=== PATIENT | female | born 1950 | race Caucasian/White ===

== ENCOUNTER → 2018-09-23 14:21 | Outpatient (CLI) | payer MEDICARE, OTHER, SELFPAY ==
--- NOTE | 2018-09-23 | DI.RAD.S_ITS ---
PROCEDURE: XR HIP W PEL IF DONE LT 2V INDICATIONS: PAIN IN LEFT HIP TECHNIQUE: 2 views of the hip were acquired. COMPARISON: None. FINDINGS: Bones: No fractures or dislocations. No suspicious bony lesions. The visualized pelvic ring appears intact. Soft tissues: No suspicious soft tissue calcifications or masses. IMPRESSION: No radiographic abnormalities. If there is continued pain, followup exam or additional imaging such as MRI or CT could be performed for further assessment. Dictated by: Linda Zafar M.D. on 09/23/2018 at 15:57 Approved by: Linda Zafar M.D. on 09/23/2018 at 15:57
--- NOTE | 2018-09-23 | DI.RAD.S_ITS ---
PROCEDURE: XR HAND RT MIN 3V INDICATIONS: pain in right hand TECHNIQUE: 3 views of the hand(s) acquired. COMPARISON: None. FINDINGS: Bones: No acute fracture or dislocation. There is severe interphalangeal joint space narrowing. 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 Soft tissues: No suspicious soft tissue calcifications. IMPRESSION: Osteoarthritis. Dictated by: Linda Zafar M.D. on 09/23/2018 at 15:56 Approved by: Linda Zafar M.D. on 09/23/2018 at 15:57
--- NOTE | 2018-09-23 | DI.RAD.S_ITS ---
PROCEDURE: XR HAND LT MIN 3V INDICATIONS: PAIN IN LEFT HAND TECHNIQUE: 3 views of the hand(s) acquired. COMPARISON: None. FINDINGS: Bones: No acute fracture or dislocation. Severe interphalangeal joint space narrowing is present. 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 Soft tissues: No suspicious soft tissue calcifications. IMPRESSION: Severe degenerative change. No acute radiographic findings. Dictated by: Linad Zafar M.D. on 09/23/2018 at 15:55 Approved by: Linda Zafar M.D. on 09/23/2018 at 15:56
== END ==
PROVIDERS: PCP Physician Assistant; Visit Provider Physician Assistant
DX: M25.552 Pain in left hip (principal); M79.642 Pain in left hand; M79.641 Pain in right hand; M18.0 Bilateral primary osteoarthritis of first carpometacarpal joints
CPT/HCPCS: 73130; 73502

== ENCOUNTER 2019-01-11 14:39 | Emergency (ER) | payer MEDICARE, OTHER, SELFPAY ==
[2019-01-11 14:43] VITALS: BP 142/82; PULSE 88; RESP 20; TEMP 35.8; O2SAT 96; BMI 40.7
[2019-01-11 15:42] VITALS: BP 112/71; PULSE 83; RESP 19; O2SAT 94
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
== END 2019-01-11 15:46 | disposition home or self-care (01) ==
PROVIDERS: Emergency Provider Emergency Medicine; PCP Physician Assistant
DX: S16.1XXA Strain of muscle, fascia and tendon at neck level, initial encounter (principal); V43.52XA Car driver injured in collision with other type car in traffic accident, initial encounter
CPT/HCPCS: 99282; 99283

== ENCOUNTER 2019-06-06 13:45 | Outpatient (RCR) | payer MEDICARE, OTHER, SELFPAY ==
--- NOTE | 2018-11-15 16:00 | PT.OPPOC ---
Current Diagnoses Pain in left hip (11/15/18) Provider Visit Care Team Role Provider Type Yenny Harrell PA-C Attending Provider Physician Primary Care Provider Specialty: Internal Medicine Address: [address] [place] [address], [facility] Email: Plan Of Care PT-OP-T Assessment and Plan Start: 11/15/18 16:05 Freq: Status: Active Protocol: Document 11/15/18 16:00 EA (Rec: 11/16/18 07:36 EA [id number]) Physical Therapy Assessment Rehab Potential Rehabilitation Potential Fair Evaluation Complexity Number of Personal Factors/Comorbidities 3 or More Number of Body Systems Impaired 3 Clinical Presentation at Evaluation Evolving Impairments Impairments Activity Tolerance Functional Mobility Pain ROM Soft Tissue Mobility Strength Goals Four Impairment No HEP in place Nursing Home Goal (LTG) Patient will comply and perform HEP safely and independently. LTG Duration 4 wks Three Impairment Impaired gait Nursing Home Goal (LTG) Patient will exhibit no lateral trunk lean to decrease improve function and prevent muscular imbalance. 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 Today patient exhibited with difficulty in gait and and bed mobility due to multiple pain to left hip, low back, and right thigh. Special tests reveals positive with right piriformis syndrome, both ITB band tightness and hip flexors. Noted negative with SLR, SHARI and SI joint dysfuntion. Patient is limited with walking, standing and sitting tolerance. Pt is good candidate for skilled PT and will benefit with education, decreasing LE symptoms and both LE's strengthening. Physical Therapy Plan Frequency and Duration Frequency of Treatment 2x/Week Duration of Treatment 8 wks Plan of Care Start Date 11/15/18 Plan of Care End Date 01/10/19 Therapeutic Interventions Therapeutic Interventions Gait Training Home Exercise Program Manual Therapy Patient/Caregiver Education Self-Care/Home Management Soft Tissue Mobilization Taping Therapeutic Exercises Modalities Cold Pack/Ice Massage Electric Stimulation Hot Packs Ultrasound Next Visit Focus/Plan Next Note Type Treatment Note Next Visit Plan Provide HEP with images, begin light stretching and manual therapy to both ITB, upper gluteals and Plan of Care Dates Plan of Care Start Date 11/15/18 Plan of Care End Date 01/10/19 Please Sign and Return: I have reviewed this Plan of Care and certify that the skilled therapy services above are required to meet the patient?s needs. Physician Signature Date Printed Name and Credentials Clinical Instructor Signature Printed Name and Credentials
--- NOTE | 2018-11-15 16:00 | PT.OIE ---
Current Diagnoses Pain in left hip (11/15/18) Provider Visit Care Team Role Provider Type Yenny Harrell PA-C Attending Provider Physician Primary Care Provider Specialty: Internal Medicine Address: [address] [place] [address], [facility] Email: Physical Therapy Initial Evaluation PT-OP-A Visit Information Start: 11/15/18 16:05 Freq: Status: Active Protocol: Document 11/15/18 16:00 EA (Rec: 11/16/18 07:36 EA [id number]) Out-Patient Physical Therapy Visit Information Visit Information Visit Type Initial Evaluation Visit Start Time 15:15 Visit Stop Time 16:00 Total Visit Minutes 40 Visit Number 1 Evaluation Information Evaluation Date 11/16/18 PT-OP-B Current Condition Start: 11/15/18 16:05 Freq: Status: Active Protocol: Document 11/15/18 16:00 EA (Rec: 11/16/18 07:36 EA [id number]) Current Condition History of Current Condition Onset Date August/2018 Current Complaints Left hip and right thigh pain History of Current Condition Present left hip condition started to re-aggravated on August 2018 without known recent injury. Have had history of left hip bursitis and undergone yanelis steroid injection with good results years ago. Right chronic LE sciatica with no formal PT. OTC pain medication helps relief of pain temporarily. X- rays to left hip reveals no significant findings per medical records. Health history of NIDDM with metformin meds, HTN, abdominal hernia, hypothyroidism and OA . Prior Treatments and Tests Left hip steroid injection Future Testing and Treatments Planned None identified Treatment Goals Patient/Caregiver Goals Patient wants to reduce left hip, right thigh, and low back pain to at least 2/10 pain scale. Prior Functional Status Baseline Function- ADL's Independent Baseline Function- Mobility Independent Baseline Function- Gait Indep with no difficulty prior to re-aggravation 3 months ago. Baseline Function- Work/School Able to look after her in all personal care prior to 2017 re-aggravation Current Functional Impairments (Reported) Functional Limitations- ADL's Independent with difficulty and requires constant rest to complete the task due to pain Functional Limitations- Mobility/Gait Unable to walk more than 2 blocks Functional Limitations- Work/School Indep with difficulty looking after her PT-OP-C Subjective Start: 11/15/18 16:05 Freq: Status: Active Protocol: Document 11/15/18 16:00 EA (Rec: 11/16/18 07:36 EA [id number]) OP-PT Subjective Patient Comments Patient Comments Patient would like to eliminate left hip and right postlateral thigh pain Patient Reported Progress Same PT-OP-D Balance Start: 11/15/18 16:05 Freq: Status: Active Protocol: Document 11/15/18 16:17 EA (Rec: 11/16/18 09:28 EA [id number]) Balance Tests Single Limb Standing Single Limb- Right <2 secs Single Limb- Left > 2 secs PT-OP-F Manual Assessment Start: 11/15/18 16:05 Freq: Status: Active Protocol: Document 11/15/18 16:00 EA (Rec: 11/16/18 07:36 EA [id number]) Manual Assessments Soft Tissue Assessment Soft Tissue Mobility Assessment Tight both QL, Paralumbars, hamstring, ITB, Calves. PT-OP-G Mobility & Gait Start: 11/15/18 16:05 Freq: Status: Active Protocol: Document 11/15/18 14:10 EA (Rec: 11/16/18 09:28 EA [id number]) OP Mobility Evaluation Bed Mobility Rolling Indep with moderate difficulty Supine to and from Sit Indep with moderate difficulty Transfers Sit to Stand Indep Bed to Chair Transfers Indep OP Gait Assessment Gait Gait Assistance Required: Independent Able to Maintain Weight Bearing Status Yes During Gait Assistive Devices Assistive Device None Gait Deviations General Gait Pattern Lateral Trunk Lean PT-OP-J Posture/Palpation/Skin Start: 11/15/18 16:05 Freq: Status: Active Protocol: Document 11/15/18 16:00 EA (Rec: 11/16/18 07:36 EA [id number]) Posture Evaluation Position Standing Evaluation View pot/lateral L-Spine Posture Increased Lordosis Shoulder Posture (L) Rounded (R) Rounded Pelvis Posture Anteriorly Tilted Palpation Assessment Location One Palpation Location Gluteals, ITB Palpation Findings Soft Tissue Tightness Tenderness Palpation Details Grade 3/4 tenderness over ITB, gluteals. PT-OP-K Range of Motion Start: 11/15/18 16:05 Freq: Status: Active Protocol: Document 11/15/18 14:10 EA (Rec: 11/16/18 09:28 EA [id number]) Lumbar Spine Range of Motion Lumbar Spine Active Percentage Testing Position Standing Flexion 75 Extension 90 Rotation Left 75 Rotation Right 75 Lateral Flexion Left 65 Lateral Flexion Right 65 ROM Limitations Soft Tissue Tightness Finger Goniometric Range of Motion Finger ROM Limitations Finger ROM Limitations Soft Tissue Tightness Comments Both index finger limited flexion Hip Goniometric Range of Motion Hip Measured in Degrees Left Passive Hip ROM WFL Yes Right Passive Hip ROM WFL Yes Hip ROM Limitations Hip ROM Limitations Soft Tissue Tightness Knee Goniometric Range of Motion Knee Measured in Degrees Right Knee ROM WFL Yes Left Knee ROM WFL Yes PT-OP-L Special Tests Start: 11/15/18 16:05 Freq: Status: Active Protocol: Document 11/15/18 14:10 EA (Rec: 11/16/18 09:28 EA [id number]) Special Tests Hip Special Tests Trendelenberg Test Results Right compesated SHARI Test Results negative Piriformis Test Results sensitive to right side Straight Leg Raise Test Results - Marlene's Test Test Results + Anterior Labral Test Test Results - PT-OP-Q Treatments Start: 11/15/18 16:05 Freq: Status: Active Protocol: Document 11/15/18 16:10 EA (Rec: 11/16/18 09:28 EA [id number]) Self-Care/Home Management Treatment Education Patient Education Body Mechanics Home Exercise Program Pain Management Safety PT-OP-T Assessment and Plan Start: 11/15/18 16:05 Freq: Status: Active Protocol: Document 11/15/18 16:00 EA (Rec: 11/16/18 07:36 EA [id number]) Physical Therapy Assessment Rehab Potential Rehabilitation Potential Fair Evaluation Complexity Number of Personal Factors/Comorbidities 3 or More Number of Body Systems Impaired 3 Clinical Presentation at Evaluation Evolving Impairments Impairments Activity Tolerance Functional Mobility Pain ROM Soft Tissue Mobility Strength Goals Four Impairment No HEP in place Programs Director Goal (LTG) Patient will comply and perform HEP safely and independently. LTG Duration 4 wks Three Impairment Impaired gait Programs Director Goal (LTG) Patient will exhibit no lateral trunk lean to decrease improve function and prevent muscular imbalance. LTG Duration 4 wks Two Impairment Difficulty with bed mobility Snf Goal (LTG) Patient will exhibits no difficulty in all bed mobility LTG Duration 4 wks One Impairment LEFS 29/80 Snf Goal (LTG) Patient will have LEFS of > 45 LTG Duration 4 wks Assessment Summary Assessment Pleasant 68 y/o F patient with referring diagnosis of left hip pain. Today patient exhibited with difficulty in gait and and bed mobility due to multiple pain to left hip, low back, and right thigh. Special tests reveals positive with right piriformis syndrome, both ITB band tightness and hip flexors. Noted negative with SLR, SHARI and SI joint dysfuntion. Patient is limited with walking, standing and sitting tolerance. Pt is good candidate for skilled PT and will benefit with education, decreasing LE symptoms and both LE's strengthening. Physical Therapy Plan Frequency and Duration Frequency of Treatment 2x/Week Duration of Treatment 8 wks Plan of Care Start Date 11/15/18 Plan of Care End Date 01/10/19 Therapeutic Interventions Therapeutic Interventions Gait Training Home Exercise Program Manual Therapy Patient/Caregiver Education Self-Care/Home Management Soft Tissue Mobilization Taping Therapeutic Exercises Modalities Cold Pack/Ice Massage Electric Stimulation Hot Packs Ultrasound Next Visit Focus/Plan Next Note Type Treatment Note Next Visit Plan Provide HEP with images, begin light stretching and manual therapy to both ITB, upper gluteals and
--- NOTE | 2018-11-17 16:49 | PT.OTN ---
Current Diagnoses Pain in left hip (11/17/18) Physical Therapy Treatment Note PT-OP-A Visit Information Start: 11/15/18 16:05 Freq: Status: Active Protocol: Document 11/17/18 16:41 [facility] (Rec: 11/17/18 16:49 AM[facility] [id number]) Out-Patient Physical Therapy Visit Information Visit Information Visit Type Treatment Note Visit Start Time 15:15 Visit Stop Time 16:00 Total Visit Minutes 45 Visit Number 2 Evaluation Information Evaluation Date 11/16/18 PT-OP-B Current Condition Start: 11/15/18 16:05 Freq: Status: Active Protocol: Document 11/15/18 16:00 EA (Rec: 11/16/18 07:36 EA [id number]) Current Condition History of Current Condition Onset Date August/2018 Current Complaints Left hip and right thigh pain History of Current Condition Present left hip condition started to re-aggravated on August 2018 without known recent injury. Have had history of left hip bursitis and undergone yanelis steroid injection with good results years ago. Right chronic LE sciatica with no formal PT. OTC pain medication helps relief of pain temporarily. X- rays to left hip reveals no significant findings per medical records. Health history of NIDDM with metformin meds, HTN, abdominal hernia, hypothyroidism and OA . Prior Treatments and Tests Left hip steroid injection Future Testing and Treatments Planned None identified Treatment Goals Patient/Caregiver Goals Patient wants to reduce left hip, right thigh, and low back pain to at least 2/10 pain scale. Prior Functional Status Baseline Function- ADL's Independent Baseline Function- Mobility Independent Baseline Function- Gait Indep with no difficulty prior to re-aggravation 3 months ago. Baseline Function- Work/School Able to look after her in all personal care prior to 2017 re-aggravation Current Functional Impairments (Reported) Functional Limitations- ADL's Independent with difficulty and requires constant rest to complete the task due to pain Functional Limitations- Mobility/Gait Unable to walk more than 2 blocks Functional Limitations- Work/School Indep with difficulty looking after her PT-OP-C Subjective Start: 11/15/18 16:05 Freq: Status: Active Protocol: Document 11/17/18 16:41 AM[facility] (Rec: 11/17/18 16:49 AM[facility] [id number]) OP-PT Subjective Patient Comments Patient Comments reports she may be a bit better from starting the stretches. She would like to work on her right side today which is the side that is giving her sciatic symptoms PT-OP-D Balance Start: 11/15/18 16:05 Freq: Status: Active Protocol: Document 11/15/18 16:17 EA (Rec: 11/16/18 09:28 EA [id number]) Balance Tests Single Limb Standing Single Limb- Right <2 secs Single Limb- Left > 2 secs PT-OP-F Manual Assessment Start: 11/15/18 16:05 Freq: Status: Active Protocol: Document 11/15/18 16:00 EA (Rec: 11/16/18 07:36 EA [id number]) Manual Assessments Soft Tissue Assessment Soft Tissue Mobility Assessment Tight both QL, Paralumbars, hamstring, ITB, Calves. PT-OP-G Mobility & Gait Start: 11/15/18 16:05 Freq: Status: Active Protocol: Document 11/15/18 14:10 EA (Rec: 11/16/18 09:28 EA [id number]) OP Mobility Evaluation Bed Mobility Rolling Indep with moderate difficulty Supine to and from Sit Indep with moderate difficulty Transfers Sit to Stand Indep Bed to Chair Transfers Indep OP Gait Assessment Gait Gait Assistance Required: Independent Able to Maintain Weight Bearing Status Yes During Gait Assistive Devices Assistive Device None Gait Deviations General Gait Pattern Lateral Trunk Lean PT-OP-J Posture/Palpation/Skin Start: 11/15/18 16:05 Freq: Status: Active Protocol: Document 11/15/18 16:00 EA (Rec: 11/16/18 07:36 EA [id number]) Posture Evaluation Position Standing Evaluation View pot/lateral L-Spine Posture Increased Lordosis Shoulder Posture (L) Rounded (R) Rounded Pelvis Posture Anteriorly Tilted Palpation Assessment Location One Palpation Location Gluteals, ITB Palpation Findings Soft Tissue Tightness Tenderness Palpation Details Grade 3/4 tenderness over ITB, gluteals. PT-OP-K Range of Motion Start: 11/15/18 16:05 Freq: Status: Active Protocol: Document 11/15/18 14:10 EA (Rec: 11/16/18 09:28 EA [id number]) Lumbar Spine Range of Motion Lumbar Spine Active Percentage Testing Position Standing Flexion 75 Extension 90 Rotation Left 75 Rotation Right 75 Lateral Flexion Left 65 Lateral Flexion Right 65 ROM Limitations Soft Tissue Tightness Finger Goniometric Range of Motion Finger ROM Limitations Finger ROM Limitations Soft Tissue Tightness Comments Both index finger limited flexion Hip Goniometric Range of Motion Hip Measured in Degrees Left Passive Hip ROM WFL Yes Right Passive Hip ROM WFL Yes Hip ROM Limitations Hip ROM Limitations Soft Tissue Tightness Knee Goniometric Range of Motion Knee Measured in Degrees Right Knee ROM WFL Yes Left Knee ROM WFL Yes PT-OP-L Special Tests Start: 11/15/18 16:05 Freq: Status: Active Protocol: Document 11/15/18 14:10 EA (Rec: 11/16/18 09:28 EA [id number]) Special Tests Hip Special Tests Trendelenberg Test Results Right compesated SHARI Test Results negative Piriformis Test Results sensitive to right side Straight Leg Raise Test Results - Marlene's Test Test Results + Anterior Labral Test Test Results - PT-OP-Q Treatments Start: 11/15/18 16:05 Freq: Status: Active Protocol: Document 11/17/18 16:41 AMH (Rec: 11/17/18 16:49 AMH [id number]) Therapeutic Exercises Supine Exercises 2 Supine Exercise Name supine hamstring and ITB stretch with strap 1 Supine Exercise Name single knee to chest Sitting Exercises 1 Sitting Exercise Name seated figure 4 stretch Manual Therapy Treatment Soft Tissue Mobilization 1 Body Location right piriformis and gluteal region Mobilization Type Myofascial Release Body Position left sidelying PT-OP-T Assessment and Plan Start: 11/15/18 16:05 Freq: Status: Active Protocol: Document 11/17/18 16:41 AMH (Rec: 11/17/18 16:49 AMH [email or web address]) Physical Therapy Assessment Assessment Summary Assessment Ira tolerated todays treatment well including MFR over the right piriformis. She did note that her tenderness was decreased today with palpation. Physical Therapy Plan Frequency and Duration Frequency of Treatment 2x/Week Duration of Treatment 8 wks Plan of Care Start Date 11/15/18 Plan of Care End Date 01/10/19 Therapeutic Interventions Therapeutic Interventions Gait Training Home Exercise Program Manual Therapy Patient/Caregiver Education Self-Care/Home Management Soft Tissue Mobilization Taping Therapeutic Exercises Modalities Cold Pack/Ice Massage Electric Stimulation Hot Packs Ultrasound Next Visit Focus/Plan Next Note Type Treatment Note Next Visit Plan continue with gentle stretching and manual therapy techniques
--- NOTE | 2018-11-24 15:12 | PT.OTN ---
Current Diagnoses Pain in left hip (11/24/18) Physical Therapy Treatment Note PT-OP-A Visit Information Start: 11/15/18 16:05 Freq: Status: Active Protocol: Document 11/24/18 14:59 EA (Rec: 11/24/18 15:08 EA [id number]) Out-Patient Physical Therapy Visit Information Visit Information Visit Type Treatment Note Visit Start Time 14:30 Visit Stop Time 15:15 Total Visit Minutes 45 Visit Number 3 PT-OP-B Current Condition Start: 11/15/18 16:05 Freq: Status: Active Protocol: Document 11/15/18 16:00 EA (Rec: 11/16/18 07:36 EA [id number]) Current Condition History of Current Condition Onset Date August/2018 Current Complaints Left hip and right thigh pain History of Current Condition Present left hip condition started to re-aggravated on August 2018 without known recent injury. Have had history of left hip bursitis and undergone yanelis steroid injection with good results years ago. Right chronic LE sciatica with no formal PT. OTC pain medication helps relief of pain temporarily. X- rays to left hip reveals no significant findings per medical records. Health history of NIDDM with metformin meds, HTN, abdominal hernia, hypothyroidism and OA . Prior Treatments and Tests Left hip steroid injection Future Testing and Treatments Planned None identified Treatment Goals Patient/Caregiver Goals Patient wants to reduce left hip, right thigh, and low back pain to at least 2/10 pain scale. Prior Functional Status Baseline Function- ADL's Independent Baseline Function- Mobility Independent Baseline Function- Gait Indep with no difficulty prior to re-aggravation 3 months ago. Baseline Function- Work/School Able to look after her in all personal care prior to 2017 re-aggravation Current Functional Impairments (Reported) Functional Limitations- ADL's Independent with difficulty and requires constant rest to complete the task due to pain Functional Limitations- Mobility/Gait Unable to walk more than 2 blocks Functional Limitations- Work/School Indep with difficulty looking after her PT-OP-C Subjective Start: 11/15/18 16:05 Freq: Status: Active Protocol: Document 11/24/18 14:59 EA (Rec: 11/24/18 15:08 EA [id number]) OP-PT Subjective Patient Comments Patient Comments Pt reports supine figure of 4 stretch made right side discomfort; states better in sitting. PT-OP-D Balance Start: 11/15/18 16:05 Freq: Status: Active Protocol: Document 11/15/18 16:17 EA (Rec: 11/16/18 09:28 EA [id number]) Balance Tests Single Limb Standing Single Limb- Right <2 secs Single Limb- Left > 2 secs PT-OP-F Manual Assessment Start: 11/15/18 16:05 Freq: Status: Active Protocol: Document 11/15/18 16:00 EA (Rec: 11/16/18 07:36 EA [id number]) Manual Assessments Soft Tissue Assessment Soft Tissue Mobility Assessment Tight both QL, Paralumbars, hamstring, ITB, Calves. PT-OP-G Mobility & Gait Start: 11/15/18 16:05 Freq: Status: Active Protocol: Document 11/15/18 14:10 EA (Rec: 11/16/18 09:28 EA [id number]) OP Mobility Evaluation Bed Mobility Rolling Indep with moderate difficulty Supine to and from Sit Indep with moderate difficulty Transfers Sit to Stand Indep Bed to Chair Transfers Indep OP Gait Assessment Gait Gait Assistance Required: Independent Able to Maintain Weight Bearing Status Yes During Gait Assistive Devices Assistive Device None Gait Deviations General Gait Pattern Lateral Trunk Lean PT-OP-J Posture/Palpation/Skin Start: 11/15/18 16:05 Freq: Status: Active Protocol: Document 11/15/18 16:00 EA (Rec: 11/16/18 07:36 EA [id number]) Posture Evaluation Position Standing Evaluation View pot/lateral L-Spine Posture Increased Lordosis Shoulder Posture (L) Rounded (R) Rounded Pelvis Posture Anteriorly Tilted Palpation Assessment Location One Palpation Location Gluteals, ITB Palpation Findings Soft Tissue Tightness Tenderness Palpation Details Grade 3/4 tenderness over ITB, gluteals. PT-OP-K Range of Motion Start: 11/15/18 16:05 Freq: Status: Active Protocol: Document 11/15/18 14:10 EA (Rec: 11/16/18 09:28 EA [id number]) Lumbar Spine Range of Motion Lumbar Spine Active Percentage Testing Position Standing Flexion 75 Extension 90 Rotation Left 75 Rotation Right 75 Lateral Flexion Left 65 Lateral Flexion Right 65 ROM Limitations Soft Tissue Tightness Finger Goniometric Range of Motion Finger ROM Limitations Finger ROM Limitations Soft Tissue Tightness Comments Both index finger limited flexion Hip Goniometric Range of Motion Hip Measured in Degrees Left Passive Hip ROM WFL Yes Right Passive Hip ROM WFL Yes Hip ROM Limitations Hip ROM Limitations Soft Tissue Tightness Knee Goniometric Range of Motion Knee Measured in Degrees Right Knee ROM WFL Yes Left Knee ROM WFL Yes PT-OP-L Special Tests Start: 11/15/18 16:05 Freq: Status: Active Protocol: Document 11/15/18 14:10 EA (Rec: 11/16/18 09:28 EA [id number]) Special Tests Hip Special Tests Trendelenberg Test Results Right compesated SHARI Test Results negative Piriformis Test Results sensitive to right side Straight Leg Raise Test Results - Marlene's Test Test Results + Anterior Labral Test Test Results - PT-OP-Q Treatments Start: 11/15/18 16:05 Freq: Status: Active Protocol: Document 11/24/18 14:59 EA (Rec: 11/24/18 15:08 EA [id number]) Cardio Equipment Recumbent Stepper (Sci-Fit) Duration (Minutes) 5 Resistance 1 Seat Position 12 Therapeutic Exercises Supine Exercises 4 Supine Exercise Name ITB stretch Side bilateral 3 Supine Exercise Name Piriformis stretch Side right 2 Supine Exercise Name supine hamstring and ITB stretch with strap 1 Supine Exercise Name single knee to chest Sitting Exercises 1 Sitting Exercise Name seated figure 4 stretch Manual Therapy Treatment Soft Tissue Mobilization 1 Body Location right piriformis and gluteal region Mobilization Type Myofascial Release Body Position left sidelying Comments Gentle. PT-OP-R Modalities Start: 11/15/18 16:05 Freq: Status: Active Protocol: Document 11/24/18 14:59 EA (Rec: 11/24/18 15:08 EA [id number]) Electric Stimulation Electric Stimulation Interferential Current (IFC) Body Location right upper and gluetal, R ITB Duration (Minutes) 15 Intensity 13 Patient Position Sidelying Combined With Heat/Cold Hot Pack Comments HMP to right low back, gluteal and ITB PT-OP-T Assessment and Plan Start: 11/15/18 16:05 Freq: Status: Active Protocol: Document 11/24/18 14:59 EA (Rec: 11/24/18 15:08 EA [id number]) Physical Therapy Assessment Assessment Summary Assessment Pt is able to tolerate stretch and manual STM with gentle approach. Physical Therapy Plan Next Visit Focus/Plan Next Note Type Treatment Note Next Visit Plan continue with gentle stretching and manual therapy techniques
--- NOTE | 2018-11-29 17:07 | PT.OTN ---
Current Diagnoses Pain in left hip (11/29/18) Physical Therapy Treatment Note PT-OP-A Visit Information Start: 11/15/18 16:05 Freq: Status: Active Protocol: Document 11/29/18 17:02 EA (Rec: 11/29/18 17:06 EA [id number]) Out-Patient Physical Therapy Visit Information Visit Information Visit Type Treatment Note Visit Start Time 15:15 Visit Stop Time 16:00 Total Visit Minutes 45 Visit Number 4 PT-OP-B Current Condition Start: 11/15/18 16:05 Freq: Status: Active Protocol: Document 11/15/18 16:00 EA (Rec: 11/16/18 07:36 EA [id number]) Current Condition History of Current Condition Onset Date August/2018 Current Complaints Left hip and right thigh pain History of Current Condition Present left hip condition started to re-aggravated on August 2018 without known recent injury. Have had history of left hip bursitis and undergone yanelis steroid injection with good results years ago. Right chronic LE sciatica with no formal PT. OTC pain medication helps relief of pain temporarily. X- rays to left hip reveals no significant findings per medical records. Health history of NIDDM with metformin meds, HTN, abdominal hernia, hypothyroidism and OA . Prior Treatments and Tests Left hip steroid injection Future Testing and Treatments Planned None identified Treatment Goals Patient/Caregiver Goals Patient wants to reduce left hip, right thigh, and low back pain to at least 2/10 pain scale. Prior Functional Status Baseline Function- ADL's Independent Baseline Function- Mobility Independent Baseline Function- Gait Indep with no difficulty prior to re-aggravation 3 months ago. Baseline Function- Work/School Able to look after her in all personal care prior to 2017 re-aggravation Current Functional Impairments (Reported) Functional Limitations- ADL's Independent with difficulty and requires constant rest to complete the task due to pain Functional Limitations- Mobility/Gait Unable to walk more than 2 blocks Functional Limitations- Work/School Indep with difficulty looking after her PT-OP-C Subjective Start: 11/15/18 16:05 Freq: Status: Active Protocol: Document 11/29/18 17:02 EA (Rec: 11/29/18 17:06 EA [id number]) OP-PT Subjective Patient Comments Patient Comments Reports went to [employer] and stood out for > 2 hours; states scitic pain reccurs. PT-OP-D Balance Start: 11/15/18 16:05 Freq: Status: Active Protocol: Document 11/15/18 16:17 EA (Rec: 11/16/18 09:28 EA [id number]) Balance Tests Single Limb Standing Single Limb- Right <2 secs Single Limb- Left > 2 secs PT-OP-F Manual Assessment Start: 11/15/18 16:05 Freq: Status: Active Protocol: Document 11/15/18 16:00 EA (Rec: 11/16/18 07:36 EA [id number]) Manual Assessments Soft Tissue Assessment Soft Tissue Mobility Assessment Tight both QL, Paralumbars, hamstring, ITB, Calves. PT-OP-G Mobility & Gait Start: 11/15/18 16:05 Freq: Status: Active Protocol: Document 11/15/18 14:10 EA (Rec: 11/16/18 09:28 EA [id number]) OP Mobility Evaluation Bed Mobility Rolling Indep with moderate difficulty Supine to and from Sit Indep with moderate difficulty Transfers Sit to Stand Indep Bed to Chair Transfers Indep OP Gait Assessment Gait Gait Assistance Required: Independent Able to Maintain Weight Bearing Status Yes During Gait Assistive Devices Assistive Device None Gait Deviations General Gait Pattern Lateral Trunk Lean PT-OP-J Posture/Palpation/Skin Start: 11/15/18 16:05 Freq: Status: Active Protocol: Document 11/15/18 16:00 EA (Rec: 11/16/18 07:36 EA [id number]) Posture Evaluation Position Standing Evaluation View pot/lateral L-Spine Posture Increased Lordosis Shoulder Posture (L) Rounded (R) Rounded Pelvis Posture Anteriorly Tilted Palpation Assessment Location One Palpation Location Gluteals, ITB Palpation Findings Soft Tissue Tightness Tenderness Palpation Details Grade 3/4 tenderness over ITB, gluteals. PT-OP-K Range of Motion Start: 11/15/18 16:05 Freq: Status: Active Protocol: Document 11/15/18 14:10 EA (Rec: 11/16/18 09:28 EA [id number]) Lumbar Spine Range of Motion Lumbar Spine Active Percentage Testing Position Standing Flexion 75 Extension 90 Rotation Left 75 Rotation Right 75 Lateral Flexion Left 65 Lateral Flexion Right 65 ROM Limitations Soft Tissue Tightness Finger Goniometric Range of Motion Finger ROM Limitations Finger ROM Limitations Soft Tissue Tightness Comments Both index finger limited flexion Hip Goniometric Range of Motion Hip Measured in Degrees Left Passive Hip ROM WFL Yes Right Passive Hip ROM WFL Yes Hip ROM Limitations Hip ROM Limitations Soft Tissue Tightness Knee Goniometric Range of Motion Knee Measured in Degrees Right Knee ROM WFL Yes Left Knee ROM WFL Yes PT-OP-L Special Tests Start: 11/15/18 16:05 Freq: Status: Active Protocol: Document 11/15/18 14:10 EA (Rec: 11/16/18 09:28 EA [id number]) Special Tests Hip Special Tests Trendelenberg Test Results Right compesated SHARI Test Results negative Piriformis Test Results sensitive to right side Straight Leg Raise Test Results - Marlene's Test Test Results + Anterior Labral Test Test Results - PT-OP-Q Treatments Start: 11/15/18 16:05 Freq: Status: Active Protocol: Document 11/29/18 17:02 EA (Rec: 11/29/18 17:06 EA [id number]) Cardio Equipment Recumbent Stepper (Sci-Fit) Duration (Minutes) 5 Resistance 1 Seat Position 12 Gym Equipment Shuttle Recovery Unilateral Squats Resistance 1.5 cord Reps/Time x 25 reps Bilateral Squats Resistance 2 cords Shuttle Recovery Platform Stable Reps/Time x 25 reps Therapeutic Exercises Supine Exercises 5 Supine Exercise Name SLR Reps/Minutes x 15 reps 4 Supine Exercise Name ITB stretch Side bilateral 3 Supine Exercise Name Piriformis stretch Side right 2 Supine Exercise Name supine hamstring and ITB stretch with strap 1 Supine Exercise Name single knee to chest Manual Therapy Treatment Soft Tissue Mobilization 1 Body Location right piriformis and gluteal region Mobilization Type Myofascial Release Body Position left sidelying Comments Gentle. PT-OP-R Modalities Start: 11/15/18 16:05 Freq: Status: Active Protocol: Document 11/29/18 17:02 EA (Rec: 11/29/18 17:06 EA [id number]) Electric Stimulation Electric Stimulation Interferential Current (IFC) Body Location right upper and gluetal, R ITB Duration (Minutes) 15 Intensity 13 Patient Position Sidelying Combined With Heat/Cold Hot Pack Comments HMP to right low back, gluteal and ITB PT-OP-T Assessment and Plan Start: 11/15/18 16:05 Freq: Status: Active Protocol: Document 11/29/18 17:02 EA (Rec: 11/29/18 17:06 [id number]) Physical Therapy Assessment Assessment Summary Assessment Pt tolerated a mod intensity of manual therapy and leg exercises at this time. Physical Therapy Plan Next Visit Focus/Plan Next Note Type Treatment Note Next Visit Plan continue with gentle stretching and manual therapy techniques
--- NOTE | 2018-12-01 16:45 | PT.OTN ---
Current Diagnoses Pain in left hip (12/01/18) Physical Therapy Treatment Note PT-OP-A Visit Information Start: 11/15/18 16:05 Freq: Status: Active Protocol: Document 12/01/18 15:55 EA (Rec: 12/01/18 15:59 EA [id number]) Out-Patient Physical Therapy Visit Information Visit Information Visit Type Treatment Note Visit Start Time 15:15 Visit Stop Time 16:00 Total Visit Minutes 45 Visit Number 5 PT-OP-B Current Condition Start: 11/15/18 16:05 Freq: Status: Active Protocol: Document 11/15/18 16:00 EA (Rec: 11/16/18 07:36 EA [id number]) Current Condition History of Current Condition Onset Date August/2018 Current Complaints Left hip and right thigh pain History of Current Condition Present left hip condition started to re-aggravated on August 2018 without known recent injury. Have had history of left hip bursitis and undergone yanelis steroid injection with good results years ago. Right chronic LE sciatica with no formal PT. OTC pain medication helps relief of pain temporarily. X- rays to left hip reveals no significant findings per medical records. Health history of NIDDM with metformin meds, HTN, abdominal hernia, hypothyroidism and OA . Prior Treatments and Tests Left hip steroid injection Future Testing and Treatments Planned None identified Treatment Goals Patient/Caregiver Goals Patient wants to reduce left hip, right thigh, and low back pain to at least 2/10 pain scale. Prior Functional Status Baseline Function- ADL's Independent Baseline Function- Mobility Independent Baseline Function- Gait Indep with no difficulty prior to re-aggravation 3 months ago. Baseline Function- Work/School Able to look after her in all personal care prior to 2017 re-aggravation Current Functional Impairments (Reported) Functional Limitations- ADL's Independent with difficulty and requires constant rest to complete the task due to pain Functional Limitations- Mobility/Gait Unable to walk more than 2 blocks Functional Limitations- Work/School Indep with difficulty looking after her PT-OP-C Subjective Start: 11/15/18 16:05 Freq: Status: Active Protocol: Document 12/01/18 15:55 EA (Rec: 12/01/18 15:59 EA [id number]) OP-PT Subjective Patient Comments Patient Comments Pt reports she feels PT is helping her condition; states she is compliant with HEP. PT-OP-D Balance Start: 11/15/18 16:05 Freq: Status: Active Protocol: Document 11/15/18 16:17 EA (Rec: 11/16/18 09:28 EA [id number]) Balance Tests Single Limb Standing Single Limb- Right <2 secs Single Limb- Left > 2 secs PT-OP-F Manual Assessment Start: 11/15/18 16:05 Freq: Status: Active Protocol: Document 11/15/18 16:00 EA (Rec: 11/16/18 07:36 EA [id number]) Manual Assessments Soft Tissue Assessment Soft Tissue Mobility Assessment Tight both QL, Paralumbars, hamstring, ITB, Calves. PT-OP-G Mobility & Gait Start: 11/15/18 16:05 Freq: Status: Active Protocol: Document 11/15/18 14:10 EA (Rec: 11/16/18 09:28 EA [id number]) OP Mobility Evaluation Bed Mobility Rolling Indep with moderate difficulty Supine to and from Sit Indep with moderate difficulty Transfers Sit to Stand Indep Bed to Chair Transfers Indep OP Gait Assessment Gait Gait Assistance Required: Independent Able to Maintain Weight Bearing Status Yes During Gait Assistive Devices Assistive Device None Gait Deviations General Gait Pattern Lateral Trunk Lean PT-OP-J Posture/Palpation/Skin Start: 11/15/18 16:05 Freq: Status: Active Protocol: Document 11/15/18 16:00 EA (Rec: 11/16/18 07:36 EA [id number]) Posture Evaluation Position Standing Evaluation View pot/lateral L-Spine Posture Increased Lordosis Shoulder Posture (L) Rounded (R) Rounded Pelvis Posture Anteriorly Tilted Palpation Assessment Location One Palpation Location Gluteals, ITB Palpation Findings Soft Tissue Tightness Tenderness Palpation Details Grade 3/4 tenderness over ITB, gluteals. PT-OP-K Range of Motion Start: 11/15/18 16:05 Freq: Status: Active Protocol: Document 11/15/18 14:10 EA (Rec: 11/16/18 09:28 EA [id number]) Lumbar Spine Range of Motion Lumbar Spine Active Percentage Testing Position Standing Flexion 75 Extension 90 Rotation Left 75 Rotation Right 75 Lateral Flexion Left 65 Lateral Flexion Right 65 ROM Limitations Soft Tissue Tightness Finger Goniometric Range of Motion Finger ROM Limitations Finger ROM Limitations Soft Tissue Tightness Comments Both index finger limited flexion Hip Goniometric Range of Motion Hip Measured in Degrees Left Passive Hip ROM WFL Yes Right Passive Hip ROM WFL Yes Hip ROM Limitations Hip ROM Limitations Soft Tissue Tightness Knee Goniometric Range of Motion Knee Measured in Degrees Right Knee ROM WFL Yes Left Knee ROM WFL Yes PT-OP-L Special Tests Start: 11/15/18 16:05 Freq: Status: Active Protocol: Document 11/15/18 14:10 EA (Rec: 11/16/18 09:28 EA [id number]) Special Tests Hip Special Tests Trendelenberg Test Results Right compesated SHARI Test Results negative Piriformis Test Results sensitive to right side Straight Leg Raise Test Results - Marlene's Test Test Results + Anterior Labral Test Test Results - PT-OP-Q Treatments Start: 11/15/18 16:05 Freq: Status: Active Protocol: Document 12/01/18 15:55 EA (Rec: 12/01/18 15:59 EA [id number]) Cardio Equipment Recumbent Stepper (Sci-Fit) Duration (Minutes) 5 Resistance 2.2 Seat Position 12 Gym Equipment Shuttle Recovery Unilateral Squats Resistance 2 cord Reps/Time x 25 reps Bilateral Squats Resistance 4 cords Shuttle Recovery Platform Stable Reps/Time x 25 reps Therapeutic Exercises Supine Exercises 5 Supine Exercise Name SLR Reps/Minutes x 15 reps 4 Supine Exercise Name ITB stretch Side bilateral 3 Supine Exercise Name Piriformis stretch Side right 2 Supine Exercise Name supine hamstring and ITB stretch with strap 1 Supine Exercise Name single knee to chest Manual Therapy Treatment Soft Tissue Mobilization 1 Body Location right piriformis and gluteal region Mobilization Type Myofascial Release Body Position left sidelying Comments Gentle. PT-OP-R Modalities Start: 11/15/18 16:05 Freq: Status: Active Protocol: Document 12/01/18 15:55 EA (Rec: 12/01/18 15:59 EA [id number]) Electric Stimulation Electric Stimulation Interferential Current (IFC) Body Location right upper and gluetal, R ITB Duration (Minutes) 15 Intensity 13 Patient Position Sidelying Combined With Heat/Cold Hot Pack Comments HMP to right low back, gluteal and ITB PT-OP-T Assessment and Plan Start: 11/15/18 16:05 Freq: Status: Active Protocol: Document 12/01/18 15:55 EA (Rec: 12/01/18 15:59 EA [id number]) Physical Therapy Assessment Assessment Summary Assessment Noted less tender over right hip and low back today. Patient is progressing well. Physical Therapy Plan Next Visit Focus/Plan Next Note Type Treatment Note Next Visit Plan continue with gentle stretching and manual therapy techniques
--- NOTE | 2018-12-06 16:42 | PT.OTN ---
Current Diagnoses Pain in left hip (12/06/18) Physical Therapy Treatment Note PT-OP-A Visit Information Start: 11/15/18 16:05 Freq: Status: Active Protocol: Document 12/06/18 16:34 EA (Rec: 12/06/18 16:42 EA [id number]) Out-Patient Physical Therapy Visit Information Visit Information Visit Type Treatment Note Visit Start Time 15:15 Visit Stop Time 16:03 Total Visit Minutes 48 Visit Number 6 PT-OP-B Current Condition Start: 11/15/18 16:05 Freq: Status: Active Protocol: Document 11/15/18 16:00 EA (Rec: 11/16/18 07:36 EA [id number]) Current Condition History of Current Condition Onset Date August/2018 Current Complaints Left hip and right thigh pain History of Current Condition Present left hip condition started to re-aggravated on August 2018 without known recent injury. Have had history of left hip bursitis and undergone yanelis steroid injection with good results years ago. Right chronic LE sciatica with no formal PT. OTC pain medication helps relief of pain temporarily. X- rays to left hip reveals no significant findings per medical records. Health history of NIDDM with metformin meds, HTN, abdominal hernia, hypothyroidism and OA . Prior Treatments and Tests Left hip steroid injection Future Testing and Treatments Planned None identified Treatment Goals Patient/Caregiver Goals Patient wants to reduce left hip, right thigh, and low back pain to at least 2/10 pain scale. Prior Functional Status Baseline Function- ADL's Independent Baseline Function- Mobility Independent Baseline Function- Gait Indep with no difficulty prior to re-aggravation 3 months ago. Baseline Function- Work/School Able to look after her in all personal care prior to 2017 re-aggravation Current Functional Impairments (Reported) Functional Limitations- ADL's Independent with difficulty and requires constant rest to complete the task due to pain Functional Limitations- Mobility/Gait Unable to walk more than 2 blocks Functional Limitations- Work/School Indep with difficulty looking after her PT-OP-C Subjective Start: 11/15/18 16:05 Freq: Status: Active Protocol: Document 12/06/18 16:34 EA (Rec: 12/06/18 16:42 EA [id number]) OP-PT Subjective Patient Comments Patient Comments Pt reports right hip is feeling much better though numbness happens once to right big toe; states left hip is bothering her most after [place] the [place]. Patient Reported Progress Improving PT-OP-D Balance Start: 11/15/18 16:05 Freq: Status: Active Protocol: Document 11/15/18 16:17 EA (Rec: 11/16/18 09:28 EA [id number]) Balance Tests Single Limb Standing Single Limb- Right <2 secs Single Limb- Left > 2 secs PT-OP-F Manual Assessment Start: 11/15/18 16:05 Freq: Status: Active Protocol: Document 11/15/18 16:00 EA (Rec: 11/16/18 07:36 EA [id number]) Manual Assessments Soft Tissue Assessment Soft Tissue Mobility Assessment Tight both QL, Paralumbars, hamstring, ITB, Calves. PT-OP-G Mobility & Gait Start: 11/15/18 16:05 Freq: Status: Active Protocol: Document 11/15/18 14:10 EA (Rec: 11/16/18 09:28 EA [id number]) OP Mobility Evaluation Bed Mobility Rolling Indep with moderate difficulty Supine to and from Sit Indep with moderate difficulty Transfers Sit to Stand Indep Bed to Chair Transfers Indep OP Gait Assessment Gait Gait Assistance Required: Independent Able to Maintain Weight Bearing Status Yes During Gait Assistive Devices Assistive Device None Gait Deviations General Gait Pattern Lateral Trunk Lean PT-OP-J Posture/Palpation/Skin Start: 11/15/18 16:05 Freq: Status: Active Protocol: Document 11/15/18 16:00 EA (Rec: 11/16/18 07:36 EA [id number]) Posture Evaluation Position Standing Evaluation View pot/lateral L-Spine Posture Increased Lordosis Shoulder Posture (L) Rounded (R) Rounded Pelvis Posture Anteriorly Tilted Palpation Assessment Location One Palpation Location Gluteals, ITB Palpation Findings Soft Tissue Tightness Tenderness Palpation Details Grade 3/4 tenderness over ITB, gluteals. PT-OP-K Range of Motion Start: 11/15/18 16:05 Freq: Status: Active Protocol: Document 11/15/18 14:10 EA (Rec: 11/16/18 09:28 EA [id number]) Lumbar Spine Range of Motion Lumbar Spine Active Percentage Testing Position Standing Flexion 75 Extension 90 Rotation Left 75 Rotation Right 75 Lateral Flexion Left 65 Lateral Flexion Right 65 ROM Limitations Soft Tissue Tightness Finger Goniometric Range of Motion Finger ROM Limitations Finger ROM Limitations Soft Tissue Tightness Comments Both index finger limited flexion Hip Goniometric Range of Motion Hip Measured in Degrees Left Passive Hip ROM WFL Yes Right Passive Hip ROM WFL Yes Hip ROM Limitations Hip ROM Limitations Soft Tissue Tightness Knee Goniometric Range of Motion Knee Measured in Degrees Right Knee ROM WFL Yes Left Knee ROM WFL Yes PT-OP-L Special Tests Start: 11/15/18 16:05 Freq: Status: Active Protocol: Document 11/15/18 14:10 EA (Rec: 11/16/18 09:28 EA [id number]) Special Tests Hip Special Tests Trendelenberg Test Results Right compesated SHARI Test Results negative Piriformis Test Results sensitive to right side Straight Leg Raise Test Results - Marlene's Test Test Results + Anterior Labral Test Test Results - PT-OP-Q Treatments Start: 11/15/18 16:05 Freq: Status: Active Protocol: Document 12/06/18 16:34 EA (Rec: 12/06/18 16:42 EA [id number]) Cardio Equipment Recumbent Stepper (Sci-Fit) Duration (Minutes) 5 Resistance 2.5 Seat Position 12 Gym Equipment Shuttle Recovery Unilateral Squats Resistance 2.5 cord Shuttle Recovery Platform Stable Reps/Time x 25 reps Bilateral Squats Resistance 4 cords Shuttle Recovery Platform Stable Reps/Time x 25 reps Therapeutic Exercises Supine Exercises 5 Supine Exercise Name SLR Side bilateral Reps/Minutes x 15 reps 4 Supine Exercise Name ITB stretch Side bilateral 3 Supine Exercise Name Piriformis stretch Side bilateral 2 Supine Exercise Name supine hamstring and ITB stretch with strap 1 Supine Exercise Name single knee to chest Manual Therapy Treatment Soft Tissue Mobilization 1 Body Location right and left piriformis and gluteal region Mobilization Type Myofascial Release Body Position left sidelying Comments Gentle. PT-OP-R Modalities Start: 11/15/18 16:05 Freq: Status: Active Protocol: Document 12/06/18 16:34 EA (Rec: 12/06/18 16:42 EA [id number]) Electric Stimulation Electric Stimulation Interferential Current (IFC) Body Location right/Left upper and gluetal, R/L ITB Duration (Minutes) 15 Intensity 13 Patient Position Sidelying Combined With Heat/Cold Hot Pack Comments HMP to left low back, gluteal and ITB PT-OP-T Assessment and Plan Start: 11/15/18 16:05 Freq: Status: Active Protocol: Document 12/06/18 16:34 EA (Rec: 12/06/18 16:42 EA [id number]) Physical Therapy Assessment Assessment Summary Assessment Pt tolerated treatment well. Tenderness and tightness to right hip is improved and left hip has increased symptoms today. Physical Therapy Plan Next Visit Focus/Plan Next Note Type Treatment Note Next Visit Plan Control gait with TA's activation.
--- NOTE | 2018-12-08 16:26 | PT.OTN ---
Current Diagnoses Pain in left hip (12/08/18) Physical Therapy Treatment Note PT-OP-A Visit Information Start: 11/15/18 16:05 Freq: Status: Active Protocol: Document 12/08/18 15:54 EA (Rec: 12/08/18 15:58 EA [id number]) Out-Patient Physical Therapy Visit Information Visit Information Visit Type Treatment Note Visit Start Time 15:15 Visit Stop Time 16:00 Total Visit Minutes 45 Visit Number 7 PT-OP-B Current Condition Start: 11/15/18 16:05 Freq: Status: Active Protocol: Document 11/15/18 16:00 EA (Rec: 11/16/18 07:36 EA [id number]) Current Condition History of Current Condition Onset Date August/2018 Current Complaints Left hip and right thigh pain History of Current Condition Present left hip condition started to re-aggravated on August 2018 without known recent injury. Have had history of left hip bursitis and undergone yanelis steroid injection with good results years ago. Right chronic LE sciatica with no formal PT. OTC pain medication helps relief of pain temporarily. X- rays to left hip reveals no significant findings per medical records. Health history of NIDDM with metformin meds, HTN, abdominal hernia, hypothyroidism and OA . Prior Treatments and Tests Left hip steroid injection Future Testing and Treatments Planned None identified Treatment Goals Patient/Caregiver Goals Patient wants to reduce left hip, right thigh, and low back pain to at least 2/10 pain scale. Prior Functional Status Baseline Function- ADL's Independent Baseline Function- Mobility Independent Baseline Function- Gait Indep with no difficulty prior to re-aggravation 3 months ago. Baseline Function- Work/School Able to look after her in all personal care prior to 2017 re-aggravation Current Functional Impairments (Reported) Functional Limitations- ADL's Independent with difficulty and requires constant rest to complete the task due to pain Functional Limitations- Mobility/Gait Unable to walk more than 2 blocks Functional Limitations- Work/School Indep with difficulty looking after her PT-OP-C Subjective Start: 11/15/18 16:05 Freq: Status: Active Protocol: Document 12/08/18 15:54 EA (Rec: 12/08/18 15:58 EA [id number]) OP-PT Subjective Patient Comments Patient Comments Pt reports right hip is feeling much better; states left hip starts to bother again; states she played and dance with her granddaughter. Patient Reported Progress Improving PT-OP-D Balance Start: 11/15/18 16:05 Freq: Status: Active Protocol: Document 11/15/18 16:17 EA (Rec: 11/16/18 09:28 EA [id number]) Balance Tests Single Limb Standing Single Limb- Right <2 secs Single Limb- Left > 2 secs PT-OP-F Manual Assessment Start: 11/15/18 16:05 Freq: Status: Active Protocol: Document 11/15/18 16:00 EA (Rec: 11/16/18 07:36 EA [id number]) Manual Assessments Soft Tissue Assessment Soft Tissue Mobility Assessment Tight both QL, Paralumbars, hamstring, ITB, Calves. PT-OP-G Mobility & Gait Start: 11/15/18 16:05 Freq: Status: Active Protocol: Document 11/15/18 14:10 EA (Rec: 11/16/18 09:28 EA [id number]) OP Mobility Evaluation Bed Mobility Rolling Indep with moderate difficulty Supine to and from Sit Indep with moderate difficulty Transfers Sit to Stand Indep Bed to Chair Transfers Indep OP Gait Assessment Gait Gait Assistance Required: Independent Able to Maintain Weight Bearing Status Yes During Gait Assistive Devices Assistive Device None Gait Deviations General Gait Pattern Lateral Trunk Lean PT-OP-J Posture/Palpation/Skin Start: 11/15/18 16:05 Freq: Status: Active Protocol: Document 11/15/18 16:00 EA (Rec: 11/16/18 07:36 EA [id number]) Posture Evaluation Position Standing Evaluation View pot/lateral L-Spine Posture Increased Lordosis Shoulder Posture (L) Rounded (R) Rounded Pelvis Posture Anteriorly Tilted Palpation Assessment Location One Palpation Location Gluteals, ITB Palpation Findings Soft Tissue Tightness Tenderness Palpation Details Grade 3/4 tenderness over ITB, gluteals. PT-OP-K Range of Motion Start: 11/15/18 16:05 Freq: Status: Active Protocol: Document 11/15/18 14:10 EA (Rec: 11/16/18 09:28 EA [id number]) Lumbar Spine Range of Motion Lumbar Spine Active Percentage Testing Position Standing Flexion 75 Extension 90 Rotation Left 75 Rotation Right 75 Lateral Flexion Left 65 Lateral Flexion Right 65 ROM Limitations Soft Tissue Tightness Finger Goniometric Range of Motion Finger ROM Limitations Finger ROM Limitations Soft Tissue Tightness Comments Both index finger limited flexion Hip Goniometric Range of Motion Hip Measured in Degrees Left Passive Hip ROM WFL Yes Right Passive Hip ROM WFL Yes Hip ROM Limitations Hip ROM Limitations Soft Tissue Tightness Knee Goniometric Range of Motion Knee Measured in Degrees Right Knee ROM WFL Yes Left Knee ROM WFL Yes PT-OP-L Special Tests Start: 11/15/18 16:05 Freq: Status: Active Protocol: Document 11/15/18 14:10 EA (Rec: 11/16/18 09:28 EA [id number]) Special Tests Hip Special Tests Trendelenberg Test Results Right compesated SHARI Test Results negative Piriformis Test Results sensitive to right side Straight Leg Raise Test Results - Marlene's Test Test Results + Anterior Labral Test Test Results - PT-OP-Q Treatments Start: 11/15/18 16:05 Freq: Status: Active Protocol: Document 12/08/18 15:54 EA (Rec: 12/08/18 15:58 EA [id number]) Cardio Equipment Recumbent Stepper (Sci-Fit) Duration (Minutes) 5 Resistance 2.5 Seat Position 12 Gym Equipment Shuttle Recovery Unilateral Squats Resistance 2.5 cord Shuttle Recovery Platform Stable Reps/Time x 15 reps Bilateral Squats Resistance 4 cords Shuttle Recovery Platform Stable Reps/Time x 15 reps Therapeutic Exercises Supine Exercises 5 Supine Exercise Name SLR Side bilateral Reps/Minutes x 15 reps 4 Supine Exercise Name ITB stretch Side bilateral 3 Supine Exercise Name Piriformis stretch Side bilateral 2 Supine Exercise Name supine hamstring and ITB stretch with strap 1 Supine Exercise Name single knee to chest Sitting Exercises 1 Sitting Exercise Name seated figure 4 stretch Reps/Minutes x 30SH x 2 reps PT-OP-R Modalities Start: 11/15/18 16:05 Freq: Status: Active Protocol: Document 12/08/18 15:58 EA (Rec: 12/08/18 15:59 EA [id number]) Electric Stimulation Electric Stimulation Interferential Current (IFC) Body Location right/Left upper and gluetal Duration (Minutes) 15 Intensity 13 Patient Position Sidelying Combined With Heat/Cold Hot Pack Comments HMP to left low back, gluteal and ITB PT-OP-T Assessment and Plan Start: 11/15/18 16:05 Freq: Status: Active Protocol: Document 12/08/18 15:54 EA (Rec: 12/08/18 15:58 EA [id number]) Physical Therapy Assessment Assessment Summary Assessment Pt tolerated treatment with minor discomfort to left hip during manual PT. Physical Therapy Plan Next Visit Focus/Plan Next Note Type Treatment Note Next Visit Plan Control gait with TA's activation.
--- NOTE | 2018-12-14 16:54 | PT.OTN ---
Current Diagnoses Pain in left hip (12/14/18) Physical Therapy Treatment Note PT-OP-A Visit Information Start: 11/15/18 16:05 Freq: Status: Active Protocol: Document 12/14/18 12:53 EA (Rec: 12/14/18 13:02 EA [id number]) Out-Patient Physical Therapy Visit Information Visit Information Visit Start Time 12:15 Visit Stop Time 03:03 Total Visit Minutes 48 Visit Number 8 PT-OP-B Current Condition Start: 11/15/18 16:05 Freq: Status: Active Protocol: Document 11/15/18 16:00 EA (Rec: 11/16/18 07:36 EA [id number]) Current Condition History of Current Condition Onset Date August/2018 Current Complaints Left hip and right thigh pain History of Current Condition Present left hip condition started to re-aggravated on August 2018 without known recent injury. Have had history of left hip bursitis and undergone yanelis steroid injection with good results years ago. Right chronic LE sciatica with no formal PT. OTC pain medication helps relief of pain temporarily. X- rays to left hip reveals no significant findings per medical records. Health history of NIDDM with metformin meds, HTN, abdominal hernia, hypothyroidism and OA . Prior Treatments and Tests Left hip steroid injection Future Testing and Treatments Planned None identified Treatment Goals Patient/Caregiver Goals Patient wants to reduce left hip, right thigh, and low back pain to at least 2/10 pain scale. Prior Functional Status Baseline Function- ADL's Independent Baseline Function- Mobility Independent Baseline Function- Gait Indep with no difficulty prior to re-aggravation 3 months ago. Baseline Function- Work/School Able to look after her in all personal care prior to 2017 re-aggravation Current Functional Impairments (Reported) Functional Limitations- ADL's Independent with difficulty and requires constant rest to complete the task due to pain Functional Limitations- Mobility/Gait Unable to walk more than 2 blocks Functional Limitations- Work/School Indep with difficulty looking after her PT-OP-C Subjective Start: 11/15/18 16:05 Freq: Status: Active Protocol: Document 12/14/18 12:53 EA (Rec: 12/14/18 13:02 EA [id number]) OP-PT Subjective Patient Comments Patient Comments Pt reports she is almost prepare to get a membership in the fitness club for her fitness goal. PT-OP-D Balance Start: 11/15/18 16:05 Freq: Status: Active Protocol: Document 11/15/18 16:17 EA (Rec: 11/16/18 09:28 EA [id number]) Balance Tests Single Limb Standing Single Limb- Right <2 secs Single Limb- Left > 2 secs PT-OP-F Manual Assessment Start: 11/15/18 16:05 Freq: Status: Active Protocol: Document 11/15/18 16:00 EA (Rec: 11/16/18 07:36 EA [id number]) Manual Assessments Soft Tissue Assessment Soft Tissue Mobility Assessment Tight both QL, Paralumbars, hamstring, ITB, Calves. PT-OP-G Mobility & Gait Start: 11/15/18 16:05 Freq: Status: Active Protocol: Document 11/15/18 14:10 EA (Rec: 11/16/18 09:28 EA [id number]) OP Mobility Evaluation Bed Mobility Rolling Indep with moderate difficulty Supine to and from Sit Indep with moderate difficulty Transfers Sit to Stand Indep Bed to Chair Transfers Indep OP Gait Assessment Gait Gait Assistance Required: Independent Able to Maintain Weight Bearing Status Yes During Gait Assistive Devices Assistive Device None Gait Deviations General Gait Pattern Lateral Trunk Lean PT-OP-J Posture/Palpation/Skin Start: 11/15/18 16:05 Freq: Status: Active Protocol: Document 11/15/18 16:00 EA (Rec: 11/16/18 07:36 EA [id number]) Posture Evaluation Position Standing Evaluation View pot/lateral L-Spine Posture Increased Lordosis Shoulder Posture (L) Rounded (R) Rounded Pelvis Posture Anteriorly Tilted Palpation Assessment Location One Palpation Location Gluteals, ITB Palpation Findings Soft Tissue Tightness Tenderness Palpation Details Grade 3/4 tenderness over ITB, gluteals. PT-OP-K Range of Motion Start: 11/15/18 16:05 Freq: Status: Active Protocol: Document 11/15/18 14:10 EA (Rec: 11/16/18 09:28 EA [id number]) Lumbar Spine Range of Motion Lumbar Spine Active Percentage Testing Position Standing Flexion 75 Extension 90 Rotation Left 75 Rotation Right 75 Lateral Flexion Left 65 Lateral Flexion Right 65 ROM Limitations Soft Tissue Tightness Finger Goniometric Range of Motion Finger ROM Limitations Finger ROM Limitations Soft Tissue Tightness Comments Both index finger limited flexion Hip Goniometric Range of Motion Hip Measured in Degrees Left Passive Hip ROM WFL Yes Right Passive Hip ROM WFL Yes Hip ROM Limitations Hip ROM Limitations Soft Tissue Tightness Knee Goniometric Range of Motion Knee Measured in Degrees Right Knee ROM WFL Yes Left Knee ROM WFL Yes PT-OP-L Special Tests Start: 11/15/18 16:05 Freq: Status: Active Protocol: Document 11/15/18 14:10 EA (Rec: 11/16/18 09:28 EA [id number]) Special Tests Hip Special Tests Trendelenberg Test Results Right compesated SHARI Test Results negative Piriformis Test Results sensitive to right side Straight Leg Raise Test Results - Marlene's Test Test Results + Anterior Labral Test Test Results - PT-OP-Q Treatments Start: 11/15/18 16:05 Freq: Status: Active Protocol: Document 12/14/18 12:53 EA (Rec: 12/14/18 13:02 EA [id number]) Cardio Equipment Recumbent Stepper (Sci-Fit) Duration (Minutes) 7 Resistance 2.5 Seat Position 12 Gym Equipment Shuttle Recovery Unilateral Squats Resistance 2.5 cord Shuttle Recovery Platform Stable Reps/Time x 15 reps Bilateral Squats Resistance 4.5 cords Shuttle Recovery Platform Stable Reps/Time x 15 reps x 3 Therapeutic Exercises Supine Exercises 7 Supine Exercise Name Hip ER Resistance BTB Reps/Minutes x 12 reps x 2 6 Supine Exercise Name Bridge Reps/Minutes x 12 reps x 2 5 Supine Exercise Name SLR Side bilateral Reps/Minutes x 15 reps 4 Supine Exercise Name ITB stretch Side bilateral 3 Supine Exercise Name Piriformis stretch Side bilateral 2 Supine Exercise Name supine hamstring and ITB stretch with strap 1 Supine Exercise Name single knee to chest Standing Exercises 1 Standing Exercise Name side step squat Resistance YTB Reps/Minutes x 7 ft x 2 each sides Manual Therapy Treatment Soft Tissue Mobilization 1 Body Location right and left piriformis and gluteal region Mobilization Type Myofascial Release Body Position left sidelying Comments Gentle. PT-OP-R Modalities Start: 11/15/18 16:05 Freq: Status: Active Protocol: Document 12/14/18 12:53 EA (Rec: 12/14/18 13:02 EA [id number]) Electric Stimulation Electric Stimulation Interferential Current (IFC) Body Location right/Left upper and gluetal Duration (Minutes) 15 Intensity 13 Patient Position Sidelying Combined With Heat/Cold Hot Pack Comments HMP to left low back, gluteal and ITB PT-OP-T Assessment and Plan Start: 11/15/18 16:05 Freq: Status: Active Protocol: Document 12/14/18 12:53 EA (Rec: 12/14/18 13:02 EA [id number]) Physical Therapy Assessment Assessment Summary Assessment Tolerated standing /weight bearing exercises. Physical Therapy Plan Next Visit Focus/Plan Next Note Type Treatment Note
--- NOTE | 2019-01-03 17:38 | PT.OTN ---
Current Diagnoses Pain in left hip (01/03/19) Physical Therapy Treatment Note PT-OP-A Visit Information Start: 11/15/18 16:05 Freq: Status: Active Protocol: Document 12/14/18 12:53 EA (Rec: 12/14/18 13:02 EA [id number]) Out-Patient Physical Therapy Visit Information Visit Information Visit Start Time 12:15 Visit Stop Time 03:03 Total Visit Minutes 48 Visit Number 8 PT-OP-B Current Condition Start: 11/15/18 16:05 Freq: Status: Active Protocol: Document 11/15/18 16:00 EA (Rec: 11/16/18 07:36 EA [id number]) Current Condition History of Current Condition Onset Date August/2018 Current Complaints Left hip and right thigh pain History of Current Condition Present left hip condition started to re-aggravated on August 2018 without known recent injury. Have had history of left hip bursitis and undergone yanelis steroid injection with good results years ago. Right chronic LE sciatica with no formal PT. OTC pain medication helps relief of pain temporarily. X- rays to left hip reveals no significant findings per medical records. Health history of NIDDM with metformin meds, HTN, abdominal hernia, hypothyroidism and OA . Prior Treatments and Tests Left hip steroid injection Future Testing and Treatments Planned None identified Treatment Goals Patient/Caregiver Goals Patient wants to reduce left hip, right thigh, and low back pain to at least 2/10 pain scale. Prior Functional Status Baseline Function- ADL's Independent Baseline Function- Mobility Independent Baseline Function- Gait Indep with no difficulty prior to re-aggravation 3 months ago. Baseline Function- Work/School Able to look after her in all personal care prior to 2017 re-aggravation Current Functional Impairments (Reported) Functional Limitations- ADL's Independent with difficulty and requires constant rest to complete the task due to pain Functional Limitations- Mobility/Gait Unable to walk more than 2 blocks Functional Limitations- Work/School Indep with difficulty looking after her PT-OP-C Subjective Start: 11/15/18 16:05 Freq: Status: Active Protocol: Document 01/03/19 16:14 EA (Rec: 01/03/19 16:15 EA [id number]) OP-PT Subjective Patient Comments Patient Comments Pt reports unable to come due to scheduling issues; states left thigh is getting little better but at times cramps to left lat thigh and low back area. PT-OP-D Balance Start: 11/15/18 16:05 Freq: Status: Active Protocol: Document 11/15/18 16:17 EA (Rec: 11/16/18 09:28 EA [id number]) Balance Tests Single Limb Standing Single Limb- Right <2 secs Single Limb- Left > 2 secs PT-OP-F Manual Assessment Start: 11/15/18 16:05 Freq: Status: Active Protocol: Document 11/15/18 16:00 EA (Rec: 11/16/18 07:36 EA [id number]) Manual Assessments Soft Tissue Assessment Soft Tissue Mobility Assessment Tight both QL, Paralumbars, hamstring, ITB, Calves. PT-OP-G Mobility & Gait Start: 11/15/18 16:05 Freq: Status: Active Protocol: Document 11/15/18 14:10 EA (Rec: 11/16/18 09:28 EA [id number]) OP Mobility Evaluation Bed Mobility Rolling Indep with moderate difficulty Supine to and from Sit Indep with moderate difficulty Transfers Sit to Stand Indep Bed to Chair Transfers Indep OP Gait Assessment Gait Gait Assistance Required: Independent Able to Maintain Weight Bearing Status Yes During Gait Assistive Devices Assistive Device None Gait Deviations General Gait Pattern Lateral Trunk Lean PT-OP-J Posture/Palpation/Skin Start: 11/15/18 16:05 Freq: Status: Active Protocol: Document 11/15/18 16:00 EA (Rec: 11/16/18 07:36 EA [id number]) Posture Evaluation Position Standing Evaluation View pot/lateral L-Spine Posture Increased Lordosis Shoulder Posture (L) Rounded (R) Rounded Pelvis Posture Anteriorly Tilted Palpation Assessment Location One Palpation Location Gluteals, ITB Palpation Findings Soft Tissue Tightness Tenderness Palpation Details Grade 3/4 tenderness over ITB, gluteals. PT-OP-K Range of Motion Start: 11/15/18 16:05 Freq: Status: Active Protocol: Document 11/15/18 14:10 EA (Rec: 11/16/18 09:28 EA [id number]) Lumbar Spine Range of Motion Lumbar Spine Active Percentage Testing Position Standing Flexion 75 Extension 90 Rotation Left 75 Rotation Right 75 Lateral Flexion Left 65 Lateral Flexion Right 65 ROM Limitations Soft Tissue Tightness Finger Goniometric Range of Motion Finger ROM Limitations Finger ROM Limitations Soft Tissue Tightness Comments Both index finger limited flexion Hip Goniometric Range of Motion Hip Measured in Degrees Left Passive Hip ROM WFL Yes Right Passive Hip ROM WFL Yes Hip ROM Limitations Hip ROM Limitations Soft Tissue Tightness Knee Goniometric Range of Motion Knee Measured in Degrees Right Knee ROM WFL Yes Left Knee ROM WFL Yes PT-OP-L Special Tests Start: 11/15/18 16:05 Freq: Status: Active Protocol: Document 11/15/18 14:10 EA (Rec: 11/16/18 09:28 EA [id number]) Special Tests Hip Special Tests Trendelenberg Test Results Right compesated SHARI Test Results negative Piriformis Test Results sensitive to right side Straight Leg Raise Test Results - Marlene's Test Test Results + Anterior Labral Test Test Results - PT-OP-Q Treatments Start: 11/15/18 16:05 Freq: Status: Active Protocol: Document 01/03/19 17:29 EA (Rec: 01/03/19 17:36 EA [id number]) Cardio Equipment Recumbent Stepper (Sci-Fit) Duration (Minutes) 7 Resistance 2.5 Seat Position 12 Therapeutic Exercises Supine Exercises 7 Supine Exercise Name Hip ER Resistance BTB Reps/Minutes x 12 reps x 2 6 Supine Exercise Name Bridge Reps/Minutes x 12 reps x 2 5 Supine Exercise Name SLR Side bilateral Reps/Minutes x 15 reps 4 Supine Exercise Name ITB stretch Side bilateral 3 Supine Exercise Name Piriformis stretch Side bilateral 2 Supine Exercise Name supine hamstring and ITB stretch with strap 1 Supine Exercise Name single knee to chest Manual Therapy Treatment Soft Tissue Mobilization 1 Body Location right and left piriformis and gluteal region, left calf Mobilization Type Myofascial Release Oscillations Sustained Pressure Trigger Point Release Body Position left and right Comments Gentle. PT-OP-R Modalities Start: 11/15/18 16:05 Freq: Status: Active Protocol: Document 01/03/19 16:14 EA (Rec: 01/03/19 16:15 EA [id number]) Electric Stimulation Electric Stimulation Interferential Current (IFC) Body Location right/Left upper and gluetal Duration (Minutes) 15 Intensity 13 Patient Position Sidelying Combined With Heat/Cold Hot Pack Comments HMP to left low back, gluteal and ITB PT-OP-T Assessment and Plan Start: 11/15/18 16:05 Freq: Status: Active Protocol: Document 01/03/19 17:29 [email or web address] (Rec: 01/03/19 17:36 EA [id number]) Physical Therapy Assessment Rehab Potential Rehabilitation Potential Fair Goals Four Impairment No HEP in place Crossbar Switch Adjuster Goal (LTG) Patient will comply and perform HEP safely and independently. LTG Duration 3 wks Three Impairment Impaired gait Crossbar Switch Adjuster Goal (LTG) Patient will exhibit no lateral trunk lean to decrease improve function and prevent muscular imbalance. LTG Duration 4 wks Two Impairment Difficulty with bed mobility Crossbar Switch Adjuster Goal (LTG) Patient will exhibits no difficulty in all bed mobility LTG Duration 4 wks One Impairment LEFS 30/80 Senior Care Goal (LTG) Patient will have LEFS of > 45 LTG Duration 4 wks Progress Towards Goals Progress Towards Goals Slow Progress due to Attendance Issues Slow Progress due to Medical Issues Assessment Summary Assessment Patient has shown improved tolerance to manual PT and has improved mobility in bed. Pt will cont. to progress with current plan Physical Therapy Plan Frequency and Duration Frequency of Treatment 2x/Week Next Visit Focus/Plan Next Note Type Treatment Note Next Visit Plan standing exercises
--- NOTE | 2019-01-05 15:16 | PT.OTN ---
Current Diagnoses Pain in left hip (01/05/19) Physical Therapy Treatment Note PT-OP-A Visit Information Start: 11/15/18 16:05 Freq: Status: Active Protocol: Document 01/05/19 15:10 EA (Rec: 01/05/19 15:16 EA [id number]) Out-Patient Physical Therapy Visit Information Visit Information Visit Type Treatment Note Visit Start Time 13:45 Visit Stop Time 14:30 Total Visit Minutes 50 Visit Number 9 PT-OP-B Current Condition Start: 11/15/18 16:05 Freq: Status: Active Protocol: Document 11/15/18 16:00 EA (Rec: 11/16/18 07:36 EA [id number]) Current Condition History of Current Condition Onset Date August/2018 Current Complaints Left hip and right thigh pain History of Current Condition Present left hip condition started to re-aggravated on August 2018 without known recent injury. Have had history of left hip bursitis and undergone yanelis steroid injection with good results years ago. Right chronic LE sciatica with no formal PT. OTC pain medication helps relief of pain temporarily. X- rays to left hip reveals no significant findings per medical records. Health history of NIDDM with metformin meds, HTN, abdominal hernia, hypothyroidism and OA . Prior Treatments and Tests Left hip steroid injection Future Testing and Treatments Planned None identified Treatment Goals Patient/Caregiver Goals Patient wants to reduce left hip, right thigh, and low back pain to at least 2/10 pain scale. Prior Functional Status Baseline Function- ADL's Independent Baseline Function- Mobility Independent Baseline Function- Gait Indep with no difficulty prior to re-aggravation 3 months ago. Baseline Function- Work/School Able to look after her in all personal care prior to 2017 re-aggravation Current Functional Impairments (Reported) Functional Limitations- ADL's Independent with difficulty and requires constant rest to complete the task due to pain Functional Limitations- Mobility/Gait Unable to walk more than 2 blocks Functional Limitations- Work/School Indep with difficulty looking after her PT-OP-C Subjective Start: 11/15/18 16:05 Freq: Status: Active Protocol: Document 01/05/19 15:10 EA (Rec: 01/05/19 15:16 EA [id number]) OP-PT Subjective Patient Comments Patient Comments Pt reports left inner leg bruises but dont know where it got. Pt reports compliant with HEP PT-OP-D Balance Start: 11/15/18 16:05 Freq: Status: Active Protocol: Document 11/15/18 16:17 EA (Rec: 11/16/18 09:28 EA [id number]) Balance Tests Single Limb Standing Single Limb- Right <2 secs Single Limb- Left > 2 secs PT-OP-F Manual Assessment Start: 11/15/18 16:05 Freq: Status: Active Protocol: Document 11/15/18 16:00 EA (Rec: 11/16/18 07:36 EA [id number]) Manual Assessments Soft Tissue Assessment Soft Tissue Mobility Assessment Tight both QL, Paralumbars, hamstring, ITB, Calves. PT-OP-G Mobility & Gait Start: 11/15/18 16:05 Freq: Status: Active Protocol: Document 11/15/18 14:10 EA (Rec: 11/16/18 09:28 EA [id number]) OP Mobility Evaluation Bed Mobility Rolling Indep with moderate difficulty Supine to and from Sit Indep with moderate difficulty Transfers Sit to Stand Indep Bed to Chair Transfers Indep OP Gait Assessment Gait Gait Assistance Required: Independent Able to Maintain Weight Bearing Status Yes During Gait Assistive Devices Assistive Device None Gait Deviations General Gait Pattern Lateral Trunk Lean PT-OP-J Posture/Palpation/Skin Start: 11/15/18 16:05 Freq: Status: Active Protocol: Document 11/15/18 16:00 EA (Rec: 11/16/18 07:36 EA [id number]) Posture Evaluation Position Standing Evaluation View pot/lateral L-Spine Posture Increased Lordosis Shoulder Posture (L) Rounded (R) Rounded Pelvis Posture Anteriorly Tilted Palpation Assessment Location One Palpation Location Gluteals, ITB Palpation Findings Soft Tissue Tightness Tenderness Palpation Details Grade 3/4 tenderness over ITB, gluteals. PT-OP-K Range of Motion Start: 11/15/18 16:05 Freq: Status: Active Protocol: Document 11/15/18 14:10 EA (Rec: 11/16/18 09:28 EA [id number]) Lumbar Spine Range of Motion Lumbar Spine Active Percentage Testing Position Standing Flexion 75 Extension 90 Rotation Left 75 Rotation Right 75 Lateral Flexion Left 65 Lateral Flexion Right 65 ROM Limitations Soft Tissue Tightness Finger Goniometric Range of Motion Finger ROM Limitations Finger ROM Limitations Soft Tissue Tightness Comments Both index finger limited flexion Hip Goniometric Range of Motion Hip Measured in Degrees Left Passive Hip ROM WFL Yes Right Passive Hip ROM WFL Yes Hip ROM Limitations Hip ROM Limitations Soft Tissue Tightness Knee Goniometric Range of Motion Knee Measured in Degrees Right Knee ROM WFL Yes Left Knee ROM WFL Yes PT-OP-L Special Tests Start: 11/15/18 16:05 Freq: Status: Active Protocol: Document 11/15/18 14:10 EA (Rec: 11/16/18 09:28 EA [id number]) Special Tests Hip Special Tests Trendelenberg Test Results Right compesated SHARI Test Results negative Piriformis Test Results sensitive to right side Straight Leg Raise Test Results - Marlene's Test Test Results + Anterior Labral Test Test Results - PT-OP-Q Treatments Start: 11/15/18 16:05 Freq: Status: Active Protocol: Document 01/05/19 15:10 EA (Rec: 01/05/19 15:16 EA [id number]) Cardio Equipment Recumbent Stepper (Sci-Fit) Duration (Minutes) 7 Resistance 2.5 Seat Position 12 Gym Equipment Shuttle Recovery Unilateral Squats Resistance 2-3 cord Shuttle Recovery Platform Stable Reps/Time x 15 reps Bilateral Squats Resistance 4.5 cords Shuttle Recovery Platform Stable Reps/Time x 15 reps x 3 Therapeutic Exercises Supine Exercises 7 Supine Exercise Name Hip ER Resistance BTB Reps/Minutes x 12 reps x 2 6 Supine Exercise Name Bridge Reps/Minutes x 12 reps x 2 5 Supine Exercise Name SLR Side bilateral Reps/Minutes x 15 reps 4 Supine Exercise Name ITB stretch Side bilateral 3 Supine Exercise Name Piriformis stretch Side bilateral 2 Supine Exercise Name supine hamstring and ITB stretch with strap 1 Supine Exercise Name single knee to chest Sitting Exercises 1 Sitting Exercise Name seated figure 4 stretch Reps/Minutes x 30SH x 2 reps Standing Exercises 1 Standing Exercise Name side step squat Resistance YTB Reps/Minutes x 7 ft x 2 each sides Manual Therapy Treatment Soft Tissue Mobilization 1 Body Location right and left piriformis and gluteal region, left calf Mobilization Type Myofascial Release Oscillations Sustained Pressure Trigger Point Release Body Position left and right Comments Gentle. PT-OP-R Modalities Start: 11/15/18 16:05 Freq: Status: Active Protocol: Document 01/05/19 15:10 EA (Rec: 01/05/19 15:16 EA [id number]) Electric Stimulation Electric Stimulation Interferential Current (IFC) Body Location right/Left upper and gluetal Duration (Minutes) 15 Intensity 13 Patient Position Sidelying Combined With Heat/Cold Hot Pack Comments HMP to left low back, gluteal and ITB PT-OP-T Assessment and Plan Start: 11/15/18 16:05 Freq: Status: Active Protocol: Document 01/05/19 15:10 EA (Rec: 01/05/19 15:16 EA [id number]) Physical Therapy Assessment Assessment Summary Assessment Pt tolerated treatment well. Recommended to cut down more body weight and explained the benefit of losing excess BW. Physical Therapy Plan Next Visit Focus/Plan Next Note Type Treatment Note Next Visit Plan standing exercises
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
--- NOTE | 2019-01-25 15:14 | PT.OTN ---
Current Diagnoses Pain in left hip (01/25/19) Physical Therapy Treatment Note PT-OP-A Visit Information Start: 11/15/18 16:05 Freq: Status: Active Protocol: Document 01/25/19 15:08 EA (Rec: 01/25/19 15:14 EA [id number]) Out-Patient Physical Therapy Visit Information Visit Information Visit Type Treatment Note Visit Start Time 13:45 Visit Stop Time 14:30 Total Visit Minutes 48 Visit Number 12 PT-OP-B Current Condition Start: 11/15/18 16:05 Freq: Status: Active Protocol: Document 11/15/18 16:00 EA (Rec: 11/16/18 07:36 EA [id number]) Current Condition History of Current Condition Onset Date August/2018 Current Complaints Left hip and right thigh pain History of Current Condition Present left hip condition started to re-aggravated on August 2018 without known recent injury. Have had history of left hip bursitis and undergone yanelis steroid injection with good results years ago. Right chronic LE sciatica with no formal PT. OTC pain medication helps relief of pain temporarily. X- rays to left hip reveals no significant findings per medical records. Health history of NIDDM with metformin meds, HTN, abdominal hernia, hypothyroidism and OA . Prior Treatments and Tests Left hip steroid injection Future Testing and Treatments Planned None identified Treatment Goals Patient/Caregiver Goals Patient wants to reduce left hip, right thigh, and low back pain to at least 2/10 pain scale. Prior Functional Status Baseline Function- ADL's Independent Baseline Function- Mobility Independent Baseline Function- Gait Indep with no difficulty prior to re-aggravation 3 months ago. Baseline Function- Work/School Able to look after her in all personal care prior to 2017 re-aggravation Current Functional Impairments (Reported) Functional Limitations- ADL's Independent with difficulty and requires constant rest to complete the task due to pain Functional Limitations- Mobility/Gait Unable to walk more than 2 blocks Functional Limitations- Work/School Indep with difficulty looking after her PT-OP-C Subjective Start: 11/15/18 16:05 Freq: Status: Active Protocol: Document 01/25/19 15:08 EA (Rec: 01/25/19 15:14 EA [id number]) OP-PT Subjective Patient Comments Patient Comments Pt reports groceries, walking and standing to ecmented place made her hip and low back painful and also unable sleep better last night. PT-OP-D Balance Start: 11/15/18 16:05 Freq: Status: Active Protocol: Document 11/15/18 16:17 EA (Rec: 11/16/18 09:28 EA [id number]) Balance Tests Single Limb Standing Single Limb- Right <2 secs Single Limb- Left > 2 secs PT-OP-F Manual Assessment Start: 11/15/18 16:05 Freq: Status: Active Protocol: Document 11/15/18 16:00 EA (Rec: 11/16/18 07:36 EA [id number]) Manual Assessments Soft Tissue Assessment Soft Tissue Mobility Assessment Tight both QL, Paralumbars, hamstring, ITB, Calves. PT-OP-G Mobility & Gait Start: 11/15/18 16:05 Freq: Status: Active Protocol: Document 11/15/18 14:10 EA (Rec: 11/16/18 09:28 EA [id number]) OP Mobility Evaluation Bed Mobility Rolling Indep with moderate difficulty Supine to and from Sit Indep with moderate difficulty Transfers Sit to Stand Indep Bed to Chair Transfers Indep OP Gait Assessment Gait Gait Assistance Required: Independent Able to Maintain Weight Bearing Status Yes During Gait Assistive Devices Assistive Device None Gait Deviations General Gait Pattern Lateral Trunk Lean PT-OP-J Posture/Palpation/Skin Start: 11/15/18 16:05 Freq: Status: Active Protocol: Document 01/17/19 15:09 EA (Rec: 01/17/19 15:17 EA [id number]) Palpation Assessment Location One Palpation Location Gluteals, ITB Palpation Findings Soft Tissue Tightness Tenderness Palpation Details Grade 2/4 tenderness over ITB, gluteals. PT-OP-K Range of Motion Start: 11/15/18 16:05 Freq: Status: Active Protocol: Document 01/17/19 15:09 EA (Rec: 01/17/19 15:17 EA [id number]) Lumbar Spine Range of Motion Lumbar Spine Active Percentage Testing Position Standing Flexion 80 Extension 90 Rotation Left 80 Rotation Right 80 Lateral Flexion Left 70 Lateral Flexion Right 70 ROM Limitations Soft Tissue Tightness Hip Goniometric Range of Motion Hip Measured in Degrees Left Passive Hip ROM WFL Yes Right Passive Hip ROM WFL Yes PT-OP-L Special Tests Start: 11/15/18 16:05 Freq: Status: Active Protocol: Document 11/15/18 14:10 EA (Rec: 11/16/18 09:28 EA [id number]) Special Tests Hip Special Tests Trendelenberg Test Results Right compesated SHARI Test Results negative Piriformis Test Results sensitive to right side Straight Leg Raise Test Results - Marlene's Test Test Results + Anterior Labral Test Test Results - PT-OP-Q Treatments Start: 11/15/18 16:05 Freq: Status: Active Protocol: Document 01/25/19 15:08 EA (Rec: 01/25/19 15:14 EA [id number]) Cardio Equipment Recumbent Stepper (Sci-Fit) Duration (Minutes) 8 Resistance 3 Seat Position 12 Gym Equipment Shuttle Recovery Unilateral Squats Resistance 2-3 cord Shuttle Recovery Platform Stable Reps/Time x 15 reps Bilateral Squats Resistance 4.5 cords Shuttle Recovery Platform Stable Reps/Time x 15 reps x 3 Therapeutic Exercises Supine Exercises 8 Supine Exercise Name Trunk rotation: AROM-stretch Reps/Minutes x 2 sets 7 Supine Exercise Name Hip ER Resistance BTB Reps/Minutes x 12 reps x 2 6 Supine Exercise Name Bridge with hip ABD Resistance Lv 2 Reps/Minutes x 12 reps x 2 5 Supine Exercise Name SLR Side bilateral Reps/Minutes x 15 reps 4 Supine Exercise Name ITB stretch Side bilateral 3 Supine Exercise Name Piriformis stretch Side bilateral 2 Supine Exercise Name supine hamstring and ITB stretch with strap 1 Supine Exercise Name single knee to chest Sitting Exercises 1 Sitting Exercise Name seated figure 4 stretch Reps/Minutes x 30SH x 2 reps Standing Exercises 1 Standing Exercise Name side step squat w/ heel raises Resistance YTB Reps/Minutes x 7 ft x 2 each sides Manual Therapy Treatment Soft Tissue Mobilization 1 Body Location right and left piriformis and gluteal region, left calf Mobilization Type Myofascial Release Oscillations Sustained Pressure Trigger Point Release Body Position left and right PT-OP-R Modalities Start: 11/15/18 16:05 Freq: Status: Active Protocol: Document 01/25/19 15:08 EA (Rec: 01/25/19 15:14 EA [id number]) Hot Pack/Cold Pack Treatment Hot Pack Location Left low back/lateral hip Patient Position Sidelying Treatment Duration (minutes) 10 Patient Tolerance Good PT-OP-T Assessment and Plan Start: 11/15/18 16:05 Freq: Status: Active Protocol: Document 01/25/19 15:08 KEERTHI (Rec: 01/25/19 15:14 KEERTHI [id number]) Physical Therapy Assessment Assessment Summary Assessment Improved exercises tolerance and flexibility. Gait still noted lateral weight shifting but advised to work on it at home. Physical Therapy Plan Next Visit Focus/Plan Next Note Type Treatment Note Next Visit Plan standing exercises
--- NOTE | 2019-02-01 15:22 | PT.OTN ---
Current Diagnoses Pain in left hip (02/01/19) Physical Therapy Treatment Note PT-OP-A Visit Information Start: 11/15/18 16:05 Freq: Status: Active Protocol: Document 02/01/19 15:16 EA (Rec: 02/01/19 15:21 EA [id number]) Out-Patient Physical Therapy Visit Information Visit Information Visit Type Treatment Note Visit Start Time 13:45 Visit Stop Time 14:30 Total Visit Minutes 50 Visit Number 13 PT-OP-B Current Condition Start: 11/15/18 16:05 Freq: Status: Active Protocol: Document 11/15/18 16:00 EA (Rec: 11/16/18 07:36 EA [id number]) Current Condition History of Current Condition Onset Date August/2018 Current Complaints Left hip and right thigh pain History of Current Condition Present left hip condition started to re-aggravated on August 2018 without known recent injury. Have had history of left hip bursitis and undergone yanelis steroid injection with good results years ago. Right chronic LE sciatica with no formal PT. OTC pain medication helps relief of pain temporarily. X- rays to left hip reveals no significant findings per medical records. Health history of NIDDM with metformin meds, HTN, abdominal hernia, hypothyroidism and OA . Prior Treatments and Tests Left hip steroid injection Future Testing and Treatments Planned None identified Treatment Goals Patient/Caregiver Goals Patient wants to reduce left hip, right thigh, and low back pain to at least 2/10 pain scale. Prior Functional Status Baseline Function- ADL's Independent Baseline Function- Mobility Independent Baseline Function- Gait Indep with no difficulty prior to re-aggravation 3 months ago. Baseline Function- Work/School Able to look after her in all personal care prior to 2017 re-aggravation Current Functional Impairments (Reported) Functional Limitations- ADL's Independent with difficulty and requires constant rest to complete the task due to pain Functional Limitations- Mobility/Gait Unable to walk more than 2 blocks Functional Limitations- Work/School Indep with difficulty looking after her PT-OP-C Subjective Start: 11/15/18 16:05 Freq: Status: Active Protocol: Document 02/01/19 15:16 EA (Rec: 02/01/19 15:21 EA [id number]) OP-PT Subjective Patient Comments Patient Comments Pt reports she has been busy all weekend with home tasks and errand; states both LE are quite sore. PT-OP-D Balance Start: 11/15/18 16:05 Freq: Status: Active Protocol: Document 11/15/18 16:17 EA (Rec: 11/16/18 09:28 EA [id number]) Balance Tests Single Limb Standing Single Limb- Right <2 secs Single Limb- Left > 2 secs PT-OP-F Manual Assessment Start: 11/15/18 16:05 Freq: Status: Active Protocol: Document 11/15/18 16:00 EA (Rec: 11/16/18 07:36 EA [id number]) Manual Assessments Soft Tissue Assessment Soft Tissue Mobility Assessment Tight both QL, Paralumbars, hamstring, ITB, Calves. PT-OP-G Mobility & Gait Start: 11/15/18 16:05 Freq: Status: Active Protocol: Document 11/15/18 14:10 EA (Rec: 11/16/18 09:28 EA [id number]) OP Mobility Evaluation Bed Mobility Rolling Indep with moderate difficulty Supine to and from Sit Indep with moderate difficulty Transfers Sit to Stand Indep Bed to Chair Transfers Indep OP Gait Assessment Gait Gait Assistance Required: Independent Able to Maintain Weight Bearing Status Yes During Gait Assistive Devices Assistive Device None Gait Deviations General Gait Pattern Lateral Trunk Lean PT-OP-J Posture/Palpation/Skin Start: 11/15/18 16:05 Freq: Status: Active Protocol: Document 01/17/19 15:09 EA (Rec: 01/17/19 15:17 EA [id number]) Palpation Assessment Location One Palpation Location Gluteals, ITB Palpation Findings Soft Tissue Tightness Tenderness Palpation Details Grade 2/4 tenderness over ITB, gluteals. PT-OP-K Range of Motion Start: 11/15/18 16:05 Freq: Status: Active Protocol: Document 01/17/19 15:09 EA (Rec: 01/17/19 15:17 EA [id number]) Lumbar Spine Range of Motion Lumbar Spine Active Percentage Testing Position Standing Flexion 80 Extension 90 Rotation Left 80 Rotation Right 80 Lateral Flexion Left 70 Lateral Flexion Right 70 ROM Limitations Soft Tissue Tightness Hip Goniometric Range of Motion Hip Measured in Degrees Left Passive Hip ROM WFL Yes Right Passive Hip ROM WFL Yes PT-OP-L Special Tests Start: 11/15/18 16:05 Freq: Status: Active Protocol: Document 11/15/18 14:10 EA (Rec: 11/16/18 09:28 EA [id number]) Special Tests Hip Special Tests Trendelenberg Test Results Right compesated SHARI Test Results negative Piriformis Test Results sensitive to right side Straight Leg Raise Test Results - Marlene's Test Test Results + Anterior Labral Test Test Results - PT-OP-Q Treatments Start: 11/15/18 16:05 Freq: Status: Active Protocol: Document 02/01/19 15:16 EA (Rec: 02/01/19 15:21 EA [id number]) Cardio Equipment Recumbent Stepper (Sci-Fit) Duration (Minutes) 8 Resistance 3 Seat Position 12 Gym Equipment Shuttle Recovery Unilateral Squats Resistance 2-3 cord Shuttle Recovery Platform Stable Reps/Time x 15 repsx 2 Bilateral Squats Resistance 4.5 cords Shuttle Recovery Platform Stable Reps/Time x 15 reps x 3 Therapeutic Exercises Supine Exercises 8 Supine Exercise Name Trunk rotation: AROM-stretch Reps/Minutes x 2 sets 7 Supine Exercise Name Hip ER Resistance BTB Reps/Minutes x 12 reps x 2 6 Supine Exercise Name Bridge with hip ABD Resistance Lv 2 Reps/Minutes x 12 reps x 2 4 Supine Exercise Name ITB stretch Side bilateral 3 Supine Exercise Name Piriformis stretch Side bilateral 2 Supine Exercise Name supine hamstring and ITB stretch with strap 1 Supine Exercise Name single knee to chest Standing Exercises 1 Standing Exercise Name side step squat w/ heel raises Resistance YTB Reps/Minutes x 7 ft x 2 each sides Manual Therapy Treatment Soft Tissue Mobilization 1 Body Location right and left piriformis and gluteal region, left calf Mobilization Type Myofascial Release Oscillations Sustained Pressure Trigger Point Release Body Position left and right PT-OP-R Modalities Start: 11/15/18 16:05 Freq: Status: Active Protocol: Document 02/01/19 15:16 EA (Rec: 02/01/19 15:21 EA [id number]) Hot Pack/Cold Pack Treatment Hot Pack Location Left low back/lateral hip Patient Position Sidelying Treatment Duration (minutes) 10 Patient Tolerance Good PT-OP-T Assessment and Plan Start: 11/15/18 16:05 Freq: Status: Active Protocol: Document 02/01/19 15:16 EA (Rec: 02/01/19 15:21 EA [id number]) Physical Therapy Assessment Assessment Summary Assessment Tolerated treatment well. Progress as tolerated. Physical Therapy Plan Next Visit Focus/Plan Next Note Type Treatment Note Next Visit Plan standing exercises
--- NOTE | 2019-02-09 13:42 | PT.OTN ---
Current Diagnoses Pain in left hip (02/09/19) Physical Therapy Treatment Note PT-OP-A Visit Information Start: 11/15/18 16:05 Freq: Status: Active Protocol: Document 02/09/19 12:18 EA (Rec: 02/09/19 12:25 EA [id number]) Out-Patient Physical Therapy Visit Information Visit Information Visit Type Treatment Note Visit Start Time 12:15 Visit Stop Time 13:08 Visit Number 14 PT-OP-B Current Condition Start: 11/15/18 16:05 Freq: Status: Active Protocol: Document 11/15/18 16:00 EA (Rec: 11/16/18 07:36 EA [id number]) Current Condition History of Current Condition Onset Date August/2018 Current Complaints Left hip and right thigh pain History of Current Condition Present left hip condition started to re-aggravated on August 2018 without known recent injury. Have had history of left hip bursitis and undergone yanelis steroid injection with good results years ago. Right chronic LE sciatica with no formal PT. OTC pain medication helps relief of pain temporarily. X- rays to left hip reveals no significant findings per medical records. Health history of NIDDM with metformin meds, HTN, abdominal hernia, hypothyroidism and OA . Prior Treatments and Tests Left hip steroid injection Future Testing and Treatments Planned None identified Treatment Goals Patient/Caregiver Goals Patient wants to reduce left hip, right thigh, and low back pain to at least 2/10 pain scale. Prior Functional Status Baseline Function- ADL's Independent Baseline Function- Mobility Independent Baseline Function- Gait Indep with no difficulty prior to re-aggravation 3 months ago. Baseline Function- Work/School Able to look after her in all personal care prior to 2017 re-aggravation Current Functional Impairments (Reported) Functional Limitations- ADL's Independent with difficulty and requires constant rest to complete the task due to pain Functional Limitations- Mobility/Gait Unable to walk more than 2 blocks Functional Limitations- Work/School Indep with difficulty looking after her PT-OP-C Subjective Start: 11/15/18 16:05 Freq: Status: Active Protocol: Document 02/09/19 12:18 EA (Rec: 02/09/19 12:25 EA [id number]) OP-PT Subjective Patient Comments Patient Comments Pt reports signed up to health ;s ates she has been working with her diet as well. Patient Reported Progress Improving PT-OP-D Balance Start: 11/15/18 16:05 Freq: Status: Active Protocol: Document 11/15/18 16:17 EA (Rec: 11/16/18 09:28 EA [id number]) Balance Tests Single Limb Standing Single Limb- Right <2 secs Single Limb- Left > 2 secs PT-OP-F Manual Assessment Start: 11/15/18 16:05 Freq: Status: Active Protocol: Document 11/15/18 16:00 EA (Rec: 11/16/18 07:36 EA [id number]) Manual Assessments Soft Tissue Assessment Soft Tissue Mobility Assessment Tight both QL, Paralumbars, hamstring, ITB, Calves. PT-OP-G Mobility & Gait Start: 11/15/18 16:05 Freq: Status: Active Protocol: Document 11/15/18 14:10 EA (Rec: 11/16/18 09:28 EA [id number]) OP Mobility Evaluation Bed Mobility Rolling Indep with moderate difficulty Supine to and from Sit Indep with moderate difficulty Transfers Sit to Stand Indep Bed to Chair Transfers Indep OP Gait Assessment Gait Gait Assistance Required: Independent Able to Maintain Weight Bearing Status Yes During Gait Assistive Devices Assistive Device None Gait Deviations General Gait Pattern Lateral Trunk Lean PT-OP-J Posture/Palpation/Skin Start: 11/15/18 16:05 Freq: Status: Active Protocol: Document 01/17/19 15:09 EA (Rec: 01/17/19 15:17 EA [id number]) Palpation Assessment Location One Palpation Location Gluteals, ITB Palpation Findings Soft Tissue Tightness Tenderness Palpation Details Grade 2/4 tenderness over ITB, gluteals. PT-OP-K Range of Motion Start: 11/15/18 16:05 Freq: Status: Active Protocol: Document 01/17/19 15:09 EA (Rec: 01/17/19 15:17 EA [id number]) Lumbar Spine Range of Motion Lumbar Spine Active Percentage Testing Position Standing Flexion 80 Extension 90 Rotation Left 80 Rotation Right 80 Lateral Flexion Left 70 Lateral Flexion Right 70 ROM Limitations Soft Tissue Tightness Hip Goniometric Range of Motion Hip Measured in Degrees Left Passive Hip ROM WFL Yes Right Passive Hip ROM WFL Yes PT-OP-L Special Tests Start: 11/15/18 16:05 Freq: Status: Active Protocol: Document 11/15/18 14:10 EA (Rec: 11/16/18 09:28 EA [id number]) Special Tests Hip Special Tests Trendelenberg Test Results Right compesated SHARI Test Results negative Piriformis Test Results sensitive to right side Straight Leg Raise Test Results - Marlene's Test Test Results + Anterior Labral Test Test Results - PT-OP-Q Treatments Start: 11/15/18 16:05 Freq: Status: Active Protocol: Document 02/09/19 12:18 EA (Rec: 02/09/19 12:25 EA [id number]) Cardio Equipment Recumbent Stepper (Sci-Fit) Duration (Minutes) 10 Resistance 3 Seat Position 12 Gym Equipment Shuttle Recovery Unilateral Squats Resistance 2-3 cord Shuttle Recovery Platform Stable Reps/Time x 15 repsx 2 Bilateral Squats Resistance 4.5 cords Shuttle Recovery Platform Stable Reps/Time x 15 reps x 3 Therapeutic Exercises Supine Exercises 8 Supine Exercise Name Trunk rotation: AROM-stretch Reps/Minutes x 2 sets 6 Supine Exercise Name Bridge with hip ABD Resistance Lv 2 Reps/Minutes x 12 reps x 2 4 Supine Exercise Name ITB stretch Side bilateral 3 Supine Exercise Name Piriformis stretch Side bilateral Standing Exercises 1 Standing Exercise Name side step squat w/ heel raises Resistance YTB Reps/Minutes x 7 ft x 2 each sides Manual Therapy Treatment Soft Tissue Mobilization 1 Body Location right and left piriformis and gluteal region, left calf Mobilization Type Myofascial Release Oscillations Sustained Pressure Trigger Point Release Body Position left and right Self-Care/Home Management Treatment Education Other Education I educated patient about safe weight loss, safe exercises and recovery. Patient agrreable to comply with strict rule of intensity and frequency. PT-OP-R Modalities Start: 11/15/18 16:05 Freq: Status: Active Protocol: Document 02/09/19 12:18 EA (Rec: 02/09/19 12:25 EA [id number]) Hot Pack/Cold Pack Treatment Hot Pack Location Left low back/lateral hip Patient Position Sidelying Treatment Duration (minutes) 10 Patient Tolerance Good PT-OP-T Assessment and Plan Start: 11/15/18 16:05 Freq: Status: Active Protocol: Document 02/09/19 12:58 EA (Rec: 02/09/19 12:59 EA [id number]) Physical Therapy Assessment Assessment Summary Assessment Patient tolerated treatment session well. Patient understands safe weight loss program and safe gym exercises and recovery. To continue guiding patient is must in the next few more session. Hip and thigh complaint of pain is much less at this time. Physical Therapy Plan Next Visit Focus/Plan Next Note Type Treatment Note
--- NOTE | 2019-02-16 14:23 | PT.OTN ---
Current Diagnoses Pain in left hip (02/16/19) Physical Therapy Treatment Note PT-OP-A Visit Information Start: 11/15/18 16:05 Freq: Status: Active Protocol: Document 02/16/19 12:59 EA (Rec: 02/16/19 13:47 EA [id number]) Out-Patient Physical Therapy Visit Information Visit Information Visit Type Treatment Note Visit Start Time 13:00 Visit Stop Time 13:50 Total Visit Minutes 50 Visit Number 15 PT-OP-B Current Condition Start: 11/15/18 16:05 Freq: Status: Active Protocol: Document 11/15/18 16:00 EA (Rec: 11/16/18 07:36 EA [id number]) Current Condition History of Current Condition Onset Date August/2018 Current Complaints Left hip and right thigh pain History of Current Condition Present left hip condition started to re-aggravated on August 2018 without known recent injury. Have had history of left hip bursitis and undergone yanelis steroid injection with good results years ago. Right chronic LE sciatica with no formal PT. OTC pain medication helps relief of pain temporarily. X- rays to left hip reveals no significant findings per medical records. Health history of NIDDM with metformin meds, HTN, abdominal hernia, hypothyroidism and OA . Prior Treatments and Tests Left hip steroid injection Future Testing and Treatments Planned None identified Treatment Goals Patient/Caregiver Goals Patient wants to reduce left hip, right thigh, and low back pain to at least 2/10 pain scale. Prior Functional Status Baseline Function- ADL's Independent Baseline Function- Mobility Independent Baseline Function- Gait Indep with no difficulty prior to re-aggravation 3 months ago. Baseline Function- Work/School Able to look after her in all personal care prior to 2017 re-aggravation Current Functional Impairments (Reported) Functional Limitations- ADL's Independent with difficulty and requires constant rest to complete the task due to pain Functional Limitations- Mobility/Gait Unable to walk more than 2 blocks Functional Limitations- Work/School Indep with difficulty looking after her PT-OP-C Subjective Start: 11/15/18 16:05 Freq: Status: Active Protocol: Document 02/16/19 12:59 EA (Rec: 02/16/19 13:47 EA [id number]) OP-PT Subjective Patient Comments Patient Comments Pt reports went to gym and swimming 3 times a week; states whole body is sore. PT-OP-D Balance Start: 11/15/18 16:05 Freq: Status: Active Protocol: Document 11/15/18 16:17 EA (Rec: 11/16/18 09:28 EA [id number]) Balance Tests Single Limb Standing Single Limb- Right <2 secs Single Limb- Left > 2 secs PT-OP-F Manual Assessment Start: 11/15/18 16:05 Freq: Status: Active Protocol: Document 11/15/18 16:00 EA (Rec: 11/16/18 07:36 EA [id number]) Manual Assessments Soft Tissue Assessment Soft Tissue Mobility Assessment Tight both QL, Paralumbars, hamstring, ITB, Calves. PT-OP-G Mobility & Gait Start: 11/15/18 16:05 Freq: Status: Active Protocol: Document 11/15/18 14:10 EA (Rec: 11/16/18 09:28 EA [id number]) OP Mobility Evaluation Bed Mobility Rolling Indep with moderate difficulty Supine to and from Sit Indep with moderate difficulty Transfers Sit to Stand Indep Bed to Chair Transfers Indep OP Gait Assessment Gait Gait Assistance Required: Independent Able to Maintain Weight Bearing Status Yes During Gait Assistive Devices Assistive Device None Gait Deviations General Gait Pattern Lateral Trunk Lean PT-OP-J Posture/Palpation/Skin Start: 11/15/18 16:05 Freq: Status: Active Protocol: Document 01/17/19 15:09 EA (Rec: 01/17/19 15:17 EA [id number]) Palpation Assessment Location One Palpation Location Gluteals, ITB Palpation Findings Soft Tissue Tightness Tenderness Palpation Details Grade 2/4 tenderness over ITB, gluteals. PT-OP-K Range of Motion Start: 11/15/18 16:05 Freq: Status: Active Protocol: Document 01/17/19 15:09 EA (Rec: 01/17/19 15:17 EA [id number]) Lumbar Spine Range of Motion Lumbar Spine Active Percentage Testing Position Standing Flexion 80 Extension 90 Rotation Left 80 Rotation Right 80 Lateral Flexion Left 70 Lateral Flexion Right 70 ROM Limitations Soft Tissue Tightness Hip Goniometric Range of Motion Hip Measured in Degrees Left Passive Hip ROM WFL Yes Right Passive Hip ROM WFL Yes PT-OP-L Special Tests Start: 11/15/18 16:05 Freq: Status: Active Protocol: Document 11/15/18 14:10 EA (Rec: 11/16/18 09:28 EA [id number]) Special Tests Hip Special Tests Trendelenberg Test Results Right compesated SHARI Test Results negative Piriformis Test Results sensitive to right side Straight Leg Raise Test Results - Marlene's Test Test Results + Anterior Labral Test Test Results - PT-OP-Q Treatments Start: 11/15/18 16:05 Freq: Status: Active Protocol: Document 02/16/19 12:59 EA (Rec: 02/16/19 13:47 EA [id number]) Cardio Equipment Recumbent Stepper (Sci-Fit) Duration (Minutes) 10 Resistance 3 Seat Position 12 Gym Equipment Shuttle Recovery Unilateral Squats Resistance 2-3 cord Shuttle Recovery Platform Stable Reps/Time x 15 repsx 2 Bilateral Squats Resistance 4.5 cords Shuttle Recovery Platform Stable Reps/Time x 15 reps x 3 Therapeutic Exercises Supine Exercises 8 Supine Exercise Name Trunk rotation: AROM-stretch Reps/Minutes x 2 sets 7 Supine Exercise Name Hip ER Resistance BTB Reps/Minutes x 12 reps x 2 6 Supine Exercise Name Bridge with hip ABD Resistance Lv 2 Reps/Minutes x 12 reps x 2 4 Supine Exercise Name ITB stretch Side bilateral 3 Supine Exercise Name Piriformis stretch Side bilateral 2 Supine Exercise Name supine hamstring and ITB stretch with strap 1 Supine Exercise Name single knee to chest Standing Exercises 2 Standing Exercise Name SLS Reps/Minutes x 5SH x 2 reps 1 Standing Exercise Name single hand support high knee march with core engagement. Side bilateral Reps/Minutes x 10 reps Comments tactile cues required PT-OP-R Modalities Start: 11/15/18 16:05 Freq: Status: Active Protocol: Document 02/16/19 14:19 EA (Rec: 02/16/19 14:21 EA [id number]) Hot Pack/Cold Pack Treatment Hot Pack Location Left low back/lateral hip Patient Position Sidelying Treatment Duration (minutes) 10 Patient Tolerance Good PT-OP-T Assessment and Plan Start: 11/15/18 16:05 Freq: Status: Active Protocol: Document 02/16/19 14:19 EA (Rec: 02/16/19 14:21 EA [id number]) Physical Therapy Assessment Assessment Summary Assessment Patient still demonstrates waddling gait but able to correct minimally with cues; I recommended to practice at home. I also advised patient to get aware with her exercises intensity and frequency to avoid over training. I also recommended to look for a certified instructor trainer canine service in the gym to ensure her exercise safety. Physical Therapy Plan Next Visit Focus/Plan Next Note Type Treatment Note
--- NOTE | 2019-02-28 16:08 | PT.OTN ---
Current Diagnoses Pain in left hip (02/28/19) Physical Therapy Treatment Note PT-OP-A Visit Information Start: 11/15/18 16:05 Freq: Status: Active Protocol: Document 02/28/19 14:35 EA (Rec: 02/28/19 15:25 EA [id number]) Out-Patient Physical Therapy Visit Information Visit Information Visit Type Treatment Note Visit Start Time 13:00 Visit Stop Time 13:50 Total Visit Minutes 48 Visit Number 16 PT-OP-B Current Condition Start: 11/15/18 16:05 Freq: Status: Active Protocol: Document 11/15/18 16:00 EA (Rec: 11/16/18 07:36 EA [id number]) Current Condition History of Current Condition Onset Date August/2018 Current Complaints Left hip and right thigh pain History of Current Condition Present left hip condition started to re-aggravated on August 2018 without known recent injury. Have had history of left hip bursitis and undergone yanelis steroid injection with good results years ago. Right chronic LE sciatica with no formal PT. OTC pain medication helps relief of pain temporarily. X- rays to left hip reveals no significant findings per medical records. Health history of NIDDM with metformin meds, HTN, abdominal hernia, hypothyroidism and OA . Prior Treatments and Tests Left hip steroid injection Future Testing and Treatments Planned None identified Treatment Goals Patient/Caregiver Goals Patient wants to reduce left hip, right thigh, and low back pain to at least 2/10 pain scale. Prior Functional Status Baseline Function- ADL's Independent Baseline Function- Mobility Independent Baseline Function- Gait Indep with no difficulty prior to re-aggravation 3 months ago. Baseline Function- Work/School Able to look after her in all personal care prior to 2017 re-aggravation Current Functional Impairments (Reported) Functional Limitations- ADL's Independent with difficulty and requires constant rest to complete the task due to pain Functional Limitations- Mobility/Gait Unable to walk more than 2 blocks Functional Limitations- Work/School Indep with difficulty looking after her PT-OP-C Subjective Start: 11/15/18 16:05 Freq: Status: Active Protocol: Document 02/28/19 14:35 EA (Rec: 02/28/19 15:25 EA [id number]) OP-PT Subjective Patient Comments Patient Comments Pt reports right knee is bothering her a bit after swimming exercises; denies swelling. Pt mentioned prema she lost 4 lbs weight since joining the gym. PT-OP-D Balance Start: 11/15/18 16:05 Freq: Status: Active Protocol: Document 11/15/18 16:17 EA (Rec: 11/16/18 09:28 EA [id number]) Balance Tests Single Limb Standing Single Limb- Right <2 secs Single Limb- Left > 2 secs PT-OP-F Manual Assessment Start: 11/15/18 16:05 Freq: Status: Active Protocol: Document 11/15/18 16:00 EA (Rec: 11/16/18 07:36 EA [id number]) Manual Assessments Soft Tissue Assessment Soft Tissue Mobility Assessment Tight both QL, Paralumbars, hamstring, ITB, Calves. PT-OP-G Mobility & Gait Start: 11/15/18 16:05 Freq: Status: Active Protocol: Document 11/15/18 14:10 EA (Rec: 11/16/18 09:28 EA [id number]) OP Mobility Evaluation Bed Mobility Rolling Indep with moderate difficulty Supine to and from Sit Indep with moderate difficulty Transfers Sit to Stand Indep Bed to Chair Transfers Indep OP Gait Assessment Gait Gait Assistance Required: Independent Able to Maintain Weight Bearing Status Yes During Gait Assistive Devices Assistive Device None Gait Deviations General Gait Pattern Lateral Trunk Lean PT-OP-J Posture/Palpation/Skin Start: 11/15/18 16:05 Freq: Status: Active Protocol: Document 01/17/19 15:09 EA (Rec: 01/17/19 15:17 EA [id number]) Palpation Assessment Location One Palpation Location Gluteals, ITB Palpation Findings Soft Tissue Tightness Tenderness Palpation Details Grade 2/4 tenderness over ITB, gluteals. PT-OP-K Range of Motion Start: 11/15/18 16:05 Freq: Status: Active Protocol: Document 01/17/19 15:09 EA (Rec: 01/17/19 15:17 EA [id number]) Lumbar Spine Range of Motion Lumbar Spine Active Percentage Testing Position Standing Flexion 80 Extension 90 Rotation Left 80 Rotation Right 80 Lateral Flexion Left 70 Lateral Flexion Right 70 ROM Limitations Soft Tissue Tightness Hip Goniometric Range of Motion Hip Measured in Degrees Left Passive Hip ROM WFL Yes Right Passive Hip ROM WFL Yes PT-OP-L Special Tests Start: 11/15/18 16:05 Freq: Status: Active Protocol: Document 11/15/18 14:10 EA (Rec: 11/16/18 09:28 EA [id number]) Special Tests Hip Special Tests Trendelenberg Test Results Right compesated SHARI Test Results negative Piriformis Test Results sensitive to right side Straight Leg Raise Test Results - Marlene's Test Test Results + Anterior Labral Test Test Results - PT-OP-Q Treatments Start: 11/15/18 16:05 Freq: Status: Active Protocol: Document 02/28/19 14:35 EA (Rec: 02/28/19 15:25 EA [id number]) Cardio Equipment Recumbent Stepper (Sci-Fit) Duration (Minutes) 10 Resistance 3 Seat Position 12 Gym Equipment Shuttle Recovery Unilateral Squats Resistance 2-3 cord Shuttle Recovery Platform Stable Reps/Time x 15 repsx 2 Bilateral Squats Resistance 4.5 cords Shuttle Recovery Platform Stable Reps/Time x 15 reps x 3 Therapeutic Exercises Supine Exercises 8 Supine Exercise Name Trunk rotation: AROM-stretch Reps/Minutes x 2 sets 7 Supine Exercise Name Hip ER Resistance BTB Reps/Minutes x 12 reps x 2 6 Supine Exercise Name Bridge with hip ABD Resistance Lv 2 Reps/Minutes x 12 reps x 2 4 Supine Exercise Name ITB stretch Side bilateral 3 Supine Exercise Name Piriformis stretch Side bilateral 2 Supine Exercise Name supine hamstring and ITB stretch with strap 1 Reps/Minutes x15SH x 2 reps Standing Exercises 3 Standing Exercise Name side step squat Resistance YTB Reps/Minutes x 2 lines 12 ft 2 Standing Exercise Name SLS Reps/Minutes x 5SH x 2 reps 1 Standing Exercise Name single hand support high knee march with core engagement. Side bilateral Reps/Minutes x 10 reps Comments tactile cues required Manual Therapy Treatment Soft Tissue Mobilization 1 Body Location right and left piriformis and gluteal region, left calf Mobilization Type Myofascial Release Oscillations Sustained Pressure Trigger Point Release Body Position left and right PT-OP-R Modalities Start: 11/15/18 16:05 Freq: Status: Active Protocol: Document 02/28/19 14:35 EA (Rec: 02/28/19 15:25 EA [id number]) Hot Pack/Cold Pack Treatment Hot Pack Location Left low back/lateral hip Patient Position Sidelying Treatment Duration (minutes) 10 Patient Tolerance Good PT-OP-T Assessment and Plan Start: 11/15/18 16:05 Freq: Status: Active Protocol: Document 02/28/19 14:35 EA (Rec: 02/28/19 15:25 EA [id number]) Physical Therapy Assessment Assessment Summary Assessment Improve tolerance to exercises with ability to tolerate deep tissue massage indicating decreased tenderness to affected body parts. Physical Therapy Plan Next Visit Focus/Plan Next Note Type Treatment Note
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
--- NOTE | 2019-03-13 16:50 | PT.OTN ---
Current Diagnoses Pain in left hip (03/13/19) Physical Therapy Treatment Note PT-OP-A Visit Information Start: 11/15/18 16:05 Freq: Status: Active Protocol: Document 03/13/19 14:31 EA (Rec: 03/13/19 14:34 EA [id number]) Out-Patient Physical Therapy Visit Information Visit Information Visit Type Treatment Note Visit Start Time 13:45 Visit Stop Time 14:35 Total Visit Minutes 50 Visit Number 18 PT-OP-B Current Condition Start: 11/15/18 16:05 Freq: Status: Active Protocol: Document 11/15/18 16:00 EA (Rec: 11/16/18 07:36 EA [id number]) Current Condition History of Current Condition Onset Date August/2018 Current Complaints Left hip and right thigh pain History of Current Condition Present left hip condition started to re-aggravated on August 2018 without known recent injury. Have had history of left hip bursitis and undergone yanelis steroid injection with good results years ago. Right chronic LE sciatica with no formal PT. OTC pain medication helps relief of pain temporarily. X- rays to left hip reveals no significant findings per medical records. Health history of NIDDM with metformin meds, HTN, abdominal hernia, hypothyroidism and OA . Prior Treatments and Tests Left hip steroid injection Future Testing and Treatments Planned None identified Treatment Goals Patient/Caregiver Goals Patient wants to reduce left hip, right thigh, and low back pain to at least 2/10 pain scale. Prior Functional Status Baseline Function- ADL's Independent Baseline Function- Mobility Independent Baseline Function- Gait Indep with no difficulty prior to re-aggravation 3 months ago. Baseline Function- Work/School Able to look after her in all personal care prior to 2017 re-aggravation Current Functional Impairments (Reported) Functional Limitations- ADL's Independent with difficulty and requires constant rest to complete the task due to pain Functional Limitations- Mobility/Gait Unable to walk more than 2 blocks Functional Limitations- Work/School Indep with difficulty looking after her PT-OP-C Subjective Start: 11/15/18 16:05 Freq: Status: Active Protocol: Document 03/13/19 14:31 EA (Rec: 03/13/19 14:34 EA [id number]) OP-PT Subjective Patient Comments Patient Comments Ifeel I am walking better; states right knee bothers quite bit every after pool aerobic exercises. PT-OP-D Balance Start: 11/15/18 16:05 Freq: Status: Active Protocol: Document 11/15/18 16:17 EA (Rec: 11/16/18 09:28 EA [id number]) Balance Tests Single Limb Standing Single Limb- Right <2 secs Single Limb- Left > 2 secs PT-OP-F Manual Assessment Start: 11/15/18 16:05 Freq: Status: Active Protocol: Document 11/15/18 16:00 EA (Rec: 11/16/18 07:36 EA [id number]) Manual Assessments Soft Tissue Assessment Soft Tissue Mobility Assessment Tight both QL, Paralumbars, hamstring, ITB, Calves. PT-OP-G Mobility & Gait Start: 11/15/18 16:05 Freq: Status: Active Protocol: Document 03/09/19 13:45 RCC (Rec: 03/09/19 15:04 RCC [id number]) OP Mobility Evaluation Bed Mobility Supine to and from Sit mod indep. (does require assistance for RLE management but able to assist self) OP Gait Assessment Comments Gait Comments mild lateral trunk lean to slight with VC PT-OP-J Posture/Palpation/Skin Start: 11/15/18 16:05 Freq: Status: Active Protocol: Document 01/17/19 15:09 EA (Rec: 01/17/19 15:17 EA [id number]) Palpation Assessment Location One Palpation Location Gluteals, ITB Palpation Findings Soft Tissue Tightness Tenderness Palpation Details Grade 2/4 tenderness over ITB, gluteals. PT-OP-K Range of Motion Start: 11/15/18 16:05 Freq: Status: Active Protocol: Document 01/17/19 15:09 EA (Rec: 01/17/19 15:17 EA [id number]) Lumbar Spine Range of Motion Lumbar Spine Active Percentage Testing Position Standing Flexion 80 Extension 90 Rotation Left 80 Rotation Right 80 Lateral Flexion Left 70 Lateral Flexion Right 70 ROM Limitations Soft Tissue Tightness Hip Goniometric Range of Motion Hip Measured in Degrees Left Passive Hip ROM WFL Yes Right Passive Hip ROM WFL Yes PT-OP-L Special Tests Start: 11/15/18 16:05 Freq: Status: Active Protocol: Document 11/15/18 14:10 EA (Rec: 11/16/18 09:28 EA [id number]) Special Tests Hip Special Tests Trendelenberg Test Results Right compesated SHARI Test Results negative Piriformis Test Results sensitive to right side Straight Leg Raise Test Results - Marlene's Test Test Results + Anterior Labral Test Test Results - PT-OP-Q Treatments Start: 11/15/18 16:05 Freq: Status: Active Protocol: Document 03/13/19 14:31 EA (Rec: 03/13/19 14:34 EA [id number]) Cardio Equipment Recumbent Stepper (Sci-Fit) Duration (Minutes) 10 Resistance 3 Seat Position 12 Gym Equipment Shuttle Recovery Unilateral Squats Resistance 2-3 cord Shuttle Recovery Platform Stable Reps/Time x 15 repsx 2 Bilateral Squats Resistance 4.5 cords Shuttle Recovery Platform Stable Reps/Time x 15 reps x 3 Therapeutic Exercises Supine Exercises 8 Supine Exercise Name Trunk rotation: AROM-stretch Reps/Minutes x 2 sets 7 Supine Exercise Name Hip ER Resistance BTB Reps/Minutes x 12 reps x 2 6 Supine Exercise Name Bridge with hip ABD Resistance Lv 2 Reps/Minutes x 12 reps x 2 4 Supine Exercise Name ITB stretch Side bilateral 3 Supine Exercise Name Piriformis stretch Side bilateral Standing Exercises 3 Standing Exercise Name side step squat Resistance YTB Reps/Minutes x 2 lines 12 ft 2 Standing Exercise Name SLS Reps/Minutes x 5SH x 2 reps 1 Standing Exercise Name single hand support high knee march with core engagement. Side bilateral Reps/Minutes x 10 reps Comments tactile cues required Manual Therapy Treatment Soft Tissue Mobilization 1 Body Location left piriformis and gluteal region Mobilization Type Myofascial Release Strain/Counterstrain Body Position right SL PT-OP-R Modalities Start: 11/15/18 16:05 Freq: Status: Active Protocol: Document 03/13/19 14:31 EA (Rec: 03/13/19 14:34 EA [id number]) Hot Pack/Cold Pack Treatment Hot Pack Location Left low back/lateral hip Patient Position Sidelying Treatment Duration (minutes) 10 Patient Tolerance Good PT-OP-T Assessment and Plan Start: 11/15/18 16:05 Freq: Status: Active Protocol: Document 03/13/19 14:31 EA (Rec: 03/13/19 14:34 EA [id number]) Physical Therapy Assessment Assessment Summary Assessment R knee pain complaint tested negative with ligamentous but very sensitive to palpate at level of pes ansirine bursa which signifies possible bursitis of the pes ansirine. Patient educated about the fair prognosis of the condition unless core strength is developed; however due to abdominal hernia it is not advisable to perform progressive abdominal exercises/ core exercises. Patient recommended to use abdominal binder during abdominal exercises, however with pre-cautions due to elevated BP. Physical Therapy Plan Next Visit Focus/Plan Next Note Type Treatment Note
--- NOTE | 2019-03-15 13:45 | PT.OTN ---
Current Diagnoses Pain in left hip (03/15/19) Physical Therapy Treatment Note PT-OP-A Visit Information Start: 11/15/18 16:05 Freq: Status: Active Protocol: Document 03/15/19 13:45 DLM (Rec: 03/15/19 20:31 DLM [id number]) Out-Patient Physical Therapy Visit Information Visit Information Visit Type Treatment Note Visit Start Time 13:45 Visit Stop Time 14:40 Total Visit Minutes 55 Visit Number 19 Number of FEDERAL JUDGE Visits 0 Evaluation Information Evaluation Date 11/16/18 PT-OP-B Current Condition Start: 11/15/18 16:05 Freq: Status: Active Protocol: Document 11/15/18 16:00 EA (Rec: 11/16/18 07:36 EA [id number]) Current Condition History of Current Condition Onset Date August/2018 Current Complaints Left hip and right thigh pain History of Current Condition Present left hip condition started to re-aggravated on August 2018 without known recent injury. Have had history of left hip bursitis and undergone yanelis steroid injection with good results years ago. Right chronic LE sciatica with no formal PT. OTC pain medication helps relief of pain temporarily. X- rays to left hip reveals no significant findings per medical records. Health history of NIDDM with metformin meds, HTN, abdominal hernia, hypothyroidism and OA . Prior Treatments and Tests Left hip steroid injection Future Testing and Treatments Planned None identified Treatment Goals Patient/Caregiver Goals Patient wants to reduce left hip, right thigh, and low back pain to at least 2/10 pain scale. Prior Functional Status Baseline Function- ADL's Independent Baseline Function- Mobility Independent Baseline Function- Gait Indep with no difficulty prior to re-aggravation 3 months ago. Baseline Function- Work/School Able to look after her in all personal care prior to 2017 re-aggravation Current Functional Impairments (Reported) Functional Limitations- ADL's Independent with difficulty and requires constant rest to complete the task due to pain Functional Limitations- Mobility/Gait Unable to walk more than 2 blocks Functional Limitations- Work/School Indep with difficulty looking after her PT-OP-C Subjective Start: 11/15/18 16:05 Freq: Status: Active Protocol: Document 03/15/19 13:45 DLM (Rec: 03/15/19 20:31 DLM [id number]) OP-PT Subjective Patient Comments Patient Comments She has been under more stress lately. She thinks her blood pressure has been up. PT-OP-D Balance Start: 11/15/18 16:05 Freq: Status: Active Protocol: Document 11/15/18 16:17 EA (Rec: 11/16/18 09:28 EA [id number]) Balance Tests Single Limb Standing Single Limb- Right <2 secs Single Limb- Left > 2 secs PT-OP-F Manual Assessment Start: 11/15/18 16:05 Freq: Status: Active Protocol: Document 11/15/18 16:00 EA (Rec: 11/16/18 07:36 EA [id number]) Manual Assessments Soft Tissue Assessment Soft Tissue Mobility Assessment Tight both QL, Paralumbars, hamstring, ITB, Calves. PT-OP-G Mobility & Gait Start: 11/15/18 16:05 Freq: Status: Active Protocol: Document 03/09/19 13:45 RCC (Rec: 03/09/19 15:04 RCC [email or web address]) OP Mobility Evaluation Bed Mobility Supine to and from Sit mod indep. (does require assistance for RLE management but able to assist self) OP Gait Assessment Comments Gait Comments mild lateral trunk lean to slight with VC PT-OP-J Posture/Palpation/Skin Start: 11/15/18 16:05 Freq: Status: Active Protocol: Document 01/17/19 15:09 EA (Rec: 01/17/19 15:17 EA [id number]) Palpation Assessment Location One Palpation Location Gluteals, ITB Palpation Findings Soft Tissue Tightness Tenderness Palpation Details Grade 2/4 tenderness over ITB, gluteals. PT-OP-K Range of Motion Start: 11/15/18 16:05 Freq: Status: Active Protocol: Document 01/17/19 15:09 EA (Rec: 01/17/19 15:17 EA [id number]) Lumbar Spine Range of Motion Lumbar Spine Active Percentage Testing Position Standing Flexion 80 Extension 90 Rotation Left 80 Rotation Right 80 Lateral Flexion Left 70 Lateral Flexion Right 70 ROM Limitations Soft Tissue Tightness Hip Goniometric Range of Motion Hip Measured in Degrees Left Passive Hip ROM WFL Yes Right Passive Hip ROM WFL Yes PT-OP-L Special Tests Start: 11/15/18 16:05 Freq: Status: Active Protocol: Document 11/15/18 14:10 EA (Rec: 11/16/18 09:28 EA [id number]) Special Tests Hip Special Tests Trendelenberg Test Results Right compesated SHARI Test Results negative Piriformis Test Results sensitive to right side Straight Leg Raise Test Results - Marlene's Test Test Results + Anterior Labral Test Test Results - PT-OP-Q Treatments Start: 11/15/18 16:05 Freq: Status: Active Protocol: Document 03/15/19 13:45 DLM (Rec: 03/15/19 20:31 DLM [id number]) Cardio Equipment Recumbent Stepper (Sci-Fit) Duration (Minutes) 10 Resistance 3 Seat Position 12 Other BP after 150/94, mild light- headedness Gym Equipment Shuttle Recovery Unilateral Squats Details held due to light-headed Bilateral Squats Details held due to light-headed Therapeutic Exercises Supine Exercises 8 Supine Exercise Name Trunk rotation: AROM-stretch Reps/Minutes x 2 sets 7 Supine Exercise Name Hip ER Resistance L2 exercise band Reps/Minutes x 12 reps x 2 Comments performed seated due to LE cramping today 6 Supine Exercise Name Bridge with hip ABD Resistance Lv 2 Reps/Minutes x 12 reps x 2 4 Supine Exercise Name ITB stretch Side bilateral 3 Supine Exercise Name Piriformis stretch Side bilateral Sitting Exercises 2 Sitting Exercise Name Sit-stands Side bilateral Resistance active Reps/Minutes 2 x 10 reps Comments no UE support 1 Sitting Exercise Name Hip Abduction Side bilateral Resistance L2 exercise band Reps/Minutes 2 x 10 reps PT-OP-R Modalities Start: 11/15/18 16:05 Freq: Status: Active Protocol: Document 03/15/19 13:45 DLM (Rec: 03/15/19 20:31 DLM [id number]) Hot Pack/Cold Pack Treatment Hot Pack Location Left low back/lateral hip Patient Position Sidelying Treatment Duration (minutes) 15 Patient Tolerance Good PT-OP-T Assessment and Plan Start: 11/15/18 16:05 Freq: Status: Active Protocol: Document 03/15/19 13:45 DLM (Rec: 03/15/19 20:31 DLM [id number]) Physical Therapy Assessment Goals Four Impairment No HEP in place Snf Goal (LTG) Patient will comply and perform HEP safely and independently. LTG Duration 4 wks (requires further progress) Three Impairment Impaired gait Carpenter Rough Goal (LTG) Patient will exhibit no lateral trunk lean to decrease improve function and prevent muscular imbalance. LTG Duration 6 wks (Slightly improved) Two Impairment Difficulty with bed mobility Carpenter Rough Goal (LTG) Patient will exhibits no difficulty in all bed mobility LTG Duration achieved 03/09/19 One Impairment LEFS 29/80 Snf Goal (LTG) Patient will have LEFS of > 45 LTG Duration 6 wks (no progress) Assessment Summary Assessment Pt light-headed after Recumbent stepper. BP checked which showed elevated but not unsafe at this time. Modified her exercises to manage her light-headness. In supine she had frequent LE cramping that affected her ability to exercise. Transitioned some exercises to sitting which resolved her cramping issues. Pt reports this amount of cramping is unusual for her. Physical Therapy Plan Frequency and Duration Frequency of Treatment 2x/Week Duration of Treatment 6 wks Plan of Care Start Date 03/09/19 Plan of Care End Date 04/20/19 Therapeutic Interventions Therapeutic Interventions Aquatic Therapy Gait Training Home Exercise Program Manual Therapy Neuromuscular Re-education Patient/Caregiver Education Self-Care/Home Management Soft Tissue Mobilization Taping Therapeutic Exercises Modalities Cold Pack/Ice Massage Electric Stimulation Hot Packs Ultrasound Next Visit Focus/Plan Next Note Type Treatment Note Next Visit Plan check BP as needed, advance strengthening as vic
--- NOTE | 2019-03-21 16:14 | PT.OTN ---
Current Diagnoses Pain in left hip (03/21/19) Physical Therapy Treatment Note PT-OP-A Visit Information Start: 11/15/18 16:05 Freq: Status: Active Protocol: Document 03/21/19 13:35 GGD (Rec: 03/21/19 16:13 GGD [id number]) Out-Patient Physical Therapy Visit Information Visit Information Visit Type Treatment Note Visit Start Time 13:35 Visit Stop Time 14:25 Total Visit Minutes 50 Visit Number 20 Number of HEAD OPERATOR Visits 1 Evaluation Information Evaluation Date 11/16/18 Precautions Precautions BP 142/94 PT-OP-B Current Condition Start: 11/15/18 16:05 Freq: Status: Active Protocol: Document 11/15/18 16:00 EA (Rec: 11/16/18 07:36 EA [id number]) Current Condition History of Current Condition Onset Date August/2018 Current Complaints Left hip and right thigh pain History of Current Condition Present left hip condition started to re-aggravated on August 2018 without known recent injury. Have had history of left hip bursitis and undergone yanelis steroid injection with good results years ago. Right chronic LE sciatica with no formal PT. OTC pain medication helps relief of pain temporarily. X- rays to left hip reveals no significant findings per medical records. Health history of NIDDM with metformin meds, HTN, abdominal hernia, hypothyroidism and OA . Prior Treatments and Tests Left hip steroid injection Future Testing and Treatments Planned None identified Treatment Goals Patient/Caregiver Goals Patient wants to reduce left hip, right thigh, and low back pain to at least 2/10 pain scale. Prior Functional Status Baseline Function- ADL's Independent Baseline Function- Mobility Independent Baseline Function- Gait Indep with no difficulty prior to re-aggravation 3 months ago. Baseline Function- Work/School Able to look after her in all personal care prior to 2017 re-aggravation Current Functional Impairments (Reported) Functional Limitations- ADL's Independent with difficulty and requires constant rest to complete the task due to pain Functional Limitations- Mobility/Gait Unable to walk more than 2 blocks Functional Limitations- Work/School Indep with difficulty looking after her PT-OP-C Subjective Start: 11/15/18 16:05 Freq: Status: Active Protocol: Document 03/21/19 13:35 GGD (Rec: 03/21/19 16:13 GGD [id number]) OP-PT Subjective Patient Comments Patient Comments Pt states she is a little sore after swimming yesterday. PT-OP-D Balance Start: 11/15/18 16:05 Freq: Status: Active Protocol: Document 11/15/18 16:17 EA (Rec: 11/16/18 09:28 EA [id number]) Balance Tests Single Limb Standing Single Limb- Right <2 secs Single Limb- Left > 2 secs PT-OP-F Manual Assessment Start: 11/15/18 16:05 Freq: Status: Active Protocol: Document 11/15/18 16:00 EA (Rec: 11/16/18 07:36 EA [id number]) Manual Assessments Soft Tissue Assessment Soft Tissue Mobility Assessment Tight both QL, Paralumbars, hamstring, ITB, Calves. PT-OP-G Mobility & Gait Start: 11/15/18 16:05 Freq: Status: Active Protocol: Document 03/09/19 13:45 RCC (Rec: 03/09/19 15:04 RCC [email or web address]) OP Mobility Evaluation Bed Mobility Supine to and from Sit mod indep. (does require assistance for RLE management but able to assist self) OP Gait Assessment Comments Gait Comments mild lateral trunk lean to slight with VC PT-OP-J Posture/Palpation/Skin Start: 11/15/18 16:05 Freq: Status: Active Protocol: Document 01/17/19 15:09 EA (Rec: 01/17/19 15:17 EA [id number]) Palpation Assessment Location One Palpation Location Gluteals, ITB Palpation Findings Soft Tissue Tightness Tenderness Palpation Details Grade 2/4 tenderness over ITB, gluteals. PT-OP-K Range of Motion Start: 11/15/18 16:05 Freq: Status: Active Protocol: Document 01/17/19 15:09 EA (Rec: 01/17/19 15:17 EA [id number]) Lumbar Spine Range of Motion Lumbar Spine Active Percentage Testing Position Standing Flexion 80 Extension 90 Rotation Left 80 Rotation Right 80 Lateral Flexion Left 70 Lateral Flexion Right 70 ROM Limitations Soft Tissue Tightness Hip Goniometric Range of Motion Hip Measured in Degrees Left Passive Hip ROM WFL Yes Right Passive Hip ROM WFL Yes PT-OP-L Special Tests Start: 11/15/18 16:05 Freq: Status: Active Protocol: Document 11/15/18 14:10 EA (Rec: 11/16/18 09:28 EA [id number]) Special Tests Hip Special Tests Trendelenberg Test Results Right compesated SHARI Test Results negative Piriformis Test Results sensitive to right side Straight Leg Raise Test Results - Marlene's Test Test Results + Anterior Labral Test Test Results - PT-OP-Q Treatments Start: 11/15/18 16:05 Freq: Status: Active Protocol: Document 03/21/19 13:35 GGD (Rec: 03/21/19 16:13 GGD [email or web address]) Cardio Equipment Recumbent Stepper (Sci-Fit) Duration (Minutes) 10 Resistance 3 Seat Position 12 Gym Equipment Shuttle Recovery Unilateral Squats Resistance 50# Shuttle Recovery Platform Stable Reps/Time x 15 repsx 2 Bilateral Squats Resistance 87# Shuttle Recovery Platform Stable Reps/Time x 15 reps x 3 Therapeutic Exercises Supine Exercises 7 Supine Exercise Name Hip ER Resistance L2 exercise band Reps/Minutes x 12 reps x 2 Comments performed seated due to LE cramping today 6 Supine Exercise Name Bridge with hip ABD Resistance Lv 2 Reps/Minutes x 12 reps x 2 4 Supine Exercise Name ITB stretch Side bilateral 3 Supine Exercise Name Piriformis stretch Side bilateral Sitting Exercises 1 Sitting Exercise Name Hip Abduction Side bilateral Resistance L2 exercise band Reps/Minutes 2 x 10 reps PT-OP-R Modalities Start: 11/15/18 16:05 Freq: Status: Active Protocol: Document 03/21/19 13:35 GGD (Rec: 03/21/19 16:13 GGD [email or web address]) Hot Pack/Cold Pack Treatment Hot Pack Location Left low back/lateral hip Patient Position Sidelying Treatment Duration (minutes) 15 Patient Tolerance Good PT-OP-T Assessment and Plan Start: 11/15/18 16:05 Freq: Status: Active Protocol: Document 03/21/19 13:35 GGD (Rec: 03/21/19 16:13 GGD [id number]) Physical Therapy Assessment Assessment Summary Assessment Pt had no C/O's during exercise. She was able to return to shuttle exercise. Physical Therapy Plan Frequency and Duration Frequency of Treatment 2x/Week Duration of Treatment 6 wks Plan of Care Start Date 03/09/19 Plan of Care End Date 04/20/19 Next Visit Focus/Plan Next Note Type Treatment Note Next Visit Plan check BP as needed, advance strengthening as vic
--- NOTE | 2019-03-28 17:27 | PT.OTN ---
Current Diagnoses Pain in left hip (03/28/19) Physical Therapy Treatment Note PT-OP-A Visit Information Start: 11/15/18 16:05 Freq: Status: Active Protocol: Document 03/28/19 17:13 GGD (Rec: 03/28/19 17:24 GGD [id number]) Out-Patient Physical Therapy Visit Information Visit Information Visit Type Treatment Note Visit Start Time 14:30 Visit Stop Time 15:20 Total Visit Minutes 50 Visit Number 21 Number of PHOTOENGRAVER APPRENTICE Visits 2 Evaluation Information Evaluation Date 11/16/18 PT-OP-B Current Condition Start: 11/15/18 16:05 Freq: Status: Active Protocol: Document 11/15/18 16:00 EA (Rec: 11/16/18 07:36 EA [id number]) Current Condition History of Current Condition Onset Date August/2018 Current Complaints Left hip and right thigh pain History of Current Condition Present left hip condition started to re-aggravated on August 2018 without known recent injury. Have had history of left hip bursitis and undergone yanelis steroid injection with good results years ago. Right chronic LE sciatica with no formal PT. OTC pain medication helps relief of pain temporarily. X- rays to left hip reveals no significant findings per medical records. Health history of NIDDM with metformin meds, HTN, abdominal hernia, hypothyroidism and OA . Prior Treatments and Tests Left hip steroid injection Future Testing and Treatments Planned None identified Treatment Goals Patient/Caregiver Goals Patient wants to reduce left hip, right thigh, and low back pain to at least 2/10 pain scale. Prior Functional Status Baseline Function- ADL's Independent Baseline Function- Mobility Independent Baseline Function- Gait Indep with no difficulty prior to re-aggravation 3 months ago. Baseline Function- Work/School Able to look after her in all personal care prior to 2017 re-aggravation Current Functional Impairments (Reported) Functional Limitations- ADL's Independent with difficulty and requires constant rest to complete the task due to pain Functional Limitations- Mobility/Gait Unable to walk more than 2 blocks Functional Limitations- Work/School Indep with difficulty looking after her PT-OP-C Subjective Start: 11/15/18 16:05 Freq: Status: Active Protocol: Document 03/28/19 17:13 GGD (Rec: 03/28/19 17:24 GGD [email or web address]) OP-PT Subjective Patient Comments Patient Comments Pt states she is sore after a busy weekend in [place]. PT-OP-D Balance Start: 11/15/18 16:05 Freq: Status: Active Protocol: Document 11/15/18 16:17 EA (Rec: 11/16/18 09:28 EA [id number]) Balance Tests Single Limb Standing Single Limb- Right <2 secs Single Limb- Left > 2 secs PT-OP-F Manual Assessment Start: 11/15/18 16:05 Freq: Status: Active Protocol: Document 11/15/18 16:00 EA (Rec: 11/16/18 07:36 EA [id number]) Manual Assessments Soft Tissue Assessment Soft Tissue Mobility Assessment Tight both QL, Paralumbars, hamstring, ITB, Calves. PT-OP-G Mobility & Gait Start: 11/15/18 16:05 Freq: Status: Active Protocol: Document 03/09/19 13:45 RCC (Rec: 03/09/19 15:04 RCC [id number]) OP Mobility Evaluation Bed Mobility Supine to and from Sit mod indep. (does require assistance for RLE management but able to assist self) OP Gait Assessment Comments Gait Comments mild lateral trunk lean to slight with VC PT-OP-J Posture/Palpation/Skin Start: 11/15/18 16:05 Freq: Status: Active Protocol: Document 01/17/19 15:09 EA (Rec: 01/17/19 15:17 EA [id number]) Palpation Assessment Location One Palpation Location Gluteals, ITB Palpation Findings Soft Tissue Tightness Tenderness Palpation Details Grade 2/4 tenderness over ITB, gluteals. PT-OP-K Range of Motion Start: 11/15/18 16:05 Freq: Status: Active Protocol: Document 01/17/19 15:09 EA (Rec: 01/17/19 15:17 EA [id number]) Lumbar Spine Range of Motion Lumbar Spine Active Percentage Testing Position Standing Flexion 80 Extension 90 Rotation Left 80 Rotation Right 80 Lateral Flexion Left 70 Lateral Flexion Right 70 ROM Limitations Soft Tissue Tightness Hip Goniometric Range of Motion Hip Left Passive Hip ROM WFL Yes Right Passive Hip ROM WFL Yes PT-OP-L Special Tests Start: 11/15/18 16:05 Freq: Status: Active Protocol: Document 11/15/18 14:10 EA (Rec: 11/16/18 09:28 EA [id number]) Special Tests Hip Special Tests Trendelenberg Test Results Right compesated SHARI Test Results negative Piriformis Test Results sensitive to right side Straight Leg Raise Test Results - Marlene's Test Test Results + Anterior Labral Test Test Results - PT-OP-Q Treatments Start: 11/15/18 16:05 Freq: Status: Active Protocol: Document 03/28/19 14:30 GGD (Rec: 03/28/19 17:24 GGD [email or web address]) Cardio Equipment Recumbent Stepper (Sci-Fit) Duration (Minutes) 10 Resistance 3 Seat Position 12 Gym Equipment Shuttle Recovery Unilateral Squats Resistance 50# Shuttle Recovery Platform Stable Reps/Time x 15 repsx 2 Bilateral Squats Resistance 87# Shuttle Recovery Platform Stable Reps/Time x 15 reps x 3 Therapeutic Exercises Supine Exercises 7 Supine Exercise Name Hip ER Resistance L2 exercise band Reps/Minutes x 12 reps x 2 Comments performed seated due to LE cramping today 6 Supine Exercise Name Bridge with hip ABD Resistance Lv 2 Reps/Minutes x 12 reps x 2 3 Supine Exercise Name Piriformis stretch Side bilateral Sitting Exercises 1 Sitting Exercise Name Hip Abduction Side bilateral Resistance L2 exercise band Reps/Minutes 2 x 10 reps Manual Therapy Treatment Soft Tissue Mobilization 1 Body Location left piriformis and gluteal region Mobilization Type Myofascial Release Strain/Counterstrain Body Position right SL PT-OP-R Modalities Start: 11/15/18 16:05 Freq: Status: Active Protocol: Document 03/28/19 14:30 GGD (Rec: 03/28/19 17:24 GGD [email or web address]) Hot Pack/Cold Pack Treatment Hot Pack Location Left low back/lateral hip Patient Position Sidelying Treatment Duration (minutes) 15 Patient Tolerance Good PT-OP-T Assessment and Plan Start: 11/15/18 16:05 Freq: Status: Active Protocol: Document 03/28/19 14:30 GGD (Rec: 03/28/19 17:24 GGD [email or web address]) Physical Therapy Assessment Assessment Summary Assessment Pt had decrease in c/O pain with treatment. She did fatigue with strengthening exercise. Pt improving slowly overall. Physical Therapy Plan Frequency and Duration Frequency of Treatment 2x/Week Duration of Treatment 6 wks Plan of Care Start Date 03/09/19 Plan of Care End Date 04/20/19 Next Visit Focus/Plan Next Note Type Treatment Note Next Visit Plan check BP as needed, advance strengthening as vic
--- NOTE | 2019-04-03 15:16 | PT.OTN ---
Current Diagnoses Pain in left hip (04/03/19) Physical Therapy Treatment Note PT-OP-A Visit Information Start: 11/15/18 16:05 Freq: Status: Active Protocol: Document 04/03/19 14:28 EA (Rec: 04/03/19 14:33 EA [id number]) Out-Patient Physical Therapy Visit Information Visit Information Visit Type Treatment Note Visit Start Time 13:35 Visit Stop Time 14:25 Total Visit Minutes 50 Visit Number 22 Number of DOUBLE ENDING MACHINE OPERATOR Visits 1 PT-OP-B Current Condition Start: 11/15/18 16:05 Freq: Status: Active Protocol: Document 11/15/18 16:00 EA (Rec: 11/16/18 07:36 EA [id number]) Current Condition History of Current Condition Onset Date August/2018 Current Complaints Left hip and right thigh pain History of Current Condition Present left hip condition started to re-aggravated on August 2018 without known recent injury. Have had history of left hip bursitis and undergone yanelis steroid injection with good results years ago. Right chronic LE sciatica with no formal PT. OTC pain medication helps relief of pain temporarily. X- rays to left hip reveals no significant findings per medical records. Health history of NIDDM with metformin meds, HTN, abdominal hernia, hypothyroidism and OA . Prior Treatments and Tests Left hip steroid injection Future Testing and Treatments Planned None identified Treatment Goals Patient/Caregiver Goals Patient wants to reduce left hip, right thigh, and low back pain to at least 2/10 pain scale. Prior Functional Status Baseline Function- ADL's Independent Baseline Function- Mobility Independent Baseline Function- Gait Indep with no difficulty prior to re-aggravation 3 months ago. Baseline Function- Work/School Able to look after her in all personal care prior to 2017 re-aggravation Current Functional Impairments (Reported) Functional Limitations- ADL's Independent with difficulty and requires constant rest to complete the task due to pain Functional Limitations- Mobility/Gait Unable to walk more than 2 blocks Functional Limitations- Work/School Indep with difficulty looking after her PT-OP-C Subjective Start: 11/15/18 16:05 Freq: Status: Active Protocol: Document 04/03/19 14:28 EA (Rec: 04/03/19 14:33 EA [id number]) OP-PT Subjective Patient Comments Patient Comments Pt reports she is feeling much better until last week where she had a long walk; states pain comes and goes. PT-OP-D Balance Start: 11/15/18 16:05 Freq: Status: Active Protocol: Document 11/15/18 16:17 EA (Rec: 11/16/18 09:28 EA [id number]) Balance Tests Single Limb Standing Single Limb- Right <2 secs Single Limb- Left > 2 secs PT-OP-F Manual Assessment Start: 11/15/18 16:05 Freq: Status: Active Protocol: Document 11/15/18 16:00 EA (Rec: 11/16/18 07:36 EA [id number]) Manual Assessments Soft Tissue Assessment Soft Tissue Mobility Assessment Tight both QL, Paralumbars, hamstring, ITB, Calves. PT-OP-G Mobility & Gait Start: 11/15/18 16:05 Freq: Status: Active Protocol: Document 03/09/19 13:45 RCC (Rec: 03/09/19 15:04 RCC [email or web address]) OP Mobility Evaluation Bed Mobility Supine to and from Sit mod indep. (does require assistance for RLE management but able to assist self) OP Gait Assessment Comments Gait Comments mild lateral trunk lean to slight with VC PT-OP-J Posture/Palpation/Skin Start: 11/15/18 16:05 Freq: Status: Active Protocol: Document 01/17/19 15:09 EA (Rec: 01/17/19 15:17 EA [id number]) Palpation Assessment Location One Palpation Location Gluteals, ITB Palpation Findings Soft Tissue Tightness Tenderness Palpation Details Grade 2/4 tenderness over ITB, gluteals. PT-OP-K Range of Motion Start: 11/15/18 16:05 Freq: Status: Active Protocol: Document 01/17/19 15:09 EA (Rec: 01/17/19 15:17 EA [id number]) Lumbar Spine Range of Motion Lumbar Spine Active Percentage Testing Position Standing Flexion 80 Extension 90 Rotation Left 80 Rotation Right 80 Lateral Flexion Left 70 Lateral Flexion Right 70 ROM Limitations Soft Tissue Tightness Hip Goniometric Range of Motion Hip Left Passive Hip ROM WFL Yes Right Passive Hip ROM WFL Yes PT-OP-L Special Tests Start: 11/15/18 16:05 Freq: Status: Active Protocol: Document 11/15/18 14:10 EA (Rec: 11/16/18 09:28 EA [id number]) Special Tests Hip Special Tests Trendelenberg Test Results Right compesated SHARI Test Results negative Piriformis Test Results sensitive to right side Straight Leg Raise Test Results - Marlene's Test Test Results + Anterior Labral Test Test Results - PT-OP-Q Treatments Start: 11/15/18 16:05 Freq: Status: Active Protocol: Document 04/03/19 14:28 EA (Rec: 04/03/19 14:33 EA [id number]) Cardio Equipment Recumbent Stepper (Sci-Fit) Duration (Minutes) 10 Resistance 3 Seat Position 12 Gym Equipment Shuttle Recovery Unilateral Squats Resistance 50# Shuttle Recovery Platform Stable Reps/Time x 15 repsx 2 Therapeutic Exercises Supine Exercises 7 Supine Exercise Name Hip ER Resistance L2 exercise band Reps/Minutes x 12 reps x 2 Comments performed seated due to LE cramping today 6 Supine Exercise Name Bridge with hip ABD Resistance Lv 2 Reps/Minutes x 12 reps x 2 4 Supine Exercise Name ITB stretch Side bilateral 3 Supine Exercise Name Piriformis stretch Side bilateral Standing Exercises HS curls Side bilateral Resistance 2 lbs Reps/Minutes x2 on the R, x10 on the L Comments d/c on R due to pain hip extension Side bilateral Resistance 2 ls Reps/Minutes 2x10 marching Side bilateral Resistance 2 lbs Reps/Minutes 2 x 15 3 Standing Exercise Name side step squat Resistance YTB Reps/Minutes x 2 lines 12 ft 2 Standing Exercise Name SLS Reps/Minutes x 5SH x 2 reps 1 Standing Exercise Name single hand support high knee march with core engagement. Side bilateral Reps/Minutes x 10 reps Comments tactile cues required PT-OP-R Modalities Start: 11/15/18 16:05 Freq: Status: Active Protocol: Document 04/03/19 14:28 EA (Rec: 04/03/19 14:33 EA [id number]) Hot Pack/Cold Pack Treatment Hot Pack Location Left low back/lateral hip Patient Position Sidelying Treatment Duration (minutes) 15 Patient Tolerance Good PT-OP-T Assessment and Plan Start: 11/15/18 16:05 Freq: Status: Active Protocol: Document 04/03/19 14:28 EA (Rec: 04/03/19 14:33 EA [id number]) Physical Therapy Assessment Assessment Summary Assessment Improved tolerance noted except with sidelying ITB stretch due to toe cramps however able to improved after few stretch. Physical Therapy Plan Next Visit Focus/Plan Next Note Type Treatment Note Next Visit Plan check BP as needed, advance strengthening as vic
--- NOTE | 2019-04-05 15:09 | PT.OTN ---
Current Diagnoses Pain in left hip (04/05/19) Physical Therapy Treatment Note PT-OP-A Visit Information Start: 11/15/18 16:05 Freq: Status: Active Protocol: Document 04/05/19 14:21 EA (Rec: 04/05/19 14:27 EA [id number]) Out-Patient Physical Therapy Visit Information Visit Information Visit Type Treatment Note Visit Start Time 13:45 Visit Stop Time 14:30 Total Visit Minutes 48 Visit Number 23 Number of DRY GOODS INSPECTOR Visits 1 PT-OP-B Current Condition Start: 11/15/18 16:05 Freq: Status: Active Protocol: Document 11/15/18 16:00 EA (Rec: 11/16/18 07:36 EA [id number]) Current Condition History of Current Condition Onset Date August/2018 Current Complaints Left hip and right thigh pain History of Current Condition Present left hip condition started to re-aggravated on August 2018 without known recent injury. Have had history of left hip bursitis and undergone yanelis steroid injection with good results years ago. Right chronic LE sciatica with no formal PT. OTC pain medication helps relief of pain temporarily. X- rays to left hip reveals no significant findings per medical records. Health history of NIDDM with metformin meds, HTN, abdominal hernia, hypothyroidism and OA . Prior Treatments and Tests Left hip steroid injection Future Testing and Treatments Planned None identified Treatment Goals Patient/Caregiver Goals Patient wants to reduce left hip, right thigh, and low back pain to at least 2/10 pain scale. Prior Functional Status Baseline Function- ADL's Independent Baseline Function- Mobility Independent Baseline Function- Gait Indep with no difficulty prior to re-aggravation 3 months ago. Baseline Function- Work/School Able to look after her in all personal care prior to 2017 re-aggravation Current Functional Impairments (Reported) Functional Limitations- ADL's Independent with difficulty and requires constant rest to complete the task due to pain Functional Limitations- Mobility/Gait Unable to walk more than 2 blocks Functional Limitations- Work/School Indep with difficulty looking after her PT-OP-C Subjective Start: 11/15/18 16:05 Freq: Status: Active Protocol: Document 04/05/19 14:21 EA (Rec: 04/05/19 14:27 EA [id number]) OP-PT Subjective Patient Comments Patient Comments I feel my walking is much improve PT-OP-D Balance Start: 11/15/18 16:05 Freq: Status: Active Protocol: Document 11/15/18 16:17 EA (Rec: 11/16/18 09:28 EA [id number]) Balance Tests Single Limb Standing Single Limb- Right <2 secs Single Limb- Left > 2 secs PT-OP-F Manual Assessment Start: 11/15/18 16:05 Freq: Status: Active Protocol: Document 11/15/18 16:00 EA (Rec: 11/16/18 07:36 EA [id number]) Manual Assessments Soft Tissue Assessment Soft Tissue Mobility Assessment Tight both QL, Paralumbars, hamstring, ITB, Calves. PT-OP-G Mobility & Gait Start: 11/15/18 16:05 Freq: Status: Active Protocol: Document 03/09/19 13:45 RCC (Rec: 03/09/19 15:04 RCC [email or web address]) OP Mobility Evaluation Bed Mobility Supine to and from Sit mod indep. (does require assistance for RLE management but able to assist self) OP Gait Assessment Comments Gait Comments mild lateral trunk lean to slight with VC PT-OP-J Posture/Palpation/Skin Start: 11/15/18 16:05 Freq: Status: Active Protocol: Document 01/17/19 15:09 EA (Rec: 01/17/19 15:17 EA [id number]) Palpation Assessment Location One Palpation Location Gluteals, ITB Palpation Findings Soft Tissue Tightness Tenderness Palpation Details Grade 2/4 tenderness over ITB, gluteals. PT-OP-K Range of Motion Start: 11/15/18 16:05 Freq: Status: Active Protocol: Document 01/17/19 15:09 EA (Rec: 01/17/19 15:17 EA [id number]) Lumbar Spine Range of Motion Lumbar Spine Active Percentage Testing Position Standing Flexion 80 Extension 90 Rotation Left 80 Rotation Right 80 Lateral Flexion Left 70 Lateral Flexion Right 70 ROM Limitations Soft Tissue Tightness Hip Goniometric Range of Motion Hip Left Passive Hip ROM WFL Yes Right Passive Hip ROM WFL Yes PT-OP-L Special Tests Start: 11/15/18 16:05 Freq: Status: Active Protocol: Document 11/15/18 14:10 EA (Rec: 11/16/18 09:28 EA [id number]) Special Tests Hip Special Tests Trendelenberg Test Results Right compesated SHARI Test Results negative Piriformis Test Results sensitive to right side Straight Leg Raise Test Results - Marlene's Test Test Results + Anterior Labral Test Test Results - PT-OP-Q Treatments Start: 11/15/18 16:05 Freq: Status: Active Protocol: Document 04/05/19 14:21 EA (Rec: 04/05/19 14:27 EA [id number]) Cardio Equipment Recumbent Stepper (Sci-Fit) Duration (Minutes) 10 Resistance 3 Seat Position 12 Gym Equipment Shuttle Recovery Unilateral Squats Resistance 50# Shuttle Recovery Platform Stable Reps/Time x 15 repsx 2 Bilateral Squats Resistance 100# Shuttle Recovery Platform Stable Reps/Time x 15 reps x 3 Therapeutic Exercises Supine Exercises 7 Supine Exercise Name Hip ER Resistance L2 exercise band Reps/Minutes x 12 reps x 2 Comments performed seated due to LE cramping today 6 Supine Exercise Name Bridge with hip ABD Resistance Lv 2 Reps/Minutes x 12 reps x 2 4 Supine Exercise Name ITB stretch Side bilateral 3 Supine Exercise Name Piriformis stretch Side bilateral Standing Exercises HS curls Side bilateral Resistance 2 lbs Reps/Minutes x2 on the R, x10 on the L Comments d/c on R due to pain 3 Standing Exercise Name side step squat Resistance GTB Reps/Minutes x 2 lines 12 ft 1 Standing Exercise Name single hand support high knee march with core engagement. Reps/Minutes 10 reps PT-OP-R Modalities Start: 11/15/18 16:05 Freq: Status: Active Protocol: Document 04/05/19 14:21 EA (Rec: 04/05/19 14:27 EA [id number]) Hot Pack/Cold Pack Treatment Hot Pack Location Left low back/lateral hip Patient Position Sidelying Treatment Duration (minutes) 15 Patient Tolerance Good PT-OP-T Assessment and Plan Start: 11/15/18 16:05 Freq: Status: Active Protocol: Document 04/05/19 14:21 EA (Rec: 04/05/19 14:27 EA [id number]) Physical Therapy Assessment Assessment Summary Assessment Improved tolerance to walking noted at this time. Physical Therapy Plan Next Visit Focus/Plan Next Note Type Treatment Note Next Visit Plan check BP as needed, advance strengthening as vic
--- NOTE | 2019-04-10 16:54 | PT.OTN ---
Current Diagnoses Pain in left hip (04/10/19) Physical Therapy Treatment Note PT-OP-A Visit Information Start: 11/15/18 16:05 Freq: Status: Active Protocol: Document 04/10/19 13:00 AMB (Rec: 04/10/19 16:51 AMB [email or web address]) Out-Patient Physical Therapy Visit Information Visit Information Visit Type Treatment Note Visit Start Time 13:00 Visit Stop Time 13:50 Total Visit Minutes 45 Visit Number 24 Number of CHEMISTRY QUALITY CONTROL ANALYST Visits 0 PT-OP-B Current Condition Start: 11/15/18 16:05 Freq: Status: Active Protocol: Document 11/15/18 16:00 EA (Rec: 11/16/18 07:36 EA [id number]) Current Condition History of Current Condition Onset Date August/2018 Current Complaints Left hip and right thigh pain History of Current Condition Present left hip condition started to re-aggravated on August 2018 without known recent injury. Have had history of left hip bursitis and undergone yanelis steroid injection with good results years ago. Right chronic LE sciatica with no formal PT. OTC pain medication helps relief of pain temporarily. X- rays to left hip reveals no significant findings per medical records. Health history of NIDDM with metformin meds, HTN, abdominal hernia, hypothyroidism and OA . Prior Treatments and Tests Left hip steroid injection Future Testing and Treatments Planned None identified Treatment Goals Patient/Caregiver Goals Patient wants to reduce left hip, right thigh, and low back pain to at least 2/10 pain scale. Prior Functional Status Baseline Function- ADL's Independent Baseline Function- Mobility Independent Baseline Function- Gait Indep with no difficulty prior to re-aggravation 3 months ago. Baseline Function- Work/School Able to look after her in all personal care prior to 2017 re-aggravation Current Functional Impairments (Reported) Functional Limitations- ADL's Independent with difficulty and requires constant rest to complete the task due to pain Functional Limitations- Mobility/Gait Unable to walk more than 2 blocks Functional Limitations- Work/School Indep with difficulty looking after her PT-OP-C Subjective Start: 11/15/18 16:05 Freq: Status: Active Protocol: Document 04/10/19 13:00 AMB (Rec: 04/10/19 16:51 AMB [id number]) OP-PT Subjective Patient Comments Patient Comments Pt is hoping to continue with PT. PT-OP-D Balance Start: 11/15/18 16:05 Freq: Status: Active Protocol: Document 11/15/18 16:17 EA (Rec: 11/16/18 09:28 EA [id number]) Balance Tests Single Limb Standing Single Limb- Right <2 secs Single Limb- Left > 2 secs PT-OP-F Manual Assessment Start: 11/15/18 16:05 Freq: Status: Active Protocol: Document 11/15/18 16:00 EA (Rec: 11/16/18 07:36 EA [id number]) Manual Assessments Soft Tissue Assessment Soft Tissue Mobility Assessment Tight both QL, Paralumbars, hamstring, ITB, Calves. PT-OP-G Mobility & Gait Start: 11/15/18 16:05 Freq: Status: Active Protocol: Document 03/09/19 13:45 RCC (Rec: 03/09/19 15:04 RCC [email or web address]) OP Mobility Evaluation Bed Mobility Supine to and from Sit mod indep. (does require assistance for RLE management but able to assist self) OP Gait Assessment Comments Gait Comments mild lateral trunk lean to slight with VC PT-OP-J Posture/Palpation/Skin Start: 11/15/18 16:05 Freq: Status: Active Protocol: Document 01/17/19 15:09 EA (Rec: 01/17/19 15:17 EA [id number]) Palpation Assessment Location One Palpation Location Gluteals, ITB Palpation Findings Soft Tissue Tightness Tenderness Palpation Details Grade 2/4 tenderness over ITB, gluteals. PT-OP-K Range of Motion Start: 11/15/18 16:05 Freq: Status: Active Protocol: Document 01/17/19 15:09 EA (Rec: 01/17/19 15:17 EA [id number]) Lumbar Spine Range of Motion Lumbar Spine Active Percentage Testing Position Standing Flexion 80 Extension 90 Rotation Left 80 Rotation Right 80 Lateral Flexion Left 70 Lateral Flexion Right 70 ROM Limitations Soft Tissue Tightness Hip Goniometric Range of Motion Hip Left Passive Hip ROM WFL Yes Right Passive Hip ROM WFL Yes PT-OP-L Special Tests Start: 11/15/18 16:05 Freq: Status: Active Protocol: Document 11/15/18 14:10 EA (Rec: 11/16/18 09:28 EA [id number]) Special Tests Hip Special Tests Trendelenberg Test Results Right compesated SHARI Test Results negative Piriformis Test Results sensitive to right side Straight Leg Raise Test Results - Marlene's Test Test Results + Anterior Labral Test Test Results - PT-OP-Q Treatments Start: 11/15/18 16:05 Freq: Status: Active Protocol: Document 04/10/19 13:00 AMB (Rec: 04/10/19 13:21 AMB [id number]) Cardio Equipment Recumbent Stepper (Sci-Fit) Duration (Minutes) 10 Resistance 3 Seat Position 12 Gym Equipment Shuttle Recovery Unilateral Squats Resistance 50# Shuttle Recovery Platform Stable Reps/Time x 15 repsx 2 Bilateral Squats Resistance 100# Shuttle Recovery Platform Stable Reps/Time x 15 reps x 3 Therapeutic Exercises Supine Exercises 6 Supine Exercise Name Bridge with hip ABD Resistance Lv 2 Reps/Minutes x 12 reps x 2 4 Supine Exercise Name ITB stretch Side bilateral 3 Supine Exercise Name Piriformis stretch Side bilateral Standing Exercises 3 Standing Exercise Name side step squat Resistance GTB Reps/Minutes x 2 lines 12 ft 1 Standing Exercise Name single hand support high knee march with core engagement. Reps/Minutes 10 reps PT-OP-R Modalities Start: 11/15/18 16:05 Freq: Status: Active Protocol: Document 04/10/19 13:00 AMB (Rec: 04/10/19 16:53 AMB [email or web address]) Electric Stimulation Electric Stimulation Interferential Current (IFC) Body Location L hip Duration (Minutes) 15 Combined With Heat/Cold Hot Pack PT-OP-T Assessment and Plan Start: 11/15/18 16:05 Freq: Status: Active Protocol: Document 04/10/19 13:00 AMB (Rec: 04/10/19 16:51 AMB [email or web address]) Physical Therapy Assessment Assessment Summary Assessment Ira noticing right knee pain more than L hip pain today.Tolerated exercises well with one rest break. Physical Therapy Plan Next Visit Focus/Plan Next Note Type Treatment Note Next Visit Plan check BP as needed, advance strengthening as vic
--- NOTE | 2019-04-12 17:30 | PT.OTN ---
Current Diagnoses Pain in left hip (04/12/19) Physical Therapy Treatment Note PT-OP-A Visit Information Start: 11/15/18 16:05 Freq: Status: Active Protocol: Document 04/12/19 14:27 EA (Rec: 04/12/19 14:31 EA [id number]) Out-Patient Physical Therapy Visit Information Visit Information Visit Type Treatment Note Visit Start Time 13:45 Visit Stop Time 14:30 Total Visit Minutes 48 Visit Number 25 Number of GLASSIE Visits 2 PT-OP-B Current Condition Start: 11/15/18 16:05 Freq: Status: Active Protocol: Document 11/15/18 16:00 EA (Rec: 11/16/18 07:36 EA [id number]) Current Condition History of Current Condition Onset Date August/2018 Current Complaints Left hip and right thigh pain History of Current Condition Present left hip condition started to re-aggravated on August 2018 without known recent injury. Have had history of left hip bursitis and undergone yanelis steroid injection with good results years ago. Right chronic LE sciatica with no formal PT. OTC pain medication helps relief of pain temporarily. X- rays to left hip reveals no significant findings per medical records. Health history of NIDDM with metformin meds, HTN, abdominal hernia, hypothyroidism and OA . Prior Treatments and Tests Left hip steroid injection Future Testing and Treatments Planned None identified Treatment Goals Patient/Caregiver Goals Patient wants to reduce left hip, right thigh, and low back pain to at least 2/10 pain scale. Prior Functional Status Baseline Function- ADL's Independent Baseline Function- Mobility Independent Baseline Function- Gait Indep with no difficulty prior to re-aggravation 3 months ago. Baseline Function- Work/School Able to look after her in all personal care prior to 2017 re-aggravation Current Functional Impairments (Reported) Functional Limitations- ADL's Independent with difficulty and requires constant rest to complete the task due to pain Functional Limitations- Mobility/Gait Unable to walk more than 2 blocks Functional Limitations- Work/School Indep with difficulty looking after her PT-OP-C Subjective Start: 11/15/18 16:05 Freq: Status: Active Protocol: Document 04/12/19 14:27 EA (Rec: 04/12/19 14:31 EA [id number]) OP-PT Subjective Patient Comments Patient Comments Pt reports that she feels improving with PT; states she lost 10 lbs since coming to PT ; states left hip is much feeling better however both knees requires check up with doctor. PT-OP-D Balance Start: 11/15/18 16:05 Freq: Status: Active Protocol: Document 11/15/18 16:17 EA (Rec: 11/16/18 09:28 EA [id number]) Balance Tests Single Limb Standing Single Limb- Right <2 secs Single Limb- Left > 2 secs PT-OP-F Manual Assessment Start: 11/15/18 16:05 Freq: Status: Active Protocol: Document 11/15/18 16:00 EA (Rec: 11/16/18 07:36 EA [id number]) Manual Assessments Soft Tissue Assessment Soft Tissue Mobility Assessment Tight both QL, Paralumbars, hamstring, ITB, Calves. PT-OP-G Mobility & Gait Start: 11/15/18 16:05 Freq: Status: Active Protocol: Document 03/09/19 13:45 RCC (Rec: 03/09/19 15:04 RCC [email or web address]) OP Mobility Evaluation Bed Mobility Supine to and from Sit mod indep. (does require assistance for RLE management but able to assist self) OP Gait Assessment Comments Gait Comments mild lateral trunk lean to slight with VC PT-OP-J Posture/Palpation/Skin Start: 11/15/18 16:05 Freq: Status: Active Protocol: Document 01/17/19 15:09 EA (Rec: 01/17/19 15:17 EA [id number]) Palpation Assessment Location One Palpation Location Gluteals, ITB Palpation Findings Soft Tissue Tightness Tenderness Palpation Details Grade 2/4 tenderness over ITB, gluteals. PT-OP-K Range of Motion Start: 11/15/18 16:05 Freq: Status: Active Protocol: Document 01/17/19 15:09 EA (Rec: 01/17/19 15:17 EA [id number]) Lumbar Spine Range of Motion Lumbar Spine Active Percentage Testing Position Standing Flexion 80 Extension 90 Rotation Left 80 Rotation Right 80 Lateral Flexion Left 70 Lateral Flexion Right 70 ROM Limitations Soft Tissue Tightness Hip Goniometric Range of Motion Hip Left Passive Hip ROM WFL Yes Right Passive Hip ROM WFL Yes PT-OP-L Special Tests Start: 11/15/18 16:05 Freq: Status: Active Protocol: Document 11/15/18 14:10 EA (Rec: 11/16/18 09:28 EA [id number]) Special Tests Hip Special Tests Trendelenberg Test Results Right compesated SHARI Test Results negative Piriformis Test Results sensitive to right side Straight Leg Raise Test Results - Marlene's Test Test Results + Anterior Labral Test Test Results - PT-OP-Q Treatments Start: 11/15/18 16:05 Freq: Status: Active Protocol: Document 04/12/19 14:27 EA (Rec: 04/12/19 14:31 EA [id number]) Cardio Equipment Recumbent Stepper (Sci-Fit) Duration (Minutes) 10 Resistance 3 Seat Position 12 Gym Equipment Shuttle Recovery Unilateral Squats Resistance 50# Shuttle Recovery Platform Stable Reps/Time x 15 repsx 2 Bilateral Squats Resistance 125# Shuttle Recovery Platform Stable Reps/Time x 15 reps x 3 Therapeutic Exercises Supine Exercises 6 Supine Exercise Name Bridge with hip ABD Resistance Lv 2 Reps/Minutes x 12 reps x 2 4 Supine Exercise Name ITB stretch Side bilateral 3 Supine Exercise Name Piriformis stretch Side bilateral Standing Exercises 3 Standing Exercise Name side step squat Resistance GTB Reps/Minutes x 2 lines 12 ft 2 Standing Exercise Name SLS Reps/Minutes x 5SH x 2 reps 1 Standing Exercise Name single hand support high knee march with core engagement. Reps/Minutes 10 reps PT-OP-R Modalities Start: 11/15/18 16:05 Freq: Status: Active Protocol: Document 04/12/19 17:35 EA (Rec: 04/12/19 17:39 EA [id number]) Hot Pack/Cold Pack Treatment Hot Pack Location Left low back/lateral hip Patient Position Sidelying Treatment Duration (minutes) 15 Patient Tolerance Good PT-OP-T Assessment and Plan Start: 11/15/18 16:05 Freq: Status: Active Protocol: Document 04/12/19 17:35 EA (Rec: 04/12/19 17:39 EA [id number]) Physical Therapy Assessment Impairments Impairments Activity Tolerance Functional Mobility Gait Pain ROM Soft Tissue Mobility Strength Goals Four Impairment No HEP in place Mcc Goal (LTG) Patient will comply and perform HEP safely and independently. LTG Duration 4 wks Three Impairment Impaired gait Mcc Goal (LTG) Patient will exhibit no lateral trunk lean to decrease improve function and prevent muscular imbalance. LTG Duration 6 wks (Slightly improved with the use cane) Two Impairment Difficulty with bed mobility Mcc Goal (LTG) Patient will exhibits no difficulty in all bed mobility LTG Duration achieved 03/09/19 One Impairment LEFS 29/80 Merchandising Execution Associate Goal (LTG) Patient will have LEFS of > 45 LTG Duration 6 wks (slight progress) Progress Towards Goals Progress Towards Goals Slow Progress due to Activity Tolerance Slow Progress - Other Assessment Summary Assessment Patient exhibit improved tolerance to therEx and has Physical Therapy Plan Frequency and Duration Frequency of Treatment 1x/Week Duration of Treatment 8 wks Plan of Care Start Date 04/12/19 Plan of Care End Date 06/07/19 Therapeutic Interventions Therapeutic Interventions Aquatic Therapy Gait Training Home Exercise Program Manual Therapy Neuromuscular Re-education Patient/Caregiver Education Self-Care/Home Management Soft Tissue Mobilization Taping Therapeutic Exercises Modalities Cold Pack/Ice Massage Electric Stimulation Hot Packs Ultrasound Next Visit Focus/Plan Next Note Type Treatment Note Next Visit Plan Standing exercises as tolerated.
--- NOTE | 2019-04-12 17:35 | PT.OPPOC ---
Current Diagnoses Pain in left hip (04/12/19) Provider Visit Care Team Role Provider Type Yenny Harrell PA-C Attending Provider Non-Staff Primary Care Provider Specialty: Internal Medicine Address: Phone: Fax: Email: Plan Of Care PT-OP-T Assessment and Plan Start: 11/15/18 16:05 Freq: Status: Active Protocol: Document 04/12/19 17:35 EA (Rec: 04/12/19 17:39 EA [id number]) Physical Therapy Assessment Impairments Impairments Activity Tolerance Functional Mobility Gait Pain ROM Soft Tissue Mobility Strength Goals Four Impairment No HEP in place Manager Pharmaceutical Goal (LTG) Patient will comply and perform HEP safely and independently. LTG Duration 4 wks Three Impairment Impaired gait Manager Pharmaceutical Goal (LTG) Patient will exhibit no lateral trunk lean to decrease improve function and prevent muscular imbalance. LTG Duration 6 wks (Slightly improved with the use cane) Two Impairment Difficulty with bed mobility Manager Pharmaceutical Goal (LTG) Patient will exhibits no difficulty in all bed mobility LTG Duration achieved 03/09/19 One Impairment LEFS 29/80 Nursing Home Goal (LTG) Patient will have LEFS of > 45 LTG Duration 6 wks (slight progress) Progress Towards Goals Progress Towards Goals Slow Progress due to Activity Tolerance Slow Progress - Other Assessment Summary Assessment Patient exhibit improved tolerance to therEx and has improved with exercises tolerance indicating pain and discomfort to both hip is improving. Patient will cont. to benefit with skilled PT with yony incorporation of HEP and further education how to cut down weight safely. Physical Therapy Plan Frequency and Duration Frequency of Treatment 1x/Week Duration of Treatment 8 wks Plan of Care Start Date 04/12/19 Plan of Care End Date 06/07/19 Therapeutic Interventions Therapeutic Interventions Aquatic Therapy Gait Training Home Exercise Program Manual Therapy Neuromuscular Re-education Patient/Caregiver Education Self-Care/Home Management Soft Tissue Mobilization Taping Therapeutic Exercises Modalities Cold Pack/Ice Massage Electric Stimulation Hot Packs Ultrasound Next Visit Focus/Plan Next Note Type Treatment Note Next Visit Plan Standing exercises as tolerated. Plan of Care Dates Plan of Care Start Date 04/12/19 Plan of Care End Date 06/07/19 Please Sign and Return: I have reviewed this Plan of Care and certify that the skilled therapy services above are required to meet the patient?s needs. Physician Signature Date Printed Name and Credentials Clinical Instructor Signature Printed Name and Credentials
--- NOTE | 2019-04-27 16:46 | PT.OTN ---
Current Diagnoses Pain in left hip (04/27/19) Physical Therapy Treatment Note PT-OP-A Visit Information Start: 11/15/18 16:05 Freq: Status: Active Protocol: Document 04/27/19 16:40 EA (Rec: 04/27/19 16:45 EA [id number]) Out-Patient Physical Therapy Visit Information Visit Information Visit Type Treatment Note Visit Start Time 13:45 Visit Stop Time 14:30 Total Visit Minutes 48 Visit Number 26 Number of COATING MACHINE FEEDER Visits 2 PT-OP-B Current Condition Start: 11/15/18 16:05 Freq: Status: Active Protocol: Document 11/15/18 16:00 EA (Rec: 11/16/18 07:36 EA [id number]) Current Condition History of Current Condition Onset Date August/2018 Current Complaints Left hip and right thigh pain History of Current Condition Present left hip condition started to re-aggravated on August 2018 without known recent injury. Have had history of left hip bursitis and undergone yanelis steroid injection with good results years ago. Right chronic LE sciatica with no formal PT. OTC pain medication helps relief of pain temporarily. X- rays to left hip reveals no significant findings per medical records. Health history of NIDDM with metformin meds, HTN, abdominal hernia, hypothyroidism and OA . Prior Treatments and Tests Left hip steroid injection Future Testing and Treatments Planned None identified Treatment Goals Patient/Caregiver Goals Patient wants to reduce left hip, right thigh, and low back pain to at least 2/10 pain scale. Prior Functional Status Baseline Function- ADL's Independent Baseline Function- Mobility Independent Baseline Function- Gait Indep with no difficulty prior to re-aggravation 3 months ago. Baseline Function- Work/School Able to look after her in all personal care prior to 2017 re-aggravation Current Functional Impairments (Reported) Functional Limitations- ADL's Independent with difficulty and requires constant rest to complete the task due to pain Functional Limitations- Mobility/Gait Unable to walk more than 2 blocks Functional Limitations- Work/School Indep with difficulty looking after her PT-OP-C Subjective Start: 11/15/18 16:05 Freq: Status: Active Protocol: Document 04/27/19 16:40 EA (Rec: 04/27/19 16:45 EA [id number]) OP-PT Subjective Patient Comments Patient Comments Pt reports using straight cane improve her gait and lessen knee problem. She reports she has been active in the pool and compliant with the HEP. PT-OP-D Balance Start: 11/15/18 16:05 Freq: Status: Active Protocol: Document 11/15/18 16:17 EA (Rec: 11/16/18 09:28 EA [id number]) Balance Tests Single Limb Standing Single Limb- Right <2 secs Single Limb- Left > 2 secs PT-OP-F Manual Assessment Start: 11/15/18 16:05 Freq: Status: Active Protocol: Document 11/15/18 16:00 EA (Rec: 11/16/18 07:36 EA [id number]) Manual Assessments Soft Tissue Assessment Soft Tissue Mobility Assessment Tight both QL, Paralumbars, hamstring, ITB, Calves. PT-OP-G Mobility & Gait Start: 11/15/18 16:05 Freq: Status: Active Protocol: Document 03/09/19 13:45 RCC (Rec: 03/09/19 15:04 RCC [id number]) OP Mobility Evaluation Bed Mobility Supine to and from Sit mod indep. (does require assistance for RLE management but able to assist self) OP Gait Assessment Comments Gait Comments mild lateral trunk lean to slight with VC PT-OP-J Posture/Palpation/Skin Start: 11/15/18 16:05 Freq: Status: Active Protocol: Document 01/17/19 15:09 EA (Rec: 01/17/19 15:17 EA [id number]) Palpation Assessment Location One Palpation Location Gluteals, ITB Palpation Findings Soft Tissue Tightness Tenderness Palpation Details Grade 2/4 tenderness over ITB, gluteals. PT-OP-K Range of Motion Start: 11/15/18 16:05 Freq: Status: Active Protocol: Document 01/17/19 15:09 EA (Rec: 01/17/19 15:17 EA [id number]) Lumbar Spine Range of Motion Lumbar Spine Active Percentage Testing Position Standing Flexion 80 Extension 90 Rotation Left 80 Rotation Right 80 Lateral Flexion Left 70 Lateral Flexion Right 70 ROM Limitations Soft Tissue Tightness Hip Goniometric Range of Motion Hip Left Passive Hip ROM WFL Yes Right Passive Hip ROM WFL Yes PT-OP-L Special Tests Start: 11/15/18 16:05 Freq: Status: Active Protocol: Document 11/15/18 14:10 EA (Rec: 11/16/18 09:28 EA [id number]) Special Tests Hip Special Tests Trendelenberg Test Results Right compesated SHARI Test Results negative Piriformis Test Results sensitive to right side Straight Leg Raise Test Results - Marlene's Test Test Results + Anterior Labral Test Test Results - PT-OP-Q Treatments Start: 11/15/18 16:05 Freq: Status: Active Protocol: Document 04/27/19 16:40 EA (Rec: 04/27/19 16:45 EA [id number]) Cardio Equipment Recumbent Stepper (Sci-Fit) Duration (Minutes) 10 Resistance 3 Seat Position 12 Gym Equipment Shuttle Recovery Unilateral Squats Resistance 50# Shuttle Recovery Platform Stable Reps/Time x 15 repsx 2 Bilateral Squats Resistance 125# Shuttle Recovery Platform Stable Reps/Time x 15 reps x 3 Therapeutic Exercises Supine Exercises 8 Supine Exercise Name Trunk rotation: AROM-stretch Reps/Minutes 15 reps x 2 6 Supine Exercise Name Bridge with hip ABD Resistance Lv 2 Reps/Minutes x 12 reps x 2 4 Supine Exercise Name ITB stretch Side bilateral Reps/Minutes x30SH x 3 3 Supine Exercise Name Piriformis stretch Side bilateral Reps/Minutes x30SH x 3 Sidelying Exercises 2 Sidelying Exercise Name Hip ABD Side bilateral Reps/Minutes x 12 repsx 2 1 Sidelying Exercise Name Clamshell Side bilateral Resistance GTB Reps/Minutes x 15 reps x 2 Standing Exercises 3 Standing Exercise Name side step squat Resistance GTB Reps/Minutes x 4 lines 12 ft 2 Standing Exercise Name SLS Reps/Minutes x 5SH x 2 reps PT-OP-R Modalities Start: 11/15/18 16:05 Freq: Status: Active Protocol: Document 04/27/19 16:46 EA (Rec: 04/27/19 16:46 EA [id number]) Hot Pack/Cold Pack Treatment Hot Pack Location Left low back/lateral hip Patient Position Sidelying Treatment Duration (minutes) 15 Patient Tolerance Good PT-OP-T Assessment and Plan Start: 11/15/18 16:05 Freq: Status: Active Protocol: Document 04/27/19 16:40 EA (Rec: 04/27/19 16:45 EA [id number]) Physical Therapy Assessment Assessment Summary Assessment Patient performed therex without discomfort noted. Patient exhibited improved gait with use of cane. Overall she is improving well. Physical Therapy Plan Next Visit Focus/Plan Next Note Type Treatment Note Next Visit Plan Standing exercises as tolerated.
--- NOTE | 2019-05-03 09:52 | PT.OTN ---
Current Diagnoses Pain in left hip (05/03/19) Physical Therapy Treatment Note PT-OP-A Visit Information Start: 11/15/18 16:05 Freq: Status: Active Protocol: Document 05/03/19 09:40 EA (Rec: 05/03/19 09:45 EA [id number]) Out-Patient Physical Therapy Visit Information Visit Information Visit Type Treatment Note Visit Start Time 09:00 Visit Stop Time 09:45 Total Visit Minutes 50 Visit Number 27 Number of IT ADMINISTRATIVE ASSISTANT Visits 2 PT-OP-B Current Condition Start: 11/15/18 16:05 Freq: Status: Active Protocol: Document 11/15/18 16:00 EA (Rec: 11/16/18 07:36 EA [id number]) Current Condition History of Current Condition Onset Date August/2018 Current Complaints Left hip and right thigh pain History of Current Condition Present left hip condition started to re-aggravated on August 2018 without known recent injury. Have had history of left hip bursitis and undergone yanelis steroid injection with good results years ago. Right chronic LE sciatica with no formal PT. OTC pain medication helps relief of pain temporarily. X- rays to left hip reveals no significant findings per medical records. Health history of NIDDM with metformin meds, HTN, abdominal hernia, hypothyroidism and OA . Prior Treatments and Tests Left hip steroid injection Future Testing and Treatments Planned None identified Treatment Goals Patient/Caregiver Goals Patient wants to reduce left hip, right thigh, and low back pain to at least 2/10 pain scale. Prior Functional Status Baseline Function- ADL's Independent Baseline Function- Mobility Independent Baseline Function- Gait Indep with no difficulty prior to re-aggravation 3 months ago. Baseline Function- Work/School Able to look after her in all personal care prior to 2017 re-aggravation Current Functional Impairments (Reported) Functional Limitations- ADL's Independent with difficulty and requires constant rest to complete the task due to pain Functional Limitations- Mobility/Gait Unable to walk more than 2 blocks Functional Limitations- Work/School Indep with difficulty looking after her PT-OP-C Subjective Start: 11/15/18 16:05 Freq: Status: Active Protocol: Document 05/03/19 09:40 EA (Rec: 05/03/19 09:45 EA [id number]) OP-PT Subjective Patient Comments Patient Comments Pt reports consistent with HEP and pool exercises; she states right hip is quite sore more than left. PT-OP-D Balance Start: 11/15/18 16:05 Freq: Status: Active Protocol: Document 11/15/18 16:17 EA (Rec: 11/16/18 09:28 EA [id number]) Balance Tests Single Limb Standing Single Limb- Right <2 secs Single Limb- Left > 2 secs PT-OP-F Manual Assessment Start: 11/15/18 16:05 Freq: Status: Active Protocol: Document 11/15/18 16:00 EA (Rec: 11/16/18 07:36 EA [id number]) Manual Assessments Soft Tissue Assessment Soft Tissue Mobility Assessment Tight both QL, Paralumbars, hamstring, ITB, Calves. PT-OP-G Mobility & Gait Start: 11/15/18 16:05 Freq: Status: Active Protocol: Document 03/09/19 13:45 RCC (Rec: 03/09/19 15:04 RCC [id number]) OP Mobility Evaluation Bed Mobility Supine to and from Sit mod indep. (does require assistance for RLE management but able to assist self) OP Gait Assessment Comments Gait Comments mild lateral trunk lean to slight with VC PT-OP-J Posture/Palpation/Skin Start: 11/15/18 16:05 Freq: Status: Active Protocol: Document 01/17/19 15:09 EA (Rec: 01/17/19 15:17 EA [id number]) Palpation Assessment Location One Palpation Location Gluteals, ITB Palpation Findings Soft Tissue Tightness Tenderness Palpation Details Grade 2/4 tenderness over ITB, gluteals. PT-OP-K Range of Motion Start: 11/15/18 16:05 Freq: Status: Active Protocol: Document 01/17/19 15:09 EA (Rec: 01/17/19 15:17 EA [id number]) Lumbar Spine Range of Motion Lumbar Spine Active Percentage Testing Position Standing Flexion 80 Extension 90 Rotation Left 80 Rotation Right 80 Lateral Flexion Left 70 Lateral Flexion Right 70 ROM Limitations Soft Tissue Tightness Hip Goniometric Range of Motion Hip Left Passive Hip ROM WFL Yes Right Passive Hip ROM WFL Yes PT-OP-L Special Tests Start: 11/15/18 16:05 Freq: Status: Active Protocol: Document 11/15/18 14:10 EA (Rec: 11/16/18 09:28 EA [id number]) Special Tests Hip Special Tests Trendelenberg Test Results Right compesated SHARI Test Results negative Piriformis Test Results sensitive to right side Straight Leg Raise Test Results - Marlene's Test Test Results + Anterior Labral Test Test Results - PT-OP-Q Treatments Start: 11/15/18 16:05 Freq: Status: Active Protocol: Document 05/03/19 09:40 EA (Rec: 05/03/19 09:45 EA [id number]) Cardio Equipment Recumbent Stepper (Sci-Fit) Duration (Minutes) 10 Resistance 3 Seat Position 12 Other 55 RPM Gym Equipment Shuttle Recovery Unilateral Squats Resistance 75# Shuttle Recovery Platform Stable Reps/Time x 15 repsx 2 Bilateral Squats Resistance 137# Shuttle Recovery Platform Stable Reps/Time x 15 reps x 3 Therapeutic Exercises Supine Exercises 8 Supine Exercise Name Trunk rotation: AROM-stretch Reps/Minutes 15 reps x 2 6 Supine Exercise Name Bridge with hip ABD Resistance Lv 2 Reps/Minutes x 12 reps x 3 4 Supine Exercise Name ITB stretch Side bilateral Reps/Minutes x30SH x 3 3 Supine Exercise Name Piriformis stretch Side bilateral Reps/Minutes x30SH x 3 Sidelying Exercises 2 Sidelying Exercise Name Hip ABD Side bilateral Reps/Minutes x 12 repsx 2 1 Sidelying Exercise Name Clamshell Side bilateral Resistance GTB Reps/Minutes x 15 reps x 2 Standing Exercises 3 Standing Exercise Name side step squat Resistance GTB Reps/Minutes x 4 lines 12 ft 2 Standing Exercise Name SLS Reps/Minutes x 5SH x 2 reps PT-OP-R Modalities Start: 11/15/18 16:05 Freq: Status: Active Protocol: Document 05/03/19 09:40 EA (Rec: 05/03/19 09:45 EA [id number]) Hot Pack/Cold Pack Treatment Hot Pack Location Left low back/lateral hip Patient Position Sidelying Treatment Duration (minutes) 10 Patient Tolerance Good PT-OP-T Assessment and Plan Start: 11/15/18 16:05 Freq: Status: Active Protocol: Document 05/03/19 09:40 EA (Rec: 05/03/19 09:45 EA [id number]) Physical Therapy Assessment Assessment Summary Assessment Tolerated treatment will. Patient increased tolerance to activity is increased. Physical Therapy Plan Next Visit Focus/Plan Next Note Type Treatment Note Next Visit Plan Standing exercises as tolerated.
--- NOTE | 2019-05-16 16:53 | PT.OTN ---
Current Diagnoses Pain in left hip (05/16/19) Physical Therapy Treatment Note PT-OP-A Visit Information Start: 11/15/18 16:05 Freq: Status: Active Protocol: Document 05/16/19 15:58 EA (Rec: 05/16/19 16:02 EA [id number]) Out-Patient Physical Therapy Visit Information Visit Information Visit Type Treatment Note Visit Start Time 15:15 Visit Stop Time 16:00 Total Visit Minutes 50 Visit Number 28 PT-OP-B Current Condition Start: 11/15/18 16:05 Freq: Status: Active Protocol: Document 11/15/18 16:00 EA (Rec: 11/16/18 07:36 EA [id number]) Current Condition History of Current Condition Onset Date August/2018 Current Complaints Left hip and right thigh pain History of Current Condition Present left hip condition started to re-aggravated on August 2018 without known recent injury. Have had history of left hip bursitis and undergone yanelis steroid injection with good results years ago. Right chronic LE sciatica with no formal PT. OTC pain medication helps relief of pain temporarily. X- rays to left hip reveals no significant findings per medical records. Health history of NIDDM with metformin meds, HTN, abdominal hernia, hypothyroidism and OA . Prior Treatments and Tests Left hip steroid injection Future Testing and Treatments Planned None identified Treatment Goals Patient/Caregiver Goals Patient wants to reduce left hip, right thigh, and low back pain to at least 2/10 pain scale. Prior Functional Status Baseline Function- ADL's Independent Baseline Function- Mobility Independent Baseline Function- Gait Indep with no difficulty prior to re-aggravation 3 months ago. Baseline Function- Work/School Able to look after her in all personal care prior to 2017 re-aggravation Current Functional Impairments (Reported) Functional Limitations- ADL's Independent with difficulty and requires constant rest to complete the task due to pain Functional Limitations- Mobility/Gait Unable to walk more than 2 blocks Functional Limitations- Work/School Indep with difficulty looking after her PT-OP-C Subjective Start: 11/15/18 16:05 Freq: Status: Active Protocol: Document 05/16/19 15:58 EA (Rec: 05/16/19 16:02 EA [id number]) OP-PT Subjective Patient Comments Patient Comments Patient reports on feet last weekenf festival and feels left hip is sore. PT-OP-D Balance Start: 11/15/18 16:05 Freq: Status: Active Protocol: Document 11/15/18 16:17 EA (Rec: 11/16/18 09:28 EA [id number]) Balance Tests Single Limb Standing Single Limb- Right <2 secs Single Limb- Left > 2 secs PT-OP-F Manual Assessment Start: 11/15/18 16:05 Freq: Status: Active Protocol: Document 11/15/18 16:00 EA (Rec: 11/16/18 07:36 EA [id number]) Manual Assessments Soft Tissue Assessment Soft Tissue Mobility Assessment Tight both QL, Paralumbars, hamstring, ITB, Calves. PT-OP-G Mobility & Gait Start: 11/15/18 16:05 Freq: Status: Active Protocol: Document 03/09/19 13:45 RCC (Rec: 03/09/19 15:04 RCC [id number]) OP Mobility Evaluation Bed Mobility Supine to and from Sit mod indep. (does require assistance for RLE management but able to assist self) OP Gait Assessment Comments Gait Comments mild lateral trunk lean to slight with VC PT-OP-J Posture/Palpation/Skin Start: 11/15/18 16:05 Freq: Status: Active Protocol: Document 01/17/19 15:09 EA (Rec: 01/17/19 15:17 EA [id number]) Palpation Assessment Location One Palpation Location Gluteals, ITB Palpation Findings Soft Tissue Tightness Tenderness Palpation Details Grade 2/4 tenderness over ITB, gluteals. PT-OP-K Range of Motion Start: 11/15/18 16:05 Freq: Status: Active Protocol: Document 01/17/19 15:09 EA (Rec: 01/17/19 15:17 EA [id number]) Lumbar Spine Range of Motion Lumbar Spine Active Percentage Testing Position Standing Flexion 80 Extension 90 Rotation Left 80 Rotation Right 80 Lateral Flexion Left 70 Lateral Flexion Right 70 ROM Limitations Soft Tissue Tightness Hip Goniometric Range of Motion Hip Left Passive Hip ROM WFL Yes Right Passive Hip ROM WFL Yes PT-OP-L Special Tests Start: 11/15/18 16:05 Freq: Status: Active Protocol: Document 11/15/18 14:10 EA (Rec: 11/16/18 09:28 EA [id number]) Special Tests Hip Special Tests Trendelenberg Test Results Right compesated SHARI Test Results negative Piriformis Test Results sensitive to right side Straight Leg Raise Test Results - Marlene's Test Test Results + Anterior Labral Test Test Results - PT-OP-Q Treatments Start: 11/15/18 16:05 Freq: Status: Active Protocol: Document 05/16/19 15:58 EA (Rec: 05/16/19 16:02 EA [id number]) Cardio Equipment Recumbent Stepper (Sci-Fit) Duration (Minutes) 10 Resistance 3.2 Seat Position 12 Other 55 RPM Gym Equipment Shuttle Recovery Unilateral Squats Resistance 75# Shuttle Recovery Platform Stable Reps/Time x 15 repsx 2 Bilateral Squats Resistance 137# Shuttle Recovery Platform Stable Reps/Time x 15 reps x 3 Therapeutic Exercises Supine Exercises SLR hip flexion Supine Exercise Name PPT Side bilateral Reps/Minutes 1x15 each 8 Supine Exercise Name Trunk rotation: AROM-stretch Reps/Minutes 15 reps x 2 6 Supine Exercise Name Bridge with hip ABD Resistance Lv 2 Reps/Minutes x 12 reps x 3 4 Supine Exercise Name ITB stretch Side bilateral Reps/Minutes x30SH x 3 3 Supine Exercise Name Piriformis stretch Side bilateral Reps/Minutes x30SH x 3 Sidelying Exercises 2 Sidelying Exercise Name Hip ABD Side bilateral Reps/Minutes x 12 repsx 2 1 Sidelying Exercise Name Clamshell Side bilateral Resistance GTB Reps/Minutes x 15 reps x 2 Standing Exercises 3 Standing Exercise Name side step squat Resistance GTB Reps/Minutes x 4 lines 12 ft PT-OP-R Modalities Start: 11/15/18 16:05 Freq: Status: Active Protocol: Document 05/16/19 15:58 EA (Rec: 05/16/19 16:02 EA [id number]) Hot Pack/Cold Pack Treatment Hot Pack Location Left low back/lateral hip Patient Position Sidelying Treatment Duration (minutes) 10 Patient Tolerance Good PT-OP-T Assessment and Plan Start: 11/15/18 16:05 Freq: Status: Active Protocol: Document 05/16/19 15:58 EA (Rec: 05/16/19 16:02 EA [id number]) Physical Therapy Assessment Assessment Summary Assessment Patient performed therex very well with the use of abdominal binder. Waddling gait shows much improvement at this time. Patient is progressing okay. Physical Therapy Plan Next Visit Focus/Plan Next Note Type Treatment Note Next Visit Plan Standing exercises as tolerated.
--- NOTE | 2019-05-23 13:38 | PT.OTN ---
Current Diagnoses Pain in left hip (05/23/19) Physical Therapy Treatment Note PT-OP-A Visit Information Start: 11/15/18 16:05 Freq: Status: Active Protocol: Document 05/23/19 12:56 EA (Rec: 05/23/19 13:01 EA [id number]) Out-Patient Physical Therapy Visit Information Visit Information Visit Type Treatment Note Visit Start Time 12:15 Visit Stop Time 13:05 Total Visit Minutes 50 Visit Number 29 PT-OP-B Current Condition Start: 11/15/18 16:05 Freq: Status: Active Protocol: Document 11/15/18 16:00 EA (Rec: 11/16/18 07:36 EA [id number]) Current Condition History of Current Condition Onset Date August/2018 Current Complaints Left hip and right thigh pain History of Current Condition Present left hip condition started to re-aggravated on August 2018 without known recent injury. Have had history of left hip bursitis and undergone yanelis steroid injection with good results years ago. Right chronic LE sciatica with no formal PT. OTC pain medication helps relief of pain temporarily. X- rays to left hip reveals no significant findings per medical records. Health history of NIDDM with metformin meds, HTN, abdominal hernia, hypothyroidism and OA . Prior Treatments and Tests Left hip steroid injection Future Testing and Treatments Planned None identified Treatment Goals Patient/Caregiver Goals Patient wants to reduce left hip, right thigh, and low back pain to at least 2/10 pain scale. Prior Functional Status Baseline Function- ADL's Independent Baseline Function- Mobility Independent Baseline Function- Gait Indep with no difficulty prior to re-aggravation 3 months ago. Baseline Function- Work/School Able to look after her in all personal care prior to 2017 re-aggravation Current Functional Impairments (Reported) Functional Limitations- ADL's Independent with difficulty and requires constant rest to complete the task due to pain Functional Limitations- Mobility/Gait Unable to walk more than 2 blocks Functional Limitations- Work/School Indep with difficulty looking after her PT-OP-C Subjective Start: 11/15/18 16:05 Freq: Status: Active Protocol: Document 05/23/19 12:56 EA (Rec: 05/23/19 13:01 EA [id number]) OP-PT Subjective Patient Comments Patient Comments Ira reports that hse has been active in the pool exercises; states left knee has been bothering her in the past few weeks and as well her both index finger; she reports she will be seeing her surgeons next week and she will also be away. Patient Reported Progress Improving PT-OP-D Balance Start: 11/15/18 16:05 Freq: Status: Active Protocol: Document 11/15/18 16:17 EA (Rec: 11/16/18 09:28 EA [id number]) Balance Tests Single Limb Standing Single Limb- Right <2 secs Single Limb- Left > 2 secs PT-OP-F Manual Assessment Start: 11/15/18 16:05 Freq: Status: Active Protocol: Document 11/15/18 16:00 EA (Rec: 11/16/18 07:36 EA [id number]) Manual Assessments Soft Tissue Assessment Soft Tissue Mobility Assessment Tight both QL, Paralumbars, hamstring, ITB, Calves. PT-OP-G Mobility & Gait Start: 11/15/18 16:05 Freq: Status: Active Protocol: Document 03/09/19 13:45 RCC (Rec: 03/09/19 15:04 RCC [id number]) OP Mobility Evaluation Bed Mobility Supine to and from Sit mod indep. (does require assistance for RLE management but able to assist self) OP Gait Assessment Comments Gait Comments mild lateral trunk lean to slight with VC PT-OP-J Posture/Palpation/Skin Start: 11/15/18 16:05 Freq: Status: Active Protocol: Document 01/17/19 15:09 EA (Rec: 01/17/19 15:17 EA [id number]) Palpation Assessment Location One Palpation Location Gluteals, ITB Palpation Findings Soft Tissue Tightness Tenderness Palpation Details Grade 2/4 tenderness over ITB, gluteals. PT-OP-K Range of Motion Start: 11/15/18 16:05 Freq: Status: Active Protocol: Document 01/17/19 15:09 EA (Rec: 01/17/19 15:17 EA [id number]) Lumbar Spine Range of Motion Lumbar Spine Active Percentage Testing Position Standing Flexion 80 Extension 90 Rotation Left 80 Rotation Right 80 Lateral Flexion Left 70 Lateral Flexion Right 70 ROM Limitations Soft Tissue Tightness Hip Goniometric Range of Motion Hip Left Passive Hip ROM WFL Yes Right Passive Hip ROM WFL Yes PT-OP-L Special Tests Start: 11/15/18 16:05 Freq: Status: Active Protocol: Document 11/15/18 14:10 EA (Rec: 11/16/18 09:28 EA [id number]) Special Tests Hip Special Tests Trendelenberg Test Results Right compesated SHARI Test Results negative Piriformis Test Results sensitive to right side Straight Leg Raise Test Results - Marlene's Test Test Results + Anterior Labral Test Test Results - PT-OP-Q Treatments Start: 11/15/18 16:05 Freq: Status: Active Protocol: Document 05/23/19 12:56 EA (Rec: 05/23/19 13:01 EA [id number]) Cardio Equipment Recumbent Stepper (Sci-Fit) Duration (Minutes) 10 Resistance 3.2 Seat Position 12 Other 55 RPM Therapeutic Exercises Supine Exercises 8 Supine Exercise Name Trunk rotation: AROM-stretch Reps/Minutes 15 reps x 2 6 Supine Exercise Name Bridge with hip ABD Resistance Lv 2 Reps/Minutes x 12 reps x 3 4 Supine Exercise Name ITB stretch Side bilateral Reps/Minutes x30SH x 3 3 Supine Exercise Name Piriformis stretch Side bilateral Reps/Minutes x30SH x 3 Sidelying Exercises 2 Sidelying Exercise Name Hip ABD Side bilateral Reps/Minutes x 12 repsx 2 1 Sidelying Exercise Name Clamshell Side bilateral Resistance GTB Reps/Minutes x 15 reps x 2 Standing Exercises HS curls Side bilateral Resistance 2 lbs Reps/Minutes x2 on the R, x10 on the L Comments d/c on R due to pain 3 Standing Exercise Name side step squat Resistance GTB Reps/Minutes x 4 lines 12 ft 2 Standing Exercise Name SLS Reps/Minutes x 5SH x 2 reps PT-OP-R Modalities Start: 11/15/18 16:05 Freq: Status: Active Protocol: Document 05/23/19 12:56 EA (Rec: 05/23/19 13:01 EA [id number]) Hot Pack/Cold Pack Treatment Hot Pack Location Left low back/lateral hip Patient Position Sidelying Treatment Duration (minutes) 10 Patient Tolerance Good PT-OP-T Assessment and Plan Start: 11/15/18 16:05 Freq: Status: Active Protocol: Document 05/23/19 12:56 EA (Rec: 05/23/19 13:01 EA [id number]) Physical Therapy Assessment Assessment Summary Assessment Pt cont. to show progress to exercises tolerance; she has been walking with much less trunk bending sideways with the use of abdominal binder and straight cane. Patient would like to know more exercises next session that she can do to home if discharge is necessary. Physical Therapy Plan Next Visit Focus/Plan Next Note Type Treatment Note Next Visit Plan Standing exercises as tolerated.
--- NOTE | 2019-06-06 15:46 | PT.OTN ---
Current Diagnoses Pain in left hip (06/06/19) Physical Therapy Treatment Note PT-OP-A Visit Information Start: 11/15/18 16:05 Freq: Status: Active Protocol: Document 06/06/19 15:26 EA (Rec: 06/06/19 15:46 EA [id number]) Out-Patient Physical Therapy Visit Information Visit Information Visit Type Treatment Note Visit Start Time 13:45 Visit Stop Time 14:30 Total Visit Minutes 38 Visit Number 30 PT-OP-B Current Condition Start: 11/15/18 16:05 Freq: Status: Active Protocol: Document 11/15/18 16:00 EA (Rec: 11/16/18 07:36 EA [id number]) Current Condition History of Current Condition Onset Date August/2018 Current Complaints Left hip and right thigh pain History of Current Condition Present left hip condition started to re-aggravated on August 2018 without known recent injury. Have had history of left hip bursitis and undergone yanelis steroid injection with good results years ago. Right chronic LE sciatica with no formal PT. OTC pain medication helps relief of pain temporarily. X- rays to left hip reveals no significant findings per medical records. Health history of NIDDM with metformin meds, HTN, abdominal hernia, hypothyroidism and OA . Prior Treatments and Tests Left hip steroid injection Future Testing and Treatments Planned None identified Treatment Goals Patient/Caregiver Goals Patient wants to reduce left hip, right thigh, and low back pain to at least 2/10 pain scale. Prior Functional Status Baseline Function- ADL's Independent Baseline Function- Mobility Independent Baseline Function- Gait Indep with no difficulty prior to re-aggravation 3 months ago. Baseline Function- Work/School Able to look after her in all personal care prior to 2017 re-aggravation Current Functional Impairments (Reported) Functional Limitations- ADL's Independent with difficulty and requires constant rest to complete the task due to pain Functional Limitations- Mobility/Gait Unable to walk more than 2 blocks Functional Limitations- Work/School Indep with difficulty looking after her PT-OP-C Subjective Start: 11/15/18 16:05 Freq: Status: Active Protocol: Document 06/06/19 15:26 EA (Rec: 06/06/19 15:46 EA [id number]) OP-PT Subjective Patient Comments Patient Comments Although I feel coming here helps me lot I would try the recommendation of trying to continue HEP. Pt reports had in the car going back home from [place] for almost 5 hours ; states if were not from PT she would not able to tolerate long hours of driving. Patient Reported Progress Improving PT-OP-D Balance Start: 11/15/18 16:05 Freq: Status: Active Protocol: Document 11/15/18 16:17 EA (Rec: 11/16/18 09:28 EA [id number]) Balance Tests Single Limb Standing Single Limb- Right <2 secs Single Limb- Left > 2 secs PT-OP-F Manual Assessment Start: 11/15/18 16:05 Freq: Status: Active Protocol: Document 11/15/18 16:00 EA (Rec: 11/16/18 07:36 EA [id number]) Manual Assessments Soft Tissue Assessment Soft Tissue Mobility Assessment Tight both QL, Paralumbars, hamstring, ITB, Calves. PT-OP-G Mobility & Gait Start: 11/15/18 16:05 Freq: Status: Active Protocol: Document 03/09/19 13:45 RCC (Rec: 03/09/19 15:04 RCC [id number]) OP Mobility Evaluation Bed Mobility Supine to and from Sit mod indep. (does require assistance for RLE management but able to assist self) OP Gait Assessment Comments Gait Comments mild lateral trunk lean to slight with VC PT-OP-J Posture/Palpation/Skin Start: 11/15/18 16:05 Freq: Status: Active Protocol: Document 01/17/19 15:09 EA (Rec: 01/17/19 15:17 EA [id number]) Palpation Assessment Location One Palpation Location Gluteals, ITB Palpation Findings Soft Tissue Tightness Tenderness Palpation Details Grade 2/4 tenderness over ITB, gluteals. PT-OP-K Range of Motion Start: 11/15/18 16:05 Freq: Status: Active Protocol: Document 01/17/19 15:09 EA (Rec: 01/17/19 15:17 EA [id number]) Lumbar Spine Range of Motion Lumbar Spine Active Percentage Testing Position Standing Flexion 80 Extension 90 Rotation Left 80 Rotation Right 80 Lateral Flexion Left 70 Lateral Flexion Right 70 ROM Limitations Soft Tissue Tightness Hip Goniometric Range of Motion Hip Left Passive Hip ROM WFL Yes Right Passive Hip ROM WFL Yes PT-OP-L Special Tests Start: 11/15/18 16:05 Freq: Status: Active Protocol: Document 11/15/18 14:10 EA (Rec: 11/16/18 09:28 EA [id number]) Special Tests Hip Special Tests Trendelenberg Test Results Right compesated SHARI Test Results negative Piriformis Test Results sensitive to right side Straight Leg Raise Test Results - Marlene's Test Test Results + Anterior Labral Test Test Results - PT-OP-Q Treatments Start: 11/15/18 16:05 Freq: Status: Active Protocol: Document 06/06/19 15:26 EA (Rec: 06/06/19 15:46 EA [id number]) Cardio Equipment Recumbent Stepper (Sci-Fit) Duration (Minutes) 10 Resistance 3.4 Seat Position 12 Other 55 RPM Therapeutic Exercises Supine Exercises SLR hip flexion Supine Exercise Name PPT Side bilateral Reps/Minutes 1x15 each 8 Supine Exercise Name Trunk rotation: AROM-stretch Reps/Minutes 15 reps x 2 Comments HEP 6 Supine Exercise Name Bridge with hip ABD Resistance Lv 2 Reps/Minutes x 12 reps x 3 Comments HEP comp 4 Supine Exercise Name ITB stretch Side bilateral Reps/Minutes x30SH x 3 Comments HEP comp 3 Supine Exercise Name Piriformis stretch Side bilateral Reps/Minutes x30SH x 3 Comments HEP comp Sidelying Exercises 2 Sidelying Exercise Name Hip ABD Side bilateral Reps/Minutes x 12 repsx 2 Comments HEP comp Standing Exercises 3 Standing Exercise Name side step squat Resistance GTB Reps/Minutes x 5 lines 12 ft Comments HEP comp 2 Standing Exercise Name SLS Reps/Minutes x 5SH x 2 reps Self-Care/Home Management Treatment Education Patient Education Body Mechanics Home Exercise Program Joint Protection Pain Management Posture Other Education Discussed general weight loss and nutrition. Discussed safe aerobic exercises progra. Discussed the importance of her body weight in relevant to her current condition. Discussed the improtance of proper gait pattern. Discussed and demosntrates HEP . PT-OP-R Modalities Start: 11/15/18 16:05 Freq: Status: Active Protocol: Document 05/23/19 12:56 EA (Rec: 05/23/19 13:01 EA [id number]) Hot Pack/Cold Pack Treatment Hot Pack Location Left low back/lateral hip Patient Position Sidelying Treatment Duration (minutes) 10 Patient Tolerance Good PT-OP-T Assessment and Plan Start: 11/15/18 16:05 Freq: Status: Active Protocol: Document 06/06/19 15:26 EA (Rec: 06/06/19 15:46 EA [id number]) Physical Therapy Assessment Assessment Summary Assessment Patient is discharged today with her agreement. She agreed to try independent HEP and focus of safe weight loss to improve general body condition . Patient is improved at the time of discharge. Physical Therapy Plan Discharge Physical Therapy Discharge Reasons Patient Request
== END 2019-06-07 13:59 | disposition home or self-care (01) ==
LOC: PHYS 13:45
PROVIDERS: PCP Physician Assistant; Visit Provider Physician Assistant
DX: M25.552 Pain in left hip (principal)
CPT/HCPCS: 97010; 97014; 97035; 97110; 97140; 97162; 97535; G0283

== ENCOUNTER → 2019-08-01 11:49 | Outpatient (CLI) | payer MEDICARE, OTHER, SELFPAY ==
--- NOTE | 2019-08-01 | DI.MG.S_ITS ---
BILATERAL DIGITAL SCREENING MAMMOGRAM 3D/2D WITH CAD: 08/01/2019 CLINICAL: Baseline exam. Routine screening. Family history of breast cancer. No prior exams were available for comparison. There are scattered fibroglandular elements in both breasts. Current study was also evaluated with a Computer Aided Detection (CAD) system. No significant masses, calcifications, or other findings are seen in either breast. IMPRESSION: NEGATIVE There is no mammographic evidence of malignancy. A 1 year screening mammogram is recommended. This exam was interpreted at Station ID: [id number]. NOTE: For mammograms, a report in lay terms will be sent to the patient. Approximately 15% of breast malignancies will not be visualized mammographically. In the management of a palpable breast mass, a negative mammogram must not discourage biopsy of a clinically suspicious lesion. Electronically Signed By: Emir goldberg/cassie:08/01/2019 13:46:36 letter sent: Normal Exam ACR BI-RADS Category 1: Negative [id number]
== END ==
PROVIDERS: PCP Physician Assistant; Visit Provider Internal Medicine
DX: Z12.31 Encounter for screening mammogram for malignant neoplasm of breast (principal); Z80.3 Family history of malignant neoplasm of breast
CPT/HCPCS: 77063; 77067

== ENCOUNTER → 2019-08-30 17:15 | Outpatient (CLI) | payer MEDICARE, OTHER, SELFPAY ==
--- NOTE | 2019-08-30 17:17 | DI.MRI.S_ITS ---
PROCEDURE: MR HEAD/BRAIN WO CON INDICATIONS: LOCALIZED SWELLING, MASS AND LUMP, HEAD TECHNIQUE: Noncontrast axial T1 spin echo, axial T2 fast spin echo, sagittal and axial FLAIR, coronal T2 fast spin echo, axial gradient echo, axial diffusion and ADC through the brain. COMPARISON: None. FINDINGS: Image quality: Excellent. CSF Spaces: Basal cisterns are patent. No extra-axial fluid collections. Ventricles are normal in size and shape. Brain: No intracranial masses or hemorrhage. [place]/white matter interface is normal. Brainstem appears normal. Diffusion-weighted images demonstrate no acute ischemic insult. No chronic ischemic insults. Normal intravascular flow voids are present. Skull and face: Calvarium has normal marrow signal. Orbits appear normal. Sinuses: Sinuses and mastoids are clear. IMPRESSION: The clinical history indicates midline frontoparietal junction suture area of soft tissue prominence in the region of prior trauma. Currently the MR scanning shows no evidence of underlying osseous lesion, or identifiable soft tissue mass. Please note that a dermatology consultation may be warranted given the history of reported suspected enlargement over time. MR scanning may not accurately detect plaque-like skin lesions. Dictated by: Siva Martínez M.D. on 08/31/2019 at 8:52 Approved by: Siva Martínez M.D. on 08/31/2019 at 9:08
== END ==
PROVIDERS: PCP Physician Assistant; Visit Provider Internal Medicine
DX: R22.0 Localized swelling, mass and lump, head (principal)
CPT/HCPCS: 70551

== ENCOUNTER → 2019-09-22 13:12 | Outpatient (ROUT) | payer MEDICARE, OTHER, SELFPAY | PROVIDERS: PCP Physician Assistant; Visit Provider Podiatrist | DX: L60.0 Ingrowing nail (principal) | CPT/HCPCS: 87070; 87077; 87147; 87186; 87205 ==

== ENCOUNTER → 2019-10-09 16:33 | Outpatient (CLI) | payer MEDICARE, OTHER, SELFPAY ==
--- NOTE | 2019-10-09 16:35 | DI.RAD.S_ITS ---
PROCEDURE: XR TOE RT MIN 2V INDICATIONS: R/O OSTEOMYELITIS RIGHT GREAT TOE TECHNIQUE: 3 views of the right toe(s) acquired. COMPARISON: None. FINDINGS: Bones: No fractures or dislocations. No suspicious bony lesions. Diffuse midfoot and hindfoot degeneration. There is also interphalangeal osteoarthritis. No definite focal osseous destruction Soft tissues: No suspicious soft tissue densities. IMPRESSION: No focal osseous destruction to suggest advanced osteomyelitis. If there is persistent clinical concern, continued short interval radiographic followup or contrast enhanced MRI could be performed to assess for early infection. Dictated by: Bryce Cavanaugh M.D. on 10/09/2019 at 17:35 Approved by: Bryce Cavanaugh M.D. on 10/09/2019 at 17:37
== END ==
PROVIDERS: PCP Physician Assistant; Visit Provider Internal Medicine
DX: M19.071 Primary osteoarthritis, right ankle and foot (principal); Z22.322 Carrier or suspected carrier of Methicillin resistant Staphylococcus aureus
CPT/HCPCS: 73660

== ENCOUNTER → 2021-01-21 10:30 | Outpatient (CLI) | payer MEDICARE, OTHER, SELFPAY ==
--- NOTE | 2021-01-21 | DI.US.S_ITS ---
PROCEDURE: US ABDOMEN LIMITED INDICATIONS: ELEVATED LIVER ENZYMES TECHNIQUE: Real-time focused scanning was performed of the abdomen, with image documentation. COMPARISON: None. FINDINGS: The liver demonstrates mildly increased size. The liver demonstrates generalized mildly increased echogenicity. This decreases ultrasound sensitivity for detection of hepatic masses. The main portal vein demonstrates normal size and demonstrates normal appearing, hepatopetal flow. Two mobile gallstones are seen. The gallbladder wall is not thickened, measuring 3 mm or less. No specific pericholecystic fluid is seen. The sonographic Grey sign is negative. There is no biliary dilatation, the common bile duct measures 5 mm. The pancreas is not well seen. IMPRESSION: Gallstones are seen, yet without additional sonographic signs of cholecystitis. Negative for biliary dilatation. Please correlate with physical examination findings, patient presentation, and laboratory values. Mild likely fatty liver infiltration. However, please correlate with underlying patient history for possible cirrhosis or fibrosis. Dictated by: Daryn Dobbs M.D. on 01/21/2021 at 10:32 Approved by: Daryn Dobbs M.D. on 01/21/2021 at 10:34
== END ==
PROVIDERS: PCP Student in an Organized Health Care Education/Training Program; Referring Provider Student in an Organized Health Care Education/Training Program; Visit Provider Student in an Organized Health Care Education/Training Program
DX: R74.8 Abnormal levels of other serum enzymes (principal); K80.20 Calculus of gallbladder without cholecystitis without obstruction
CPT/HCPCS: 76705

== ENCOUNTER 2021-05-28 13:30 | Outpatient (RCR) | payer MEDICARE, OTHER, SELFPAY ==
--- NOTE | 2021-01-28 15:11 | PT.OIE ---
Current Diagnoses Sciatica, unspecified side (01/28/21) Past Medical History (Last Reviewed 01/12/19 @ 08:25 by Edel Haque MD) Anterior epistaxis Epistaxis Hypertension Osteoarthritis Visit Care Team Role Provider Type Lyly Clancy PA-C Attending Provider Non-Staff Primary Care Provider Referring Provider Specialty: Internal Medicine Address: [address] [place] [address], [facility] Email: [email or web address] Initial Evaluation PT-OP-A Visit Information Start: 01/28/21 10:10 Freq: Status: Active Protocol: Document 01/28/21 13:30 AMB (Rec: 01/29/21 09:19 AMB [email or web address]) Out-Patient Physical Therapy Visit Information Visit Information Visit Type Initial Evaluation Visit Start Time 13:30 Visit Stop Time 14:15 Total Visit Minutes 45 Visit Number 1 PT-OP-B Current Condition Start: 01/28/21 10:10 Freq: Status: Active Protocol: Document 01/28/21 13:30 AMB (Rec: 01/28/21 13:49 AMB [id number]) Current Condition History of Current Condition Onset Date 5 months ago Current Complaints L>R sciatica History of Current Condition L>R pain 5 months, tingly going down lateral leg. Irritated by bending/lifting/ standing. Gardening, cooking/ cleaning. Had been doing water aerobics and that was really helpful, but got a MRSA infection in her foot, and hasn't been doing as much because of Covid. Has not had lumbar Xray. Did have previous physical therapy which was helpful. Treatment Goals Patient/Caregiver Goals Reduce pain Prior Functional Status Baseline Function- ADL's Independent Baseline Function- Mobility Independent Current Functional Impairments (Reported) Functional Limitations- ADL's Difficulty standing, bending, gardening, walking due to pain Personal Factors Other Personal Factors That May Effect Prior hx of shingles on face Therapy/Recovery years ago, DMII, current hernia, hypothyroid PT-OP-C Subjective Start: 01/28/21 10:10 Freq: Status: Active Protocol: Document 01/28/21 13:30 AMB (Rec: 01/29/21 09:19 AMB [email or web address]) Patient Questionnaires Oswestry Low Back Index Oswestry Score 40 Oswestry Impairment 40 to 59% Impaired (Score 40- 59) OP-PT Pain Assessment Comments Pain Comments 6/10 low back, glutes, to lateral leg PT-OP-G Mobility & Gait Start: 01/28/21 10:10 Freq: Status: Active Protocol: Document 01/28/21 13:30 AMB (Rec: 01/29/21 10:02 AMB [id number]) OP Gait Assessment Comments Gait Comments Ambulates with SPC,significant Trendelenburg gait pattern without SPC and mild with SPC PT-OP-J Posture/Palpation/Skin Start: 01/28/21 10:10 Freq: Status: Active Protocol: Document 01/28/21 13:30 AMB (Rec: 01/29/21 10:02 AMB [id number]) Palpation Assessment Location One Palpation Location low back/left hip Palpation Details Tenderness at soft tissue throughout paraspinals, greater trochanter PT-OP-K Range of Motion Start: 01/28/21 10:10 Freq: Status: Active Protocol: Document 01/28/21 13:30 AMB (Rec: 01/29/21 10:02 AMB [id number]) Lumbar Spine Range of Motion Lumbar Spine Active Degrees Testing Position Standing Flexion 50 Extension 20 Lateral Flexion Left 10 Lateral Flexion Right 15 ROM Limitations Pain Comments Painful with sidebending L PT-OP-M Strength Start: 01/28/21 10:10 Freq: Status: Active Protocol: Document 01/28/21 13:30 AMB (Rec: 01/29/21 10:10 AMB [email or web address]) Hip Strength Hip Manual Muscle Testing Right Flexion (L2) 4 Good Extension (S1) 4- Good- Abduction 3- Fair- Left Flexion (L2) 4 Good Extension (S1) 4- Good- Abduction 3- Fair- Comments pain with hip flexion Knee Strength Knee Manual Muscle Testing Right Flexion (S2) 5 Normal Extension (L3) 5 Normal Left Flexion (S2) 4 Good Extension (L3) 4+ Good+ Comments pain with knee flexion Ankle/Foot Strength Ankle and Foot Manual Muscle Testing Right Dorsiflexion (L4) 4+ Good+ Plantarflexion (S1) 4 Good Left Dorsiflexion (L4) 4+ Good+ Plantarflexion (S1) 4 Good PT-OP-R Modalities Start: 01/28/21 10:10 Freq: Status: Active Protocol: Document 01/28/21 13:30 AMB (Rec: 01/29/21 10:10 AMB [email or web address]) Electric Stimulation Electric Stimulation Interferential Current (IFC) Body Location L gluteals Duration (Minutes) 15 Patient Position Sidelying Combined With Heat/Cold Hot Pack PT-OP-T Assessment and Plan Start: 01/28/21 10:10 Freq: Status: Active Protocol: Document 01/28/21 13:30 AMB (Rec: 01/29/21 10:18 AMB [email or web address]) Physical Therapy Assessment Rehab Potential Rehabilitation Potential Good Evaluation Complexity Number of Personal Factors/Comorbidities 3 or More Number of Body Systems Impaired 4 or More Clinical Presentation at Evaluation Stable Impairments Impairments Functional Activities,Gait, Pain,ROM,Strength Goals Three Impairment Functional activities Short Term Goal (STG) 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 STG Duration 4 weeks Qualified Craft Worker Electrician Goal (LTG) Ira will perform a partial squat to perform light yard work with pain of 3/10 or less . LTG Duration 8 weeks Two Impairment HEP Short Term Goal (STG) Ira will be independent and consistent with a HEP for her core stability and flexibility. STG Duration 4 weeks One Impairment Gait Short Term Goal (STG) Ira will walk for 6 minutes over smooth surfaces with SPC and 5/10 pain or less . STG Duration 4 weeks Halfway Goal (LTG) Ira will walk in the community with her SPC over slightly uneven terrain (grass , gravel) for 10 minutes with 5/10 pain or less. LTG Duration 8 weeks Assessment Summary Assessment Ira attends physical therapy with L sided low back/ hip/leg pain that has previously responded well to physical therapy. She presents to PT with core weakness with current abdominal hernia, hip weakness with gait deviation due to weakness, and difficulty walking, lifting, and standing due to pain. She will benefit from physical therapy to progress her core stability , gait, improve her soft tissue mobility, and reduce her pain. Physical Therapy Plan Frequency and Duration Frequency of Treatment 2x/Week Duration of Treatment 10 weeks Plan of Care Start Date 01/28/21 Plan of Care End Date 04/08/21 Therapeutic Interventions Therapeutic Interventions Gait Training,Home Exercise Program,Manual Therapy, Neuromuscular Re-education, Self-Care/Home Management,Soft Tissue Mobilization, Therapeutic Activities, Therapeutic Exercises Next Visit Focus/Plan Next Note Type Treatment Note Next Visit Plan Begin with warm up and then work on strengthening/gait, can end with manual/ heat/IFC as needed
--- NOTE | 2021-01-28 15:12 | PT.OPPOC ---
Physical, Occupational & Speech Therapy At [facility] Current Diagnoses Sciatica, unspecified side (01/28/21) Visit Care Team Role Provider Type Lyly Clancy PA-C Attending Provider Non-Staff Primary Care Provider Referring Provider Specialty: Internal Medicine Address: [address] [place] [address], [facility] Email: [email or web address] Plan Of Care PT-OP-T Assessment and Plan Start: 01/28/21 10:10 Freq: Status: Active Protocol: Document 01/28/21 13:30 AMB (Rec: 01/29/21 10:18 AMB [email or web address]) Physical Therapy Assessment Rehab Potential Rehabilitation Potential Good Evaluation Complexity Number of Personal Factors/Comorbidities 3 or More Number of Body Systems Impaired 4 or More Clinical Presentation at Evaluation Stable Impairments Impairments Functional Activities,Gait, Pain,ROM,Strength Goals Three Impairment Functional activities Short Term Goal (STG) 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 STG Duration 4 weeks Assurance Specialist Goal (LTG) Ira will perform a partial squat to perform light yard work with pain of 3/10 or less . LTG Duration 8 weeks Two Impairment HEP Short Term Goal (STG) Ira will be independent and consistent with a HEP for her core stability and flexibility. STG Duration 4 weeks One Impairment Gait Short Term Goal (STG) Ira will walk for 6 minutes over smooth surfaces with SPC and 5/10 pain or less . STG Duration 4 weeks Fci Goal (LTG) Ira will walk in the community with her SPC over slightly uneven terrain (grass , gravel) for 10 minutes with 5/10 pain or less. LTG Duration 8 weeks Assessment Summary Assessment Ira attends physical therapy with L sided low back/ hip/leg pain that has previously responded well to physical therapy. She presents to PT with core weakness with current abdominal hernia, hip weakness with gait deviation due to weakness, and difficulty walking, lifting, and standing due to pain. She will benefit from physical therapy to progress her core stability , gait, improve her soft tissue mobility, and reduce her pain. Physical Therapy Plan Frequency and Duration Frequency of Treatment 2x/Week Duration of Treatment 10 weeks Plan of Care Start Date 01/28/21 Plan of Care End Date 04/08/21 Therapeutic Interventions Therapeutic Interventions Gait Training,Home Exercise Program,Manual Therapy, Neuromuscular Re-education, Self-Care/Home Management,Soft Tissue Mobilization, Therapeutic Activities, Therapeutic Exercises Next Visit Focus/Plan Next Note Type Treatment Note Next Visit Plan Begin with warm up and then work on strengthening/gait, can end with manual/ heat/IFC as needed Plan of Care Dates Plan of Care Start Date 01/28/21 Plan of Care End Date 04/08/21 Electronically Signed by: Rohini Gold, PT 01/29/21 0336 Please Sign and Return: I have reviewed this Plan of Care and certify that the skilled therapy services above are required to meet the patient?s needs. Physician Signature Date Printed Name and Credentials Clinical Instructor Signature Printed Name and Credentials
--- NOTE | 2021-01-31 15:20 | PT.OTN ---
Current Diagnoses Sciatica, unspecified side (01/31/21) Physical Therapy Treatment Note PT-OP-A Visit Information Start: 01/28/21 10:10 Freq: Status: Active Protocol: Document 01/31/21 14:33 SP (Rec: 01/31/21 15:29 SP [id number]) Out-Patient Physical Therapy Visit Information Visit Information Visit Type Treatment Note Visit Start Time 14:33 Visit Stop Time 15:20 Total Visit Minutes 47 Visit Number 2 Number of LEADLIGHTER Visits 1 Precautions Precautions Previous precaution assess vitals, BP with activity. PT-OP-B Current Condition Start: 01/28/21 10:10 Freq: Status: Active Protocol: Document 01/28/21 13:30 AMB (Rec: 01/28/21 13:49 AMB [id number]) Current Condition History of Current Condition Onset Date 5 months ago Current Complaints L>R sciatica History of Current Condition L>R pain 5 months, tingly going down lateral leg. Irritated by bending/lifting/ standing. Gardening, cooking/ cleaning. Had been doing water aerobics and that was really helpful, but got a MRSA infection in her foot, and hasn't been doing as much because of Covid. Has not had lumbar Xray. Did have previous physical therapy which was helpful. Treatment Goals Patient/Caregiver Goals Reduce pain Prior Functional Status Baseline Function- ADL's Independent Baseline Function- Mobility Independent Current Functional Impairments (Reported) Functional Limitations- ADL's Difficulty standing, bending, gardening, walking due to pain Personal Factors Other Personal Factors That May Effect Prior hx of shingles on face Therapy/Recovery years ago, DMII, current hernia, hypothyroid PT-OP-C Subjective Start: 01/28/21 10:10 Freq: Status: Active Protocol: Document 01/31/21 14:33 SP (Rec: 01/31/21 15:29 SP [id number]) OP-PT Subjective Patient Comments Patient Comments Pt stated I was a little sore after the eval, not sure why didn't do much. PT-OP-G Mobility & Gait Start: 01/28/21 10:10 Freq: Status: Active Protocol: Document 01/28/21 13:30 AMB (Rec: 01/29/21 10:02 AMB [id number]) OP Gait Assessment Comments Gait Comments Ambulates with SPC,significant Trendelenburg gait pattern without SPC and mild with SPC PT-OP-J Posture/Palpation/Skin Start: 01/28/21 10:10 Freq: Status: Active Protocol: Document 01/28/21 13:30 AMB (Rec: 01/29/21 10:02 AMB [id number]) Palpation Assessment Location One Palpation Location low back/left hip Palpation Details Tenderness at soft tissue throughout paraspinals, greater trochanter PT-OP-K Range of Motion Start: 01/28/21 10:10 Freq: Status: Active Protocol: Document 01/28/21 13:30 AMB (Rec: 01/29/21 10:02 AMB [id number]) Lumbar Spine Range of Motion Lumbar Spine Active Degrees Testing Position Standing Flexion 50 Extension 20 Lateral Flexion Left 10 Lateral Flexion Right 15 ROM Limitations Pain Comments Painful with sidebending L PT-OP-M Strength Start: 01/28/21 10:10 Freq: Status: Active Protocol: Document 01/28/21 13:30 AMB (Rec: 01/29/21 10:10 AMB [email or web address]) Hip Strength Hip Manual Muscle Testing Right Flexion (L2) 4 Good Extension (S1) 4- Good- Abduction 3- Fair- Left Flexion (L2) 4 Good Extension (S1) 4- Good- Abduction 3- Fair- Comments pain with hip flexion Knee Strength Knee Manual Muscle Testing Right Flexion (S2) 5 Normal Extension (L3) 5 Normal Left Flexion (S2) 4 Good Extension (L3) 4+ Good+ Comments pain with knee flexion Ankle/Foot Strength Ankle and Foot Manual Muscle Testing Right Dorsiflexion (L4) 4+ Good+ Plantarflexion (S1) 4 Good Left Dorsiflexion (L4) 4+ Good+ Plantarflexion (S1) 4 Good PT-OP-Q Treatments Start: 01/28/21 10:10 Freq: Status: Active Protocol: Document 01/31/21 14:33 SP (Rec: 01/31/21 15:29 SP [id number]) Cardio Equipment Recumbent Elliptical ([employer]) Other next tx warm up Therapeutic Exercises Supine Exercises sktc Side left Equipment Used Towel Reps/Minutes 30 X3 Comments good stretching in post hip/ LB response hip adduction isometric Equipment Used green small ball Reps/Minutes 5 sec hold x5 Comments good tolerance LTR Side bilateral Reps/Minutes 15 sec hold x4 Comments cued slow painfree srange. fig 4 stretch Side left Equipment Used towel Reps/Minutes 30 x3 Comments good stretch response sciatic nerve glide Supine Exercise Name w/ ankle PF/ DF Side left Equipment Used towel Reps/Minutes 3x10 pumps Comments good response Manual Therapy Treatment Soft Tissue Mobilization 1 Body Location left piriformis and gluteal region Mobilization Type Cross-Friction,Myofascial Release Body Position right SL PT-OP-R Modalities Start: 01/28/21 10:10 Freq: Status: Active Protocol: Document 01/28/21 13:30 AMB (Rec: 01/29/21 10:10 AMB [email or web address]) Electric Stimulation Electric Stimulation Interferential Current (IFC) Body Location L gluteals Duration (Minutes) 15 Patient Position Sidelying Combined With Heat/Cold Hot Pack PT-OP-T Assessment and Plan Start: 01/28/21 10:10 Freq: Status: Active Protocol: Document 01/31/21 14:33 SP (Rec: 01/31/21 15:29 SP [id number]) Physical Therapy Assessment Goals Four Impairment No HEP in place LTG Duration 4 wks Three Impairment Functional activities Short Term Goal (STG) 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 LTG Duration 8 weeks Two Impairment HEP Short Term Goal (STG) Ira will be independent and consistent with a HEP for her core stability and flexibility. STG Duration 4 weeks One Impairment Gait Short Term Goal (STG) Ira will walk for 6 minutes over smooth surfaces with SPC and 5/10 pain or less . STG Duration 4 weeks Service Unit Operator [employer] Goal (LTG) Ira will walk in the community with her SPC over slightly uneven terrain (grass , gravel) for 10 minutes with 5/10 pain or less. LTG Duration 8 weeks Assessment Summary Assessment Pt responded well to manual and initiated flexibility to decrease L hip pain with good results. It is not as tight. Physical Therapy Plan Frequency and Duration Frequency of Treatment 2x/Week Duration of Treatment 10 weeks Plan of Care Start Date 01/28/21 Plan of Care End Date 04/08/21 Therapeutic Interventions Therapeutic Interventions Gait Training,Home Exercise Program,Manual Therapy, Neuromuscular Re-education, Self-Care/Home Management,Soft Tissue Mobilization, Therapeutic Activities, Therapeutic Exercises Next Visit Focus/Plan Next Note Type Treatment Note Next Visit Plan Assess response to manual and flexibitity HEP. Next tx: Begin with warm up and then work on strengthening /gait, can end with manual/ heat/IFC as needed
--- NOTE | 2021-02-04 15:52 | PT.OTN ---
Current Diagnoses Sciatica, unspecified side (02/04/21) Physical Therapy Treatment Note PT-OP-A Visit Information Start: 01/28/21 10:10 Freq: Status: Active Protocol: Document 02/04/21 13:30 AMB (Rec: 02/04/21 13:40 AMB [id number]) Out-Patient Physical Therapy Visit Information Visit Information Visit Type Treatment Note Visit Start Time 13:30 Visit Stop Time 14:15 Total Visit Minutes 45 Visit Number 3 Number of KILN OPERATOR Visits 0 PT-OP-B Current Condition Start: 01/28/21 10:10 Freq: Status: Active Protocol: Document 01/28/21 13:30 AMB (Rec: 01/28/21 13:49 AMB [id number]) Current Condition History of Current Condition Onset Date 5 months ago Current Complaints L>R sciatica History of Current Condition L>R pain 5 months, tingly going down lateral leg. Irritated by bending/lifting/ standing. Gardening, cooking/ cleaning. Had been doing water aerobics and that was really helpful, but got a MRSA infection in her foot, and hasn't been doing as much because of Covid. Has not had lumbar Xray. Did have previous physical therapy which was helpful. Treatment Goals Patient/Caregiver Goals Reduce pain Prior Functional Status Baseline Function- ADL's Independent Baseline Function- Mobility Independent Current Functional Impairments (Reported) Functional Limitations- ADL's Difficulty standing, bending, gardening, walking due to pain Personal Factors Other Personal Factors That May Effect Prior hx of shingles on face Therapy/Recovery years ago, DMII, current hernia, hypothyroid PT-OP-C Subjective Start: 01/28/21 10:10 Freq: Status: Active Protocol: Document 02/04/21 13:30 AMB (Rec: 02/04/21 13:40 AMB [id number]) OP-PT Subjective Patient Comments Patient Comments L leg has been extra sore, gardening stand to cook, doing her exercises. PT-OP-G Mobility & Gait Start: 01/28/21 10:10 Freq: Status: Active Protocol: Document 01/28/21 13:30 AMB (Rec: 01/29/21 10:02 AMB [id number]) OP Gait Assessment Comments Gait Comments Ambulates with SPC,significant Trendelenburg gait pattern without SPC and mild with SPC PT-OP-J Posture/Palpation/Skin Start: 01/28/21 10:10 Freq: Status: Active Protocol: Document 01/28/21 13:30 AMB (Rec: 01/29/21 10:02 AMB [id number]) Palpation Assessment Location One Palpation Location low back/left hip Palpation Details Tenderness at soft tissue throughout paraspinals, greater trochanter PT-OP-K Range of Motion Start: 01/28/21 10:10 Freq: Status: Active Protocol: Document 01/28/21 13:30 AMB (Rec: 01/29/21 10:02 AMB [id number]) Lumbar Spine Range of Motion Lumbar Spine Active Degrees Testing Position Standing Flexion 50 Extension 20 Lateral Flexion Left 10 Lateral Flexion Right 15 ROM Limitations Pain Comments Painful with sidebending L PT-OP-M Strength Start: 01/28/21 10:10 Freq: Status: Active Protocol: Document 01/28/21 13:30 AMB (Rec: 01/29/21 10:10 AMB [email or web address]) Hip Strength Hip Manual Muscle Testing Right Flexion (L2) 4 Good Extension (S1) 4- Good- Abduction 3- Fair- Left Flexion (L2) 4 Good Extension (S1) 4- Good- Abduction 3- Fair- Comments pain with hip flexion Knee Strength Knee Manual Muscle Testing Right Flexion (S2) 5 Normal Extension (L3) 5 Normal Left Flexion (S2) 4 Good Extension (L3) 4+ Good+ Comments pain with knee flexion Ankle/Foot Strength Ankle and Foot Manual Muscle Testing Right Dorsiflexion (L4) 4+ Good+ Plantarflexion (S1) 4 Good Left Dorsiflexion (L4) 4+ Good+ Plantarflexion (S1) 4 Good PT-OP-Q Treatments Start: 01/28/21 10:10 Freq: Status: Active Protocol: Document 02/04/21 13:30 AMB (Rec: 02/04/21 15:52 AMB [email or web address]) Cardio Equipment Recumbent Stepper (Sci-Fit) Duration (Minutes) 5 Resistance 1.3 Seat Position 12 Other 40 RPM Therapeutic Exercises Supine Exercises sktc Side left Equipment Used Towel Reps/Minutes 30 X3 Comments good stretching in post hip/ LB response hip adduction isometric Equipment Used green small ball Reps/Minutes 5 sec hold x5 Comments good tolerance LTR Side bilateral Reps/Minutes 15 sec hold x4 Comments cued slow painfree srange. Manual Therapy Treatment Soft Tissue Mobilization 1 Body Location left piriformis and gluteal region Mobilization Type Cross-Friction,Myofascial Release Body Position right SL PT-OP-R Modalities Start: 01/28/21 10:10 Freq: Status: Active Protocol: Document 02/04/21 13:30 AMB (Rec: 02/04/21 15:52 AMB [email or web address]) Electric Stimulation Electric Stimulation Interferential Current (IFC) Body Location L gluteals Duration (Minutes) 15 Patient Position Sidelying Combined With Heat/Cold Hot Pack PT-OP-T Assessment and Plan Start: 01/28/21 10:10 Freq: Status: Active Protocol: Document 02/04/21 15:43 AMB (Rec: 02/04/21 15:48 AMB [email or web address]) Physical Therapy Assessment Goals Three Impairment Functional activities Short Term Goal (STG) 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 STG Duration 4 weeks Negative Turner Apprentice Goal (LTG) Ira will perform a partial squat to perform light yard work with pain of 3/10 or less . LTG Duration 8 weeks Two Impairment HEP Short Term Goal (STG) Ira will be independent and consistent with a HEP for her core stability and flexibility. STG Duration 4 weeks One Impairment Gait Short Term Goal (STG) Ira will walk for 6 minutes over smooth surfaces with SPC and 5/10 pain or less . STG Duration 4 weeks Negative Turner Apprentice Goal (LTG) Ira will walk in the community with her SPC over slightly uneven terrain (grass , gravel) for 10 minutes with 5/10 pain or less. LTG Duration 8 weeks Assessment Summary Assessment Reviewed HEP, did not progress much today as pt has been a bit sore. Encouraged continued HEP once per day. Pt has been doing a lot of house/yardwork that has been increasing her pain. Physical Therapy Plan Frequency and Duration Frequency of Treatment 2x/Week Duration of Treatment 10 weeks Plan of Care Start Date 01/28/21 Plan of Care End Date 04/08/21 Therapeutic Interventions Therapeutic Interventions Gait Training,Home Exercise Program,Manual Therapy, Neuromuscular Re-education, Self-Care/Home Management,Soft Tissue Mobilization, Therapeutic Activities, Therapeutic Exercises Next Visit Focus/Plan Next Note Type Treatment Note Next Visit Plan Assess response to manual and flexibitity HEP. Next tx: Begin with warm up and then work on strengthening /gait, can end with manual/ heat/IFC as needed
--- NOTE | 2021-02-07 15:59 | PT.OTN ---
Current Diagnoses Sciatica, unspecified side (02/07/21) Physical Therapy Treatment Note PT-OP-A Visit Information Start: 01/28/21 10:10 Freq: Status: Active Protocol: Document 02/07/21 13:30 AMB (Rec: 02/07/21 13:54 AMB [id number]) Out-Patient Physical Therapy Visit Information Visit Information Visit Type Treatment Note Visit Start Time 13:30 Visit Stop Time 14:15 Total Visit Minutes 45 Visit Number 4 PT-OP-B Current Condition Start: 01/28/21 10:10 Freq: Status: Active Protocol: Document 01/28/21 13:30 AMB (Rec: 01/28/21 13:49 AMB [id number]) Current Condition History of Current Condition Onset Date 5 months ago Current Complaints L>R sciatica History of Current Condition L>R pain 5 months, tingly going down lateral leg. Irritated by bending/lifting/ standing. Gardening, cooking/ cleaning. Had been doing water aerobics and that was really helpful, but got a MRSA infection in her foot, and hasn't been doing as much because of Covid. Has not had lumbar Xray. Did have previous physical therapy which was helpful. Treatment Goals Patient/Caregiver Goals Reduce pain Prior Functional Status Baseline Function- ADL's Independent Baseline Function- Mobility Independent Current Functional Impairments (Reported) Functional Limitations- ADL's Difficulty standing, bending, gardening, walking due to pain Personal Factors Other Personal Factors That May Effect Prior hx of shingles on face Therapy/Recovery years ago, DMII, current hernia, hypothyroid PT-OP-C Subjective Start: 01/28/21 10:10 Freq: Status: Active Protocol: Document 02/07/21 13:30 AMB (Rec: 02/07/21 13:54 AMB [id number]) OP-PT Subjective Patient Comments Patient Comments [place] good after last appt, picked up groceries and brought them in. PT-OP-G Mobility & Gait Start: 01/28/21 10:10 Freq: Status: Active Protocol: Document 01/28/21 13:30 AMB (Rec: 01/29/21 10:02 AMB [id number]) OP Gait Assessment Comments Gait Comments Ambulates with SPC,significant Trendelenburg gait pattern without SPC and mild with SPC PT-OP-J Posture/Palpation/Skin Start: 01/28/21 10:10 Freq: Status: Active Protocol: Document 01/28/21 13:30 AMB (Rec: 01/29/21 10:02 AMB [id number]) Palpation Assessment Location One Palpation Location low back/left hip Palpation Details Tenderness at soft tissue throughout paraspinals, greater trochanter PT-OP-K Range of Motion Start: 01/28/21 10:10 Freq: Status: Active Protocol: Document 01/28/21 13:30 AMB (Rec: 01/29/21 10:02 AMB [id number]) Lumbar Spine Range of Motion Lumbar Spine Active Degrees Testing Position Standing Flexion 50 Extension 20 Lateral Flexion Left 10 Lateral Flexion Right 15 ROM Limitations Pain Comments Painful with sidebending L PT-OP-M Strength Start: 01/28/21 10:10 Freq: Status: Active Protocol: Document 01/28/21 13:30 AMB (Rec: 01/29/21 10:10 AMB [email or web address]) Hip Strength Hip Manual Muscle Testing Right Flexion (L2) 4 Good Extension (S1) 4- Good- Abduction 3- Fair- Left Flexion (L2) 4 Good Extension (S1) 4- Good- Abduction 3- Fair- Comments pain with hip flexion Knee Strength Knee Manual Muscle Testing Right Flexion (S2) 5 Normal Extension (L3) 5 Normal Left Flexion (S2) 4 Good Extension (L3) 4+ Good+ Comments pain with knee flexion Ankle/Foot Strength Ankle and Foot Manual Muscle Testing Right Dorsiflexion (L4) 4+ Good+ Plantarflexion (S1) 4 Good Left Dorsiflexion (L4) 4+ Good+ Plantarflexion (S1) 4 Good PT-OP-Q Treatments Start: 01/28/21 10:10 Freq: Status: Active Protocol: Document 02/07/21 13:30 AMB (Rec: 02/07/21 13:54 AMB [id number]) Cardio Equipment Recumbent Stepper (Sci-Fit) Duration (Minutes) 5 Resistance 1.3 Seat Position 12 Other 45 RPM Gym Equipment Shuttle Recovery Bilateral Squats Resistance 50# Shuttle Recovery Platform Stable Reps/Time x 15 reps x 3 Therapeutic Exercises Supine Exercises sktc Side left Equipment Used Towel Reps/Minutes 30 X3 Comments good stretching in post hip/ LB response sciatic nerve glide Supine Exercise Name w/ ankle PF/ DF Side left Equipment Used towel Reps/Minutes 3x10 pumps Comments good response Sidelying Exercises 1 Sidelying Exercise Name [facility] Side bilateral Reps/Minutes x 10 reps x 2 Manual Therapy Treatment Soft Tissue Mobilization 1 Body Location left piriformis and gluteal region Mobilization Type Cross-Friction,Myofascial Release Body Position right SL PT-OP-R Modalities Start: 01/28/21 10:10 Freq: Status: Active Protocol: Document 02/07/21 13:30 AMB (Rec: 02/07/21 13:54 AMB [id number]) Electric Stimulation Electric Stimulation Interferential Current (IFC) Body Location L gluteals Duration (Minutes) 15 Patient Position Sidelying Combined With Heat/Cold Hot Pack PT-OP-T Assessment and Plan Start: 01/28/21 10:10 Freq: Status: Active Protocol: Document 02/07/21 13:30 AMB (Rec: 02/07/21 13:54 AMB [id number]) Physical Therapy Assessment Assessment Summary Assessment Reviewed HEP and pt doing well , but carrying and lifting continue to exacerbate symptoms. Physical Therapy Plan Next Visit Focus/Plan Next Note Type Treatment Note Next Visit Plan Progress exercise with sit to stand, shuttle recovery
--- NOTE | 2021-02-12 14:42 | PT.OTN ---
Current Diagnoses Sciatica, unspecified side (02/12/21) Physical Therapy Treatment Note PT-OP-A Visit Information Start: 01/28/21 10:10 Freq: Status: Active Protocol: Document 02/12/21 13:30 AMB (Rec: 02/12/21 13:54 AMB [id number]) Out-Patient Physical Therapy Visit Information Visit Information Visit Type Treatment Note Visit Start Time 13:30 Visit Stop Time 14:15 Total Visit Minutes 45 Visit Number 5 PT-OP-B Current Condition Start: 01/28/21 10:10 Freq: Status: Active Protocol: Document 01/28/21 13:30 AMB (Rec: 01/28/21 13:49 AMB [id number]) Current Condition History of Current Condition Onset Date 5 months ago Current Complaints L>R sciatica History of Current Condition L>R pain 5 months, tingly going down lateral leg. Irritated by bending/lifting/ standing. Gardening, cooking/ cleaning. Had been doing water aerobics and that was really helpful, but got a MRSA infection in her foot, and hasn't been doing as much because of Covid. Has not had lumbar Xray. Did have previous physical therapy which was helpful. Treatment Goals Patient/Caregiver Goals Reduce pain Prior Functional Status Baseline Function- ADL's Independent Baseline Function- Mobility Independent Current Functional Impairments (Reported) Functional Limitations- ADL's Difficulty standing, bending, gardening, walking due to pain Personal Factors Other Personal Factors That May Effect Prior hx of shingles on face Therapy/Recovery years ago, DMII, current hernia, hypothyroid PT-OP-C Subjective Start: 01/28/21 10:10 Freq: Status: Active Protocol: Document 02/12/21 13:30 AMB (Rec: 02/12/21 13:54 AMB [id number]) OP-PT Subjective Patient Comments Patient Comments Amy has been busy this week , L leg is uncomfortable after fell on her while he was trying to get into bed. PT-OP-G Mobility & Gait Start: 01/28/21 10:10 Freq: Status: Active Protocol: Document 01/28/21 13:30 AMB (Rec: 01/29/21 10:02 AMB [id number]) OP Gait Assessment Comments Gait Comments Ambulates with SPC,significant Trendelenburg gait pattern without SPC and mild with SPC PT-OP-J Posture/Palpation/Skin Start: 01/28/21 10:10 Freq: Status: Active Protocol: Document 01/28/21 13:30 AMB (Rec: 01/29/21 10:02 AMB [id number]) Palpation Assessment Location One Palpation Location low back/left hip Palpation Details Tenderness at soft tissue throughout paraspinals, greater trochanter PT-OP-K Range of Motion Start: 01/28/21 10:10 Freq: Status: Active Protocol: Document 01/28/21 13:30 AMB (Rec: 01/29/21 10:02 AMB [id number]) Lumbar Spine Range of Motion Lumbar Spine Active Degrees Testing Position Standing Flexion 50 Extension 20 Lateral Flexion Left 10 Lateral Flexion Right 15 ROM Limitations Pain Comments Painful with sidebending L PT-OP-M Strength Start: 01/28/21 10:10 Freq: Status: Active Protocol: Document 01/28/21 13:30 AMB (Rec: 01/29/21 10:10 AMB [email or web address]) Hip Strength Hip Manual Muscle Testing Right Flexion (L2) 4 Good Extension (S1) 4- Good- Abduction 3- Fair- Left Flexion (L2) 4 Good Extension (S1) 4- Good- Abduction 3- Fair- Comments pain with hip flexion Knee Strength Knee Manual Muscle Testing Right Flexion (S2) 5 Normal Extension (L3) 5 Normal Left Flexion (S2) 4 Good Extension (L3) 4+ Good+ Comments pain with knee flexion Ankle/Foot Strength Ankle and Foot Manual Muscle Testing Right Dorsiflexion (L4) 4+ Good+ Plantarflexion (S1) 4 Good Left Dorsiflexion (L4) 4+ Good+ Plantarflexion (S1) 4 Good PT-OP-Q Treatments Start: 01/28/21 10:10 Freq: Status: Active Protocol: Document 02/12/21 13:30 AMB (Rec: 02/12/21 14:42 AMB [id number]) Cardio Equipment Recumbent Stepper (Sci-Fit) Duration (Minutes) 10 Resistance 1.3 Seat Position 12 Other 45 RPM Gym Equipment Shuttle Recovery Bilateral Squats Resistance 50# Shuttle Recovery Platform Stable Reps/Time x 20 reps x 3 Therapeutic Exercises Supine Exercises LTR Side bilateral Reps/Minutes 15 sec hold x4 Comments cued slow painfree srange. sciatic nerve glide Supine Exercise Name w/ ankle PF/ DF Side left Equipment Used towel Reps/Minutes 3x10 pumps Comments good response Manual Therapy Treatment Soft Tissue Mobilization 1 Body Location left piriformis and gluteal region Mobilization Type Cross-Friction,Myofascial Release Body Position right SL PT-OP-R Modalities Start: 01/28/21 10:10 Freq: Status: Active Protocol: Document 02/12/21 13:30 AMB (Rec: 02/12/21 14:42 AMB [id number]) Electric Stimulation Electric Stimulation Interferential Current (IFC) Body Location L gluteals Duration (Minutes) 15 Patient Position Sidelying Combined With Heat/Cold Hot Pack PT-OP-T Assessment and Plan Start: 01/28/21 10:10 Freq: Status: Active Protocol: Document 02/12/21 13:30 AMB (Rec: 02/12/21 13:54 AMB [id number]) Physical Therapy Assessment Assessment Summary Assessment Pt reports her hip has been hurting hip, spine, and neck today. Tolerated slight increase in shuttle recovery today. Physical Therapy Plan Next Visit Focus/Plan Next Note Type Treatment Note Next Visit Plan Progress exercise with sit to stand, shuttle recovery
--- NOTE | 2021-02-14 15:21 | PT.OTN ---
Current Diagnoses Sciatica, unspecified side (02/14/21) Physical Therapy Treatment Note PT-OP-A Visit Information Start: 01/28/21 10:10 Freq: Status: Active Protocol: Document 02/14/21 13:30 AMB (Rec: 02/14/21 14:21 AMB [id number]) Out-Patient Physical Therapy Visit Information Visit Information Visit Type Treatment Note Visit Start Time 13:30 Visit Stop Time 14:15 Total Visit Minutes 45 Visit Number 6 PT-OP-B Current Condition Start: 01/28/21 10:10 Freq: Status: Active Protocol: Document 01/28/21 13:30 AMB (Rec: 01/28/21 13:49 AMB [id number]) Current Condition History of Current Condition Onset Date 5 months ago Current Complaints L>R sciatica History of Current Condition L>R pain 5 months, tingly going down lateral leg. Irritated by bending/lifting/ standing. Gardening, cooking/ cleaning. Had been doing water aerobics and that was really helpful, but got a MRSA infection in her foot, and hasn't been doing as much because of Covid. Has not had lumbar Xray. Did have previous physical therapy which was helpful. Treatment Goals Patient/Caregiver Goals Reduce pain Prior Functional Status Baseline Function- ADL's Independent Baseline Function- Mobility Independent Current Functional Impairments (Reported) Functional Limitations- ADL's Difficulty standing, bending, gardening, walking due to pain Personal Factors Other Personal Factors That May Effect Prior hx of shingles on face Therapy/Recovery years ago, DMII, current hernia, hypothyroid PT-OP-C Subjective Start: 01/28/21 10:10 Freq: Status: Active Protocol: Document 02/14/21 13:30 AMB (Rec: 02/14/21 14:21 AMB [id number]) OP-PT Subjective Patient Comments Patient Comments [place] better after last treatment for a day, but then was busy with errands yesterday and L hip was really hurting. PT-OP-G Mobility & Gait Start: 01/28/21 10:10 Freq: Status: Active Protocol: Document 01/28/21 13:30 AMB (Rec: 01/29/21 10:02 AMB [id number]) OP Gait Assessment Comments Gait Comments Ambulates with SPC,significant Trendelenburg gait pattern without SPC and mild with SPC PT-OP-J Posture/Palpation/Skin Start: 01/28/21 10:10 Freq: Status: Active Protocol: Document 01/28/21 13:30 AMB (Rec: 01/29/21 10:02 AMB [id number]) Palpation Assessment Location One Palpation Location low back/left hip Palpation Details Tenderness at soft tissue throughout paraspinals, greater trochanter PT-OP-K Range of Motion Start: 01/28/21 10:10 Freq: Status: Active Protocol: Document 01/28/21 13:30 AMB (Rec: 01/29/21 10:02 AMB [id number]) Lumbar Spine Range of Motion Lumbar Spine Active Degrees Testing Position Standing Flexion 50 Extension 20 Lateral Flexion Left 10 Lateral Flexion Right 15 ROM Limitations Pain Comments Painful with sidebending L PT-OP-M Strength Start: 01/28/21 10:10 Freq: Status: Active Protocol: Document 01/28/21 13:30 AMB (Rec: 01/29/21 10:10 AMB [id number]) Hip Strength Hip Manual Muscle Testing Right Flexion (L2) 4 Good Extension (S1) 4- Good- Abduction 3- Fair- Left Flexion (L2) 4 Good Extension (S1) 4- Good- Abduction 3- Fair- Comments pain with hip flexion Knee Strength Knee Manual Muscle Testing Right Flexion (S2) 5 Normal Extension (L3) 5 Normal Left Flexion (S2) 4 Good Extension (L3) 4+ Good+ Comments pain with knee flexion Ankle/Foot Strength Ankle and Foot Manual Muscle Testing Right Dorsiflexion (L4) 4+ Good+ Plantarflexion (S1) 4 Good Left Dorsiflexion (L4) 4+ Good+ Plantarflexion (S1) 4 Good PT-OP-Q Treatments Start: 01/28/21 10:10 Freq: Status: Active Protocol: Document 02/14/21 13:30 AMB (Rec: 02/14/21 14:21 AMB [id number]) Cardio Equipment Recumbent Stepper (Sci-Fit) Duration (Minutes) 10 Resistance 1.5 Seat Position 12 Other 40 RPM Gym Equipment Shuttle Recovery Bilateral Squats Resistance 50# Shuttle Recovery Platform Stable Reps/Time x 25 reps x 3 Therapeutic Exercises Supine Exercises LTR Side bilateral Reps/Minutes 15 sec hold x4 Comments cued slow painfree srange. sciatic nerve glide Supine Exercise Name w/ ankle PF/ DF Side left Equipment Used towel Reps/Minutes 3x10 pumps Comments good response Sidelying Exercises 1 Sidelying Exercise Name Ivania Side left Reps/Minutes x 10 reps x 2 Manual Therapy Treatment Soft Tissue Mobilization 1 Body Location left piriformis and gluteal region Mobilization Type Cross-Friction,Myofascial Release Body Position right SL PT-OP-R Modalities Start: 01/28/21 10:10 Freq: Status: Active Protocol: Document 02/14/21 13:30 AMB (Rec: 02/14/21 15:19 AMB [id number]) Electric Stimulation Electric Stimulation Interferential Current (IFC) Body Location L gluteals Duration (Minutes) 15 Patient Position Sidelying Combined With Heat/Cold Hot Pack PT-OP-T Assessment and Plan Start: 01/28/21 10:10 Freq: Status: Active Protocol: Document 02/14/21 13:30 AMB (Rec: 02/14/21 15:19 AMB [id number]) Physical Therapy Assessment Goals Three Impairment Functional activities Short Term Goal (STG) 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 STG Duration 4 weeks Fci Goal (LTG) Ira will perform a partial squat to perform light yard work with pain of 3/10 or less . LTG Duration 8 weeks Two Impairment HEP Short Term Goal (STG) Ira will be independent and consistent with a HEP for her core stability and flexibility. STG Duration 4 weeks One Impairment Gait Short Term Goal (STG) Ira will walk for 6 minutes over smooth surfaces with SPC and 5/10 pain or less . STG Duration 4 weeks Roller Man Goal (LTG) Ira will walk in the community with her SPC over slightly uneven terrain (grass , gravel) for 10 minutes with 5/10 pain or less. LTG Duration 8 weeks Assessment Summary Assessment Pt noticed increased sx with walking around on concrete yesterday. She did tolerate increased resistance with sci fit and increased reps with shuttle recovery, but had increased sensitivity with manual therapy. Physical Therapy Plan Next Visit Focus/Plan Next Visit Plan Progress both stability exercises and stretching: see if pt can tolerate increased resistance on shuttle, add in sit to stands to HEP if tolerated.
--- NOTE | 2021-02-18 13:20 | PT-OP ANOTE ---
Pt did not show for this pm 1300 appt, called her regarding but she thought appt was at 1330. PHOTOGRAPHIC INTELLIGENCE OFFICER offered 1430 open appt today at 1430 and stated will be here. PHOTOGRAPHIC INTELLIGENCE OFFICER suggested to get another print out when arrives and can book more appts through March to be sure has appts before PT schedules fill up.
--- NOTE | 2021-02-18 15:30 | PT.OTN ---
Current Diagnoses Sciatica, unspecified side (02/18/21) Physical Therapy Treatment Note PT-OP-A Visit Information Start: 01/28/21 10:10 Freq: Status: Active Protocol: Document 02/18/21 14:33 SP (Rec: 02/18/21 15:41 SP [id number]) Out-Patient Physical Therapy Visit Information Visit Information Visit Type Treatment Note Visit Start Time 14:33 Visit Stop Time 15:30 Total Visit Minutes 57 Visit Number 7 Number of AUTOMOTIVE REFINISHER Visits 1 Precautions Precautions Previous precaution assess vitals, BP with activity. PT-OP-B Current Condition Start: 01/28/21 10:10 Freq: Status: Active Protocol: Document 01/28/21 13:30 AMB (Rec: 01/28/21 13:49 AMB [id number]) Current Condition History of Current Condition Onset Date 5 months ago Current Complaints L>R sciatica History of Current Condition L>R pain 5 months, tingly going down lateral leg. Irritated by bending/lifting/ standing. Gardening, cooking/ cleaning. Had been doing water aerobics and that was really helpful, but got a MRSA infection in her foot, and hasn't been doing as much because of Covid. Has not had lumbar Xray. Did have previous physical therapy which was helpful. Treatment Goals Patient/Caregiver Goals Reduce pain Prior Functional Status Baseline Function- ADL's Independent Baseline Function- Mobility Independent Current Functional Impairments (Reported) Functional Limitations- ADL's Difficulty standing, bending, gardening, walking due to pain Personal Factors Other Personal Factors That May Effect Prior hx of shingles on face Therapy/Recovery years ago, DMII, current hernia, hypothyroid PT-OP-C Subjective Start: 01/28/21 10:10 Freq: Status: Active Protocol: Document 02/18/21 14:33 SP (Rec: 02/18/21 15:41 SP [id number]) OP-PT Subjective Patient Comments Patient Comments Pt stated feels little bit sore and tired after tx but helps loosen up for rest of day. 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 Pt stated has an appt with new geology associate next week. Pt stated doesn't get tingling in bottom of foot as much. Pt wanted to know if wearing an ankle sleeve would help? PT-OP-G Mobility & Gait Start: 01/28/21 10:10 Freq: Status: Active Protocol: Document 01/28/21 13:30 AMB (Rec: 01/29/21 10:02 AMB [id number]) OP Gait Assessment Comments Gait Comments Ambulates with SPC,significant Trendelenburg gait pattern without SPC and mild with SPC PT-OP-J Posture/Palpation/Skin Start: 01/28/21 10:10 Freq: Status: Active Protocol: Document 01/28/21 13:30 AMB (Rec: 01/29/21 10:02 AMB [id number]) Palpation Assessment Location One Palpation Location low back/left hip Palpation Details Tenderness at soft tissue throughout paraspinals, greater trochanter PT-OP-K Range of Motion Start: 01/28/21 10:10 Freq: Status: Active Protocol: Document 01/28/21 13:30 AMB (Rec: 01/29/21 10:02 AMB [id number]) Lumbar Spine Range of Motion Lumbar Spine Active Degrees Testing Position Standing Flexion 50 Extension 20 Lateral Flexion Left 10 Lateral Flexion Right 15 ROM Limitations Pain Comments Painful with sidebending L PT-OP-M Strength Start: 01/28/21 10:10 Freq: Status: Active Protocol: Document 01/28/21 13:30 AMB (Rec: 01/29/21 10:10 AMB [id number]) Hip Strength Hip Manual Muscle Testing Right Flexion (L2) 4 Good Extension (S1) 4- Good- Abduction 3- Fair- Left Flexion (L2) 4 Good Extension (S1) 4- Good- Abduction 3- Fair- Comments pain with hip flexion Knee Strength Knee Manual Muscle Testing Right Flexion (S2) 5 Normal Extension (L3) 5 Normal Left Flexion (S2) 4 Good Extension (L3) 4+ Good+ Comments pain with knee flexion Ankle/Foot Strength Ankle and Foot Manual Muscle Testing Right Dorsiflexion (L4) 4+ Good+ Plantarflexion (S1) 4 Good Left Dorsiflexion (L4) 4+ Good+ Plantarflexion (S1) 4 Good PT-OP-Q Treatments Start: 01/28/21 10:10 Freq: Status: Active Protocol: Document 02/18/21 14:33 SP (Rec: 02/18/21 15:41 SP [id number]) Cardio Equipment Recumbent Elliptical (EVOFEM) Duration (Minutes) 5 Resistance 1 Seat Position 8 Other stopped at 5 min due to ankle and L knee increase discomfort - continue scif Gym Equipment Shuttle Recovery Bilateral Squats Resistance 50# Shuttle Recovery Platform Stable Reps/Time x 25 reps x2, 62# x25 Therapeutic Exercises Supine Exercises TA trng Supine Exercise Name ab draw in w/ knee bent Reps/Minutes 10 sec x10 Comments educated can perform supine, seated, standing for decrease LBP LTR Side bilateral Reps/Minutes 15 sec hold x4 Comments cued slow painfree range. sciatic nerve glide Supine Exercise Name w/ ankle PF/ DF Side left Equipment Used towel Reps/Minutes 3x10 pumps Comments good response Standing Exercises self STMs Standing Exercise Name L gluts, ES using ball wall; seated: L quad, calf Side bilateral Equipment Used racquetball on wall, rolling stick calf PT-OP-R Modalities Start: 01/28/21 10:10 Freq: Status: Active Protocol: Document 02/18/21 14:33 SP (Rec: 02/18/21 15:41 SP [id number]) Electric Stimulation Electric Stimulation Interferential Current (IFC) Body Location L>R gluteals & paraspinal Duration (Minutes) 15 Patient Position Sidelying Combined With Heat/Cold Hot Pack PT-OP-T Assessment and Plan Start: 01/28/21 10:10 Freq: Status: Active Protocol: Document 02/18/21 14:33 SP (Rec: 02/18/21 15:41 SP [id number]) Physical Therapy Assessment Goals Three Impairment Functional activities Short Term Goal (STG) 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 STG Duration 4 weeks Teacher'S Aide Goal (LTG) Ira will perform a partial squat to perform light yard work with pain of 3/10 or less . LTG Duration 8 weeks Two Impairment HEP Short Term Goal (STG) Ira will be independent and consistent with a HEP for her core stability and flexibility. STG Duration 4 weeks One Impairment Gait Short Term Goal (STG) Ira will walk for 6 minutes over smooth surfaces with SPC and 5/10 pain or less . STG Duration 4 weeks Jail Goal (LTG) Ira will walk in the community with her SPC over slightly uneven terrain (grass , gravel) for 10 minutes with 5/10 pain or less. LTG Duration 8 weeks Assessment Summary Assessment Pt had decreased tolerance on biodex today due to L knee and ankle discomfort stating more stretch on the muscles than the other bike. Pt was able to tolerate increase 62# on shuttle recovery on 3rd set. Pt found initiated ball rolling and stick roll to gluts, paraspinals, quad and calves helpful in decrease tightness for self application at home. Review of supine HEP with good form and doing in am at home. Initiated TA draw in with good response of stretching LB muscles. Tx ended with IFC and MHP to L>R paraspinals and gluts end of tx for added decreased LBP relief. I always feel better after the stim and heat walking out of PT. Physical Therapy Plan Frequency and Duration Frequency of Treatment 2x/Week Duration of Treatment 10 weeks Plan of Care Start Date 01/28/21 Plan of Care End Date 04/08/21 Therapeutic Interventions Therapeutic Interventions Gait Training,Home Exercise Program,Manual Therapy, Neuromuscular Re-education, Self-Care/Home Management,Soft Tissue Mobilization, Therapeutic Activities, Therapeutic Exercises Next Visit Focus/Plan Next Visit Plan Progress both stability exercises and stretching. Next tx add in sit to stands to HEP if tolerated.
--- NOTE | 2021-02-20 13:18 | PT.OTN ---
Current Diagnoses Sciatica, unspecified side (02/20/21) Physical Therapy Treatment Note PT-OP-A Visit Information Start: 01/28/21 10:10 Freq: Status: Active Protocol: Document 02/20/21 12:10 SP (Rec: 02/20/21 13:26 SP [id number]) Out-Patient Physical Therapy Visit Information Visit Information Visit Type Treatment Note Visit Start Time 12:10 Visit Stop Time 13:18 Total Visit Minutes 68 Visit Number 8 Number of SOCIAL INSURANCE ADVISER Visits 2 Precautions Precautions Previous precaution assess vitals, BP with activity. PT-OP-B Current Condition Start: 01/28/21 10:10 Freq: Status: Active Protocol: Document 01/28/21 13:30 AMB (Rec: 01/28/21 13:49 AMB [id number]) Current Condition History of Current Condition Onset Date 5 months ago Current Complaints L>R sciatica History of Current Condition L>R pain 5 months, tingly going down lateral leg. Irritated by bending/lifting/ standing. Gardening, cooking/ cleaning. Had been doing water aerobics and that was really helpful, but got a MRSA infection in her foot, and hasn't been doing as much because of Covid. Has not had lumbar Xray. Did have previous physical therapy which was helpful. Treatment Goals Patient/Caregiver Goals Reduce pain Prior Functional Status Baseline Function- ADL's Independent Baseline Function- Mobility Independent Current Functional Impairments (Reported) Functional Limitations- ADL's Difficulty standing, bending, gardening, walking due to pain Personal Factors Other Personal Factors That May Effect Prior hx of shingles on face Therapy/Recovery years ago, DMII, current hernia, hypothyroid PT-OP-C Subjective Start: 01/28/21 10:10 Freq: Status: Active Protocol: Document 02/20/21 12:10 SP (Rec: 02/20/21 13:26 SP [id number]) OP-PT Subjective Patient Comments Patient Comments Pt stated little tired today. Is in the process of getting racquetball and rolling stick for self flexibility. PT-OP-G Mobility & Gait Start: 01/28/21 10:10 Freq: Status: Active Protocol: Document 01/28/21 13:30 AMB (Rec: 01/29/21 10:02 AMB [id number]) OP Gait Assessment Comments Gait Comments Ambulates with SPC,significant Trendelenburg gait pattern without SPC and mild with SPC PT-OP-J Posture/Palpation/Skin Start: 01/28/21 10:10 Freq: Status: Active Protocol: Document 01/28/21 13:30 AMB (Rec: 01/29/21 10:02 AMB [id number]) Palpation Assessment Location One Palpation Location low back/left hip Palpation Details Tenderness at soft tissue throughout paraspinals, greater trochanter PT-OP-K Range of Motion Start: 01/28/21 10:10 Freq: Status: Active Protocol: Document 01/28/21 13:30 AMB (Rec: 01/29/21 10:02 AMB [id number]) Lumbar Spine Range of Motion Lumbar Spine Active Degrees Testing Position Standing Flexion 50 Extension 20 Lateral Flexion Left 10 Lateral Flexion Right 15 ROM Limitations Pain Comments Painful with sidebending L PT-OP-M Strength Start: 01/28/21 10:10 Freq: Status: Active Protocol: Document 01/28/21 13:30 AMB (Rec: 01/29/21 10:10 AMB [id number]) Hip Strength Hip Manual Muscle Testing Right Flexion (L2) 4 Good Extension (S1) 4- Good- Abduction 3- Fair- Left Flexion (L2) 4 Good Extension (S1) 4- Good- Abduction 3- Fair- Comments pain with hip flexion Knee Strength Knee Manual Muscle Testing Right Flexion (S2) 5 Normal Extension (L3) 5 Normal Left Flexion (S2) 4 Good Extension (L3) 4+ Good+ Comments pain with knee flexion Ankle/Foot Strength Ankle and Foot Manual Muscle Testing Right Dorsiflexion (L4) 4+ Good+ Plantarflexion (S1) 4 Good Left Dorsiflexion (L4) 4+ Good+ Plantarflexion (S1) 4 Good PT-OP-Q Treatments Start: 01/28/21 10:10 Freq: Status: Active Protocol: Document 02/20/21 12:10 SP (Rec: 02/20/21 13:26 SP [id number]) Cardio Equipment Recumbent Stepper (Sci-Fit) Duration (Minutes) 10 Resistance 1.5 (increase 2.0 next tx) Seat Position 09 Other 52-55 RPM, 1.17 mikes Gym Equipment Shuttle Recovery Bilateral Squats Resistance 62# Shuttle Recovery Platform Stable Reps/Time x 25 reps x2 Therapeutic Exercises Supine Exercises TA knee flexion over t ball Supine Exercise Name TA LE flex/ ext over ball Side bilateral Reps/Minutes x20 Comments cued slow movement, good abdominals, HS tiring TA press down SB Supine Exercise Name assessed for HEP eventually Equipment Used 55 cm tball on lap Reps/Minutes 5 sec hold x5 Comments good tolerance core facilitatoin, cued TA trng Supine Exercise Name ab draw in w/ knee bent Reps/Minutes 10 sec x10 Comments educated can perform supine, seated, standing for decrease LBP LTR Side bilateral Reps/Minutes 15 sec hold x4 AROM, x5 R and L LEs over ball- good TA challenge no pa in Comments cued slow painfree range. sciatic nerve glide Supine Exercise Name w/ ankle PF/ DF Side left Equipment Used towel Reps/Minutes 3x10 pumps Comments good response Sitting Exercises seated resisted shld ext/ pull downs Sitting Exercise Name PT only Resistance Tb #1 Reps/Minutes x10 Comments cued tall posture, scap stab, neutral CS, TA facil resisted rows Sitting Exercise Name PT only Resistance Tb #1 Reps/Minutes x10 Comments cued tall posture, scap stab, neutral CS, TA facil seated pelvic tilts Sitting Exercise Name HEP review Reps/Minutes x10 Comments cued tall posture PT-OP-R Modalities Start: 01/28/21 10:10 Freq: Status: Active Protocol: Document 02/20/21 12:10 SP (Rec: 02/20/21 13:26 SP [id number]) Electric Stimulation Electric Stimulation Interferential Current (IFC) Body Location L>R gluteals & paraspinal Duration (Minutes) 10 Patient Position Sidelying Combined With Heat/Cold Hot Pack PT-OP-T Assessment and Plan Start: 01/28/21 10:10 Freq: Status: Active Protocol: Document 02/20/21 12:10 SP (Rec: 02/20/21 13:26 SP [id number]) Physical Therapy Assessment Goals Three Impairment Functional activities Short Term Goal (STG) 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 STG Duration 4 weeks Usp Goal (LTG) Ira will perform a partial squat to perform light yard work with pain of 3/10 or less . LTG Duration 8 weeks Two Impairment HEP Short Term Goal (STG) Ira will be independent and consistent with a HEP for her core stability and flexibility. STG Duration 4 weeks One Impairment Gait Short Term Goal (STG) Ira will walk for 6 minutes over smooth surfaces with SPC and 5/10 pain or less . STG Duration 4 weeks Usp Goal (LTG) Ira will walk in the community with her SPC over slightly uneven terrain (grass , gravel) for 10 minutes with 5/10 pain or less. LTG Duration 8 weeks Assessment Summary Assessment Tx focused on core strengthening today with initiation of seated resisted rows/ shld ext then supine core press down/ LE flex/ ext using tball, min cuing for slow ease of core facilitation and no irritation to umbilical hernia and proper breath with improvements in self corrections. Pt reported back felt good end tx leaving. Physical Therapy Plan Frequency and Duration Frequency of Treatment 2x/Week Duration of Treatment 10 weeks Plan of Care Start Date 01/28/21 Plan of Care End Date 04/08/21 Therapeutic Interventions Therapeutic Interventions Gait Training,Home Exercise Program,Manual Therapy, Neuromuscular Re-education, Self-Care/Home Management,Soft Tissue Mobilization, Therapeutic Activities, Therapeutic Exercises Next Visit Focus/Plan Next Visit Plan Assess response to seated resisted rows/ shld ext, supine core press down/ LE flex/ ext over tball. Progress both stability exercises and stretching. Next tx check progress to goals, add in sit to stands to HEP if tolerated.
--- NOTE | 2021-02-25 14:30 | PT.OTN ---
Current Diagnoses Sciatica, unspecified side (02/25/21) Physical Therapy Treatment Note PT-OP-A Visit Information Start: 01/28/21 10:10 Freq: Status: Active Protocol: Document 02/25/21 13:48 SP (Rec: 02/25/21 16:02 SP [id number]) Out-Patient Physical Therapy Visit Information Visit Information Visit Type Treatment Note Visit Start Time 13:48 Visit Stop Time 14:30 Total Visit Minutes 42 Visit Number 9 Number of MAIN LINE ASSEMBLER Visits 3 Precautions Precautions Previous precaution assess vitals, BP with activity. PT-OP-B Current Condition Start: 01/28/21 10:10 Freq: Status: Active Protocol: Document 01/28/21 13:30 AMB (Rec: 01/28/21 13:49 AMB [id number]) Current Condition History of Current Condition Onset Date 5 months ago Current Complaints L>R sciatica History of Current Condition L>R pain 5 months, tingly going down lateral leg. Irritated by bending/lifting/ standing. Gardening, cooking/ cleaning. Had been doing water aerobics and that was really helpful, but got a MRSA infection in her foot, and hasn't been doing as much because of Covid. Has not had lumbar Xray. Did have previous physical therapy which was helpful. Treatment Goals Patient/Caregiver Goals Reduce pain Prior Functional Status Baseline Function- ADL's Independent Baseline Function- Mobility Independent Current Functional Impairments (Reported) Functional Limitations- ADL's Difficulty standing, bending, gardening, walking due to pain Personal Factors Other Personal Factors That May Effect Prior hx of shingles on face Therapy/Recovery years ago, DMII, current hernia, hypothyroid PT-OP-C Subjective Start: 01/28/21 10:10 Freq: Status: Active Protocol: Document 02/25/21 13:48 SP (Rec: 02/25/21 16:02 SP [id number]) OP-PT Subjective Patient Comments Patient Comments Pt was leaning more into SPC upon arrival, stated had a pneumonia shot on Fri after last appt and was in alot pain , achiness over the weekend, today was the first day feeling better. Pt stated still tired. PT-OP-G Mobility & Gait Start: 01/28/21 10:10 Freq: Status: Active Protocol: Document 01/28/21 13:30 AMB (Rec: 01/29/21 10:02 AMB [id number]) OP Gait Assessment Comments Gait Comments Ambulates with SPC,significant Trendelenburg gait pattern without SPC and mild with SPC PT-OP-J Posture/Palpation/Skin Start: 01/28/21 10:10 Freq: Status: Active Protocol: Document 01/28/21 13:30 AMB (Rec: 01/29/21 10:02 AMB [id number]) Palpation Assessment Location One Palpation Location low back/left hip Palpation Details Tenderness at soft tissue throughout paraspinals, greater trochanter PT-OP-K Range of Motion Start: 01/28/21 10:10 Freq: Status: Active Protocol: Document 01/28/21 13:30 AMB (Rec: 01/29/21 10:02 AMB [id number]) Lumbar Spine Range of Motion Lumbar Spine Active Degrees Testing Position Standing Flexion 50 Extension 20 Lateral Flexion Left 10 Lateral Flexion Right 15 ROM Limitations Pain Comments Painful with sidebending L PT-OP-M Strength Start: 01/28/21 10:10 Freq: Status: Active Protocol: Document 01/28/21 13:30 AMB (Rec: 01/29/21 10:10 AMB [id number]) Hip Strength Hip Manual Muscle Testing Right Flexion (L2) 4 Good Extension (S1) 4- Good- Abduction 3- Fair- Left Flexion (L2) 4 Good Extension (S1) 4- Good- Abduction 3- Fair- Comments pain with hip flexion Knee Strength Knee Manual Muscle Testing Right Flexion (S2) 5 Normal Extension (L3) 5 Normal Left Flexion (S2) 4 Good Extension (L3) 4+ Good+ Comments pain with knee flexion Ankle/Foot Strength Ankle and Foot Manual Muscle Testing Right Dorsiflexion (L4) 4+ Good+ Plantarflexion (S1) 4 Good Left Dorsiflexion (L4) 4+ Good+ Plantarflexion (S1) 4 Good PT-OP-Q Treatments Start: 01/28/21 10:10 Freq: Status: Active Protocol: Document 02/25/21 13:48 SP (Rec: 02/25/21 16:02 SP [id number]) Gym Equipment Shuttle Recovery Bilateral Squats Resistance 50#>62# Shuttle Recovery Platform Stable Reps/Time x 25 reps each wt Therapeutic Exercises Supine Exercises TA knee flexion over t ball Supine Exercise Name TA LE flex/ ext over ball Side bilateral Reps/Minutes x20 Comments cued slow movement, good abdominals, HS tiring TA press down SB Supine Exercise Name PT only (try seated next tx) Equipment Used 55 cm tball on lap Reps/Minutes 5 sec hold x5 Comments good tolerance core facilitatoin, cued scap stab depressed TA trng Supine Exercise Name ab draw in w/ knee bent Reps/Minutes 10 sec x10 Comments reviewed can perform in standing & seated for LTR Supine Exercise Name added to HEP with her small ball Side bilateral Equipment Used AROM x5> over 55cm ball 2x5 Comments cued slow painfree range- good feedback results Sidelying Exercises 2 Sidelying Exercise Name Hip ABD Side bilateral Reps/Minutes 2x6, decreased reps due to shakiness tiring with proper form Comments HEP review, cued stacked on side Sitting Exercises trunk rotation Side bilateral Resistance Body solid no plates Reps/Minutes x5 R and L Comments cued talll posture resisted rows Sitting Exercise Name PT only Resistance body solid no plates Reps/Minutes x10 Comments cued tall posture, scap stab, neutral CS, TA facil Manual Therapy Treatment Soft Tissue Mobilization 1 Body Location left piriformis and gluteal region Mobilization Type Cross-Friction,Myofascial Release Body Position right SL PT-OP-R Modalities Start: 01/28/21 10:10 Freq: Status: Active Protocol: Document 02/25/21 13:48 SP (Rec: 02/25/21 16:02 SP [id number]) Electric Stimulation Electric Stimulation Interferential Current (IFC) Body Location L>R gluteals & paraspinal Duration (Minutes) 10 Patient Position Sidelying Combined With Heat/Cold Hot Pack Comments good response I feel alot better end tx. 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 STG Duration 4 weeks Halfway Goal (LTG) Ira will perform a partial squat to perform light yard work with pain of 3/10 or less . LTG Duration 8 weeks Two Impairment HEP Short Term Goal (STG) Ira will be independent and consistent with a HEP for her core stability and flexibility. STG Duration 4 weeks One Impairment Gait Short Term Goal (STG) Ira will walk for 6 minutes over smooth surfaces with SPC and 5/10 pain or less . STG Duration 4 weeks Nut Blanker Operator Goal (LTG) Ira will walk in the community with her SPC over slightly uneven terrain (grass , gravel) for 10 minutes with 5/10 pain or less. LTG Duration 8 weeks Assessment Summary Assessment Pt tolerated resisted seated core and supine LTR LEs over ball ther ex today, no increase pain, cued for trunk alignment and proper form. Pt welcoming to reapply IFC and MHP end tx. Pt was more even wt between BLE and segmental LS using SPC leaving. Physical Therapy Plan Frequency and Duration Frequency of Treatment 2x/Week Duration of Treatment 10 weeks Plan of Care Start Date 01/28/21 Plan of Care End Date 04/08/21 Therapeutic Interventions Therapeutic Interventions Gait Training,Home Exercise Program,Manual Therapy, Neuromuscular Re-education, Self-Care/Home Management,Soft Tissue Mobilization, Therapeutic Activities, Therapeutic Exercises Next Visit Focus/Plan Next Visit Plan Assess response to seated resisted rows, rotation, supine core press down, LTRs over Tball. Progress both stability exercises and stretching. Next tx check progress to goals, add in sit to stands to HEP if tolerated.
--- NOTE | 2021-02-27 16:58 | PT.OTN ---
Current Diagnoses Sciatica, unspecified side (02/27/21) Physical Therapy Treatment Note PT-OP-A Visit Information Start: 01/28/21 10:10 Freq: Status: Active Protocol: Document 02/27/21 16:00 AMH (Rec: 02/27/21 16:34 AMH [id number]) Out-Patient Physical Therapy Visit Information Visit Information Visit Type Treatment Note PT-OP-B Current Condition Start: 01/28/21 10:10 Freq: Status: Active Protocol: Document 01/28/21 13:30 AMB (Rec: 01/28/21 13:49 AMB [id number]) Current Condition History of Current Condition Onset Date 5 months ago Current Complaints L>R sciatica History of Current Condition L>R pain 5 months, tingly going down lateral leg. Irritated by bending/lifting/ standing. Gardening, cooking/ cleaning. Had been doing water aerobics and that was really helpful, but got a MRSA infection in her foot, and hasn't been doing as much because of Covid. Has not had lumbar Xray. Did have previous physical therapy which was helpful. Treatment Goals Patient/Caregiver Goals Reduce pain Prior Functional Status Baseline Function- ADL's Independent Baseline Function- Mobility Independent Current Functional Impairments (Reported) Functional Limitations- ADL's Difficulty standing, bending, gardening, walking due to pain Personal Factors Other Personal Factors That May Effect Prior hx of shingles on face Therapy/Recovery years ago, DMII, current hernia, hypothyroid PT-OP-C Subjective Start: 01/28/21 10:10 Freq: Status: Active Protocol: Document 02/27/21 16:00 AMH (Rec: 02/27/21 16:55 [facility] [id number]) OP-PT Subjective Patient Comments Patient Comments pt reports she is sore in her low back following activities such as laundry or doing dishes. PT-OP-G Mobility & Gait Start: 01/28/21 10:10 Freq: Status: Active Protocol: Document 01/28/21 13:30 AMB (Rec: 01/29/21 10:02 AMB [id number]) OP Gait Assessment Comments Gait Comments Ambulates with SPC,significant Trendelenburg gait pattern without SPC and mild with SPC PT-OP-J Posture/Palpation/Skin Start: 01/28/21 10:10 Freq: Status: Active Protocol: Document 01/28/21 13:30 AMB (Rec: 01/29/21 10:02 AMB [id number]) Palpation Assessment Location One Palpation Location low back/left hip Palpation Details Tenderness at soft tissue throughout paraspinals, greater trochanter PT-OP-K Range of Motion Start: 01/28/21 10:10 Freq: Status: Active Protocol: Document 01/28/21 13:30 AMB (Rec: 01/29/21 10:02 AMB [id number]) Lumbar Spine Range of Motion Lumbar Spine Active Degrees Testing Position Standing Flexion 50 Extension 20 Lateral Flexion Left 10 Lateral Flexion Right 15 ROM Limitations Pain Comments Painful with sidebending L PT-OP-M Strength Start: 01/28/21 10:10 Freq: Status: Active Protocol: Document 01/28/21 13:30 AMB (Rec: 01/29/21 10:10 AMB [email or web address]) Hip Strength Hip Manual Muscle Testing Right Flexion (L2) 4 Good Extension (S1) 4- Good- Abduction 3- Fair- Left Flexion (L2) 4 Good Extension (S1) 4- Good- Abduction 3- Fair- Comments pain with hip flexion Knee Strength Knee Manual Muscle Testing Right Flexion (S2) 5 Normal Extension (L3) 5 Normal Left Flexion (S2) 4 Good Extension (L3) 4+ Good+ Comments pain with knee flexion Ankle/Foot Strength Ankle and Foot Manual Muscle Testing Right Dorsiflexion (L4) 4+ Good+ Plantarflexion (S1) 4 Good Left Dorsiflexion (L4) 4+ Good+ Plantarflexion (S1) 4 Good PT-OP-Q Treatments Start: 01/28/21 10:10 Freq: Status: Active Protocol: Document 02/27/21 16:00 AMH (Rec: 02/27/21 16:34 AMH [id number]) Cardio Equipment Recumbent Stepper (Sci-Fit) Duration (Minutes) 10 Resistance 1.7 Seat Position 10 Therapeutic Exercises Supine Exercises TA trng Supine Exercise Name ab draw in w/ knee bent Reps/Minutes 10 sec x10 Comments reviewed can perform in standing & seated for sktc Reps/Minutes 2 x 30 reps LTR Supine Exercise Name added to HEP with her small ball Side bilateral Equipment Used AROM x5> over 55cm ball 2x5 Comments cued slow painfree range- good feedback results fig 4 stretch Reps/Minutes 2 x 30 seconds sciatic nerve glide Supine Exercise Name w/ ankle PF/ DF Side left Equipment Used towel Reps/Minutes 3x10 pumps Comments good response Sidelying Exercises 2 Sidelying Exercise Name Hip ABD Side bilateral Reps/Minutes 2 x 10 reps pt did clam shells on the right side due to knee pain Comments HEP review, cued stacked on side Sitting Exercises seated resisted shld ext/ pull downs Sitting Exercise Name PT only Resistance Tb #1 Reps/Minutes x10 Comments cued tall posture, scap stab, neutral CS, TA facil resisted rows Sitting Exercise Name PT only Resistance body solid no plates Reps/Minutes x10 Comments cued tall posture, scap stab, neutral CS, TA facil Standing Exercises standing calf stretch Reps/Minutes 2 x 30 reps PT-OP-R Modalities Start: 01/28/21 10:10 Freq: Status: Active Protocol: Document 02/25/21 13:48 SP (Rec: 02/25/21 16:02 SP [id number]) Electric Stimulation Electric Stimulation Interferential Current (IFC) Body Location L>R gluteals & paraspinal Duration (Minutes) 10 Patient Position Sidelying Combined With Heat/Cold Hot Pack Comments good response I feel alot better end tx. PT-OP-T Assessment and Plan Start: 01/28/21 10:10 Freq: Status: Active Protocol: Document 02/27/21 16:00 AMH (Rec: 02/27/21 16:34 AMH [id number]) Physical Therapy Assessment Assessment Summary Assessment Pt tolerated all exercises well including her seated rows and shoulder extension, no increase of pain with exercise . Physical Therapy Plan Frequency and Duration Frequency of Treatment 2x/Week Duration of Treatment 10 weeks Plan of Care Start Date 01/28/21 Plan of Care End Date 04/08/21 Therapeutic Interventions Therapeutic Interventions Gait Training,Home Exercise Program,Manual Therapy, Neuromuscular Re-education, Self-Care/Home Management,Soft Tissue Mobilization, Therapeutic Activities, Therapeutic Exercises Next Visit Focus/Plan Next Visit Plan continue to focus on stability exercises and core activation as well as LE flexibility exercises.
--- NOTE | 2021-03-04 15:52 | PT.OTN ---
Current Diagnoses Sciatica, unspecified side (03/04/21) Physical Therapy Treatment Note PT-OP-A Visit Information Start: 01/28/21 10:10 Freq: Status: Active Protocol: Document 03/04/21 13:30 AMB (Rec: 03/04/21 13:53 AMB [id number]) Out-Patient Physical Therapy Visit Information Visit Information Visit Type Progress Note Visit Start Time 13:30 Visit Stop Time 14:30 Total Visit Minutes 60 Visit Number 10 Number of LANDSCAPE ENGINEER Visits 0 PT-OP-B Current Condition Start: 01/28/21 10:10 Freq: Status: Active Protocol: Document 01/28/21 13:30 AMB (Rec: 01/28/21 13:49 AMB [id number]) Current Condition History of Current Condition Onset Date 5 months ago Current Complaints L>R sciatica History of Current Condition L>R pain 5 months, tingly going down lateral leg. Irritated by bending/lifting/ standing. Gardening, cooking/ cleaning. Had been doing water aerobics and that was really helpful, but got a MRSA infection in her foot, and hasn't been doing as much because of Covid. Has not had lumbar Xray. Did have previous physical therapy which was helpful. Treatment Goals Patient/Caregiver Goals Reduce pain Prior Functional Status Baseline Function- ADL's Independent Baseline Function- Mobility Independent Current Functional Impairments (Reported) Functional Limitations- ADL's Difficulty standing, bending, gardening, walking due to pain Personal Factors Other Personal Factors That May Effect Prior hx of shingles on face Therapy/Recovery years ago, DMII, current hernia, hypothyroid PT-OP-C Subjective Start: 01/28/21 10:10 Freq: Status: Active Protocol: Document 03/04/21 13:30 AMB (Rec: 03/04/21 15:48 AMB [id number]) OP-PT Subjective Patient Comments Patient Comments Pt states hip is starting to feel better, going to exercise equipment repair technician to get ankle checked out. PT-OP-G Mobility & Gait Start: 01/28/21 10:10 Freq: Status: Active Protocol: Document 01/28/21 13:30 AMB (Rec: 01/29/21 10:02 AMB [id number]) OP Gait Assessment Comments Gait Comments Ambulates with SPC,significant Trendelenburg gait pattern without SPC and mild with SPC PT-OP-J Posture/Palpation/Skin Start: 01/28/21 10:10 Freq: Status: Active Protocol: Document 01/28/21 13:30 AMB (Rec: 01/29/21 10:02 AMB [id number]) Palpation Assessment Location One Palpation Location low back/left hip Palpation Details Tenderness at soft tissue throughout paraspinals, greater trochanter PT-OP-K Range of Motion Start: 01/28/21 10:10 Freq: Status: Active Protocol: Document 01/28/21 13:30 AMB (Rec: 01/29/21 10:02 AMB [id number]) Lumbar Spine Range of Motion Lumbar Spine Active Degrees Testing Position Standing Flexion 50 Extension 20 Lateral Flexion Left 10 Lateral Flexion Right 15 ROM Limitations Pain Comments Painful with sidebending L PT-OP-M Strength Start: 01/28/21 10:10 Freq: Status: Active Protocol: Document 01/28/21 13:30 AMB (Rec: 01/29/21 10:10 AMB [email or web address]) Hip Strength Hip Manual Muscle Testing Right Flexion (L2) 4 Good Extension (S1) 4- Good- Abduction 3- Fair- Left Flexion (L2) 4 Good Extension (S1) 4- Good- Abduction 3- Fair- Comments pain with hip flexion Knee Strength Knee Manual Muscle Testing Right Flexion (S2) 5 Normal Extension (L3) 5 Normal Left Flexion (S2) 4 Good Extension (L3) 4+ Good+ Comments pain with knee flexion Ankle/Foot Strength Ankle and Foot Manual Muscle Testing Right Dorsiflexion (L4) 4+ Good+ Plantarflexion (S1) 4 Good Left Dorsiflexion (L4) 4+ Good+ Plantarflexion (S1) 4 Good PT-OP-Q Treatments Start: 01/28/21 10:10 Freq: Status: Active Protocol: Document 03/04/21 13:30 AMB (Rec: 03/04/21 13:53 AMB [id number]) Cardio Equipment Recumbent Stepper (Sci-Fit) Duration (Minutes) 10 Resistance 2.0 Seat Position 10 Gym Equipment Shuttle Recovery Bilateral Squats Resistance 62# Shuttle Recovery Platform Stable Reps/Time 2 x 25 reps Therapeutic Exercises Sidelying Exercises 2 Sidelying Exercise Name Hip ABD Side bilateral Reps/Minutes 2 x 10 reps pt did clam shells on the right side due to knee pain Comments HEP review, cued stacked on side Sitting Exercises seated resisted shld ext/ pull downs Sitting Exercise Name PT only Resistance Tb #2 Reps/Minutes x10 Comments cued tall posture, scap stab, neutral CS, TA facil PT-OP-R Modalities Start: 01/28/21 10:10 Freq: Status: Active Protocol: Document 03/04/21 13:30 AMB (Rec: 03/04/21 15:45 AMB [email or web address]) Electric Stimulation Electric Stimulation Interferential Current (IFC) Body Location L>R gluteals & paraspinal Duration (Minutes) 15 Patient Position Sidelying Combined With Heat/Cold Hot Pack PT-OP-T Assessment and Plan Start: 01/28/21 10:10 Freq: Status: Active Protocol: Document 03/04/21 13:30 AMB (Rec: 03/04/21 13:53 AMB [id number]) Physical Therapy Assessment Goals Three Impairment Functional activities Short Term Goal (STG) Ira will stand to cook vegetable for 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 STG Duration 4 weeks Waterproofer Goal (LTG) Ira will perform a partial squat to perform light yard work with pain of 3/10 or less . 25: pt is doing light yardwork, but continues to have higher levels of pain (6/ 10) LTG Duration PARTIALLY MET Two Impairment HEP Short Term Goal (STG) Ira will be independent and consistent with a HEP for her core stability and flexibility. STG Duration PARTIALLY MET One Impairment Gait Short Term Goal (STG) Ira will walk for 6 minutes over smooth surfaces with SPC and 5/10 pain or less . STG Duration 4 weeks Skilled Nursing Goal (LTG) Ira will walk in the community with her SPC over slightly uneven terrain (grass , gravel) for 10 minutes with 5/10 pain or less. LTG Duration 8 weeks Assessment Summary Assessment Pt reports less leg cramping since starting PT. Pt reports hip pain is much better, but knee and ankle are still problematic. The hip/back continue to be her biggest concern. She is doing her exercises, but core strengthening is challenging due to her hernia, but per her report not a surgical candidate until she loses weight and gets her blood sugar better. Would benefit from continued PT to progress both core and LE stabilization to decrease overall L LE pain , which continues to limit gait and standing activities. Physical Therapy Plan Frequency and Duration Frequency of Treatment 2x/Week Duration of Treatment 10 weeks Plan of Care Start Date 01/28/21 Plan of Care End Date 04/08/21 Therapeutic Interventions Therapeutic Interventions Gait Training,Home Exercise Program,Manual Therapy, Neuromuscular Re-education, Self-Care/Home Management,Soft Tissue Mobilization, Therapeutic Activities, Therapeutic Exercises Next Visit Focus/Plan Next Visit Plan continue to focus on stability exercises and core activiation as well as LE flexibility exercises.
--- NOTE | 2021-03-07 14:31 | PT.OTN ---
Current Diagnoses Sciatica, unspecified side (03/07/21) Physical Therapy Treatment Note PT-OP-A Visit Information Start: 01/28/21 10:10 Freq: Status: Active Protocol: Document 03/07/21 13:45 MB (Rec: 03/07/21 14:22 MB [id number]) Out-Patient Physical Therapy Visit Information Visit Information Visit Type Treatment Note Visit Start Time 13:45 Visit Stop Time 14:30 Total Visit Minutes 45 Visit Number 11 PT-OP-B Current Condition Start: 01/28/21 10:10 Freq: Status: Active Protocol: Document 01/28/21 13:30 AMB (Rec: 01/28/21 13:49 AMB [id number]) Current Condition History of Current Condition Onset Date 5 months ago Current Complaints L>R sciatica History of Current Condition L>R pain 5 months, tingly going down lateral leg. Irritated by bending/lifting/ standing. Gardening, cooking/ cleaning. Had been doing water aerobics and that was really helpful, but got a MRSA infection in her foot, and hasn't been doing as much because of Covid. Has not had lumbar Xray. Did have previous physical therapy which was helpful. Treatment Goals Patient/Caregiver Goals Reduce pain Prior Functional Status Baseline Function- ADL's Independent Baseline Function- Mobility Independent Current Functional Impairments (Reported) Functional Limitations- ADL's Difficulty standing, bending, gardening, walking due to pain Personal Factors Other Personal Factors That May Effect Prior hx of shingles on face Therapy/Recovery years ago, DMII, current hernia, hypothyroid PT-OP-C Subjective Start: 01/28/21 10:10 Freq: Status: Active Protocol: Document 03/07/21 13:45 MB (Rec: 03/07/21 14:22 MB [id number]) OP-PT Subjective Patient Comments Patient Comments Pt states that she saw the community health education coordinator and was found to have tendinitis in her left foot. She is thinking about using the cane in her right hand. She currently carries it in her left hand. PT-OP-G Mobility & Gait Start: 01/28/21 10:10 Freq: Status: Active Protocol: Document 01/28/21 13:30 AMB (Rec: 01/29/21 10:02 AMB [id number]) OP Gait Assessment Comments Gait Comments Ambulates with SPC,significant Trendelenburg gait pattern without SPC and mild with SPC PT-OP-J Posture/Palpation/Skin Start: 01/28/21 10:10 Freq: Status: Active Protocol: Document 01/28/21 13:30 AMB (Rec: 01/29/21 10:02 AMB [id number]) Palpation Assessment Location One Palpation Location low back/left hip Palpation Details Tenderness at soft tissue throughout paraspinals, greater trochanter PT-OP-K Range of Motion Start: 01/28/21 10:10 Freq: Status: Active Protocol: Document 01/28/21 13:30 AMB (Rec: 01/29/21 10:02 AMB [id number]) Lumbar Spine Range of Motion Lumbar Spine Active Degrees Testing Position Standing Flexion 50 Extension 20 Lateral Flexion Left 10 Lateral Flexion Right 15 ROM Limitations Pain Comments Painful with sidebending L PT-OP-M Strength Start: 01/28/21 10:10 Freq: Status: Active Protocol: Document 01/28/21 13:30 AMB (Rec: 01/29/21 10:10 AMB [email or web address]) Hip Strength Hip Manual Muscle Testing Right Flexion (L2) 4 Good Extension (S1) 4- Good- Abduction 3- Fair- Left Flexion (L2) 4 Good Extension (S1) 4- Good- Abduction 3- Fair- Comments pain with hip flexion Knee Strength Knee Manual Muscle Testing Right Flexion (S2) 5 Normal Extension (L3) 5 Normal Left Flexion (S2) 4 Good Extension (L3) 4+ Good+ Comments pain with knee flexion Ankle/Foot Strength Ankle and Foot Manual Muscle Testing Right Dorsiflexion (L4) 4+ Good+ Plantarflexion (S1) 4 Good Left Dorsiflexion (L4) 4+ Good+ Plantarflexion (S1) 4 Good PT-OP-Q Treatments Start: 01/28/21 10:10 Freq: Status: Active Protocol: Document 03/07/21 13:45 MB (Rec: 03/07/21 14:22 MB [id number]) Cardio Equipment Recumbent Stepper (Sci-Fit) Duration (Minutes) 10 Resistance 1-2 Seat Position 11 Other Pt asks to have it scooted back today Therapeutic Exercises Supine Exercises TA trng Supine Exercise Name Knees bent, feet in shoes on black mat Comments 10 reps x2, abd draw in with pelvic tilt LTR Side bilateral Equipment Used Finance Business Partner red 55 cm ball Comments 20 reps rocking side to side, cues for less is more fig 4 stretch Side bilateral Reps/Minutes 2 reps x30 sec each sciatic nerve glide Side bilateral Comments Raise leg, towel behind knee, AP x20 sec x1 rep each leg Manual Therapy Treatment Other Other Manual Treatments STM left hip rotators, paraspinals, glutes, QL with pt in right side lying PT-OP-R Modalities Start: 01/28/21 10:10 Freq: Status: Active Protocol: Document 03/04/21 13:30 AMB (Rec: 03/04/21 15:45 AMB [email or web address]) Electric Stimulation Electric Stimulation Interferential Current (IFC) Body Location L>R gluteals & paraspinal Duration (Minutes) 15 Patient Position Sidelying Combined With Heat/Cold Hot Pack PT-OP-T Assessment and Plan Start: 01/28/21 10:10 Freq: Status: Active Protocol: Document 03/07/21 13:45 MB (Rec: 03/07/21 14:22 MB [id number]) Physical Therapy Assessment Goals Three Impairment Functional activities Short Term Goal (STG) 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 STG Duration 4 weeks Jail Goal (LTG) Ira will perform a partial squat to perform light yard work with pain of 3/10 or less . 03/04: pt is doing light yardwork, but continues to have higher levels of pain (6/ 10) LTG Duration PARTIALLY MET Two Impairment HEP Short Term Goal (STG) Ira will be independent and consistent with a HEP for her core stability and flexibility. STG Duration PARTIALLY MET One Impairment Gait Short Term Goal (STG) Ira will walk for 6 minutes over smooth surfaces with SPC and 5/10 pain or less . STG Duration 4 weeks Associate Publisher Goal (LTG) Ira will walk in the community with her SPC over slightly uneven terrain (grass , gravel) for 10 minutes with 5/10 pain or less. LTG Duration 8 weeks Assessment Summary Assessment Pt has a lot of complaints about her left foot today. She might benefit from gait with cane in her right hand. PT con 't treatment as she has been doing today. She would benefit from aquatic exercise given body mass and multiple areas of pain but she states she got MRSA in the past in the pool and is reluctant to get back in. Physical Therapy Plan Frequency and Duration Frequency of Treatment 2x/Week Duration of Treatment 10 weeks Plan of Care Start Date 01/28/21 Plan of Care End Date 04/08/21 Therapeutic Interventions Therapeutic Interventions Gait Training,Home Exercise Program,Manual Therapy, Neuromuscular Re-education, Self-Care/Home Management,Soft Tissue Mobilization, Therapeutic Activities, Therapeutic Exercises Next Visit Focus/Plan Next Visit Plan Con't per primary PT plan: continue to focus on stability exercises and core activiation as well as LE flexibility exercises. She might benefit from hamstring stretch with AP to help loosen plantar and posterior leg myofascia given her complaints of pain in her back and foot
--- NOTE | 2021-03-12 13:49 | PT.OTN ---
Current Diagnoses Sciatica, unspecified side (03/12/21) Physical Therapy Treatment Note PT-OP-A Visit Information Start: 01/28/21 10:10 Freq: Status: Active Protocol: Document 03/12/21 12:45 AMB (Rec: 03/12/21 13:00 AMB [id number]) Out-Patient Physical Therapy Visit Information Visit Information Visit Type Treatment Note Visit Start Time 12:45 Visit Stop Time 13:30 Total Visit Minutes 45 Visit Number 12 PT-OP-B Current Condition Start: 01/28/21 10:10 Freq: Status: Active Protocol: Document 01/28/21 13:30 AMB (Rec: 01/28/21 13:49 AMB [id number]) Current Condition History of Current Condition Onset Date 5 months ago Current Complaints L>R sciatica History of Current Condition L>R pain 5 months, tingly going down lateral leg. Irritated by bending/lifting/ standing. Gardening, cooking/ cleaning. Had been doing water aerobics and that was really helpful, but got a MRSA infection in her foot, and hasn't been doing as much because of Covid. Has not had lumbar Xray. Did have previous physical therapy which was helpful. Treatment Goals Patient/Caregiver Goals Reduce pain Prior Functional Status Baseline Function- ADL's Independent Baseline Function- Mobility Independent Current Functional Impairments (Reported) Functional Limitations- ADL's Difficulty standing, bending, gardening, walking due to pain Personal Factors Other Personal Factors That May Effect Prior hx of shingles on face Therapy/Recovery years ago, DMII, current hernia, hypothyroid PT-OP-C Subjective Start: 01/28/21 10:10 Freq: Status: Active Protocol: Document 03/12/21 12:45 AMB (Rec: 03/12/21 13:00 AMB [id number]) OP-PT Subjective Patient Comments Patient Comments Pt states 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 PT-OP-G Mobility & Gait Start: 01/28/21 10:10 Freq: Status: Active Protocol: Document 01/28/21 13:30 AMB (Rec: 01/29/21 10:02 AMB [id number]) OP Gait Assessment Comments Gait Comments Ambulates with SPC,significant Trendelenburg gait pattern without SPC and mild with SPC PT-OP-J Posture/Palpation/Skin Start: 01/28/21 10:10 Freq: Status: Active Protocol: Document 01/28/21 13:30 AMB (Rec: 01/29/21 10:02 AMB [id number]) Palpation Assessment Location One Palpation Location low back/left hip Palpation Details Tenderness at soft tissue throughout paraspinals, greater trochanter PT-OP-K Range of Motion Start: 01/28/21 10:10 Freq: Status: Active Protocol: Document 01/28/21 13:30 AMB (Rec: 01/29/21 10:02 AMB [id number]) Lumbar Spine Range of Motion Lumbar Spine Active Degrees Testing Position Standing Flexion 50 Extension 20 Lateral Flexion Left 10 Lateral Flexion Right 15 ROM Limitations Pain Comments Painful with sidebending L PT-OP-M Strength Start: 01/28/21 10:10 Freq: Status: Active Protocol: Document 01/28/21 13:30 AMB (Rec: 01/29/21 10:10 AMB [email or web address]) Hip Strength Hip Manual Muscle Testing Right Flexion (L2) 4 Good Extension (S1) 4- Good- Abduction 3- Fair- Left Flexion (L2) 4 Good Extension (S1) 4- Good- Abduction 3- Fair- Comments pain with hip flexion Knee Strength Knee Manual Muscle Testing Right Flexion (S2) 5 Normal Extension (L3) 5 Normal Left Flexion (S2) 4 Good Extension (L3) 4+ Good+ Comments pain with knee flexion Ankle/Foot Strength Ankle and Foot Manual Muscle Testing Right Dorsiflexion (L4) 4+ Good+ Plantarflexion (S1) 4 Good Left Dorsiflexion (L4) 4+ Good+ Plantarflexion (S1) 4 Good PT-OP-Q Treatments Start: 01/28/21 10:10 Freq: Status: Active Protocol: Document 03/12/21 12:45 AMB (Rec: 03/12/21 13:00 AMB [id number]) Cardio Equipment Recumbent Stepper (Sci-Fit) Duration (Minutes) 10 Resistance 1-2 Seat Position 11 Other Pt asks to have it scooted back today Gym Equipment Shuttle Recovery Unilateral Squats Resistance 50# Shuttle Recovery Platform Stable Reps/Time x 15 repsx 2 Bilateral Squats Details held due to light-headed Resistance 62# Shuttle Recovery Platform Stable Reps/Time 2 x 25 reps Therapeutic Exercises Supine Exercises LTR Side bilateral Equipment Used Airplane And Engine Inspector red 55 cm ball Comments 20 reps rocking side to side, cues for less is more 8 Supine Exercise Name hip flexor stretch Reps/Minutes 30x4 Manual Therapy Treatment Soft Tissue Mobilization 1 Body Location left piriformis and gluteal region Mobilization Type Cross-Friction,Myofascial Release Body Position right SL PT-OP-R Modalities Start: 01/28/21 10:10 Freq: Status: Active Protocol: Document 03/12/21 12:45 AMB (Rec: 03/12/21 13:49 AMB [email or web address]) Electric Stimulation Electric Stimulation Interferential Current (IFC) Body Location L>R gluteals & paraspinal Duration (Minutes) 15 Patient Position Sidelying Combined With Heat/Cold Hot Pack PT-OP-T Assessment and Plan Start: 01/28/21 10:10 Freq: Status: Active Protocol: Document 03/12/21 12:45 AMB (Rec: 03/12/21 13:49 AMB [email or web address]) Physical Therapy Assessment Assessment Summary Assessment Pt continues to feel that manual and cardio are helpful for her pain. Physical Therapy Plan Next Visit Focus/Plan Next Note Type Treatment Note Next Visit Plan Continue to work on flexibility (hip flexor stretch was very stiff).
--- NOTE | 2021-03-14 15:46 | PT.OTN ---
Current Diagnoses Sciatica, unspecified side (03/14/21) Physical Therapy Treatment Note PT-OP-A Visit Information Start: 01/28/21 10:10 Freq: Status: Active Protocol: Document 03/14/21 11:00 AMB (Rec: 03/14/21 11:54 AMB [id number]) Out-Patient Physical Therapy Visit Information Visit Information Visit Type Treatment Note Visit Start Time 11:00 Visit Stop Time 11:45 Total Visit Minutes 60 Visit Number 13 PT-OP-B Current Condition Start: 01/28/21 10:10 Freq: Status: Active Protocol: Document 01/28/21 13:30 AMB (Rec: 01/28/21 13:49 AMB [id number]) Current Condition History of Current Condition Onset Date 5 months ago Current Complaints L>R sciatica History of Current Condition L>R pain 5 months, tingly going down lateral leg. Irritated by bending/lifting/ standing. Gardening, cooking/ cleaning. Had been doing water aerobics and that was really helpful, but got a MRSA infection in her foot, and hasn't been doing as much because of Covid. Has not had lumbar Xray. Did have previous physical therapy which was helpful. Treatment Goals Patient/Caregiver Goals Reduce pain Prior Functional Status Baseline Function- ADL's Independent Baseline Function- Mobility Independent Current Functional Impairments (Reported) Functional Limitations- ADL's Difficulty standing, bending, gardening, walking due to pain Personal Factors Other Personal Factors That May Effect Prior hx of shingles on face Therapy/Recovery years ago, DMII, current hernia, hypothyroid PT-OP-C Subjective Start: 01/28/21 10:10 Freq: Status: Active Protocol: Document 03/14/21 11:00 AMB (Rec: 03/14/21 11:54 AMB [id number]) OP-PT Subjective Patient Comments Patient Comments Pt states she needs to lose weight for her fatty liver. PT-OP-G Mobility & Gait Start: 01/28/21 10:10 Freq: Status: Active Protocol: Document 01/28/21 13:30 AMB (Rec: 01/29/21 10:02 AMB [id number]) OP Gait Assessment Comments Gait Comments Ambulates with SPC,significant Trendelenburg gait pattern without SPC and mild with SPC PT-OP-J Posture/Palpation/Skin Start: 01/28/21 10:10 Freq: Status: Active Protocol: Document 01/28/21 13:30 AMB (Rec: 01/29/21 10:02 AMB [id number]) Palpation Assessment Location One Palpation Location low back/left hip Palpation Details Tenderness at soft tissue throughout paraspinals, greater trochanter PT-OP-K Range of Motion Start: 01/28/21 10:10 Freq: Status: Active Protocol: Document 01/28/21 13:30 AMB (Rec: 01/29/21 10:02 AMB [id number]) Lumbar Spine Range of Motion Lumbar Spine Active Degrees Testing Position Standing Flexion 50 Extension 20 Lateral Flexion Left 10 Lateral Flexion Right 15 ROM Limitations Pain Comments Painful with sidebending L PT-OP-M Strength Start: 01/28/21 10:10 Freq: Status: Active Protocol: Document 01/28/21 13:30 AMB (Rec: 01/29/21 10:10 AMB [email or web address]) Hip Strength Hip Manual Muscle Testing Right Flexion (L2) 4 Good Extension (S1) 4- Good- Abduction 3- Fair- Left Flexion (L2) 4 Good Extension (S1) 4- Good- Abduction 3- Fair- Comments pain with hip flexion Knee Strength Knee Manual Muscle Testing Right Flexion (S2) 5 Normal Extension (L3) 5 Normal Left Flexion (S2) 4 Good Extension (L3) 4+ Good+ Comments pain with knee flexion Ankle/Foot Strength Ankle and Foot Manual Muscle Testing Right Dorsiflexion (L4) 4+ Good+ Plantarflexion (S1) 4 Good Left Dorsiflexion (L4) 4+ Good+ Plantarflexion (S1) 4 Good PT-OP-Q Treatments Start: 01/28/21 10:10 Freq: Status: Active Protocol: Document 03/14/21 11:00 AMB (Rec: 03/14/21 11:54 AMB [id number]) Cardio Equipment Recumbent Stepper (Sci-Fit) Duration (Minutes) 10 Resistance 1-2 Seat Position 10 Gym Equipment Shuttle Recovery Unilateral Squats Resistance 75# Shuttle Recovery Platform Stable Reps/Time x 10 repsx 3 Manual Therapy Treatment Soft Tissue Mobilization 1 Body Location left piriformis and gluteal region Mobilization Type Cross-Friction,Myofascial Release Body Position right SL PT-OP-R Modalities Start: 01/28/21 10:10 Freq: Status: Active Protocol: Document 03/14/21 11:00 AMB (Rec: 03/14/21 15:46 AMB [id number]) Electric Stimulation Electric Stimulation Interferential Current (IFC) Body Location L>R gluteals & paraspinal Duration (Minutes) 15 Patient Position Sidelying Combined With Heat/Cold Hot Pack PT-OP-T Assessment and Plan Start: 01/28/21 10:10 Freq: Status: Active Protocol: Document 03/14/21 11:00 AMB (Rec: 03/14/21 11:54 AMB [id number]) Physical Therapy Assessment Assessment Summary Assessment Amy states she feels like she is back up to where she was before covid and getting her mrsa infection at this point. Still hoping for pain to subside a bit more so she could be a bit more active to help with her weight loss goals for her hernia and her fatty liver. Physical Therapy Plan Next Visit Focus/Plan Next Note Type Treatment Note Next Visit Plan Continue to work on flexibility (hip flexor stretch was very stiff).
--- NOTE | 2021-03-18 15:09 | PT.OTN ---
Current Diagnoses Sciatica, unspecified side (03/18/21) Physical Therapy Treatment Note PT-OP-A Visit Information Start: 01/28/21 10:10 Freq: Status: Active Protocol: Document 03/18/21 13:48 AMB (Rec: 03/18/21 14:20 AMB [id number]) Out-Patient Physical Therapy Visit Information Visit Information Visit Type Treatment Note Visit Note pt arrived 15 minutes late Visit Start Time 13:45 Visit Stop Time 14:15 Total Visit Minutes 30 Visit Number 14 PT-OP-B Current Condition Start: 01/28/21 10:10 Freq: Status: Active Protocol: Document 01/28/21 13:30 AMB (Rec: 01/28/21 13:49 AMB [id number]) Current Condition History of Current Condition Onset Date 5 months ago Current Complaints L>R sciatica History of Current Condition L>R pain 5 months, tingly going down lateral leg. Irritated by bending/lifting/ standing. Gardening, cooking/ cleaning. Had been doing water aerobics and that was really helpful, but got a MRSA infection in her foot, and hasn't been doing as much because of Covid. Has not had lumbar Xray. Did have previous physical therapy which was helpful. Treatment Goals Patient/Caregiver Goals Reduce pain Prior Functional Status Baseline Function- ADL's Independent Baseline Function- Mobility Independent Current Functional Impairments (Reported) Functional Limitations- ADL's Difficulty standing, bending, gardening, walking due to pain Personal Factors Other Personal Factors That May Effect Prior hx of shingles on face Therapy/Recovery years ago, DMII, current hernia, hypothyroid PT-OP-C Subjective Start: 01/28/21 10:10 Freq: Status: Active Protocol: Document 03/18/21 13:45 AMB (Rec: 03/18/21 15:04 AMB [email or web address]) OP-PT Subjective Patient Comments Patient Comments Pt was sore after last visit, thinking it might have been the increased resistance on the shuttle. PT-OP-G Mobility & Gait Start: 01/28/21 10:10 Freq: Status: Active Protocol: Document 01/28/21 13:30 AMB (Rec: 01/29/21 10:02 AMB [id number]) OP Gait Assessment Comments Gait Comments Ambulates with SPC,significant Trendelenburg gait pattern without SPC and mild with SPC PT-OP-J Posture/Palpation/Skin Start: 01/28/21 10:10 Freq: Status: Active Protocol: Document 01/28/21 13:30 AMB (Rec: 01/29/21 10:02 AMB [id number]) Palpation Assessment Location One Palpation Location low back/left hip Palpation Details Tenderness at soft tissue throughout paraspinals, greater trochanter PT-OP-K Range of Motion Start: 01/28/21 10:10 Freq: Status: Active Protocol: Document 01/28/21 13:30 AMB (Rec: 01/29/21 10:02 AMB [id number]) Lumbar Spine Range of Motion Lumbar Spine Active Degrees Testing Position Standing Flexion 50 Extension 20 Lateral Flexion Left 10 Lateral Flexion Right 15 ROM Limitations Pain Comments Painful with sidebending L PT-OP-M Strength Start: 01/28/21 10:10 Freq: Status: Active Protocol: Document 01/28/21 13:30 AMB (Rec: 01/29/21 10:10 AMB [email or web address]) Hip Strength Hip Manual Muscle Testing Right Flexion (L2) 4 Good Extension (S1) 4- Good- Abduction 3- Fair- Left Flexion (L2) 4 Good Extension (S1) 4- Good- Abduction 3- Fair- Comments pain with hip flexion Knee Strength Knee Manual Muscle Testing Right Flexion (S2) 5 Normal Extension (L3) 5 Normal Left Flexion (S2) 4 Good Extension (L3) 4+ Good+ Comments pain with knee flexion Ankle/Foot Strength Ankle and Foot Manual Muscle Testing Right Dorsiflexion (L4) 4+ Good+ Plantarflexion (S1) 4 Good Left Dorsiflexion (L4) 4+ Good+ Plantarflexion (S1) 4 Good PT-OP-Q Treatments Start: 01/28/21 10:10 Freq: Status: Active Protocol: Document 03/18/21 13:48 AMB (Rec: 03/18/21 14:20 AMB [id number]) Cardio Equipment Recumbent Stepper (Sci-Fit) Duration (Minutes) 8 Resistance 2 Seat Position 11 Gym Equipment Shuttle Recovery Unilateral Squats Resistance 67# Shuttle Recovery Platform Stable Reps/Time x 12 repsx 3 Therapeutic Exercises Supine Exercises 1 Supine Exercise Name hip flexor stretch Side bilateral Reps/Minutes 30x4 Comments leg off table, supported on stool PT-OP-R Modalities Start: 01/28/21 10:10 Freq: Status: Active Protocol: Document 03/18/21 13:45 AMB (Rec: 03/18/21 15:04 AMB [email or web address]) Electric Stimulation Electric Stimulation Interferential Current (IFC) Body Location L>R gluteals & paraspinal Duration (Minutes) 15 Patient Position Sidelying Combined With Heat/Cold Hot Pack PT-OP-T Assessment and Plan Start: 01/28/21 10:10 Freq: Status: Active Protocol: Document 03/18/21 13:48 AMB (Rec: 03/18/21 14:20 AMB [id number]) Physical Therapy Assessment Goals Three Impairment Functional activities Short Term Goal (STG) 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 STG Duration 4 weeks Half-Way Goal (LTG) Ira will perform a partial squat to perform light yard work with pain of 3/10 or less . 03/04: pt is doing light yardwork, but continues to have higher levels of pain (6/ 10) LTG Duration PARTIALLY MET Two Impairment HEP Short Term Goal (STG) Ira will be independent and consistent with a HEP for her core stability and flexibility. STG Duration PARTIALLY MET One Impairment Gait Short Term Goal (STG) Ira will walk for 6 minutes over smooth surfaces with SPC and 5/10 pain or less . STG Duration 4 weeks Half-Way Goal (LTG) Ira will walk in the community with her SPC over slightly uneven terrain (grass , gravel) for 10 minutes with 5/10 pain or less. LTG Duration 8 weeks Assessment Summary Assessment Pt was painful after trying to increase resistance last visit on the shuttle, so backed back down today. Pt attended late so did not work as much on manual, but would benefit from in the future. Physical Therapy Plan Frequency and Duration Frequency of Treatment 2x/Week Duration of Treatment 10 weeks Plan of Care Start Date 01/28/21 Plan of Care End Date 04/08/21 Next Visit Focus/Plan Next Note Type Treatment Note Next Visit Plan Continue to work on flexibility (hip flexor stretch was very stiff), core stability, LE strengthening.
--- NOTE | 2021-03-21 14:30 | PT.OTN ---
Current Diagnoses Sciatica, unspecified side (03/21/21) Physical Therapy Treatment Note PT-OP-A Visit Information Start: 01/28/21 10:10 Freq: Status: Active Protocol: Document 03/21/21 13:52 SP (Rec: 03/21/21 14:41 SP [id number]) Out-Patient Physical Therapy Visit Information Visit Information Visit Type Treatment Note Visit Start Time 13:52 Visit Stop Time 14:30 Total Visit Minutes 38 Visit Number 15 [facility]its [facility] Precautions Precautions Previous precaution assess vitals, BP with activity. PT-OP-B Current Condition Start: 01/28/21 10:10 Freq: Status: Active Protocol: Document 01/28/21 13:30 AMB (Rec: 01/28/21 13:49 AMB [id number]) Current Condition History of Current Condition Onset Date 5 months ago Current Complaints L>R sciatica History of Current Condition L>R pain 5 months, tingly going down lateral leg. Irritated by bending/lifting/ standing. Gardening, cooking/ cleaning. Had been doing water aerobics and that was really helpful, but got a MRSA infection in her foot, and hasn't been doing as much because of Covid. Has not had lumbar Xray. Did have previous physical therapy which was helpful. Treatment Goals Patient/Caregiver Goals Reduce pain Prior Functional Status Baseline Function- ADL's Independent Baseline Function- Mobility Independent Current Functional Impairments (Reported) Functional Limitations- ADL's Difficulty standing, bending, gardening, walking due to pain Personal Factors Other Personal Factors That May Effect Prior hx of shingles on face Therapy/Recovery years ago, DMII, current hernia, hypothyroid PT-OP-C Subjective Start: 01/28/21 10:10 Freq: Status: Active Protocol: Document 03/21/21 13:52 SP (Rec: 03/21/21 14:41 SP [id number]) OP-PT Subjective Patient Comments Patient Comments Pt stated got the new inserts for her B shoes and getting used to them. Pt stated doesn' t have to go anywhere after PT so can try and do more exercises. PT-OP-G Mobility & Gait Start: 01/28/21 10:10 Freq: Status: Active Protocol: Document 01/28/21 13:30 AMB (Rec: 01/29/21 10:02 AMB [id number]) OP Gait Assessment Comments Gait Comments Ambulates with SPC,significant Trendelenburg gait pattern without SPC and mild with SPC PT-OP-J Posture/Palpation/Skin Start: 01/28/21 10:10 Freq: Status: Active Protocol: Document 01/28/21 13:30 AMB (Rec: 01/29/21 10:02 AMB [id number]) Palpation Assessment Location One Palpation Location low back/left hip Palpation Details Tenderness at soft tissue throughout paraspinals, greater trochanter PT-OP-K Range of Motion Start: 01/28/21 10:10 Freq: Status: Active Protocol: Document 01/28/21 13:30 AMB (Rec: 01/29/21 10:02 AMB [id number]) Lumbar Spine Range of Motion Lumbar Spine Active Degrees Testing Position Standing Flexion 50 Extension 20 Lateral Flexion Left 10 Lateral Flexion Right 15 ROM Limitations Pain Comments Painful with sidebending L PT-OP-M Strength Start: 01/28/21 10:10 Freq: Status: Active Protocol: Document 01/28/21 13:30 AMB (Rec: 01/29/21 10:10 AMB [email or web address]) Hip Strength Hip Manual Muscle Testing Right Flexion (L2) 4 Good Extension (S1) 4- Good- Abduction 3- Fair- Left Flexion (L2) 4 Good Extension (S1) 4- Good- Abduction 3- Fair- Comments pain with hip flexion Knee Strength Knee Manual Muscle Testing Right Flexion (S2) 5 Normal Extension (L3) 5 Normal Left Flexion (S2) 4 Good Extension (L3) 4+ Good+ Comments pain with knee flexion Ankle/Foot Strength Ankle and Foot Manual Muscle Testing Right Dorsiflexion (L4) 4+ Good+ Plantarflexion (S1) 4 Good Left Dorsiflexion (L4) 4+ Good+ Plantarflexion (S1) 4 Good PT-OP-Q Treatments Start: 01/28/21 10:10 Freq: Status: Active Protocol: Document 03/21/21 13:52 SP (Rec: 03/21/21 14:41 SP [id number]) Cardio Equipment Recumbent Stepper (Sci-Fit) Duration (Minutes) 8 Resistance 2 (2.5 resistance next time) Seat Position 11 Other STM 48, miles Gym Equipment Shuttle Recovery Unilateral Squats Resistance 62# Shuttle Recovery Platform Stable Reps/Time x12 reps x3 Therapeutic Exercises Supine Exercises LTR Side bilateral Equipment Used Web Marketing Assistant red 55 cm ball Comments 20 reps rocking side to side, cues for less is more fig 4 stretch Side bilateral Reps/Minutes 2 reps x30 sec each SLR hip flexion Supine Exercise Name PPT better tolerance Side bilateral Reps/Minutes x10 R, x8L Comments cued slow pacing, TA facilitation, quad & core facilitation Sitting Exercises trunk rotation Sitting Exercise Name HEP review Side bilateral Resistance Tb #2 Reps/Minutes x8 R and L Comments cued talll posture- little muscle cramp on B sides seated resisted shld ext/ pull downs Sitting Exercise Name HEP review Resistance Tb #2 Reps/Minutes x10 Comments cued tall posture, scap stab, neutral CS, TA facil resisted rows Sitting Exercise Name HEP review Resistance Tb #3 Reps/Minutes x10 Comments cued tall posture, scap stab, neutral CS, TA facil Gait Training Gait Activity spc Device Used SPC Level of Assistance S Surface firm Distance/Duration 170 ft Treatment Focus level pelvis, only UE support as needed. Comments cued upright posture PPT and glut faciltation soft heel strike. 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 STG Duration 4 weeks Belt Sander Stone Goal (LTG) Ira will perform a partial squat to perform light yard work with pain of 3/10 or less . 03/04: pt is doing light yardwork, but continues to have higher levels of pain (6/ 10) LTG Duration PARTIALLY MET Two Impairment HEP Short Term Goal (STG) Ira will be independent and consistent with a HEP for her core stability and flexibility. STG Duration PARTIALLY MET One Impairment Gait Short Term Goal (STG) Ira will walk for 6 minutes over smooth surfaces with SPC and 5/10 pain or less . STG Duration 4 weeks Belt Sander Stone Goal (LTG) Ira will walk in the community with her SPC over slightly uneven terrain (grass , gravel) for 10 minutes with 5/10 pain or less. LTG Duration 8 weeks Assessment Summary Assessment Tx focused on LE and core strengthening with cues for posture and slow pacing movement, stretching and gait with improvement in glut facilitation for softer heel strike. Good work out today, just tiring, no pain. Physical Therapy Plan Frequency and Duration Frequency of Treatment 2x/Week Duration of Treatment 10 weeks Plan of Care Start Date 01/28/21 Plan of Care End Date 04/08/21 Therapeutic Interventions Therapeutic Interventions Gait Training,Home Exercise Program,Manual Therapy, Neuromuscular Re-education, Self-Care/Home Management,Soft Tissue Mobilization, Therapeutic Activities, Therapeutic Exercises Next Visit Focus/Plan Next Note Type Treatment Note Next Visit Plan Assess response to seated, supine exercises, stretching gait last tx. Next tx: hip flexor stretch. POC: Continue to work on flexibility, core stability, LE strengthening.
--- NOTE | 2021-03-25 15:51 | PT.OTN ---
Current Diagnoses Sciatica, unspecified side (03/25/21) Physical Therapy Treatment Note PT-OP-A Visit Information Start: 01/28/21 10:10 Freq: Status: Active Protocol: Document 03/25/21 13:30 AMB (Rec: 03/25/21 14:13 AMB [id number]) Out-Patient Physical Therapy Visit Information Visit Information Visit Type Treatment Note Visit Start Time 13:30 Visit Stop Time 14:15 Total Visit Minutes 45 Visit Number 16 PT-OP-B Current Condition Start: 01/28/21 10:10 Freq: Status: Active Protocol: Document 01/28/21 13:30 AMB (Rec: 01/28/21 13:49 AMB [id number]) Current Condition History of Current Condition Onset Date 5 months ago Current Complaints L>R sciatica History of Current Condition L>R pain 5 months, tingly going down lateral leg. Irritated by bending/lifting/ standing. Gardening, cooking/ cleaning. Had been doing water aerobics and that was really helpful, but got a MRSA infection in her foot, and hasn't been doing as much because of Covid. Has not had lumbar Xray. Did have previous physical therapy which was helpful. Treatment Goals Patient/Caregiver Goals Reduce pain Prior Functional Status Baseline Function- ADL's Independent Baseline Function- Mobility Independent Current Functional Impairments (Reported) Functional Limitations- ADL's Difficulty standing, bending, gardening, walking due to pain Personal Factors Other Personal Factors That May Effect Prior hx of shingles on face Therapy/Recovery years ago, DMII, current hernia, hypothyroid PT-OP-C Subjective Start: 01/28/21 10:10 Freq: Status: Active Protocol: Document 03/25/21 13:30 AMB (Rec: 03/25/21 14:13 AMB [id number]) OP-PT Subjective Patient Comments Patient Comments Pt states she has been working on her walking, she does feel like it is getting better. PT-OP-G Mobility & Gait Start: 01/28/21 10:10 Freq: Status: Active Protocol: Document 01/28/21 13:30 AMB (Rec: 01/29/21 10:02 AMB [id number]) OP Gait Assessment Comments Gait Comments Ambulates with SPC,significant Trendelenburg gait pattern without SPC and mild with SPC PT-OP-J Posture/Palpation/Skin Start: 01/28/21 10:10 Freq: Status: Active Protocol: Document 01/28/21 13:30 AMB (Rec: 01/29/21 10:02 AMB [id number]) Palpation Assessment Location One Palpation Location low back/left hip Palpation Details Tenderness at soft tissue throughout paraspinals, greater trochanter PT-OP-K Range of Motion Start: 01/28/21 10:10 Freq: Status: Active Protocol: Document 01/28/21 13:30 AMB (Rec: 01/29/21 10:02 AMB [id number]) Lumbar Spine Range of Motion Lumbar Spine Active Degrees Testing Position Standing Flexion 50 Extension 20 Lateral Flexion Left 10 Lateral Flexion Right 15 ROM Limitations Pain Comments Painful with sidebending L PT-OP-M Strength Start: 01/28/21 10:10 Freq: Status: Active Protocol: Document 01/28/21 13:30 AMB (Rec: 01/29/21 10:10 AMB [email or web address]) Hip Strength Hip Manual Muscle Testing Right Flexion (L2) 4 Good Extension (S1) 4- Good- Abduction 3- Fair- Left Flexion (L2) 4 Good Extension (S1) 4- Good- Abduction 3- Fair- Comments pain with hip flexion Knee Strength Knee Manual Muscle Testing Right Flexion (S2) 5 Normal Extension (L3) 5 Normal Left Flexion (S2) 4 Good Extension (L3) 4+ Good+ Comments pain with knee flexion Ankle/Foot Strength Ankle and Foot Manual Muscle Testing Right Dorsiflexion (L4) 4+ Good+ Plantarflexion (S1) 4 Good Left Dorsiflexion (L4) 4+ Good+ Plantarflexion (S1) 4 Good PT-OP-Q Treatments Start: 01/28/21 10:10 Freq: Status: Active Protocol: Document 03/25/21 13:30 AMB (Rec: 03/25/21 15:51 AMB [email or web address]) Cardio Equipment Recumbent Stepper (Sci-Fit) Duration (Minutes) 8 Resistance 2.5 Seat Position 11 Gym Equipment Shuttle Recovery Bilateral Squats Resistance 62# Shuttle Recovery Platform Stable Reps/Time 3 x 12 reps Therapeutic Exercises Supine Exercises LTR Side bilateral Equipment Used Lobby Concierge red 55 cm ball Comments 20 reps rocking side to side, cues for less is more 1 Supine Exercise Name hip flexor stretch Side bilateral Reps/Minutes 30x4 Comments leg off table, supported on stool Manual Therapy Treatment Soft Tissue Mobilization 1 Body Location left piriformis and gluteal region Mobilization Type Cross-Friction,Myofascial Release Body Position right SL PT-OP-R Modalities Start: 01/28/21 10:10 Freq: Status: Active Protocol: Document 03/18/21 13:45 AMB (Rec: 03/18/21 15:04 AMB [email or web address]) Electric Stimulation Electric Stimulation Interferential Current (IFC) Body Location L>R gluteals & paraspinal Duration (Minutes) 15 Patient Position Sidelying Combined With Heat/Cold Hot Pack PT-OP-T Assessment and Plan Start: 01/28/21 10:10 Freq: Status: Active Protocol: Document 03/25/21 13:30 AMB (Rec: 03/25/21 15:51 AMB [email or web address]) Physical Therapy Assessment Assessment Summary Assessment Pt tolerated new exercises well, states she is doing some at home, has been working on her gait. Discussed community exercise- pt to consider [place] [facility] as they have a nustep. Physical Therapy Plan Next Visit Focus/Plan Next Note Type Treatment Note Next Visit Plan Progress HEP with written handouts as necessary.
--- NOTE | 2021-03-28 13:05 | PT.OTN ---
Current Diagnoses Sciatica, unspecified side (03/28/21) Physical Therapy Treatment Note PT-OP-A Visit Information Start: 01/28/21 10:10 Freq: Status: Active Protocol: Document 03/28/21 12:20 SP (Rec: 03/28/21 16:07 SP [id number]) Out-Patient Physical Therapy Visit Information Visit Information Visit Type Treatment Note Visit Start Time 12:20 Visit Stop Time 13:05 Total Visit Minutes 45 Visit Number 17 Number of [facility] Visits 1 Precautions Precautions Previous precaution assess vitals, BP with activity. PT-OP-B Current Condition Start: 01/28/21 10:10 Freq: Status: Active Protocol: Document 01/28/21 13:30 AMB (Rec: 01/28/21 13:49 AMB [id number]) Current Condition History of Current Condition Onset Date 5 months ago Current Complaints L>R sciatica History of Current Condition L>R pain 5 months, tingly going down lateral leg. Irritated by bending/lifting/ standing. Gardening, cooking/ cleaning. Had been doing water aerobics and that was really helpful, but got a MRSA infection in her foot, and hasn't been doing as much because of Covid. Has not had lumbar Xray. Did have previous physical therapy which was helpful. Treatment Goals Patient/Caregiver Goals Reduce pain Prior Functional Status Baseline Function- ADL's Independent Baseline Function- Mobility Independent Current Functional Impairments (Reported) Functional Limitations- ADL's Difficulty standing, bending, gardening, walking due to pain Personal Factors Other Personal Factors That May Effect Prior hx of shingles on face Therapy/Recovery years ago, DMII, current hernia, hypothyroid PT-OP-C Subjective Start: 01/28/21 10:10 Freq: Status: Active Protocol: Document 03/28/21 12:20 SP (Rec: 03/28/21 16:07 SP [id number]) OP-PT Subjective Patient Comments Patient Comments Pt stated leg better, back hurting since yesterday she's thinking due to walking on cement floors shopping yesterday the worst and having cramps today. Pt states sometimes shakes of over stretching time due to tiring and arthritis all over. same during dental work. PT-OP-G Mobility & Gait Start: 01/28/21 10:10 Freq: Status: Active Protocol: Document 01/28/21 13:30 AMB (Rec: 01/29/21 10:02 AMB [id number]) OP Gait Assessment Comments Gait Comments Ambulates with SPC,significant Trendelenburg gait pattern without SPC and mild with SPC PT-OP-J Posture/Palpation/Skin Start: 01/28/21 10:10 Freq: Status: Active Protocol: Document 01/28/21 13:30 AMB (Rec: 01/29/21 10:02 AMB [id number]) Palpation Assessment Location One Palpation Location low back/left hip Palpation Details Tenderness at soft tissue throughout paraspinals, greater trochanter PT-OP-K Range of Motion Start: 01/28/21 10:10 Freq: Status: Active Protocol: Document 01/28/21 13:30 AMB (Rec: 01/29/21 10:02 AMB [id number]) Lumbar Spine Range of Motion Lumbar Spine Active Degrees Testing Position Standing Flexion 50 Extension 20 Lateral Flexion Left 10 Lateral Flexion Right 15 ROM Limitations Pain Comments Painful with sidebending L PT-OP-M Strength Start: 01/28/21 10:10 Freq: Status: Active Protocol: Document 01/28/21 13:30 AMB (Rec: 01/29/21 10:10 AMB [email or web address]) Hip Strength Hip Manual Muscle Testing Right Flexion (L2) 4 Good Extension (S1) 4- Good- Abduction 3- Fair- Left Flexion (L2) 4 Good Extension (S1) 4- Good- Abduction 3- Fair- Comments pain with hip flexion Knee Strength Knee Manual Muscle Testing Right Flexion (S2) 5 Normal Extension (L3) 5 Normal Left Flexion (S2) 4 Good Extension (L3) 4+ Good+ Comments pain with knee flexion Ankle/Foot Strength Ankle and Foot Manual Muscle Testing Right Dorsiflexion (L4) 4+ Good+ Plantarflexion (S1) 4 Good Left Dorsiflexion (L4) 4+ Good+ Plantarflexion (S1) 4 Good PT-OP-Q Treatments Start: 01/28/21 10:10 Freq: Status: Active Protocol: Document 03/28/21 12:20 SP (Rec: 03/28/21 16:07 SP [id number]) Cardio Equipment Recumbent Elliptical (Biodex) Duration (Minutes) 6 Resistance 3 Seat Position 7 Other 25-30 RPM, 376 total steps Gym Equipment Shuttle Recovery Unilateral Squats Details alternate BLE Resistance 37# Shuttle Recovery Platform Stable Reps/Time x12 reps x3 Bilateral Squats Resistance 62# Shuttle Recovery Platform Stable Reps/Time 3 x 12 reps Therapeutic Exercises Supine Exercises TA trng Supine Exercise Name easy and incorporating with other ex sktc Supine Exercise Name reviewed HEP Side bilateral Reps/Minutes 2 x 30 reps hip adduction isometric Supine Exercise Name reviewed HEP (small ball at home) Equipment Used green small ball Reps/Minutes 5 sec hold x5 Comments good tolerance LTR Side bilateral Equipment Used feet on table this tx (no ball home) Comments 20 reps rocking side to side, cues for less is more fig 4 stretch Side bilateral Reps/Minutes 60 sec each SLR hip flexion Supine Exercise Name PPT better tolerance Side bilateral Reps/Minutes x12 Comments good slow pacing, TA facilitation, quad & core facilitation Sitting Exercises trunk rotation Sitting Exercise Name stated pain in back (maybe has gal stones) Comments DC Gait Training Gait Activity spc Device Used SPC (Mod WB on cane) Level of Assistance S Surface firm Distance/Duration 6MWT= 698 ft Treatment Focus level pelvis, only RUE support as needed. Comments only 6/10 pain over Lateral L lower leg but states doesn't limit her, back and hips ok just tiring. 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 03/28/21: Pt last for 10 min before needs seated break due to 8/10 pain in whole leg, has been better on cushioning mat at stove then sink that doesn 't have. STG Duration 4 weeks Target Protection Specialist Goal (LTG) Ira will perform a partial squat to perform light yard work with pain of 3/10 or less . 03/04: pt is doing light yardwork, but continues to have higher levels of pain (6/ 10) LTG Duration PARTIALLY MET Two Impairment HEP Short Term Goal (STG) Ira will be independent and consistent with a HEP for her core stability and flexibility. 03/28/21: supine LTR, TA SLR, fig 4 stretch; STG Duration PARTIALLY MET One Impairment Gait Short Term Goal (STG) Ira will walk for 6 minutes over smooth surfaces with SPC and 5/10 pain or less . 03/28/21: 698 ft using SPC Mod WB into cane, LB and knee just tiring, lateral lower leg muscle 6/10 but not limiting. STG Duration 4 weeks Target Protection Specialist Goal (LTG) Ira will walk in the community with her SPC over slightly uneven terrain (grass , gravel) for 10 minutes with 5/10 pain or less. LTG Duration 8 weeks Assessment Summary Assessment Pt responded well to HEP and core/LE strengthening. No adverse reactions to 6MWT using SPC no LB or knee pain end tx just tiring. Physical Therapy Plan Frequency and Duration Frequency of Treatment 2x/Week Duration of Treatment 10 weeks Plan of Care Start Date 01/28/21 Plan of Care End Date 04/08/21 Therapeutic Interventions Therapeutic Interventions Gait Training,Home Exercise Program,Manual Therapy, Neuromuscular Re-education, Self-Care/Home Management,Soft Tissue Mobilization, Therapeutic Activities, Therapeutic Exercises Next Visit Focus/Plan Next Note Type Treatment Note Next Visit Plan Future tx, progress endurance walking and continue progress HEP with written handouts as necessary.
--- NOTE | 2021-04-01 16:08 | PT.OTN ---
Current Diagnoses Sciatica, unspecified side (04/01/21) Physical Therapy Treatment Note PT-OP-A Visit Information Start: 01/28/21 10:10 Freq: Status: Active Protocol: Document 04/01/21 12:45 AMB (Rec: 04/01/21 13:30 AMB [id number]) Out-Patient Physical Therapy Visit Information Visit Information Visit Type Treatment Note Visit Start Time 12:45 Visit Stop Time 13:30 Total Visit Minutes 45 Visit Number 18 PT-OP-B Current Condition Start: 01/28/21 10:10 Freq: Status: Active Protocol: Document 01/28/21 13:30 AMB (Rec: 01/28/21 13:49 AMB [id number]) Current Condition History of Current Condition Onset Date 5 months ago Current Complaints L>R sciatica History of Current Condition L>R pain 5 months, tingly going down lateral leg. Irritated by bending/lifting/ standing. Gardening, cooking/ cleaning. Had been doing water aerobics and that was really helpful, but got a MRSA infection in her foot, and hasn't been doing as much because of Covid. Has not had lumbar Xray. Did have previous physical therapy which was helpful. Treatment Goals Patient/Caregiver Goals Reduce pain Prior Functional Status Baseline Function- ADL's Independent Baseline Function- Mobility Independent Current Functional Impairments (Reported) Functional Limitations- ADL's Difficulty standing, bending, gardening, walking due to pain Personal Factors Other Personal Factors That May Effect Prior hx of shingles on face Therapy/Recovery years ago, DMII, current hernia, hypothyroid PT-OP-C Subjective Start: 01/28/21 10:10 Freq: Status: Active Protocol: Document 04/01/21 12:45 AMB (Rec: 04/01/21 13:30 AMB [id number]) OP-PT Subjective Patient Comments Patient Comments Pt's bilateral calves have been tingling on her feet a lot for Father's Day. Overall she feels like PT has been really helpful for her feet. PT-OP-G Mobility & Gait Start: 01/28/21 10:10 Freq: Status: Active Protocol: Document 01/28/21 13:30 AMB (Rec: 01/29/21 10:02 AMB [id number]) OP Gait Assessment Comments Gait Comments Ambulates with SPC,significant Trendelenburg gait pattern without SPC and mild with SPC PT-OP-J Posture/Palpation/Skin Start: 01/28/21 10:10 Freq: Status: Active Protocol: Document 01/28/21 13:30 AMB (Rec: 01/29/21 10:02 AMB [id number]) Palpation Assessment Location One Palpation Location low back/left hip Palpation Details Tenderness at soft tissue throughout paraspinals, greater trochanter PT-OP-K Range of Motion Start: 01/28/21 10:10 Freq: Status: Active Protocol: Document 01/28/21 13:30 AMB (Rec: 01/29/21 10:02 AMB [id number]) Lumbar Spine Range of Motion Lumbar Spine Active Degrees Testing Position Standing Flexion 50 Extension 20 Lateral Flexion Left 10 Lateral Flexion Right 15 ROM Limitations Pain Comments Painful with sidebending L PT-OP-M Strength Start: 01/28/21 10:10 Freq: Status: Active Protocol: Document 01/28/21 13:30 AMB (Rec: 01/29/21 10:10 AMB [id number]) Hip Strength Hip Manual Muscle Testing Right Flexion (L2) 4 Good Extension (S1) 4- Good- Abduction 3- Fair- Left Flexion (L2) 4 Good Extension (S1) 4- Good- Abduction 3- Fair- Comments pain with hip flexion Knee Strength Knee Manual Muscle Testing Right Flexion (S2) 5 Normal Extension (L3) 5 Normal Left Flexion (S2) 4 Good Extension (L3) 4+ Good+ Comments pain with knee flexion Ankle/Foot Strength Ankle and Foot Manual Muscle Testing Right Dorsiflexion (L4) 4+ Good+ Plantarflexion (S1) 4 Good Left Dorsiflexion (L4) 4+ Good+ Plantarflexion (S1) 4 Good PT-OP-Q Treatments Start: 01/28/21 10:10 Freq: Status: Active Protocol: Document 04/01/21 12:45 AMB (Rec: 04/01/21 13:30 AMB [id number]) Cardio Equipment Recumbent Elliptical (Biodex) Duration (Minutes) 6 Resistance 3 Seat Position 7 Gym Equipment Shuttle Recovery Bilateral Squats Resistance 62# Shuttle Recovery Platform Stable Reps/Time 3 x 12 reps Therapeutic Exercises Supine Exercises LTR Side bilateral Equipment Used feet on table this tx (no ball home) Comments 20 reps rocking side to side, cues for less is more fig 4 stretch Side bilateral Reps/Minutes 60 sec each SLR hip flexion Supine Exercise Name PPT better tolerance Side bilateral Reps/Minutes x12 Comments good slow pacing, TA facilitation, quad & core facilitation Sidelying Exercises 1 Sidelying Exercise Name Clamshell Side left Reps/Minutes x 10 reps x 2 Manual Therapy Treatment Soft Tissue Mobilization 1 Body Location left piriformis and gluteal region Mobilization Type Cross-Friction,Myofascial Release Body Position right SL PT-OP-R Modalities Start: 01/28/21 10:10 Freq: Status: Active Protocol: Document 04/01/21 12:45 AMB (Rec: 04/01/21 13:35 AMB [id number]) Electric Stimulation Electric Stimulation Interferential Current (IFC) Body Location L>R gluteals & paraspinal Duration (Minutes) 15 Patient Position Sidelying Combined With Heat/Cold Hot Pack PT-OP-T Assessment and Plan Start: 01/28/21 10:10 Freq: Status: Active Protocol: Document 04/01/21 12:45 AMB (Rec: 04/01/21 13:30 AMB [id number]) Physical Therapy Assessment Goals Three Impairment Functional activities Short Term Goal (STG) 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 03/28/21: Pt last for 10 min before needs seated break due to 8/10 pain in whole leg, has been better on cushioning mat at stove then sink that doesn 't have. STG Duration 4 weeks Copy Operator Goal (LTG) Ira will perform a partial squat to perform light yard work with pain of 3/10 or less . 03/04: pt is doing light yardwork, but continues to have higher levels of pain (6/ 10) LTG Duration PARTIALLY MET Two Impairment HEP Short Term Goal (STG) Ira will be independent and consistent with a HEP for her core stability and flexibility. 03/28/21: supine LTR, TA SLR, fig 4 stretch; STG Duration PARTIALLY MET One Impairment Gait Short Term Goal (STG) Ira will walk for 6 minutes over smooth surfaces with SPC and 5/10 pain or less . 03/28/21: 698 ft using SPC Mod WB into cane, LB and knee just tiring, lateral lower leg muscle 6/10 but not limiting. STG Duration 4 weeks Jail Goal (LTG) Ira will walk in the community with her SPC over slightly uneven terrain (grass , gravel) for 10 minutes with 5/10 pain or less. LTG Duration 8 weeks Assessment Summary Assessment Pt continues to improve in her tolerance to PT. Physical Therapy Plan Next Visit Focus/Plan Next Note Type Progress Note Next Visit Plan Future tx, progress endurance walking and continue progress HEP with written handouts as necessary.
--- NOTE | 2021-04-04 15:45 | PT.OTN ---
Current Diagnoses Sciatica, unspecified side (04/04/21) Physical Therapy Treatment Note PT-OP-A Visit Information Start: 01/28/21 10:10 Freq: Status: Active Protocol: Document 04/04/21 14:15 AMB (Rec: 04/04/21 14:30 AMB [id number]) Out-Patient Physical Therapy Visit Information Visit Information Visit Type Progress Note Visit Start Time 14:15 Visit Stop Time 15:00 Total Visit Minutes 45 Visit Number 19 PT-OP-B Current Condition Start: 01/28/21 10:10 Freq: Status: Active Protocol: Document 01/28/21 13:30 AMB (Rec: 01/28/21 13:49 AMB [id number]) Current Condition History of Current Condition Onset Date 5 months ago Current Complaints L>R sciatica History of Current Condition L>R pain 5 months, tingly going down lateral leg. Irritated by bending/lifting/ standing. Gardening, cooking/ cleaning. Had been doing water aerobics and that was really helpful, but got a MRSA infection in her foot, and hasn't been doing as much because of Covid. Has not had lumbar Xray. Did have previous physical therapy which was helpful. Treatment Goals Patient/Caregiver Goals Reduce pain Prior Functional Status Baseline Function- ADL's Independent Baseline Function- Mobility Independent Current Functional Impairments (Reported) Functional Limitations- ADL's Difficulty standing, bending, gardening, walking due to pain Personal Factors Other Personal Factors That May Effect Prior hx of shingles on face Therapy/Recovery years ago, DMII, current hernia, hypothyroid PT-OP-C Subjective Start: 01/28/21 10:10 Freq: Status: Active Protocol: Document 04/01/21 12:45 AMB (Rec: 04/01/21 13:30 AMB [id number]) OP-PT Subjective Patient Comments Patient Comments Pt's bilateral calves have been tingling on her feet a lot for Father's Day. Overall she feels like PT has been really helpful for her feet. PT-OP-G Mobility & Gait Start: 01/28/21 10:10 Freq: Status: Active Protocol: Document 01/28/21 13:30 AMB (Rec: 01/29/21 10:02 AMB [id number]) OP Gait Assessment Comments Gait Comments Ambulates with SPC,significant Trendelenburg gait pattern without SPC and mild with SPC PT-OP-J Posture/Palpation/Skin Start: 01/28/21 10:10 Freq: Status: Active Protocol: Document 01/28/21 13:30 AMB (Rec: 01/29/21 10:02 AMB [id number]) Palpation Assessment Location One Palpation Location low back/left hip Palpation Details Tenderness at soft tissue throughout paraspinals, greater trochanter PT-OP-K Range of Motion Start: 01/28/21 10:10 Freq: Status: Active Protocol: Document 01/28/21 13:30 AMB (Rec: 01/29/21 10:02 AMB [id number]) Lumbar Spine Range of Motion Lumbar Spine Active Degrees Testing Position Standing Flexion 50 Extension 20 Lateral Flexion Left 10 Lateral Flexion Right 15 ROM Limitations Pain Comments Painful with sidebending L PT-OP-M Strength Start: 01/28/21 10:10 Freq: Status: Active Protocol: Document 01/28/21 13:30 AMB (Rec: 01/29/21 10:10 AMB [email or web address]) Hip Strength Hip Manual Muscle Testing Right Flexion (L2) 4 Good Extension (S1) 4- Good- Abduction 3- Fair- Left Flexion (L2) 4 Good Extension (S1) 4- Good- Abduction 3- Fair- Comments pain with hip flexion Knee Strength Knee Manual Muscle Testing Right Flexion (S2) 5 Normal Extension (L3) 5 Normal Left Flexion (S2) 4 Good Extension (L3) 4+ Good+ Comments pain with knee flexion Ankle/Foot Strength Ankle and Foot Manual Muscle Testing Right Dorsiflexion (L4) 4+ Good+ Plantarflexion (S1) 4 Good Left Dorsiflexion (L4) 4+ Good+ Plantarflexion (S1) 4 Good PT-OP-Q Treatments Start: 01/28/21 10:10 Freq: Status: Active Protocol: Document 04/04/21 14:15 AMB (Rec: 04/04/21 15:40 AMB [id number]) Cardio Equipment Recumbent Stepper (Sci-Fit) Duration (Minutes) 8 Resistance 3 Seat Position 11 Gym Equipment Shuttle Recovery Bilateral Squats Resistance 62# Shuttle Recovery Platform Stable Reps/Time 3 x 12 reps Therapeutic Exercises Sidelying Exercises 1 Sidelying Exercise Name Clamshell Side left Reps/Minutes x 10 reps x 2 Comments #3tband Manual Therapy Treatment Soft Tissue Mobilization 1 Body Location left piriformis and gluteal region Mobilization Type Cross-Friction,Myofascial Release Body Position right SL PT-OP-R Modalities Start: 01/28/21 10:10 Freq: Status: Active Protocol: Document 04/01/21 12:45 AMB (Rec: 04/01/21 13:35 AMB [id number]) Electric Stimulation Electric Stimulation Interferential Current (IFC) Body Location L>R gluteals & paraspinal Duration (Minutes) 15 Patient Position Sidelying Combined With Heat/Cold Hot Pack PT-OP-T Assessment and Plan Start: 01/28/21 10:10 Freq: Status: Active Protocol: Document 04/04/21 14:15 AMB (Rec: 04/04/21 14:30 AMB [id number]) Physical Therapy Assessment Goals Three Impairment Functional activities Short Term Goal (STG) 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 03/28/21: Pt last for 10 min before needs seated break due to 8/10 pain in whole leg, has been better on cushioning mat at stove then sink that doesn 't have. STG Duration 4 weeks Nursing Home Goal (LTG) Ira will perform a partial squat to perform light yard work with pain of 3/10 or less . 04/04: pt is doing light yardwork, but continues to have higher levels of pain (6/ 10) LTG Duration PARTIALLY MET Two Impairment HEP Short Term Goal (STG) Ira will be independent and consistent with a HEP for her core stability and flexibility. 04/04/21: supine LTR, TA SLR, fig 4 stretch; STG Duration PARTIALLY MET One Impairment Gait Short Term Goal (STG) Ira will walk for 6 minutes over smooth surfaces with SPC and 5/10 pain or less . 03/28/21: 698 ft using SPC Mod WB into cane, LB and knee just tiring, lateral lower leg muscle 6/10 but not limiting. STG Duration 4 weeks Nursing Home Goal (LTG) Ira will walk in the community with her SPC over slightly uneven terrain (grass , gravel) for 10 minutes with 5/10 pain or less. LTG Duration PARTIALLY MET: pain levels remain high, partially due to foot issues Assessment Summary Assessment Amy's hip pain has improved but continues to limit her with higher levels of activity like walking over uneven terrain. Her foot pain, while not a part of this plan of care, also limits her. Physical Therapy Plan Frequency and Duration Frequency of Treatment 2x/Week Duration of Treatment 8 weeks Plan of Care Start Date 04/04/21 Plan of Care End Date 05/30/21 Therapeutic Interventions Therapeutic Interventions Gait Training,Home Exercise Program,Manual Therapy, Neuromuscular Re-education, Self-Care/Home Management,Soft Tissue Mobilization, Therapeutic Activities, Therapeutic Exercises Next Visit Focus/Plan Next Note Type Progress Note Next Visit Plan Future tx, progress endurance walking and continue progress HEP with written handouts as necessary.
--- NOTE | 2021-04-04 15:45 | PT.OPPOC ---
Physical, Occupational & Speech Therapy At [facility] Current Diagnoses Sciatica, unspecified side (04/04/21) Visit Care Team Role Provider Type Lyly Clancy PA-C Attending Provider Non-Staff Primary Care Provider Referring Provider Specialty: Internal Medicine Address: [address] [place] [address], [id number] Email: [email or web address] Plan Of Care PT-OP-T Assessment and Plan Start: 01/28/21 10:10 Freq: Status: Active Protocol: Document 04/04/21 14:15 AMB (Rec: 04/04/21 14:30 AMB [id number]) Physical Therapy Assessment Goals Three Impairment Functional activities Short Term Goal (STG) 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 03/28/21: Pt last for 10 min before needs seated break due to 8/10 pain in whole leg, has been better on cushioning mat at stove then sink that doesn 't have. STG Duration 4 weeks Digital Marketing Assistant Goal (LTG) Ira will perform a partial squat to perform light yard work with pain of 3/10 or less . 04/04: pt is doing light yardwork, but continues to have higher levels of pain (6/ 10) LTG Duration PARTIALLY MET Two Impairment HEP Short Term Goal (STG) Ira will be independent and consistent with a HEP for her core stability and flexibility. 04/04/21: supine LTR, TA SLR, fig 4 stretch; STG Duration PARTIALLY MET One Impairment Gait Short Term Goal (STG) Ira will walk for 6 minutes over smooth surfaces with SPC and 5/10 pain or less . 03/28/21: 698 ft using SPC Mod WB into cane, LB and knee just tiring, lateral lower leg muscle 6/10 but not limiting. STG Duration 4 weeks Prison Goal (LTG) Ira will walk in the community with her SPC over slightly uneven terrain (grass , gravel) for 10 minutes with 5/10 pain or less. LTG Duration PARTIALLY MET: pain levels remain high, partially due to foot issues Assessment Summary Assessment Amy's hip pain has improved but continues to limit her with higher levels of activity like walking over uneven terrain. Her foot pain, while not a part of this plan of care, also limits her. Physical Therapy Plan Frequency and Duration Frequency of Treatment 2x/Week Duration of Treatment 8 weeks Plan of Care Start Date 04/04/21 Plan of Care End Date 05/30/21 Therapeutic Interventions Therapeutic Interventions Gait Training,Home Exercise Program,Manual Therapy, Neuromuscular Re-education, Self-Care/Home Management,Soft Tissue Mobilization, Therapeutic Activities, Therapeutic Exercises Next Visit Focus/Plan Next Note Type Progress Note Next Visit Plan Future tx, progress endurance walking and continue progress HEP with written handouts as necessary. Plan of Care Dates Plan of Care Start Date 04/04/21 Plan of Care End Date 05/30/21 Electronically Signed by: Rohini Gold, PT 04/04/21 0383 Please Sign and Return: I have reviewed this Plan of Care and certify that the skilled therapy services above are required to meet the patient?s needs. Physician Signature Date Printed Name and Credentials Clinical Instructor Signature Printed Name and Credentials
--- NOTE | 2021-04-08 14:51 | PT.OTN ---
Current Diagnoses Sciatica, unspecified side (04/08/21) Physical Therapy Treatment Note PT-OP-A Visit Information Start: 01/28/21 10:10 Freq: Status: Active Protocol: Document 04/08/21 12:45 AMB (Rec: 04/08/21 13:32 AMB [id number]) Out-Patient Physical Therapy Visit Information Visit Information Visit Type Treatment Note Visit Start Time 12:45 Visit Stop Time 13:30 Total Visit Minutes 45 Visit Number 20 PT-OP-B Current Condition Start: 01/28/21 10:10 Freq: Status: Active Protocol: Document 01/28/21 13:30 AMB (Rec: 01/28/21 13:49 AMB [id number]) Current Condition History of Current Condition Onset Date 5 months ago Current Complaints L>R sciatica History of Current Condition L>R pain 5 months, tingly going down lateral leg. Irritated by bending/lifting/ standing. Gardening, cooking/ cleaning. Had been doing water aerobics and that was really helpful, but got a MRSA infection in her foot, and hasn't been doing as much because of Covid. Has not had lumbar Xray. Did have previous physical therapy which was helpful. Treatment Goals Patient/Caregiver Goals Reduce pain Prior Functional Status Baseline Function- ADL's Independent Baseline Function- Mobility Independent Current Functional Impairments (Reported) Functional Limitations- ADL's Difficulty standing, bending, gardening, walking due to pain Personal Factors Other Personal Factors That May Effect Prior hx of shingles on face Therapy/Recovery years ago, DMII, current hernia, hypothyroid PT-OP-C Subjective Start: 01/28/21 10:10 Freq: Status: Active Protocol: Document 04/08/21 12:45 AMB (Rec: 04/08/21 13:32 AMB [id number]) OP-PT Subjective Patient Comments Patient Comments Pt reports she hasn't been moving as much because of the heat. PT-OP-G Mobility & Gait Start: 01/28/21 10:10 Freq: Status: Active Protocol: Document 01/28/21 13:30 AMB (Rec: 01/29/21 10:02 AMB [id number]) OP Gait Assessment Comments Gait Comments Ambulates with SPC,significant Trendelenburg gait pattern without SPC and mild with SPC PT-OP-J Posture/Palpation/Skin Start: 01/28/21 10:10 Freq: Status: Active Protocol: Document 01/28/21 13:30 AMB (Rec: 01/29/21 10:02 AMB [id number]) Palpation Assessment Location One Palpation Location low back/left hip Palpation Details Tenderness at soft tissue throughout paraspinals, greater trochanter PT-OP-K Range of Motion Start: 01/28/21 10:10 Freq: Status: Active Protocol: Document 01/28/21 13:30 AMB (Rec: 01/29/21 10:02 AMB [id number]) Lumbar Spine Range of Motion Lumbar Spine Active Degrees Testing Position Standing Flexion 50 Extension 20 Lateral Flexion Left 10 Lateral Flexion Right 15 ROM Limitations Pain Comments Painful with sidebending L PT-OP-M Strength Start: 01/28/21 10:10 Freq: Status: Active Protocol: Document 01/28/21 13:30 AMB (Rec: 01/29/21 10:10 AMB [id number]) Hip Strength Hip Manual Muscle Testing Right Flexion (L2) 4 Good Extension (S1) 4- Good- Abduction 3- Fair- Left Flexion (L2) 4 Good Extension (S1) 4- Good- Abduction 3- Fair- Comments pain with hip flexion Knee Strength Knee Manual Muscle Testing Right Flexion (S2) 5 Normal Extension (L3) 5 Normal Left Flexion (S2) 4 Good Extension (L3) 4+ Good+ Comments pain with knee flexion Ankle/Foot Strength Ankle and Foot Manual Muscle Testing Right Dorsiflexion (L4) 4+ Good+ Plantarflexion (S1) 4 Good Left Dorsiflexion (L4) 4+ Good+ Plantarflexion (S1) 4 Good PT-OP-Q Treatments Start: 01/28/21 10:10 Freq: Status: Active Protocol: Document 04/08/21 12:45 AMB (Rec: 04/08/21 13:32 AMB [id number]) Cardio Equipment Recumbent Stepper (Sci-Fit) Duration (Minutes) 7 Resistance 3 Seat Position 11 Gym Equipment Shuttle Recovery Bilateral Squats Resistance 62# Shuttle Recovery Platform Stable Reps/Time 3 x 15 reps Therapeutic Exercises Supine Exercises sktc Supine Exercise Name reviewed HEP Side bilateral Reps/Minutes 2 x 30 reps LTR Side bilateral Equipment Used feet on table this tx (no ball home) Comments 20 reps rocking side to side, cues for less is more fig 4 stretch Side bilateral Reps/Minutes 60 sec each sciatic nerve glide Side bilateral Comments Raise leg, towel behind knee, AP x20 sec x1 rep each leg Sidelying Exercises 1 Sidelying Exercise Name Clamshell Side left Reps/Minutes x 10 reps x 2 Comments #3tband Standing Exercises 1 Standing Exercise Name supine march with TA Reps/Minutes 1 min Manual Therapy Treatment Soft Tissue Mobilization 1 Body Location left piriformis and gluteal region Mobilization Type Cross-Friction,Myofascial Release Body Position right SL PT-OP-R Modalities Start: 01/28/21 10:10 Freq: Status: Active Protocol: Document 04/08/21 12:45 AMB (Rec: 04/08/21 14:45 AMB [id number]) Electric Stimulation Electric Stimulation Interferential Current (IFC) Body Location L>R gluteals & paraspinal Duration (Minutes) 15 Patient Position Sidelying Combined With Heat/Cold Hot Pack PT-OP-T Assessment and Plan Start: 01/28/21 10:10 Freq: Status: Active Protocol: Document 04/08/21 12:45 AMB (Rec: 04/08/21 13:32 AMB [id number]) Physical Therapy Assessment Goals Three Impairment Functional activities Short Term Goal (STG) 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 03/28/21: Pt last for 10 min before needs seated break due to 8/10 pain in whole leg, has been better on cushioning mat at stove then sink that doesn 't have. STG Duration 4 weeks Senior Living Goal (LTG) Ira will perform a partial squat to perform light yard work with pain of 3/10 or less . 04/04: pt is doing light yardwork, but continues to have higher levels of pain (6/ 10) LTG Duration PARTIALLY MET Two Impairment HEP Short Term Goal (STG) Ira will be independent and consistent with a HEP for her core stability and flexibility. 04/04/21: supine LTR, TA SLR, fig 4 stretch; STG Duration PARTIALLY MET One Impairment Gait Short Term Goal (STG) Ira will walk for 6 minutes over smooth surfaces with SPC and 5/10 pain or less . 03/28/21: 698 ft using SPC Mod WB into cane, LB and knee just tiring, lateral lower leg muscle 6/10 but not limiting. STG Duration 4 weeks Senior Living Goal (LTG) Ira will walk in the community with her SPC over slightly uneven terrain (grass , gravel) for 10 minutes with 5/10 pain or less. LTG Duration PARTIALLY MET: pain levels remain high, partially due to foot issues Assessment Summary Assessment Soreness after walking in the yard watering the plants- felt it the next day for about a half a day. Did do well with supine march exercise as far as core stabilization. Physical Therapy Plan Next Visit Focus/Plan Next Note Type Progress Note Next Visit Plan Future tx, progress endurance walking and continue progress HEP with written handouts as necessary.
--- NOTE | 2021-04-11 13:53 | PT.OTN ---
Current Diagnoses Sciatica, unspecified side (04/11/21) Physical Therapy Treatment Note PT-OP-A Visit Information Start: 01/28/21 10:10 Freq: Status: Active Protocol: Document 04/11/21 12:45 AMB (Rec: 04/11/21 13:06 AMB [id number]) Out-Patient Physical Therapy Visit Information Visit Information Visit Type Treatment Note Visit Start Time 12:45 Visit Stop Time 13:30 Total Visit Minutes 45 Visit Number 21 PT-OP-B Current Condition Start: 01/28/21 10:10 Freq: Status: Active Protocol: Document 01/28/21 13:30 AMB (Rec: 01/28/21 13:49 AMB [id number]) Current Condition History of Current Condition Onset Date 5 months ago Current Complaints L>R sciatica History of Current Condition L>R pain 5 months, tingly going down lateral leg. Irritated by bending/lifting/ standing. Gardening, cooking/ cleaning. Had been doing water aerobics and that was really helpful, but got a MRSA infection in her foot, and hasn't been doing as much because of Covid. Has not had lumbar Xray. Did have previous physical therapy which was helpful. Treatment Goals Patient/Caregiver Goals Reduce pain Prior Functional Status Baseline Function- ADL's Independent Baseline Function- Mobility Independent Current Functional Impairments (Reported) Functional Limitations- ADL's Difficulty standing, bending, gardening, walking due to pain Personal Factors Other Personal Factors That May Effect Prior hx of shingles on face Therapy/Recovery years ago, DMII, current hernia, hypothyroid PT-OP-C Subjective Start: 01/28/21 10:10 Freq: Status: Active Protocol: Document 04/11/21 12:45 AMB (Rec: 04/11/21 13:06 AMB [id number]) OP-PT Subjective Patient Comments Patient Comments Pt reports she went grocery shopping in [place] and walking on the cement was challenging, she has been out in the garden a lot and that has been going fine. PT-OP-G Mobility & Gait Start: 01/28/21 10:10 Freq: Status: Active Protocol: Document 01/28/21 13:30 AMB (Rec: 01/29/21 10:02 AMB [id number]) OP Gait Assessment Comments Gait Comments Ambulates with SPC,significant Trendelenburg gait pattern without SPC and mild with SPC PT-OP-J Posture/Palpation/Skin Start: 01/28/21 10:10 Freq: Status: Active Protocol: Document 01/28/21 13:30 AMB (Rec: 01/29/21 10:02 AMB [id number]) Palpation Assessment Location One Palpation Location low back/left hip Palpation Details Tenderness at soft tissue throughout paraspinals, greater trochanter PT-OP-K Range of Motion Start: 01/28/21 10:10 Freq: Status: Active Protocol: Document 01/28/21 13:30 AMB (Rec: 01/29/21 10:02 AMB [id number]) Lumbar Spine Range of Motion Lumbar Spine Active Degrees Testing Position Standing Flexion 50 Extension 20 Lateral Flexion Left 10 Lateral Flexion Right 15 ROM Limitations Pain Comments Painful with sidebending L PT-OP-M Strength Start: 01/28/21 10:10 Freq: Status: Active Protocol: Document 01/28/21 13:30 AMB (Rec: 01/29/21 10:10 AMB [id number]) Hip Strength Hip Manual Muscle Testing Right Flexion (L2) 4 Good Extension (S1) 4- Good- Abduction 3- Fair- Left Flexion (L2) 4 Good Extension (S1) 4- Good- Abduction 3- Fair- Comments pain with hip flexion Knee Strength Knee Manual Muscle Testing Right Flexion (S2) 5 Normal Extension (L3) 5 Normal Left Flexion (S2) 4 Good Extension (L3) 4+ Good+ Comments pain with knee flexion Ankle/Foot Strength Ankle and Foot Manual Muscle Testing Right Dorsiflexion (L4) 4+ Good+ Plantarflexion (S1) 4 Good Left Dorsiflexion (L4) 4+ Good+ Plantarflexion (S1) 4 Good PT-OP-Q Treatments Start: 01/28/21 10:10 Freq: Status: Active Protocol: Document 04/11/21 12:45 AMB (Rec: 04/11/21 13:06 AMB [id number]) Cardio Equipment Recumbent Stepper (Sci-Fit) Duration (Minutes) 9 Resistance 4 Seat Position 11 Gym Equipment Shuttle Recovery Bilateral Squats Resistance 62# Shuttle Recovery Platform Stable Reps/Time 3 x 15 reps Therapeutic Exercises Supine Exercises LTR Side bilateral Equipment Used feet on table this tx Comments 20 reps rocking side to side, cues for less is more SLR hip flexion Supine Exercise Name PPT better tolerance Side bilateral Reps/Minutes x15 Comments good slow pacing, TA facilitation, quad & core facilitation 8 Supine Exercise Name supine march Reps/Minutes 2x15 Comments c TA Sidelying Exercises 1 Sidelying Exercise Name Clamshell Side left Reps/Minutes x 15 reps x 2 Comments #3tband Manual Therapy Treatment Soft Tissue Mobilization 1 Body Location left piriformis and gluteal region Mobilization Type Cross-Friction,Myofascial Release Body Position right SL PT-OP-R Modalities Start: 01/28/21 10:10 Freq: Status: Active Protocol: Document 04/11/21 12:45 AMB (Rec: 04/11/21 13:06 AMB [id number]) Electric Stimulation Electric Stimulation Interferential Current (IFC) Body Location L>R gluteals & paraspinal Duration (Minutes) 15 Patient Position Sidelying Combined With Heat/Cold Hot Pack PT-OP-T Assessment and Plan Start: 01/28/21 10:10 Freq: Status: Active Protocol: Document 04/11/21 13:50 AMB (Rec: 04/11/21 13:53 AMB [id number]) Physical Therapy Assessment Goals Three Impairment Functional activities Short Term Goal (STG) 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 03/28/21: Pt last for 10 min before needs seated break due to 8/10 pain in whole leg, has been better on cushioning mat at stove then sink that doesn 't have. STG Duration 4 weeks Half-Way Goal (LTG) Ira will perform a partial squat to perform light yard work with pain of 3/10 or less . 04/04: pt is doing light yardwork, but continues to have higher levels of pain (6/ 10) LTG Duration PARTIALLY MET Two Impairment HEP Short Term Goal (STG) Ira will be independent and consistent with a HEP for her core stability and flexibility. 04/04/21: supine LTR, TA SLR, fig 4 stretch; STG Duration PARTIALLY MET One Impairment Gait Short Term Goal (STG) Ira will walk for 6 minutes over smooth surfaces with SPC and 5/10 pain or less . 03/28/21: 698 ft using SPC Mod WB into cane, LB and knee just tiring, lateral lower leg muscle 6/10 but not limiting. STG Duration 4 weeks After School Tutor Goal (LTG) Ira will walk in the community with her SPC over slightly uneven terrain (grass , gravel) for 10 minutes with 5/10 pain or less. LTG Duration PARTIALLY MET: pain levels remain high, partially due to foot issues Assessment Summary Assessment Amy has tolerated increased resistance with hip/core exercises the last few visits. She continues to have delayed onset pain with extended walking. Physical Therapy Plan Frequency and Duration Frequency of Treatment 2x/Week Duration of Treatment 8 weeks Plan of Care Start Date 04/04/21 Plan of Care End Date 05/30/21 Therapeutic Interventions Therapeutic Interventions Gait Training,Home Exercise Program,Manual Therapy, Neuromuscular Re-education, Self-Care/Home Management,Soft Tissue Mobilization, Therapeutic Activities, Therapeutic Exercises Modalities Cold Pack/Ice Massage,Electric Stimulation,Hot Packs Discharge Physical Therapy Discharge Reasons Patient Request Next Visit Focus/Plan Next Note Type Progress Note Next Visit Plan Future tx, progress endurance walking and continue progress HEP with written handouts as necessary.
--- NOTE | 2021-04-15 13:54 | PT.OTN ---
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 PT-OP-B Current Condition Start: 01/28/21 10:10 Freq: Status: Active Protocol: Document 01/28/21 13:30 AMB (Rec: 01/28/21 13:49 AMB [id number]) Current Condition History of Current Condition Onset Date 5 months ago Current Complaints L>R sciatica History of Current Condition L>R pain 5 months, tingly going down lateral leg. Irritated by bending/lifting/ standing. Gardening, cooking/ cleaning. Had been doing water aerobics and that was really helpful, but got a MRSA infection in her foot, and hasn't been doing as much because of Covid. Has not had lumbar Xray. Did have previous physical therapy which was helpful. Treatment Goals Patient/Caregiver Goals Reduce pain Prior Functional Status Baseline Function- ADL's Independent Baseline Function- Mobility Independent Current Functional Impairments (Reported) Functional Limitations- ADL's Difficulty standing, bending, gardening, walking due to pain Personal Factors Other Personal Factors That May Effect Prior hx of shingles on face Therapy/Recovery years ago, DMII, current hernia, hypothyroid PT-OP-C Subjective Start: 01/28/21 10:10 Freq: Status: Active Protocol: Document 04/15/21 13:10 SP (Rec: 04/15/21 13:52 SP [id number]) OP-PT Subjective Patient Comments Patient Comments Pt stated feeling sore in LB due to being on her feet and uneven surface using SPC to watch fireworks. PT-OP-G Mobility & Gait Start: 01/28/21 10:10 Freq: Status: Active Protocol: Document 01/28/21 13:30 AMB (Rec: 01/29/21 10:02 AMB [id number]) OP Gait Assessment Comments Gait Comments Ambulates with SPC,significant Trendelenburg gait pattern without SPC and mild with SPC PT-OP-J Posture/Palpation/Skin Start: 01/28/21 10:10 Freq: Status: Active Protocol: Document 01/28/21 13:30 AMB (Rec: 01/29/21 10:02 AMB [id number]) Palpation Assessment Location One Palpation Location low back/left hip Palpation Details Tenderness at soft tissue throughout paraspinals, greater trochanter PT-OP-K Range of Motion Start: 01/28/21 10:10 Freq: Status: Active Protocol: Document 01/28/21 13:30 AMB (Rec: 01/29/21 10:02 AMB [id number]) Lumbar Spine Range of Motion Lumbar Spine Active Degrees Testing Position Standing Flexion 50 Extension 20 Lateral Flexion Left 10 Lateral Flexion Right 15 ROM Limitations Pain Comments Painful with sidebending L PT-OP-M Strength Start: 01/28/21 10:10 Freq: Status: Active Protocol: Document 01/28/21 13:30 AMB (Rec: 01/29/21 10:10 AMB [id number]) Hip Strength Hip Manual Muscle Testing Right Flexion (L2) 4 Good Extension (S1) 4- Good- Abduction 3- Fair- Left Flexion (L2) 4 Good Extension (S1) 4- Good- Abduction 3- Fair- Comments pain with hip flexion Knee Strength Knee Manual Muscle Testing Right Flexion (S2) 5 Normal Extension (L3) 5 Normal Left Flexion (S2) 4 Good Extension (L3) 4+ Good+ Comments pain with knee flexion Ankle/Foot Strength Ankle and Foot Manual Muscle Testing Right Dorsiflexion (L4) 4+ Good+ Plantarflexion (S1) 4 Good Left Dorsiflexion (L4) 4+ Good+ Plantarflexion (S1) 4 Good PT-OP-Q Treatments Start: 01/28/21 10:10 Freq: Status: Active Protocol: Document 04/15/21 13:10 SP (Rec: 04/15/21 13:52 SP [id number]) Gym Equipment Shuttle Recovery Bilateral Squats Resistance 62# Shuttle Recovery Platform Stable Reps/Time 3 x 15 reps Therapeutic Exercises Supine Exercises SLR hip flexion Supine Exercise Name PPT better tolerance Side bilateral Reps/Minutes x15 Comments good slow pacing, TA facilitation, quad & core facilitation Sidelying Exercises 1 Sidelying Exercise Name Clamshell Side left Reps/Minutes 15 reps x 2 Comments #3tband Sitting Exercises seated resisted shld ext/ pull downs Sitting Exercise Name HEP review Resistance Tb #2 Reps/Minutes 2x10 Comments cued tall posture, scap stab, neutral CS, TA facil resisted rows Sitting Exercise Name HEP review Resistance Tb #3 Reps/Minutes 2x10 Comments cued tall posture, scap stab, neutral CS, TA facil Gait Training Gait Activity spc Device Used SPC (Mod WB on cane) Level of Assistance S Surface firm Distance/Duration 6MWT= 803 ft Treatment Focus level pelvis, only RUE support as needed. Comments only LB on L tweaking and tiring but not pain and did notice tingling in L achilles up to mid calf. Pt stated mostly tiring and increase RUE pressure on SPC. 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 03/28/21: Pt last for 10 min before needs seated break due to 8/10 pain in whole leg, has been better on cushioning mat at stove then sink that doesn 't have. 04/15/21: pt stated did some cooking for 2 hr stent and pain increased to 7/10 but did sit for shopping to give relief. STG Duration 4 weeks Alf Goal (LTG) Ira will perform a partial squat to perform light yard work with pain of 3/10 or less . 04/04: pt is doing light yardwork, but continues to have higher levels of pain (6/ 10) LTG Duration PARTIALLY MET Two Impairment HEP Short Term Goal (STG) Ira will be independent and consistent with a HEP for her core stability and flexibility. 04/04/21: supine LTR, TA SLR, fig 4 stretch; STG Duration PARTIALLY MET One Impairment Gait Short Term Goal (STG) Ira will walk for 6 minutes over smooth surfaces with SPC and 5/10 pain or less . 03/28/21: 698 ft using SPC Mod WB into cane, LB and knee just tiring, lateral lower leg muscle 6/10 but not limiting. 04/15/21: progressinMWT 803 ft using SPC with just little tweaking in LB not pain. STG Duration 4 weeks Service Aide Goal (LTG) Ira will walk in the community with her SPC over slightly uneven terrain (grass , gravel) for 10 minutes with 5/10 pain or less. LTG Duration PARTIALLY MET: pain levels remain high, partially due to foot issues Assessment Summary Assessment Pt improved in tolerance to ex with core facilitation, no pain and able to increased distance walking using SPC today 803 ft. Physical Therapy Plan Frequency and Duration Frequency of Treatment 2x/Week Duration of Treatment 8 weeks Plan of Care Start Date 04/04/21 Plan of Care End Date 05/30/21 Therapeutic Interventions Therapeutic Interventions Gait Training,Home Exercise Program,Manual Therapy, Neuromuscular Re-education, Self-Care/Home Management,Soft Tissue Mobilization, Therapeutic Activities, Therapeutic Exercises Modalities Cold Pack/Ice Massage,Electric Stimulation,Hot Packs Next Visit Focus/Plan Next Note Type Progress Note Next Visit Plan Assess core strengthening and progressed endurance walking. POC: Continue progress HEP with written handouts as necessary.
--- NOTE | 2021-04-18 14:35 | PT.OTN ---
Current Diagnoses Sciatica, unspecified side (04/18/21) Physical Therapy Treatment Note PT-OP-A Visit Information Start: 01/28/21 10:10 Freq: Status: Active Protocol: Document 04/18/21 14:26 OF (Rec: 04/18/21 14:35 OF [id number]) Out-Patient Physical Therapy Visit Information Visit Information Visit Type Treatment Note Visit Start Time 13:45 Visit Stop Time 14:25 Total Visit Minutes 40 Visit Number 23 Precautions Precautions Previous precaution assess vitals, BP with activity. PT-OP-B Current Condition Start: 01/28/21 10:10 Freq: Status: Active Protocol: Document 01/28/21 13:30 AMB (Rec: 01/28/21 13:49 AMB [id number]) Current Condition History of Current Condition Onset Date 5 months ago Current Complaints L>R sciatica History of Current Condition L>R pain 5 months, tingly going down lateral leg. Irritated by bending/lifting/ standing. Gardening, cooking/ cleaning. Had been doing water aerobics and that was really helpful, but got a MRSA infection in her foot, and hasn't been doing as much because of Covid. Has not had lumbar Xray. Did have previous physical therapy which was helpful. Treatment Goals Patient/Caregiver Goals Reduce pain Prior Functional Status Baseline Function- ADL's Independent Baseline Function- Mobility Independent Current Functional Impairments (Reported) Functional Limitations- ADL's Difficulty standing, bending, gardening, walking due to pain Personal Factors Other Personal Factors That May Effect Prior hx of shingles on face Therapy/Recovery years ago, DMII, current hernia, hypothyroid PT-OP-C Subjective Start: 01/28/21 10:10 Freq: Status: Active Protocol: Document 04/18/21 14:26 OF (Rec: 04/18/21 14:35 OF [id number]) OP-PT Subjective Patient Comments Patient Comments pt states her home program has helped with pain Patient Reported Progress Improving PT-OP-G Mobility & Gait Start: 01/28/21 10:10 Freq: Status: Active Protocol: Document 01/28/21 13:30 AMB (Rec: 01/29/21 10:02 AMB [id number]) OP Gait Assessment Comments Gait Comments Ambulates with SPC,significant Trendelenburg gait pattern without SPC and mild with SPC PT-OP-J Posture/Palpation/Skin Start: 01/28/21 10:10 Freq: Status: Active Protocol: Document 01/28/21 13:30 AMB (Rec: 01/29/21 10:02 AMB [id number]) Palpation Assessment Location One Palpation Location low back/left hip Palpation Details Tenderness at soft tissue throughout paraspinals, greater trochanter PT-OP-K Range of Motion Start: 01/28/21 10:10 Freq: Status: Active Protocol: Document 01/28/21 13:30 AMB (Rec: 01/29/21 10:02 AMB [id number]) Lumbar Spine Range of Motion Lumbar Spine Active Degrees Testing Position Standing Flexion 50 Extension 20 Lateral Flexion Left 10 Lateral Flexion Right 15 ROM Limitations Pain Comments Painful with sidebending L PT-OP-M Strength Start: 01/28/21 10:10 Freq: Status: Active Protocol: Document 01/28/21 13:30 AMB (Rec: 01/29/21 10:10 AMB [id number]) Hip Strength Hip Manual Muscle Testing Right Flexion (L2) 4 Good Extension (S1) 4- Good- Abduction 3- Fair- Left Flexion (L2) 4 Good Extension (S1) 4- Good- Abduction 3- Fair- Comments pain with hip flexion Knee Strength Knee Manual Muscle Testing Right Flexion (S2) 5 Normal Extension (L3) 5 Normal Left Flexion (S2) 4 Good Extension (L3) 4+ Good+ Comments pain with knee flexion Ankle/Foot Strength Ankle and Foot Manual Muscle Testing Right Dorsiflexion (L4) 4+ Good+ Plantarflexion (S1) 4 Good Left Dorsiflexion (L4) 4+ Good+ Plantarflexion (S1) 4 Good PT-OP-Q Treatments Start: 01/28/21 10:10 Freq: Status: Active Protocol: Document 04/18/21 14:26 OF (Rec: 04/18/21 14:35 OF [id number]) Cardio Equipment Recumbent Stepper (Sci-Fit) Duration (Minutes) 10 Resistance 4 Seat Position 11 Gym Equipment Shuttle Recovery Bilateral Squats Resistance 62# Shuttle Recovery Platform Stable Reps/Time 3 x 15 reps Therapeutic Exercises Supine Exercises sktc Supine Exercise Name reviewed HEP Side bilateral Reps/Minutes 2 x 30 reps hip adduction isometric Supine Exercise Name reviewed HEP (small ball at home) Equipment Used green small ball Reps/Minutes 5 sec hold x5 Comments good tolerance LTR Side bilateral Equipment Used feet on table this tx Comments 20 reps rocking side to side, cues for less is more fig 4 stretch Side bilateral Reps/Minutes 3x60 sec each SLR hip flexion Supine Exercise Name PPT better tolerance Side bilateral Reps/Minutes x15 Comments good slow pacing, TA facilitation, quad & core facilitation 8 Supine Exercise Name supine march Reps/Minutes 2x15 Comments c TA recruitment 7 Supine Exercise Name Hip ER Resistance L2 exercise band Reps/Minutes x 12 reps x 2 Comments performed seated due to LE cramping today 6 Supine Exercise Name Bridge with hip ABD Resistance Lv 2 Reps/Minutes x 12 reps x 3 Comments HEP comp 3 Supine Exercise Name Piriformis stretch Side bilateral Reps/Minutes [id number] Comments HEP comp Sidelying Exercises 2 Sidelying Exercise Name Hip ABD Side bilateral Reps/Minutes 2 x 10 reps Comments HEP review, cued stacked on side for proper hip allignment Sitting Exercises seated pelvic tilts Sitting Exercise Name HEP review Reps/Minutes 2x10 Comments cued tall posture Standing Exercises standing calf stretch Side bilateral Reps/Minutes 2 x 30 reps Self-Care/Home Management Treatment Education Patient Education Fall Risk,Home Exercise Program,Pain Management PT-OP-R Modalities Start: 01/28/21 10:10 Freq: Status: Active Protocol: Document 04/15/21 13:10 SP (Rec: 04/15/21 13:52 SP [id number]) Electric Stimulation Electric Stimulation Interferential Current (IFC) Body Location L gluteals & paraspinal Duration (Minutes) 10 Patient Position Sitting Combined With Heat/Cold Hot Pack Comments good feedback results PT-OP-T Assessment and Plan Start: 01/28/21 10:10 Freq: Status: Active Protocol: Document 04/18/21 14:26 OF (Rec: 04/18/21 14:35 OF [id number]) Physical Therapy Assessment Rehab Potential Rehabilitation Potential Excellent Evaluation Complexity Number of Personal Factors/Comorbidities 1-2 Number of Body Systems Impaired 1-2 Clinical Presentation at Evaluation Stable Impairments Impairments Balance,Gait Goals Three Impairment Functional activities Short Term Goal (STG) 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 03/28/21: Pt last for 10 min before needs seated break due to 8/10 pain in whole leg, has been better on cushioning mat at stove then sink that doesn 't have. 04/15/21: pt stated did some cooking for 2 hr stent and pain increased to 7/10 but did sit for shopping to give relief. STG Duration 4 weeks Mcc Goal (LTG) Ira will perform a partial squat to perform light yard work with pain of 3/10 or less . 04/04: pt is doing light yardwork, but continues to have higher levels of pain (6/ 10) LTG Duration PARTIALLY MET Two Impairment HEP Short Term Goal (STG) Ira will be independent and consistent with a HEP for her core stability and flexibility. 04/04/21: supine LTR, TA SLR, fig 4 stretch; STG Duration PARTIALLY MET One Impairment Gait Short Term Goal (STG) Ira will walk for 6 minutes over smooth surfaces with SPC and 5/10 pain or less . 03/28/21: 698 ft using SPC Mod WB into cane, LB and knee just tiring, lateral lower leg muscle 6/10 but not limiting. 04/15/21: progressinMWT 803 ft using SPC with just little tweaking in LB not pain. STG Duration 4 weeks Mcc Goal (LTG) Ira will walk in the community with her SPC over slightly uneven terrain (grass , gravel) for 10 minutes with 5/10 pain or less. LTG Duration PARTIALLY MET: pain levels remain high, partially due to foot issues Progress Towards Goals Progress Towards Goals Progressing Toward Goals Assessment Summary Assessment Pt has improved HEP tolerance. She has good postural control with proper set up for sup exercises. Fatigues quickly with standing therex and leg press. Physical Therapy Plan Frequency and Duration Frequency of Treatment 2x/Week Duration of Treatment 8 weeks Plan of Care Start Date 04/04/21 Plan of Care End Date 05/30/21 Next Visit Focus/Plan Next Note Type Progress Note Next Visit Plan Assess core strengthening and progressed endurance walking, increase volume of HEP
--- NOTE | 2021-04-30 15:20 | PT.OTN ---
Current Diagnoses Sciatica, unspecified side (04/30/21) Physical Therapy Treatment Note PT-OP-A Visit Information Start: 01/28/21 10:10 Freq: Status: Active Protocol: Document 04/30/21 12:45 AMB (Rec: 04/30/21 13:29 AMB [id number]) Out-Patient Physical Therapy Visit Information Visit Information Visit Type Treatment Note Visit Start Time 12:45 Visit Stop Time 13:30 Total Visit Minutes 45 Visit Number 24 PT-OP-B Current Condition Start: 01/28/21 10:10 Freq: Status: Active Protocol: Document 01/28/21 13:30 AMB (Rec: 01/28/21 13:49 AMB [id number]) Current Condition History of Current Condition Onset Date 5 months ago Current Complaints L>R sciatica History of Current Condition L>R pain 5 months, tingly going down lateral leg. Irritated by bending/lifting/ standing. Gardening, cooking/ cleaning. Had been doing water aerobics and that was really helpful, but got a MRSA infection in her foot, and hasn't been doing as much because of Covid. Has not had lumbar Xray. Did have previous physical therapy which was helpful. Treatment Goals Patient/Caregiver Goals Reduce pain Prior Functional Status Baseline Function- ADL's Independent Baseline Function- Mobility Independent Current Functional Impairments (Reported) Functional Limitations- ADL's Difficulty standing, bending, gardening, walking due to pain Personal Factors Other Personal Factors That May Effect Prior hx of shingles on face Therapy/Recovery years ago, DMII, current hernia, hypothyroid PT-OP-C Subjective Start: 01/28/21 10:10 Freq: Status: Active Protocol: Document 04/30/21 12:45 AMB (Rec: 04/30/21 13:29 AMB [id number]) OP-PT Subjective Patient Comments Patient Comments Pt reports she somehow got headlice and that is why she had to cancel. PT-OP-G Mobility & Gait Start: 01/28/21 10:10 Freq: Status: Active Protocol: Document 01/28/21 13:30 AMB (Rec: 01/29/21 10:02 AMB [id number]) OP Gait Assessment Comments Gait Comments Ambulates with SPC,significant Trendelenburg gait pattern without SPC and mild with SPC PT-OP-J Posture/Palpation/Skin Start: 01/28/21 10:10 Freq: Status: Active Protocol: Document 01/28/21 13:30 AMB (Rec: 01/29/21 10:02 AMB [id number]) Palpation Assessment Location One Palpation Location low back/left hip Palpation Details Tenderness at soft tissue throughout paraspinals, greater trochanter PT-OP-K Range of Motion Start: 01/28/21 10:10 Freq: Status: Active Protocol: Document 01/28/21 13:30 AMB (Rec: 01/29/21 10:02 AMB [id number]) Lumbar Spine Range of Motion Lumbar Spine Active Degrees Testing Position Standing Flexion 50 Extension 20 Lateral Flexion Left 10 Lateral Flexion Right 15 ROM Limitations Pain Comments Painful with sidebending L PT-OP-M Strength Start: 01/28/21 10:10 Freq: Status: Active Protocol: Document 01/28/21 13:30 AMB (Rec: 01/29/21 10:10 AMB [id number]) Hip Strength Hip Manual Muscle Testing Right Flexion (L2) 4 Good Extension (S1) 4- Good- Abduction 3- Fair- Left Flexion (L2) 4 Good Extension (S1) 4- Good- Abduction 3- Fair- Comments pain with hip flexion Knee Strength Knee Manual Muscle Testing Right Flexion (S2) 5 Normal Extension (L3) 5 Normal Left Flexion (S2) 4 Good Extension (L3) 4+ Good+ Comments pain with knee flexion Ankle/Foot Strength Ankle and Foot Manual Muscle Testing Right Dorsiflexion (L4) 4+ Good+ Plantarflexion (S1) 4 Good Left Dorsiflexion (L4) 4+ Good+ Plantarflexion (S1) 4 Good PT-OP-Q Treatments Start: 01/28/21 10:10 Freq: Status: Active Protocol: Document 04/30/21 12:45 AMB (Rec: 04/30/21 15:19 AMB [id number]) Cardio Equipment Recumbent Stepper (Sci-Fit) Duration (Minutes) 10 Resistance 4 Seat Position 11 Gym Equipment Shuttle Recovery Bilateral Squats Resistance 62# Shuttle Recovery Platform Stable Reps/Time 3 x 15 reps Therapeutic Exercises Sidelying Exercises 1 Sidelying Exercise Name Clamshell Side left Reps/Minutes 15 reps x 2 Comments #3tband Manual Therapy Treatment Soft Tissue Mobilization 1 Body Location left piriformis and gluteal region Mobilization Type Cross-Friction,Myofascial Release Body Position right SL PT-OP-R Modalities Start: 01/28/21 10:10 Freq: Status: Active Protocol: Document 04/30/21 13:15 AMB (Rec: 04/30/21 15:20 AMB [id number]) Electric Stimulation Electric Stimulation Interferential Current (IFC) Body Location L gluteals & paraspinal Duration (Minutes) 10 Patient Position Sitting Combined With Heat/Cold Hot Pack Comments good feedback results PT-OP-T Assessment and Plan Start: 01/28/21 10:10 Freq: Status: Active Protocol: Document 04/30/21 12:45 AMB (Rec: 04/30/21 13:29 AMB [id number]) Physical Therapy Assessment Assessment Summary Assessment Pt had not been able to exercise as much and is feeling the effects of that, is determined to return to exercise this week. Physical Therapy Plan Next Visit Focus/Plan Next Note Type Progress Note Next Visit Plan Assess core strengthening and progressed endurance walking, increase volume of HEP
--- NOTE | 2021-05-06 15:40 | PT.OTN ---
Current Diagnoses Sciatica, unspecified side (05/06/21) Physical Therapy Treatment Note PT-OP-A Visit Information Start: 01/28/21 10:10 Freq: Status: Active Protocol: Document 05/06/21 12:45 AMB (Rec: 05/06/21 13:34 AMB [id number]) Out-Patient Physical Therapy Visit Information Visit Information Visit Type Treatment Note Visit Start Time 12:45 Visit Stop Time 13:30 Total Visit Minutes 45 Visit Number 25 PT-OP-B Current Condition Start: 01/28/21 10:10 Freq: Status: Active Protocol: Document 01/28/21 13:30 AMB (Rec: 01/28/21 13:49 AMB [id number]) Current Condition History of Current Condition Onset Date 5 months ago Current Complaints L>R sciatica History of Current Condition L>R pain 5 months, tingly going down lateral leg. Irritated by bending/lifting/ standing. Gardening, cooking/ cleaning. Had been doing water aerobics and that was really helpful, but got a MRSA infection in her foot, and hasn't been doing as much because of Covid. Has not had lumbar Xray. Did have previous physical therapy which was helpful. Treatment Goals Patient/Caregiver Goals Reduce pain Prior Functional Status Baseline Function- ADL's Independent Baseline Function- Mobility Independent Current Functional Impairments (Reported) Functional Limitations- ADL's Difficulty standing, bending, gardening, walking due to pain Personal Factors Other Personal Factors That May Effect Prior hx of shingles on face Therapy/Recovery years ago, DMII, current hernia, hypothyroid PT-OP-C Subjective Start: 01/28/21 10:10 Freq: Status: Active Protocol: Document 05/06/21 12:45 AMB (Rec: 05/06/21 15:37 AMB [id number]) OP-PT Subjective Patient Comments Patient Comments Pt is still noticing some knee pain with gait, she has been pulling on the hose while walking on uneven terrain. PT-OP-E Functional Tests Start: 01/28/21 10:10 Freq: Status: Active Protocol: Document 05/06/21 15:32 AMB (Rec: 05/06/21 15:32 AMB [id number]) Functional Tests 6 Minute Walk Test Distance 743 Device Used SPC PT-OP-G Mobility & Gait Start: 01/28/21 10:10 Freq: Status: Active Protocol: Document 01/28/21 13:30 AMB (Rec: 01/29/21 10:02 AMB [id number]) OP Gait Assessment Comments Gait Comments Ambulates with SPC,significant Trendelenburg gait pattern without SPC and mild with SPC PT-OP-J Posture/Palpation/Skin Start: 01/28/21 10:10 Freq: Status: Active Protocol: Document 01/28/21 13:30 AMB (Rec: 01/29/21 10:02 AMB [id number]) Palpation Assessment Location One Palpation Location low back/left hip Palpation Details Tenderness at soft tissue throughout paraspinals, greater trochanter PT-OP-K Range of Motion Start: 01/28/21 10:10 Freq: Status: Active Protocol: Document 01/28/21 13:30 AMB (Rec: 01/29/21 10:02 AMB [id number]) Lumbar Spine Range of Motion Lumbar Spine Active Degrees Testing Position Standing Flexion 50 Extension 20 Lateral Flexion Left 10 Lateral Flexion Right 15 ROM Limitations Pain Comments Painful with sidebending L PT-OP-M Strength Start: 01/28/21 10:10 Freq: Status: Active Protocol: Document 01/28/21 13:30 AMB (Rec: 01/29/21 10:10 AMB [id number]) Hip Strength Hip Manual Muscle Testing Right Flexion (L2) 4 Good Extension (S1) 4- Good- Abduction 3- Fair- Left Flexion (L2) 4 Good Extension (S1) 4- Good- Abduction 3- Fair- Comments pain with hip flexion Knee Strength Knee Manual Muscle Testing Right Flexion (S2) 5 Normal Extension (L3) 5 Normal Left Flexion (S2) 4 Good Extension (L3) 4+ Good+ Comments pain with knee flexion Ankle/Foot Strength Ankle and Foot Manual Muscle Testing Right Dorsiflexion (L4) 4+ Good+ Plantarflexion (S1) 4 Good Left Dorsiflexion (L4) 4+ Good+ Plantarflexion (S1) 4 Good PT-OP-Q Treatments Start: 01/28/21 10:10 Freq: Status: Active Protocol: Document 05/06/21 12:45 AMB (Rec: 05/06/21 15:37 AMB [id number]) Cardio Equipment Recumbent Stepper (Sci-Fit) Duration (Minutes) 10 Resistance 4 Seat Position 11 Gym Equipment Shuttle Recovery Bilateral Squats Resistance 62# Shuttle Recovery Platform Stable Reps/Time 3 x 15 reps Gait Training Gait Activity spc Device Used SPC (Mod WB on cane) Level of Assistance S Surface firm Distance/Duration 6MWT= 743 Treatment Focus level pelvis, only RUE support as needed. Comments Pt stated mostly tiring and increase RUE pressure on SPC. Manual Therapy Treatment Soft Tissue Mobilization 1 Body Location left piriformis and gluteal region Mobilization Type Cross-Friction,Myofascial Release Body Position right SL PT-OP-R Modalities Start: 01/28/21 10:10 Freq: Status: Active Protocol: Document 04/30/21 13:15 AMB (Rec: 04/30/21 15:20 AMB [id number]) Electric Stimulation Electric Stimulation Interferential Current (IFC) Body Location L gluteals & paraspinal Duration (Minutes) 10 Patient Position Sitting Combined With Heat/Cold Hot Pack Comments good feedback results PT-OP-T Assessment and Plan Start: 01/28/21 10:10 Freq: Status: Active Protocol: Document 05/06/21 12:45 AMB (Rec: 05/06/21 13:34 AMB [id number]) Physical Therapy Assessment Goals Three Impairment Functional activities Short Term Goal (STG) 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 STG Duration MET Assistant Pressman Goal (LTG) Ira will perform a partial squat to perform light yard work with pain of 3/10 or less . 04/04: pt is doing light yardwork, but continues to have higher levels of pain (6/ 10) LTG Duration PARTIALLY MET Two Impairment HEP Short Term Goal (STG) Ira will be independent and consistent with a HEP for her core stability and flexibility. 04/04/21: supine LTR, TA SLR, fig 4 stretch; STG Duration PARTIALLY MET One Impairment Gait Short Term Goal (STG) Ira will walk for 6 minutes over smooth surfaces with SPC and 5/10 pain or less . 03/28/21: 698 ft using SPC Mod WB into cane, LB and knee just tiring, lateral lower leg muscle 6/10 but not limiting. 04/15/21: progressinMWT 803 ft using SPC with just little tweaking in LB not pain. STG Duration 4 weeks Assistant Pressman Goal (LTG) Ira will walk in the community with her SPC over slightly uneven terrain (grass , gravel) for 10 minutes with 5/10 pain or less. LTG Duration PARTIALLY MET: pain levels remain high Assessment Summary Assessment Amy has improved in some regards but had a bit of a flare up in the last week with her knee pain and her walking was not as good as it has been (although still improved from baseline when first evaluated). Physical Therapy Plan Next Visit Focus/Plan Next Note Type Treatment Note Next Visit Plan increase volume of HEP
--- NOTE | 2021-05-09 13:02 | PT.OTN ---
Current Diagnoses Sciatica, unspecified side (05/09/21) Physical Therapy Treatment Note PT-OP-A Visit Information Start: 01/28/21 10:10 Freq: Status: Active Protocol: Document 05/09/21 12:17 SP (Rec: 05/09/21 15:36 SP [id number]) Out-Patient Physical Therapy Visit Information Visit Information Visit Type Treatment Note Visit Start Time 12:17 Visit Stop Time 13:02 Total Visit Minutes 45 Visit Number 26 Number of PATIENT SERVICE SPECIALIST Visits 1 Precautions Precautions Previous precaution assess vitals, BP with activity. PT-OP-B Current Condition Start: 01/28/21 10:10 Freq: Status: Active Protocol: Document 01/28/21 13:30 AMB (Rec: 01/28/21 13:49 AMB [id number]) Current Condition History of Current Condition Onset Date 5 months ago Current Complaints L>R sciatica History of Current Condition L>R pain 5 months, tingly going down lateral leg. Irritated by bending/lifting/ standing. Gardening, cooking/ cleaning. Had been doing water aerobics and that was really helpful, but got a MRSA infection in her foot, and hasn't been doing as much because of Covid. Has not had lumbar Xray. Did have previous physical therapy which was helpful. Treatment Goals Patient/Caregiver Goals Reduce pain Prior Functional Status Baseline Function- ADL's Independent Baseline Function- Mobility Independent Current Functional Impairments (Reported) Functional Limitations- ADL's Difficulty standing, bending, gardening, walking due to pain Personal Factors Other Personal Factors That May Effect Prior hx of shingles on face Therapy/Recovery years ago, DMII, current hernia, hypothyroid PT-OP-C Subjective Start: 01/28/21 10:10 Freq: Status: Active Protocol: Document 05/09/21 12:17 SP (Rec: 05/09/21 15:36 SP [id number]) OP-PT Subjective Patient Comments Patient Comments Pt stated had a good work out last tx. Her leg has been sore past few days and shopping has been painful so having groceries delivered to her car lately. Patient Reported Progress Same PT-OP-E Functional Tests Start: 01/28/21 10:10 Freq: Status: Active Protocol: Document 05/06/21 15:32 AMB (Rec: 05/06/21 15:32 AMB [id number]) Functional Tests 6 Minute Walk Test Distance 743 Device Used SPC PT-OP-G Mobility & Gait Start: 01/28/21 10:10 Freq: Status: Active Protocol: Document 01/28/21 13:30 AMB (Rec: 01/29/21 10:02 AMB [id number]) OP Gait Assessment Comments Gait Comments Ambulates with SPC,significant Trendelenburg gait pattern without SPC and mild with SPC PT-OP-J Posture/Palpation/Skin Start: 01/28/21 10:10 Freq: Status: Active Protocol: Document 01/28/21 13:30 AMB (Rec: 01/29/21 10:02 AMB [id number]) Palpation Assessment Location One Palpation Location low back/left hip Palpation Details Tenderness at soft tissue throughout paraspinals, greater trochanter PT-OP-K Range of Motion Start: 01/28/21 10:10 Freq: Status: Active Protocol: Document 01/28/21 13:30 AMB (Rec: 01/29/21 10:02 AMB [id number]) Lumbar Spine Range of Motion Lumbar Spine Active Degrees Testing Position Standing Flexion 50 Extension 20 Lateral Flexion Left 10 Lateral Flexion Right 15 ROM Limitations Pain Comments Painful with sidebending L PT-OP-M Strength Start: 01/28/21 10:10 Freq: Status: Active Protocol: Document 01/28/21 13:30 AMB (Rec: 01/29/21 10:10 AMB [id number]) Hip Strength Hip Manual Muscle Testing Right Flexion (L2) 4 Good Extension (S1) 4- Good- Abduction 3- Fair- Left Flexion (L2) 4 Good Extension (S1) 4- Good- Abduction 3- Fair- Comments pain with hip flexion Knee Strength Knee Manual Muscle Testing Right Flexion (S2) 5 Normal Extension (L3) 5 Normal Left Flexion (S2) 4 Good Extension (L3) 4+ Good+ Comments pain with knee flexion Ankle/Foot Strength Ankle and Foot Manual Muscle Testing Right Dorsiflexion (L4) 4+ Good+ Plantarflexion (S1) 4 Good Left Dorsiflexion (L4) 4+ Good+ Plantarflexion (S1) 4 Good PT-OP-Q Treatments Start: 01/28/21 10:10 Freq: Status: Active Protocol: Document 05/09/21 12:17 SP (Rec: 05/09/21 15:36 SP [id number]) Cardio Equipment Recumbent Stepper (Sci-Fit) Duration (Minutes) 10 Resistance 4 Seat Position 11 Other RPMs 40-45, METs 3.4, 1.26 miles Therapeutic Exercises Supine Exercises LTR Side bilateral Equipment Used feet over 55cm Tball (same ball at home) Reps/Minutes x20 side to side Comments cues slower pacing and pelvic stability SLR hip flexion Supine Exercise Name PPT better tolerance Side bilateral Resistance AROM Reps/Minutes 2x10 Comments good slow pacing, TA facilitation, quad & core facilitation Sitting Exercises Hs stretch Sitting Exercise Name added to HEP for sit flexibilitiy Side bilateral Reps/Minutes 20 each LE Comments good stretch to hip pirformis stretch Sitting Exercise Name added to HEP for sit flexibilitiy Side bilateral Reps/Minutes 20 each side Comments good stretch to hip trunk flexion TB Sitting Exercise Name added to HEP Resistance TB #1 Equipment Used hold band front shlds/arms rest on trunk Reps/Minutes 2x10 Comments cued tall posture, no UT recuitment- painfree range- good response trunk rotation Sitting Exercise Name pain free today Side bilateral Resistance TB #1 Equipment Used in chair Comments good form 2 Sitting Exercise Name Sit-stands Side bilateral Resistance active Reps/Minutes 2 x 10 reps Comments arms across chest 1 Sitting Exercise Name Hip Abduction Side bilateral Resistance L2 exercise band Reps/Minutes 2 x 10 reps Gait Training Gait Activity spc Device Used SPC (contact to 15% WB on cane) in RUE Level of Assistance S Surface firm Distance/Duration 6MWT= 818.8 Treatment Focus level pelvis, only RUE support as needed. Comments Pt stated mostly tiring , 1 stop stand brief rest break. 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 STG Duration MET Rn New Graduate Goal (LTG) Ira will perform a partial squat to perform light yard work with pain of 3/10 or less . 04/04: pt is doing light yardwork, but continues to have higher levels of pain (6/ 10) LTG Duration PARTIALLY MET Two Impairment HEP Short Term Goal (STG) Ira will be independent and consistent with a HEP for her core stability and flexibility. 04/04/21: supine LTR, TA SLR, fig 4 stretch; STG Duration PARTIALLY MET One Impairment Gait Short Term Goal (STG) Ira will walk for 6 minutes over smooth surfaces with SPC and 5/10 pain or less . 03/28/21: 698 ft using SPC Mod WB into cane, LB and knee just tiring, lateral lower leg muscle 6/10 but not limiting. 04/15/21: progressinMWT 803 ft using SPC with just little tweaking in LB not pain. STG Duration 4 weeks Rn New Graduate Goal (LTG) Ira will walk in the community with her SPC over slightly uneven terrain (grass , gravel) for 10 minutes with 5/10 pain or less. LTG Duration PARTIALLY MET: pain levels remain high Assessment Summary Assessment Pt stated L leg sore past few days unable to complete store grocery trip. Good hard work this tx focused on core, strengthening, flexibility and gait endurance. Pt was able to increase distance gait 75 ft which included 1 brief ( approx 5-10 sec) standing rest recovery due to tiring and slight increase in breath rate , little increase L hip tightness but relieved end tx seated stretching. Physical Therapy Plan Frequency and Duration Frequency of Treatment 2x/Week Duration of Treatment 8 weeks Plan of Care Start Date 04/04/21 Plan of Care End Date 05/30/21 Therapeutic Interventions Therapeutic Interventions Gait Training,Home Exercise Program,Manual Therapy, Neuromuscular Re-education, Self-Care/Home Management,Soft Tissue Mobilization, Therapeutic Activities, Therapeutic Exercises Modalities Cold Pack/Ice Massage,Electric Stimulation,Hot Packs Next Visit Focus/Plan Next Note Type Treatment Note Next Visit Plan Ask response to last tx added to trunk flex/ rotation resistance, seated HS, pirform stretching to HEP. POC: increase volume of HEP
--- NOTE | 2021-05-20 11:57 | PT.OTN ---
Current Diagnoses Sciatica, unspecified side (05/20/21) Physical Therapy Treatment Note PT-OP-A Visit Information Start: 01/28/21 10:10 Freq: Status: Active Protocol: Document 05/20/21 11:00 AMB (Rec: 05/20/21 11:19 AMB [id number]) Out-Patient Physical Therapy Visit Information Visit Information Visit Type Treatment Note Visit Start Time 11:00 Visit Stop Time 12:00 Total Visit Minutes 60 Visit Number 27 Number of ACID OPERATOR Visits 0 PT-OP-B Current Condition Start: 01/28/21 10:10 Freq: Status: Active Protocol: Document 01/28/21 13:30 AMB (Rec: 01/28/21 13:49 AMB [id number]) Current Condition History of Current Condition Onset Date 5 months ago Current Complaints L>R sciatica History of Current Condition L>R pain 5 months, tingly going down lateral leg. Irritated by bending/lifting/ standing. Gardening, cooking/ cleaning. Had been doing water aerobics and that was really helpful, but got a MRSA infection in her foot, and hasn't been doing as much because of Covid. Has not had lumbar Xray. Did have previous physical therapy which was helpful. Treatment Goals Patient/Caregiver Goals Reduce pain Prior Functional Status Baseline Function- ADL's Independent Baseline Function- Mobility Independent Current Functional Impairments (Reported) Functional Limitations- ADL's Difficulty standing, bending, gardening, walking due to pain Personal Factors Other Personal Factors That May Effect Prior hx of shingles on face Therapy/Recovery years ago, DMII, current hernia, hypothyroid PT-OP-C Subjective Start: 01/28/21 10:10 Freq: Status: Active Protocol: Document 05/20/21 11:00 AMB (Rec: 05/20/21 11:56 AMB [id number]) OP-PT Subjective Patient Comments Patient Comments Pt reports [place] [employer] and that went well. PT-OP-E Functional Tests Start: 01/28/21 10:10 Freq: Status: Active Protocol: Document 05/06/21 15:32 AMB (Rec: 05/06/21 15:32 AMB [id number]) Functional Tests 6 Minute Walk Test Distance 743 Device Used SPC PT-OP-G Mobility & Gait Start: 01/28/21 10:10 Freq: Status: Active Protocol: Document 01/28/21 13:30 AMB (Rec: 01/29/21 10:02 AMB [id number]) OP Gait Assessment Comments Gait Comments Ambulates with SPC,significant Trendelenburg gait pattern without SPC and mild with SPC PT-OP-J Posture/Palpation/Skin Start: 01/28/21 10:10 Freq: Status: Active Protocol: Document 01/28/21 13:30 AMB (Rec: 01/29/21 10:02 AMB [id number]) Palpation Assessment Location One Palpation Location low back/left hip Palpation Details Tenderness at soft tissue throughout paraspinals, greater trochanter PT-OP-K Range of Motion Start: 01/28/21 10:10 Freq: Status: Active Protocol: Document 01/28/21 13:30 AMB (Rec: 01/29/21 10:02 AMB [id number]) Lumbar Spine Range of Motion Lumbar Spine Active Degrees Testing Position Standing Flexion 50 Extension 20 Lateral Flexion Left 10 Lateral Flexion Right 15 ROM Limitations Pain Comments Painful with sidebending L PT-OP-M Strength Start: 01/28/21 10:10 Freq: Status: Active Protocol: Document 01/28/21 13:30 AMB (Rec: 01/29/21 10:10 AMB [id number]) Hip Strength Hip Manual Muscle Testing Right Flexion (L2) 4 Good Extension (S1) 4- Good- Abduction 3- Fair- Left Flexion (L2) 4 Good Extension (S1) 4- Good- Abduction 3- Fair- Comments pain with hip flexion Knee Strength Knee Manual Muscle Testing Right Flexion (S2) 5 Normal Extension (L3) 5 Normal Left Flexion (S2) 4 Good Extension (L3) 4+ Good+ Comments pain with knee flexion Ankle/Foot Strength Ankle and Foot Manual Muscle Testing Right Dorsiflexion (L4) 4+ Good+ Plantarflexion (S1) 4 Good Left Dorsiflexion (L4) 4+ Good+ Plantarflexion (S1) 4 Good PT-OP-Q Treatments Start: 01/28/21 10:10 Freq: Status: Active Protocol: Document 05/20/21 11:00 AMB (Rec: 05/20/21 11:56 AMB [id number]) Cardio Equipment Recumbent Stepper (Sci-Fit) Duration (Minutes) 10 Resistance 4 Seat Position 11 Manual Therapy Treatment Soft Tissue Mobilization 1 Body Location left piriformis and gluteal region Mobilization Type Cross-Friction,Myofascial Release Body Position right SL PT-OP-R Modalities Start: 01/28/21 10:10 Freq: Status: Active Protocol: Document 04/30/21 13:15 AMB (Rec: 04/30/21 15:20 AMB [id number]) Electric Stimulation Electric Stimulation Interferential Current (IFC) Body Location L gluteals & paraspinal Duration (Minutes) 10 Patient Position Sitting Combined With Heat/Cold Hot Pack Comments good feedback results PT-OP-T Assessment and Plan Start: 01/28/21 10:10 Freq: Status: Active Protocol: Document 05/20/21 11:00 AMB (Rec: 05/20/21 11:19 AMB [id number]) Physical Therapy Assessment Goals Three Impairment Functional activities Short Term Goal (STG) 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 STG Duration MET Alf Goal (LTG) Ira will perform a partial squat to perform light yard work with pain of 3/10 or less . 04/04: pt is doing light yardwork, but continues to have higher levels of pain (6/ 10) LTG Duration PARTIALLY MET Two Impairment HEP Short Term Goal (STG) Ira will be independent and consistent with a HEP for her core stability and flexibility. 04/04/21: supine LTR, TA SLR, fig 4 stretch; STG Duration PARTIALLY MET One Impairment Gait Short Term Goal (STG) Ira will walk for 6 minutes over smooth surfaces with SPC and 5/10 pain or less . 03/28/21: 698 ft using SPC Mod WB into cane, LB and knee just tiring, lateral lower leg muscle 6/10 but not limiting. 04/15/21: progressinMWT 803 ft using SPC with just little tweaking in LB not pain. STG Duration 4 weeks Diesel Motor Mechanic Goal (LTG) Ira will walk in the community with her SPC over slightly uneven terrain (grass , gravel) for 10 minutes with 5/10 pain or less. LTG Duration PARTIALLY MET: pain levels remain high Assessment Summary Assessment Pt was able [place] walk [place] [employer] and felt pretty good with that, although a bit stiff afterwards. Physical Therapy Plan Next Visit Focus/Plan Next Note Type Treatment Note Next Visit Plan Ask response to last tx added to trunk flex/ rotation resistance, seated HS, pirform stretching to HEP. POC: increase volume of HEP
--- NOTE | 2021-05-28 15:16 | PT.OTN ---
Current Diagnoses Sciatica, unspecified side (05/28/21) Physical Therapy Treatment Note PT-OP-A Visit Information Start: 01/28/21 10:10 Freq: Status: Active Protocol: Document 05/28/21 13:30 AMB (Rec: 05/28/21 14:20 AMB [id number]) Out-Patient Physical Therapy Visit Information Visit Information Visit Type Treatment Note Visit Start Time 13:30 Visit Stop Time 14:15 Total Visit Minutes 45 Visit Number 28 Number of KNIT GOODS PRESS HAND Visits 0 PT-OP-B Current Condition Start: 01/28/21 10:10 Freq: Status: Active Protocol: Document 01/28/21 13:30 AMB (Rec: 01/28/21 13:49 AMB [id number]) Current Condition History of Current Condition Onset Date 5 months ago Current Complaints L>R sciatica History of Current Condition L>R pain 5 months, tingly going down lateral leg. Irritated by bending/lifting/ standing. Gardening, cooking/ cleaning. Had been doing water aerobics and that was really helpful, but got a MRSA infection in her foot, and hasn't been doing as much because of Covid. Has not had lumbar Xray. Did have previous physical therapy which was helpful. Treatment Goals Patient/Caregiver Goals Reduce pain Prior Functional Status Baseline Function- ADL's Independent Baseline Function- Mobility Independent Current Functional Impairments (Reported) Functional Limitations- ADL's Difficulty standing, bending, gardening, walking due to pain Personal Factors Other Personal Factors That May Effect Prior hx of shingles on face Therapy/Recovery years ago, DMII, current hernia, hypothyroid PT-OP-C Subjective Start: 01/28/21 10:10 Freq: Status: Active Protocol: Document 05/28/21 13:30 AMB (Rec: 05/28/21 14:20 AMB [id number]) OP-PT Subjective Patient Comments Patient Comments Pt reports her hip is ok as she hasn't been pushing it as much with watering and that hs been helpful for her hip PT-OP-E Functional Tests Start: 01/28/21 10:10 Freq: Status: Active Protocol: Document 05/06/21 15:32 AMB (Rec: 05/06/21 15:32 AMB [id number]) Functional Tests 6 Minute Walk Test Distance 743 Device Used SPC PT-OP-G Mobility & Gait Start: 01/28/21 10:10 Freq: Status: Active Protocol: Document 01/28/21 13:30 AMB (Rec: 01/29/21 10:02 AMB [id number]) OP Gait Assessment Comments Gait Comments Ambulates with SPC,significant Trendelenburg gait pattern without SPC and mild with SPC PT-OP-J Posture/Palpation/Skin Start: 01/28/21 10:10 Freq: Status: Active Protocol: Document 01/28/21 13:30 AMB (Rec: 01/29/21 10:02 AMB [id number]) Palpation Assessment Location One Palpation Location low back/left hip Palpation Details Tenderness at soft tissue throughout paraspinals, greater trochanter PT-OP-K Range of Motion Start: 01/28/21 10:10 Freq: Status: Active Protocol: Document 01/28/21 13:30 AMB (Rec: 01/29/21 10:02 AMB [id number]) Lumbar Spine Range of Motion Lumbar Spine Active Degrees Testing Position Standing Flexion 50 Extension 20 Lateral Flexion Left 10 Lateral Flexion Right 15 ROM Limitations Pain Comments Painful with sidebending L PT-OP-M Strength Start: 01/28/21 10:10 Freq: Status: Active Protocol: Document 01/28/21 13:30 AMB (Rec: 01/29/21 10:10 AMB [email or web address]) Hip Strength Hip Manual Muscle Testing Right Flexion (L2) 4 Good Extension (S1) 4- Good- Abduction 3- Fair- Left Flexion (L2) 4 Good Extension (S1) 4- Good- Abduction 3- Fair- Comments pain with hip flexion Knee Strength Knee Manual Muscle Testing Right Flexion (S2) 5 Normal Extension (L3) 5 Normal Left Flexion (S2) 4 Good Extension (L3) 4+ Good+ Comments pain with knee flexion Ankle/Foot Strength Ankle and Foot Manual Muscle Testing Right Dorsiflexion (L4) 4+ Good+ Plantarflexion (S1) 4 Good Left Dorsiflexion (L4) 4+ Good+ Plantarflexion (S1) 4 Good PT-OP-Q Treatments Start: 01/28/21 10:10 Freq: Status: Active Protocol: Document 05/28/21 13:30 AMB (Rec: 05/28/21 14:20 AMB [id number]) Cardio Equipment Recumbent Stepper (Sci-Fit) Duration (Minutes) 10 Resistance 4 Seat Position 11 Gym Equipment Shuttle Recovery Bilateral Squats Resistance 62# Shuttle Recovery Platform Stable Reps/Time 3 x 15 reps Therapeutic Exercises Sitting Exercises Hs stretch Sitting Exercise Name added to HEP for sit flexibilitiy Side bilateral Reps/Minutes 20 each LE Comments good stretch to hip pirformis stretch Sitting Exercise Name added to HEP for sit flexibilitiy Side bilateral Reps/Minutes 20 each side Comments good stretch to hip seated resisted shld ext/ pull downs Sitting Exercise Name HEP review Resistance Tb #2 Reps/Minutes 2x10 Comments cued tall posture, scap stab, neutral CS, TA facil resisted rows Sitting Exercise Name HEP review Resistance Tb #3 Reps/Minutes 2x10 Comments cued tall posture, scap stab, neutral CS, TA facil Manual Therapy Treatment Soft Tissue Mobilization 1 Body Location left piriformis and gluteal region Mobilization Type Cross-Friction,Myofascial Release Body Position right SL PT-OP-R Modalities Start: 01/28/21 10:10 Freq: Status: Active Protocol: Document 04/30/21 13:15 AMB (Rec: 04/30/21 15:20 AMB [id number]) Electric Stimulation Electric Stimulation Interferential Current (IFC) Body Location L gluteals & paraspinal Duration (Minutes) 10 Patient Position Sitting Combined With Heat/Cold Hot Pack Comments good feedback results PT-OP-T Assessment and Plan Start: 01/28/21 10:10 Freq: Status: Active Protocol: Document 05/28/21 13:30 AMB (Rec: 05/28/21 14:20 AMB [id number]) Physical Therapy Assessment Goals Three Impairment Functional activities Short Term Goal (STG) 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 STG Duration MET Manufacturing Industrial Engineer Goal (LTG) Ira will perform a partial squat to perform light yard work with pain of 3/10 or less . 04/04: pt is doing light yardwork, but continues to have higher levels of pain (6/ 10) LTG Duration PARTIALLY MET Two Impairment HEP Short Term Goal (STG) Ira will be independent and consistent with a HEP for her core stability and flexibility. 04/04/21: supine LTR, TA SLR, fig 4 stretch; STG Duration PARTIALLY MET One Impairment Gait Short Term Goal (STG) Ira will walk for 6 minutes over smooth surfaces with SPC and 5/10 pain or less . 03/28/21: 698 ft using SPC Mod WB into cane, LB and knee just tiring, lateral lower leg muscle 6/10 but not limiting. 04/15/21: progressinMWT 803 ft using SPC with just little tweaking in LB not pain. STG Duration 4 weeks Manufacturing Industrial Engineer Goal (LTG) Ira will walk in the community with her SPC over slightly uneven terrain (grass , gravel) for 10 minutes with 5/10 pain or less. LTG Duration PARTIALLY MET: pain levels remain high Assessment Summary Assessment Amy fatigued quickly with theraband exercises, would continue to benefit from those . Progress core stabilization as tolerated. Physical Therapy Plan Frequency and Duration Frequency of Treatment 2x/Week Duration of Treatment 8 weeks Plan of Care Start Date 04/04/21 Plan of Care End Date 05/30/21 Therapeutic Interventions Therapeutic Interventions Gait Training,Home Exercise Program,Manual Therapy, Neuromuscular Re-education, Self-Care/Home Management,Soft Tissue Mobilization, Therapeutic Activities, Therapeutic Exercises Modalities Cold Pack/Ice Massage,Electric Stimulation,Hot Packs Next Visit Focus/Plan Next Note Type Treatment Note Next Visit Plan REassess rows, t band shoulder extension
--- NOTE | 2021-06-09 07:56 | PT.OPDS ---
Current Diagnoses Sciatica, unspecified side (05/28/21) Visit Care Team Role Provider Type Lyly Clancy PA-C Attending Provider Non-Staff Primary Care Provider Referring Provider Specialty: Internal Medicine Address: [address] [place] [address], [id number] Email: [email or web address] Visit Number Visit Number 28 Discharge Summary PT-OP-B Current Condition Start: 01/28/21 10:10 Freq: Status: Active Protocol: Document 01/28/21 13:30 AMB (Rec: 01/28/21 13:49 AMB [id number]) Current Condition History of Current Condition Onset Date 5 months ago Current Complaints L>R sciatica History of Current Condition L>R pain 5 months, tingly going down lateral leg. Irritated by bending/lifting/ standing. Gardening, cooking/ cleaning. Had been doing water aerobics and that was really helpful, but got a MRSA infection in her foot, and hasn't been doing as much because of Covid. Has not had lumbar Xray. Did have previous physical therapy which was helpful. Treatment Goals Patient/Caregiver Goals Reduce pain Prior Functional Status Baseline Function- ADL's Independent Baseline Function- Mobility Independent Current Functional Impairments (Reported) Functional Limitations- ADL's Difficulty standing, bending, gardening, walking due to pain Personal Factors Other Personal Factors That May Effect Prior hx of shingles on face Therapy/Recovery years ago, DMII, current hernia, hypothyroid PT-OP-C Subjective Start: 01/28/21 10:10 Freq: Status: Active Protocol: Document 05/28/21 13:30 AMB (Rec: 05/28/21 14:20 AMB [id number]) OP-PT Subjective Patient Comments Patient Comments Pt reports her hip is ok as she hasn't been pushing it as much with watering and that hs been helpful for her hip PT-OP-E Functional Tests Start: 01/28/21 10:10 Freq: Status: Active Protocol: Document 05/06/21 15:32 AMB (Rec: 05/06/21 15:32 AMB [id number]) Functional Tests 6 Minute Walk Test Distance 743 Device Used SPC PT-OP-G Mobility & Gait Start: 01/28/21 10:10 Freq: Status: Active Protocol: Document 01/28/21 13:30 AMB (Rec: 01/29/21 10:02 AMB [id number]) OP Gait Assessment Comments Gait Comments Ambulates with SPC,significant Trendelenburg gait pattern without SPC and mild with SPC PT-OP-J Posture/Palpation/Skin Start: 01/28/21 10:10 Freq: Status: Active Protocol: Document 01/28/21 13:30 AMB (Rec: 01/29/21 10:02 AMB [id number]) Palpation Assessment Location One Palpation Location low back/left hip Palpation Details Tenderness at soft tissue throughout paraspinals, greater trochanter PT-OP-K Range of Motion Start: 01/28/21 10:10 Freq: Status: Active Protocol: Document 01/28/21 13:30 AMB (Rec: 01/29/21 10:02 AMB [id number]) Lumbar Spine Range of Motion Lumbar Spine Active Degrees Testing Position Standing Flexion 50 Extension 20 Lateral Flexion Left 10 Lateral Flexion Right 15 ROM Limitations Pain Comments Painful with sidebending L PT-OP-M Strength Start: 01/28/21 10:10 Freq: Status: Active Protocol: Document 01/28/21 13:30 AMB (Rec: 01/29/21 10:10 AMB [email or web address]) Hip Strength Hip Manual Muscle Testing Right Flexion (L2) 4 Good Extension (S1) 4- Good- Abduction 3- Fair- Left Flexion (L2) 4 Good Extension (S1) 4- Good- Abduction 3- Fair- Comments pain with hip flexion Knee Strength Knee Manual Muscle Testing Right Flexion (S2) 5 Normal Extension (L3) 5 Normal Left Flexion (S2) 4 Good Extension (L3) 4+ Good+ Comments pain with knee flexion Ankle/Foot Strength Ankle and Foot Manual Muscle Testing Right Dorsiflexion (L4) 4+ Good+ Plantarflexion (S1) 4 Good Left Dorsiflexion (L4) 4+ Good+ Plantarflexion (S1) 4 Good PT-OP-T Assessment and Plan Start: 01/28/21 10:10 Freq: Status: Active Protocol: Document 06/09/21 07:47 AMB (Rec: 06/09/21 07:56 AMB [id number]) Physical Therapy Assessment Goals Three Impairment Functional activities Short Term Goal (STG) 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 STG Duration MET Dental Specialist Goal (LTG) Ira will perform a partial squat to perform light yard work with pain of 3/10 or less . 04/04: pt is doing light yardwork, but continues to have higher levels of pain (6/ 10) LTG Duration PARTIALLY MET Two Impairment HEP Short Term Goal (STG) Ira will be independent and consistent with a HEP for her core stability and flexibility. 04/04/21: supine LTR, TA SLR, fig 4 stretch; STG Duration PARTIALLY MET One Impairment Gait Short Term Goal (STG) Ira will walk for 6 minutes over smooth surfaces with SPC and 5/10 pain or less . 03/28/21: 698 ft using SPC Mod WB into cane, LB and knee just tiring, lateral lower leg muscle 6/10 but not limiting. 04/15/21: progressinMWT 803 ft using SPC with just little tweaking in LB not pain. STG Duration 4 weeks Dental Specialist Goal (LTG) Ira will walk in the community with her SPC over slightly uneven terrain (grass , gravel) for 10 minutes with 5/10 pain or less. LTG Duration PARTIALLY MET: pain levels remain high Assessment Summary Assessment Amy called in to cancel her last appointment due to a toe infection. She had met some of her goals, but still needed to work on a community exercise program. Due to her infection and the continuing pandemic she has struggled with how to continue exercising in the community, but should be able to continue with her HEP in the interim. Physical Therapy Plan Discharge Physical Therapy Discharge Reasons Patient Request
== END 2021-06-11 13:21 | disposition home or self-care (01) ==
LOC: PHYS 13:30
PROVIDERS: PCP Student in an Organized Health Care Education/Training Program; Referring Provider Student in an Organized Health Care Education/Training Program; Visit Provider Student in an Organized Health Care Education/Training Program
DX: M54.30 Sciatica, unspecified side (principal)
CPT/HCPCS: 97014; 97110; 97116; 97140; 97161; G0283

== ENCOUNTER 2022-11-07 01:38 | Emergency (ER) | payer MEDICARE, OTHER, SELFPAY ==
[2022-11-07 01:45] VITALS: BP 152/67; PULSE 98; RESP 20; TEMP 36.6; O2SAT 98; BMI 40.7
--- NOTE | 2022-11-07 01:53 | ED_ITS ---
HPI - General Adult General Chief complaint: Nasal Problem Stated complaint: NOSEBLEED Time Seen by Provider: 11/07/22 01:50 Source: patient Mode of arrival: Ambulatory Limitations: no limitations History of Present Illness HPI narrative: 72-year-old female not on anticoagulation who is here for evaluation of a nosebleed. She states that she is had nosebleeds in the past requiring cauterization. This was several years ago. She states she sneezed several times today. Started noticing some blood running down the back of her throat and also down her left nostril. She did put some pressure over the area. It was bleeding EN route. Here in the emergency department things seemed to have stopped/improved. Related Data Home Medications Medication Instructions Recorded Confirmed levothyroxine 25 mcg tablet 125 mcg PO QDAY ##0 07/20/16 (Synthroid) Previous Rx's Medication Instructions Recorded amlodipine 2.5 mg tablet (Norvasc) 2.5 mg PO QDAY #30 tabs 07/20/16 Review of Systems ENT Ears, Nose, Mouth, and Throat: Reports system reviewed and no additional complaints, except as documented Respiratory Respiratory: Reports system reviewed and no additional complaints, except as documented Integumentary/Breasts Skin/Breast: Reports system reviewed and no additional complaints, except as documented Neurologic Neurologic: Reports system reviewed and no additional complaints, except as documented Hematologic/Lymphatic On Anticoagulants: No Patient History Medical History Anterior epistaxis Epistaxis Hypertension Osteoarthritis Social History Smoking Status: Never smoker Smoking Status: Never smoker alcohol intake frequency: 0-2 drinks per day Substance Use Type: does not use Exam Initial Vital Signs Initial Vital Signs: Vital Signs Temperature 97.8 F 11/07/22 01:45 Pulse Rate 98 H 11/07/22 01:45 Respiratory Rate 20 11/07/22 01:45 Blood Pressure 152/67 H 11/07/22 01:45 Pulse Oximetry 98 11/07/22 01:45 Oxygen Delivery Method 11/07/22 01:45 [facility] Head: normal to inspection and normocephalic Nose: external nose normal, nares normal, septum normal, No epistaxis and No nasal discharge Skin General: no rashes or lesions noted Neuro General: patient alert, patient awake and moves all extremities Course Vital Signs Vital signs: Vital Signs - 8 hr 11/07/22 01:45 Temperature 97.8 F Pulse Rate 98 H Respiratory Rate 20 Blood Pressure 152/67 H Pulse Oximetry 98 Oxygen Delivery Method Room Air Medical Decision Making Differential Diagnosis Differential Diagnosis: Septal hematoma, epistaxis, or body come and others MDM Narrative Medical decision making narrative: Patient had no signs of bleeding upon arrival here in the ER. She was observed for approximately 30 minutes without return of the bleeding. There is no septal hematoma. Will send home with a nose clamp and instructions on its use along with Afrin if her symptoms should return. She was given return precautions and follow-up instructions. She expressed understanding and agreement. Discharge Plan Departure Patient Disposition: Home Clinical Impression: Epistaxis Instructions: DI for Nosebleed Activity Restrictions/Additional Instructions: Continue to take all of your medications as directed. Use the nasal clamp and Afrin like we discussed if your nose starts to bleed again. Return to the emergency department for any new symptoms. Prescriptions: No Action levothyroxine [Synthroid] 25 MCG tablet 125 mcg PO QDAY Qty: 0 amlodipine [Norvasc] 2.5 MG tablet 2.5 mg PO QDAY Qty: 30 0RF Referrals: Lyly Clancy PA-C [Primary Care Provider] - Stand Alone Forms: Patient Portal/API
[2022-11-07 02:37] VITALS: BP 150/66; PULSE 92; RESP 20; O2SAT 95
== END 2022-11-07 02:38 | disposition home or self-care (01) ==
PROVIDERS: Emergency Provider Emergency Medicine; PCP Student in an Organized Health Care Education/Training Program
DX: R04.0 Epistaxis (principal)
CPT/HCPCS: 99281

== ENCOUNTER 2023-02-02 11:39 | Day surgery (SDC) | payer MEDICARE, OTHER, SELFPAY ==
[2023-02-02] MEDS: LACTATED RINGERS 1,000 ML 200 ML IV (11:56)
[2023-02-02 12:10] VITALS: BP 145/81; PULSE 95; RESP 21; TEMP 36.2; O2SAT 97; BMI 40.5
--- NOTE | 2023-02-02 13:06 | PM.HP.1 ---
History of Present Illness History of Present Illness Date Patient Seen: 02/02/23 Time Patient Seen: 13:06 Chief complaint: Dx Colonoscopy Narrative: 72-year-old woman with a positive fecal immunochemical test who is here for a diagnostic colonoscopy. No prior colonoscopy. She reports having hemorrhoids and abdominal pain secondary to a large ventral hernia but no unintentional weight loss significant or large volume blood per rectum. No family history of colon cancer [facility] Medical History Anterior epistaxis Epistaxis Hypertension Osteoarthritis Social History household members: spouse Smoking Status: Never smoker alcohol intake: current Meds Home Medications and Allergies Home Medications Medication Instructions Recorded Confirmed Type levothyroxine 25 mcg tablet 125 mcg PO QDAY ##0 07/20/16 02/02/23 History (Synthroid) amlodipine 10 mg tablet 10 mg PO DAILY 02/02/23 02/02/23 History atorvastatin 10 mg tablet 10 mg PO DAILY 02/02/23 02/02/23 History hydrochlorothiazide 25 mg tablet 25 mg PO DAILY 02/02/23 02/02/23 History ketoconazole 2 % shampoo 1 applic topical DAILY 02/02/23 02/02/23 History losartan 50 mg tablet 50 mg PO DAILY 02/02/23 02/02/23 History meloxicam 7.5 mg tablet 7.5 mg PO DAILY 02/02/23 02/02/23 History metformin 500 mg tablet,extended 500 mg PO DAILY 02/02/23 02/02/23 History release 24 hr metoprolol succinate 25 mg 25 mg PO DAILY 02/02/23 02/02/23 History tablet,extended release 24 hr Allergies Allergy/AdvReac Type Severity Reaction Status Date / Time No Known Drug Allergies Allergy Verified 02/02/23 12:09 Exam Vital Signs (past 8 hours): - 02/02/23 12:10 Temperature 97.2 F L Pulse Rate 95 H Respiratory Rate 21 Blood Pressure 145/81 H Pulse Oximetry 97 Oxygen Delivery Method Room Air Oxygen Delivery Method Room Air Narrative Exam Narrative: General adult woman alert oriented no acute distress Assessment & Plan Assessment and plan (1) Positive FIT (fecal immunochemical test): Status: Acute Assessment & Plan narrative: 72-year-old woman with a positive fecal immunochemical test here for diagnostic colonoscopy.Technical details were discussed. Risks, benefits, alternatives explained. Risks including but not limited to myocardial infarction, aspiration, bleeding, pain, missed lesion, incomplete examination, need for further radiographic studies, colonic perforation, and need for major abdominal surgery were discussed. All questions were answered to their satisfaction, and they are in agreement with this plan.
[2023-02-02 13:35] VITALS: BP 98/63; PULSE 89; RESP 13; TEMP 36.9; O2SAT 95
[2023-02-02 13:36] VITALS: BP 114/67; PULSE 87; RESP 25; O2SAT 95
--- NOTE | 2023-02-02 13:37 | PM.OP.COLON ---
Operative Date/Time/Diagnoses Date of procedure: 02/02/23 Time of procedure: 13:37 Pre-op diagnosis: Positive fecal immunochemical test Post-op diagnosis: same Procedure & Clinicians Study performed: Colonoscopy Same procedure as scheduled: Yes Indications: Positive fecal immunochemical test Surgeon: Wali aCo Procedure Notes Procedure in detail: The history and physical was performed/updated and the patient is ASA class is 2. The procedure was discussed in detail with the patient. Potential risks complications including infection, bleeding, missed diagnosis, perforation, need for surgery, and were explained. Their questions were answered and informed consent was obtained. Patient was brought to the procedure room and placed standard monitoring equipment. The patient's vital signs were monitored continuously throughout the entire procedure. Prior to starting time-out was performed. The patient was placed in the left lateral recumbent position. Procedural sedation was administered by anesthesia. Examination began with a thorough inspection of the perianal area there was no evidence of fissures, fistulae, external hemorrhoids or cutaneous malignancy. The colonoscopy scope was then placed into the anal canal and was advanced to the cecum, which was identified by the ileocecal valve, the appendiceal orifice and the confluence of the taenia. The scope was then slowly withdrawn examining colon thoroughly in all directions, irrigating it of any residual stool. Normal healthy colon. No masses polyps or inflammation. Retroflexion within the rectum demonstrates internal hemorrhoids. The patient tolerated the procedure well. They will be discharged once criteria are met. The prep was of good/excellent quality. The withdrawl time was 7 minutes. Specimen(s): none sent Impression: Normal colonoscopy Post-procedure Plan for aftercare: You can resume colorectal screening with fecal immunochemical test (FIT) Disposition: same day surgery
--- NOTE | 2023-02-02 13:41 | SUR.PHASEI ---
VSS. Patient sitting up drinking beverage without difficulty. Denies nausea, abdominal pain or SOB.
[2023-02-02 13:42] VITALS: BP 120/70; PULSE 90; RESP 16; O2SAT 98
== END 2023-02-02 13:49 | disposition home or self-care (01) ==
PROVIDERS: PCP Student in an Organized Health Care Education/Training Program; Referring Provider Surgery; Visit Provider Surgery
PROC: 0DJD8ZZ Inspection of Lower Intestinal Tract, Via Natural or Artificial Opening Endoscopic (ICD-10-PCS; CPT 45378; principal; 2023-02-02 12:45)
DX: R19.5 Other fecal abnormalities (principal); Z12.11 Encounter for screening for malignant neoplasm of colon; K64.8 Other hemorrhoids
CPT/HCPCS: G0121; 82962; J2250; J2704; J3010

== ENCOUNTER → 2024-02-28 14:09 | Outpatient (CLI) | payer MEDICARE, OTHER, SELFPAY ==
--- NOTE | 2024-02-28 14:12 | DI.RAD.S_ITS ---
PROCEDURE: XR DEXA AXIAL SKELETON INDICATIONS: ASYMPTOMATIC POSTMENOPAUSAL STATE COMPARISON: None. FINDINGS: Lumbar Spine: Bone mineral density 1.175 g/cm2, T score 1.2, baseline. Left Hip: Bone mineral density 1.032 g/cm2, T score 0.7, baseline. Left Femoral Neck: Bone mineral density 0.874 g/cm2, T score 0.2, baseline. Right Hip: Bone mineral density 0.928 g/cm2, T score -0.1, baseline. Right Femoral Neck: Bone mineral density 0.777 g/cm2, T score -0.6, baseline. Fracture Risk Calculation (when applicable): Cannot be calculated due to normal bone mineral density. IMPRESSION: Normal bone mineral density. Follow-up guidelines as follows: Osteoporosis: Consider a repeat DEXA and Vertebral Fracture Assessment (VFA) exam in 2 years or sooner if medically necessary, to reassess this patient's status. Osteopenia: Consider a repeat DEXA in 2-3 years to reassess this patient's status, or if there is a new clinical indication. Normal: Consider a repeat DEXA in 5 years or sooner, or if there is a new clinical indication. Dictated by: Cullen Nunn M.D. on 02/28/2024 at 15:35 Approved by: Cullen Nunn M.D. on 02/28/2024 at 15:37
== END ==
PROVIDERS: PCP Student in an Organized Health Care Education/Training Program; Referring Provider Student in an Organized Health Care Education/Training Program; Visit Provider Student in an Organized Health Care Education/Training Program
DX: Z78.0 Asymptomatic menopausal state (principal)
CPT/HCPCS: 77080